=== PATIENT | male | born 1965 | race Caucasian/White ===

== ENCOUNTER 2019-08-17 13:26 | Outpatient (CLI) | payer MEDICAID, SELFPAY ==
--- NOTE | 2019-08-17 13:38 | MR_ITS ---
WS: [id number] MRI LUMBAR SPINE WITH CONTRAST TECHNIQUE: Sagittal T1, T2 and STIR imaging. Axial T1 and T2 imaging. Post gadolinium imaging was obt ained. CLINICAL INFORMATION: POST-OPERATIVE STATE COMPARISON: CT 8 6019 and MRI 2 19,019 FINDINGS: Mild lumbar curve. No acute compression. Postoperative changes L3-4 laminectomy defects with fluid in the surgical bed. Enhancement along the surgical incision. Hemilaminectomy defects. No drainable flu id collections. Extensive paravertebral and small amount of dorsal and ventral epidural enhancement a t the L3-4 level. No evidence of epidural abscess. Enhancing cauda equina nerve root likely reactive. Moderate residual central canal stenosis L3-4 due to disc bulging with a broad-based central protrus ion with facet arthropathy and ligament flavum hypertrophy. L1-L2: Normal. L2-L3: Mild annular bulging. Mild central canal stenosis. Moderate facet arthropathy. Foramen are pat ent. L3-L4: Postoperative hemilaminectomy defects small amount of fluid in the surgical bed. Postoperative enhancement with epidural enhancement. No epidural abscess. Moderate residual central canal stenosis . Moderate bilateral foraminal narrowing. L4-L5: Mild annular bulging with narrowing of the subarticular recess bilaterally. Mild to moderate l eft greater than right foraminal narrowing. Mild central canal stenosis. Moderate facet arthropathy w ith ligament flavum hypertrophy. L5-S1: Mild annular bulging. Mild facet arthropathy. Spinal canal and foramen are patent. Visualized pelvic bony structures: Normal. Paravertebral soft tissues: Normal MR/MR lumbar spine wo/w con [id number] IMPRESSION: 1. Recent appearing postoperative changes L3-4 with laminectomy defects. Moder ate residual central canal stenosis due to disc bulging with facet arthropathy and ligament flavum hypertrophy. 2. Edema with a small amount of fluid in the surgical bed and laminectomy defe cts not drainable. Paravertebral enhancement likely postoperative. No evidence of epidural abscess. 3. Moderate bilateral L3-4 foraminal narrowing. 4. Mild central canal stenosis L4-5 with mild to moderate left foraminal narro wing. 5. Mild central canal stenosis L2-3.
== END 2019-08-17 13:27 | disposition home or self-care (01) ==
LOC: RADSHAW 13:28
PROVIDERS: Family Provider Family Medicine; Visit Provider Specialist
DX: M96.1 Postlaminectomy syndrome, not elsewhere classified (principal); M48.061 Spinal stenosis, lumbar region without neurogenic claudication
CPT/HCPCS: 72158; A9579

== ENCOUNTER 2019-09-16 09:46 | Outpatient (CLI) | payer SELFPAY ==
--- NOTE | 2019-09-16 09:52 | XR_ITS ---
WS: [id number] LUMBAR SPINE FLEXION AND EXTENSION TECHNIQUE: 3 views of the lumbar spine: Lateral neutral, flexion, and extension views. CLINICAL INFORMATION: POST OPERATIVE STATE COMPARISON: Radiograph May 25, [address] March 17, 2019 FINDINGS: Grade 1 anterolisthesis L3 on L4 measuring 4.8 mm is new compared to prior CT 8 . This increases on flexion to 6 mm and decreases on extension to 4 mm. Mild disc space narrowing worse at L3-L4 and L4-L5. Moderate facet arthropathy L4-L5 and L5-S1. Mild chronic appearing compression superior endpla te T11. XR/XR lumbar spine f/e only [id number] IMPRESSION: Grade 1 anterolisthesis L3 on L4 with mild flexion/extension instability
== END 2019-09-16 09:47 | disposition home or self-care (01) ==
LOC: WPI 09:51
PROVIDERS: Family Provider Family Medicine; Visit Provider Specialist
DX: Z98.890 Other specified postprocedural states (principal)
CPT/HCPCS: 72120

== ENCOUNTER 2021-05-27 21:11 | Emergency (ER) | payer MEDICARE, MEDICAID, SELFPAY ==
[2021-05-27 21:24] VITALS: BP 173/113; PULSE 89; RESP 18; TEMP 36.4; O2SAT 98; BMI 27.3
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
[2021-05-27] MEDS: HYDROcodone-acetaminophen 7.5-325 mg Tablet 1 TAB PO (22:39)
[2021-05-27 22:45] VITALS: BP 173/113; PULSE 98; RESP 18; O2SAT 98
--- NOTE | 2021-05-29 14:59 | DCPLANNER ---
service department manager had message to schedule a followup appointment for patient with ENT. service department manager emailed patients information to Vernell Ramirez and Mary at [facility] General Surgery / ENT clinic. Patients information will be printed and reviewed. Clinic will call patient with appointment information.
--- NOTE | 2021-06-22 10:34 | DCPLANNER ---
manager agency was told that clinic tried to call patient on 05.29.21, 05.30.21 and 06.01.21 and that a letter was sent to patient on 06.01.21. Clinic is waiting for patient to contact clinic to schedule an appointment.
== END 2021-05-27 22:40 | disposition home or self-care (01) ==
PROVIDERS: Emergency Provider Emergency Medicine; PCP Family Medicine
DX: S02.40CA Maxillary fracture, right side, initial encounter for closed fracture (principal); F17.210 Nicotine dependence, cigarettes, uncomplicated; Y04.2XXA Assault by strike against or bumped into by another person, initial encounter
CPT/HCPCS: 70450; 70486; 99283

== ENCOUNTER 2023-01-15 05:45 | Emergency (ER) | payer MEDICARE, MEDICAID, SELFPAY ==
[2023-01-15 05:47] VITALS: BP 162/107; PULSE 89; RESP 22; TEMP 36.2; O2SAT 92; BMI 25.8
--- NOTE | 2023-01-15 05:47 | XRR_ITS ---
PROCEDURE INFORMATION: Exam: XR Chest Exam date and time: 01/15/2023 6:02 AM Age: 57 years old Clinical indication: Cough and shortness of breath; Smoker's cough; Additional info: Dyspnea/cough TECHNIQUE: Imaging protocol: Radiologic exam of the chest. Views: 1 view. COMPARISON: MR shoulder LT wo/w con [id number] 02/25/2018 1:00 PM FINDINGS: Lungs: The lungs are somewhat hyperinflated with increased interstitial markings, likely representing COPD. No evidence of focal consolidation to suggest pneumonia. Pleural spaces: Unremarkable. No pleural effusion. No pneumothorax. Heart/Mediastinum: Stable cardiomediastinal silhouette. Bones/joints: Unremarkable. XR/XR chest 1V portable [id number] IMPRESSION: No evidence of focal consolidation. COPD changes. Superimposed pulmonary congestion can have this appearance.
[2023-01-15 06:02] LABS: Basophils # 0.1 10^3/uL (0.0-0.1); Basophils % 0.6 %; Eosinophils # 0.3 10^3/uL (0.0-0.8); Eosinophils % 2.3 %; Lymphocytes % 16.1 %; Mean Corpuscular HGB Conc 31.9 g/dL (30.0-36.0); Mean Corpuscular Hemoglobin 29.8 pg (28.0-34.0); Mean Corpuscular Volume 93.4 fl (80-94); Mean Platelet Volume 11.8 fL (7.4-10.4); Monocytes # 0.6 10^3/uL (0.2-0.9); Monocytes % 4.9 %; Neutrophils # 9.39 10^3/uL (1.8-7.7); Neutrophils % 75.7 %; Nucleated Red Blood Cells % 0 %; Platelet Count 246 10^3/cmm (130-400); Red Blood Count 5.03 10^6/uL (4.1-5.3); Red Cell Distribution Width 12.9 % (12.1-15.1); White Blood Count 12.4 10^3/uL (4.0-10.0)
--- NOTE | 2023-01-15 06:03 | ECG_ITS ---
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 Measurements Intervals [place] Rate: 81 P: 71 NE: 136 QRS: 73 QRSD: 80 T: 80 QT: 448 QTc: 521 Interpretive Statements SINUS RHYTHM POSSIBLE RIGHT ATRIAL ENLARGEMENT [0.25mV P-WAVE] LEFT ATRIAL ENLARGEMENT [-0.15mV P-WAVE IN V1/V2] POSSIBLE LEFT VENTRICULAR HYPERTROPHY [VOLTAGE CRITERIA PLUS LAE OR QRS WIDENING] PROLONGED QT INTERVAL No previous ECG available for comparison Electronically Signed On 01-15-2023 16:51:35 CDT by Yoly Aleman M.D. [id number]
--- NOTE | 2023-01-15 06:12 | ED_ITS ---
HPI - SOB/Dyspnea General: Chief Complaint: Shortness of Breath/Dyspnea Stated Complaint: SOB Time Seen by Provider: 01/15/23 05:47 Source: patient Mode of arrival: EMS History of Present Illness: HPI Narrative: 57-year-old male comes in complaining shortness of breath wheezing and cough. Progressively worse last few days. Patient had albuterol nebulizer in route with EMS and noted significant improvement she still he still had a little bit of wheezing when he arrived here mild productive cough no vomiting no diarrhea no fever sweats or chills MD elicited complaint: shortness of breath and cough Onset (ago): day(s) Timing: constant Severity: mild Exacerbating factors: exertion and coughing Relieving factors: rest and bronchodilators Associated symptoms: Reports chest congestion and cough; Deny abdominal pain, chest pain, diaphoresis, dizziness, extremity pain, fever(s), hemoptysis, lightheadedness, myalgias, nausea, orthopnea, palpitations, paresthesias, polydipsia, polyuria, rash, sense of impending doom, syncope or vomiting Treatment prior to arrival: bronchodilator Review of Systems Const: Denies: fever(s), chills, fatigue, malaise or diaphoresis ENMT: Denies: throat pain, ear or mastoid pain, nasal discharge or nasal congestion Card: Denies: chest pain, palpitations, lightheadedness, syncope or orthopnea Resp: Reports: dyspnea, non-productive cough, wheezing and chest congestion; Denies: hemoptysis GI: Denies: abdominal pain, nausea or vomiting : Denies: flank pain, dysuria, urinary frequency or urinary urgency Musc: Denies: neck pain, back pain or extremity pain Skin/Breast: Denies: rash or pruritus Neuro: Denies: dizziness Endo: Denies: polyuria or polydipsia PFSH ED PFSH: Medical History Hypertension Migraine Stenosis, spinal, lumbar Surgical History H/O shoulder surgery H/O skin graft Hx of tonsillectomy S/P lumbar laminectomy (05/25/19) Dr Hinojosa bilateral L3-4 laminotomy/foraminotomy. Family History Mother CAD (coronary artery disease) Father Diabetes Social History Smoking and tobacco status: current every day smoker Alcohol intake: current Alcohol intake frequency: few times a month Substance/Drug Use: never Lives independently: Yes Household members: spouse Marital status: Current occupational status: disabled Physical Exam Const: GENERAL APPEARANCE: cooperative and comfortable ORIENTATION/CONSCIOUSNESS: Yes awake, Yes oriented to person, Yes oriented to place and Yes oriented to time HENMT: COMMON NORMALS: normocephalic, atraumatic and hearing grossly normal bilaterally HEAD & SCALP: normocephalic and atraumatic Resp: COMMON NORMALS: normal respiratory effort, No retractions and No use of accessory muscles AUSCULTATION: wheezes Cardio: COMMON NORMALS: regular rate, regular rhythm and No murmurs present (Cardio) RATE: regular rate RHYTHM: regular rhythm GI: COMMON NORMALS: Soft to palpation and No hepatosplenomegaly present AUSCULTATION: Yes normoactive bowel sounds PALPATION: Yes Soft to palpation, No Tenderness to palpation present (GI), No Guarding due to palpation present (GI) and Yes No hepatosplenomegaly present Extremity: COMMON NORMALS: normal to inspection, capillary refill normal, no clubbing, cyanosis or edema, no calf tenderness and no pedal edema Neuro: SENSORIUM/ORIENTATION: Yes oriented to person, Yes oriented to place and Yes oriented to time Skin: COMMON NORMALS: no rashes or lesions noted GENERAL SKIN EXAM: no rashes or lesions noted Course Vital Signs: Vital signs: Vital Signs Temperature 97.1 F L 01/15/23 05:47 Pulse Rate 86 01/15/23 08:07 Respiratory Rate 16 01/15/23 08:07 Blood Pressure 164/98 01/15/23 08:07 Pulse Oximetry 96 01/15/23 08:55 Oxygen Delivery Me thod Room Air 01/15/23 08:07 Oxygen Flow Rate 3 01/15/23 07:30 MDM - SOB/Dyspnea Medical Decision Making Improved after steroids and DuoNeb here. Discharge patient home on steroid taper course of doxycycline start Symbicort 1 puff twice daily albuterol to use as needed set him up for pulmonology. Return if has further problems. We did evaluate for home O2 which was negative. Medical Records I reviewed the patient's medical records. Lab Data I reviewed the patient's lab results. 01/15/23 05:55 01/15/23 06:36 Labs/Radiology: Radiology Impressions Chest X-Ray 01/15/23 05:47 IMPRESSION: No evidence of focal consolidation. COPD changes. Superimposed pulmonary congestion can have this appearance. Laboratory Results WBC 12.4 10^3/uL (4.0-10.0) H 01/15/23 05:55 RBC 5.03 10^6/uL (4.1-5.3) 01/15/23 05:55 Hgb 15.0 g/dL (11.7-16.6) 01/15/23 05:55 Hct 47.0 % (42.0-52.0) 01/15/23 05:55 MCV 93.4 fl (80-94) 01/15/23 05:55 MCH 29.8 pg (28.0-34.0) 01/15/23 05:55 MCHC 31.9 g/dL (30.0-36.0) 01/15/23 05:55 RDW 12.9 % (12.1-15.1) 01/15/23 05:55 Plt Count 246 10^3/cmm (130-400) 01/15/23 05:55 MPV 11.8 fL (7.4-10.4) H 01/15/23 05:55 Neut % (Auto) 75.7 % 01/15/23 05:55 Lymph % (Auto) 16.1 % 01/15/23 05:55 [place] % (Auto) 4.9 % 01/15/23 05:55 Eos % (Auto) 2.3 % 01/15/23 05:55 Baso % (Auto) 0.6 % 01/15/23 05:55 Neut # (Auto) 9.39 10^3/uL (1.8-7.7) H 01/15/23 05:55 Lymph # (Auto) 2.0 10^3/uL (0.8-4.8) 01/15/23 05:55 [place] # (Auto) 0.6 10^3/uL (0.2-0.9) 01/15/23 05:55 Eos # (Auto) 0.3 10^3/uL (0.0-0.8) 01/15/23 05:55 Baso # (Auto) 0.1 10^3/uL (0.0-0.1) 01/15/23 05:55 Nucleated RBC % (auto) 0 % 01/15/23 05:55 Nucleated RBCs # 0.0 /100WBC 01/15/23 05:55 Sodium 140 mmol/L (136-145) 01/15/23 06:36 Potassium 3.4 mmol/L (3.5-5.1) L 01/15/23 06:36 Chloride 104 mmol/L (98-107) 01/15/23 06:36 Carbon Dioxide 26 mmol/L (22-29) 01/15/23 06:36 Anion Gap 13.4 (5-19) 01/15/23 06:36 BUN 18 mg/dL (6-20) 01/15/23 06:36 Creatinine 1.2 mg/dL (0.7-1.2) 01/15/23 06:36 GFR Calculation 62.2 mL/min (90-130) L 01/15/23 06:36 Glucose 86 mg/dL (65-115) 01/15/23 06:36 Calculated Osmolality 291 mOsm/kg (285-295) 01/15/23 06:36 Calcium 8.5 mg/dL (8.5-10.5) 01/15/23 06:36 Total Bilirubin 0.3 mg/dL (0.15-1.2) 01/15/23 06:36 AST 53 U/L (0-40) H 01/15/23 06:36 ALT 39 U/L (0-41) 01/15/23 06:36 Alkaline Phosphatase 89 U/L (40-130) 01/15/23 06:36 Total Protein 6.7 g/dL (6.6-8.7) 01/15/23 06:36 Albumin 3.8 g/dL (3.5-5.2) 01/15/23 06:36 Globulin 2.9 g/dL (1.3-4.6) 01/15/23 06:36 Discharge Plan Discharge Patient Disposition: Home Clinical Impression: Acute exacerbation of chronic obstructive airways disease Condition: Stable Prescriptions: New Symbicort 80-4.5 mcg/actuation HFA aerosol inhaler 2 puff inhalation BID Qty: 10.2 0RF doxycycline hyclate 100 mg capsule 100 mg PO BID 10 Days Qty: 20 0RF prednisone 20 mg tablet 20 mg PO TID Qty: 15 0RF Rx Instructions: 1 p.o. 3 times daily x3 days, 1 p.o. twice daily x2 days, 1 p.o. daily x2 days albuterol sulfate 90 mcg/actuation HFA aerosol inhaler 2 inh INHALATION Q4H PRN (Reason: shortness of breath or wheezing) Qty: 18 0RF No Action ibuprofen 800 mg tablet 800 mg PO BID oxycodone 15 mg tablet 15 mg PO BID PRN hydrocodone-acetaminophen 5-325 mg tablet 1 tab PO Q6H PRN (Reason: pain) Qty: 14 0RF Discharge Orders: Discharge ED (Routine); Ordered 01/15/23 Ordered By: Davis Quick Referrals: Nano Cohen DO [Primary Care Provider] - Patient Instructions: Opioid Safety, Pain Management Activity Restrictions/Additional Instructions: You are seen today for complaints shortness of breath. Chest x-ray shows evidence of COPD. 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 Follow-up with primary care doctor within the week. Coding Level of Care Code ED Box Sealing Machine Feeder for Zoë Arce
[2023-01-15 06:25] VITALS: BP 175/109; PULSE 76; RESP 16; O2SAT 92
[2023-01-15] MEDS: dexamethasone 10 mg/mL INJ IVP (06:40)
--- NOTE | 2023-01-15 06:52 | PC.NURSE ---
Received report from Gildardo MATHUR. Assuming care for patient at this time.
[2023-01-15 07:04] LABS: Alanine Aminotransferase 39 U/L (0-41); Albumin Level 3.8 g/dL (3.5-5.2); Alkaline Phosphatase 89 U/L (40-130); Aspartate Amino Transferase 53 U/L (0-40); Blood Urea Nitrogen 18 mg/dL (6-20); Calcium 8.5 mg/dL (8.5-10.5); Carbon Dioxide 26 mmol/L (22-29); Chloride 104 mmol/L (98-107); Creatinine Clr Calc Pharmacy 66.0529; Globulin 2.9 g/dL (1.3-4.6); Glomerular Filtration Rate 62.2 mL/min (90-130); Glucose 86 mg/dL (65-115); Osmolality Calculated 291 mOsm/kg (285-295); Sodium 140 mmol/L (136-145); Total Bilirubin 0.3 mg/dL (0.15-1.2); Total Protein 6.7 g/dL (6.6-8.7)
[2023-01-15 07:09] LABS: Anion Gap 13.4 (5-19); Potassium 3.4 mmol/L (3.5-5.1)
[2023-01-15] MEDS: ipratropium-albuterol 3 mL Neb INHALATION (07:27)
[2023-01-15 07:30] VITALS: PULSE 81; RESP 22; O2SAT 95
[2023-01-15 07:38] VITALS: PULSE 75
[2023-01-15] MEDS: hyDRALAzine 20 mg/mL INJ 1 mL 10 MG IVP (07:58)
[2023-01-15] MEDS: amlodipine 5 mg Tablet PO (07:59)
[2023-01-15] MEDS: acetaminophen 325 mg Tablet 650 MG PO (07:59)
[2023-01-15 08:07] VITALS: BP 164/98; PULSE 86; RESP 16; O2SAT 93
[2023-01-15 08:55] VITALS: O2SAT 93; O2SAT 96
--- NOTE | 2023-01-15 14:11 | DCPLANNER ---
Addendum entered by Chelo Ronquillo 03/22/23 10:43: Patient did not attend appointment Addendum entered by Chelo Ronquillo 01/22/23 10:36: Patient has a follow up appointment scheduled for March at 1:[address] Zapata at [facility]. Original Note: business segment manager had message to schedule a follow up appointment for patient with pulmonology. business segment manager sent patients information to the front office staff at [facility]. Patients information will be printed and reviewed. Clinic will call patient with appointment information.
== END 2023-01-15 09:51 | disposition home or self-care (01) ==
PROVIDERS: Emergency Provider Family Medicine; PCP Family Medicine
DX: J44.1 Chronic obstructive pulmonary disease with (acute) exacerbation (principal)
CPT/HCPCS: 71045; 80053; 85025; 93005; 94640; 96374; 96375; 99285; J0360; J1100

== ENCOUNTER 2023-02-08 16:47 | Emergency (ER) | payer MEDICARE, MEDICAID, SELFPAY ==
[2023-02-08 17:15] VITALS: BP 151/80; PULSE 73; RESP 16; TEMP 36.8; O2SAT 97; BMI 26.2
== END 2023-02-08 23:46 | disposition left against medical advice (07) ==
PROVIDERS: Emergency Provider Family Medicine; PCP Family Medicine
DX: Z53.21 Procedure and treatment not carried out due to patient leaving prior to being seen by health care provider (principal)

== ENCOUNTER 2023-02-27 07:03 | Emergency (ER) | payer MEDICARE, MEDICAID, SELFPAY ==
--- NOTE | 2023-02-27 07:23 | XRR_ITS ---
PROCEDURE INFORMATION: Exam: XR Chest Exam date and time: 02/27/2023 7:35 AM Age: 57 years old Clinical indication: Shortness of breath; Additional info: SOB TECHNIQUE: Imaging protocol: Radiologic exam of the chest. Views: 1 view. COMPARISON: CR (CHEST, ) 01/15/2023 6:02 AM FINDINGS: Lungs: Stable exam with hyperinflated lungs showing diffuse increased reticular lung markings and sequela of old granulomatous disease. No consolidation. Pleural spaces: Unremarkable. No pleural effusion. No pneumothorax. Heart/Mediastinum: Unremarkable. No cardiomegaly. Bones/joints: Bilateral shoulder degenerative changes with single screw at the left glenoid. XR/XR chest 1V portable [id number] IMPRESSION: Stable increased pulmonary reticulation without acute findings.
[2023-02-27 07:26] VITALS: BP 162/93; PULSE 80; TEMP 36.5; O2SAT 97; BMI 25.8
--- NOTE | 2023-02-27 07:34 | ECG_ITS ---
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
--- NOTE | 2023-02-27 07:37 | ED_ITS ---
Documented by User: ABENA May 02/27/23 12:32 HPI - SOB/Dyspnea General: Chief Complaint: Shortness of Breath/Dyspnea Stated Complaint: SOB Time Seen by Provider: 02/27/23 07:13 History of Present Illness: HPI Narrative: Patient is a 57-year-old male who comes to the ED with shortness of breath. He has been dealing with the shortness of breath for the past couple months and he has been told that he has the start of COPD. He states that approximately 3 days ago, he started developing body aches, productive cough with clear sputum and worsening shortness of breath. Denies any chest pain. Patient is a current tobacco smoker and has over a [id number] history. Denies any fevers, chest pain, abdominal pain, nausea/vomiting, bladder or bowel symptoms. Associated symptoms: Deny abdominal pain, chest pain, fever(s), nausea, orthopnea, palpitations or vomiting Review of Systems Const: Reports: body aches; Denies: fever(s), chills or fatigue Eyes: Denies: change in vision or eye discomfort ENMT: Denies: throat pain, odynophagia, nasal discharge or nasal congestion Card: Denies: chest pain, palpitations, edema, swelling of feet/ankles, dyspnea on exertion or orthopnea Resp: Reports: dyspnea and productive cough; Denies: non-productive cough GI: Denies: abdominal pain, nausea, vomiting, diarrhea, constipation or hematochezia : Denies: flank pain, difficulty urinating, dysuria or hematuria Musc: Denies: neck pain, back pain or extremity swelling Skin/Breast: Denies: rash or new lesions Neuro: Denies: headache(s), numbness in extremities or weakness in extremities PFS ED PFSH: Medical History Hypertension Migraine Stenosis, spinal, lumbar Surgical History H/O shoulder surgery H/O skin graft Hx of tonsillectomy S/P lumbar laminectomy (05/25/19) Dr Hinojosa bilateral L3-4 laminotomy/foraminotomy. Family History Mother CAD (coronary artery disease) Father Diabetes Social History Smoking and tobacco status: current every day smoker Alcohol intake: current Alcohol intake frequency: few times a month Substance/Drug Use: never Lives independently: Yes Household members: spouse Marital status: Current occupational status: disabled Physical Exam Const: COMMON NORMALS: no acute distress, patient oriented x3 and alert HENMT: COMMON NORMALS: normocephalic HEAD & SCALP: normocephalic MOUTH: Normal oral and palatal mucosa present THROAT: posterior oropharynx normal and uvula midline Neck/C-Spine: COMMON NORMALS: supple GENERAL: Yes normal visual inspection Resp: COMMON NORMALS: normal respiratory effort, No retractions and No use of accessory muscles AUSCULTATION: diminished lung sounds bilateral in the lower lung cruz Cardio: COMMON NORMALS: regular rate, regular rhythm, S1 normal heart sound present, S2 normal heart sound present, No gallops present (Cardio), No clicks present (Cardio), No murmurs present (Cardio) and Peripheral pulses 2+ throughout RATE: regular rate RHYTHM: regular rhythm HEART SOUNDS: S1 normal heart sound present and S2 normal heart sound present PERIPHERAL PULSES: Peripheral pulses 2+ throughout GI: COMMON NORMALS: Normal to inspection, nondistended, normoactive bowel sounds present, Soft to palpation, non-tender and no masses PALPATION: Yes Soft to palpation : COMMON NORMALS: Yes no CVA tenderness BLADDER/KIDNEY EXAM: Yes no CVA tenderness Back/Pelvis: COMMON NORMALS: no CVA tenderness Extremity: COMMON NORMALS: normal to inspection Neuro: COMMON NORMALS: patient oriented x3 SENSORIUM/ORIENTATION: Yes alert GAIT: Yes Normal gait present Skin: GENERAL SKIN EXAM: dry skin Course Vital Signs: Vital signs: Vital Signs Temperature 97.7 F 02/27/23 07:26 Pulse Rate 71 02/27/23 11:00 Respiratory Rate 18 02/27/23 11:00 Blood Pressure 157/98 02/27/23 11:00 Pulse Oximetry 99 02/27/23 11:00 Oxygen Delivery Me thod Room Air 02/27/23 11:00 MDM - SOB/Dyspnea Medical Decision Making Patient is a 57-year-old male who comes to the ED with shortness of breath, productive cough and body aches. Patient has a history of COPD. Denies any fevers, chest pain, vomiting, bladder or bowel symptoms. Vitals are stable. Exam of patient demonstrates diminished lung sounds in the lower lung cruz bilaterally but rest of exam is benign. Patient appears nontoxic and in no acute distress or pain. CBC and CMP were unremarkable. BNP was 4366 and baseline troponin 31 and 2-hour troponin was 27. Chest x-ray showed no acute findings. I talked with Dr. Quick about patient case and his elevated BNP, negative troponins and EKG showing prolonged QT interval. He recommended putting patient on amlodipine and contacting Dr. Aleman the motor power connector and have her review his EKGs. I contacted Dr. Aleman and she reviewed the EKGs and patient's labs she recommended patient have outpatient echocardiogram and set him up with Holter monitor. I placed an order with case management for patient to be referred to motor power connector for follow-up, outpatient echocardiogram and Holter monitor. Patient was stable for discharge home and diagnosed with COPD exacerbation, shortness of breath and prolonged QT interval. He was sent home with a prescription for an antibiotic, Medrol Dosepak, albuterol inhaler and amlodipine. Patient told that case management will be getting in touch with him to set up outpatient appointment for echocardiogram, motor power connector and Holter monitor. Strict return to ED precautions given. Patient understood and agreed with plan. Lab Data I reviewed the patient's lab results. 02/27/23 07:41 02/27/23 07:41 Labs/Radiology: Radiology Impressions Chest X-Ray 02/27/23 07:23 IMPRESSION: Stable increased pulmonary reticulation without acute findings. Laboratory Results WBC 10.6 10^3/uL (4.0-10.0) H 02/27/23 07:41 RBC 4.90 10^6/uL (4.1-5.3) 02/27/23 07:41 Hgb 14.7 g/dL (11.7-16.6) 02/27/23 07:41 Hct 45.1 % (42.0-52.0) 02/27/23 07:41 MCV 92.0 fl (80-94) 02/27/23 07:41 MCH 30.0 pg (28.0-34.0) 02/27/23 07:41 MCHC 32.6 g/dL (30.0-36.0) 02/27/23 07:41 RDW 13.0 % (12.1-15.1) 02/27/23 07:41 Plt Count 314 10^3/cmm (130-400) 02/27/23 07:41 MPV 10.3 fL (7.4-10.4) 02/27/23 07:41 Neut % (Auto) 68.8 % 02/27/23 07:41 Lymph % (Auto) 19.2 % 02/27/23 07:41 Hunt % (Auto) 7.4 % 02/27/23 07:41 Eos % (Auto) 3.6 % 02/27/23 07:41 Baso % (Auto) 0.7 % 02/27/23 07:41 Neut # (Auto) 7.33 10^3/uL (1.8-7.7) 02/27/23 07:41 Lymph # (Auto) 2.0 10^3/uL (0.8-4.8) 02/27/23 07:41 Hunt # (Auto) 0.8 10^3/uL (0.2-0.9) 02/27/23 07:41 Eos # (Auto) 0.4 10^3/uL (0.0-0.8) 02/27/23 07:41 Baso # (Auto) 0.1 10^3/uL (0.0-0.1) 02/27/23 07:41 Nucleated RBC % (auto) 0 % 02/27/23 07:41 Nucleated RBCs # 0.0 /100WBC 02/27/23 07:41 Sodium 138 mmol/L (136-145) 02/27/23 07:41 Potassium 4.2 mmol/L (3.5-5.1) 02/27/23 07:41 Chloride 104 mmol/L (98-107) 02/27/23 07:41 Carbon Dioxide 26 mmol/L (22-29) 02/27/23 07:41 Anion Gap 12.2 (5-19) 02/27/23 07:41 BUN 13 mg/dL (6-20) 02/27/23 07:41 Creatinine 1.1 mg/dL (0.7-1.2) 02/27/23 07:41 GFR Calculation 68.8 mL/min (90-130) L 02/27/23 07:41 Glucose 115 mg/dL (65-115) 02/27/23 07:41 Calculated Osmolality 287 mOsm/kg (285-295) 02/27/23 07:41 Calcium 8.4 mg/dL (8.5-10.5) L 02/27/23 07:41 Total Bilirubin 0.2 mg/dL (0.15-1.2) 02/27/23 07:41 AST 20 U/L (0-40) 02/27/23 07:41 ALT 20 U/L (0-41) 02/27/23 07:41 Alkaline Phosphatase 90 U/L (40-130) 02/27/23 07:41 Troponin T Baseline 31 ng/L (0-15) H 02/27/23 07:41 Troponin T 120 Minute 27.12 ng/L (0-15) H 02/27/23 09:48 Delta Troponin T -3.88 ABS# (0-10) L 02/27/23 09:48 NT-Pro-B Natriuret Pep 4366 pg/mL (0-125) H 02/27/23 07:41 Total Protein 6.2 g/dL (6.6-8.7) L 02/27/23 07:41 Albumin 4.0 g/dL (3.5-5.2) 02/27/23 07:41 Globulin 2.2 g/dL (1.3-4.6) 02/27/23 07:41 Influenza Type A Ag negative (Negative) 02/27/23 07:49 Influenza Type B Ag negative (Negative) 02/27/23 07:49 SARS-CoV-2 Ag (Rapid) negative (Negative) 02/27/23 07:49 EKG Data EKG 1: EKG Interpretation Date: 02/27/23 Interpretation: Sinus rhythm with marked sinus arrhythmia. No ST segment elevation or depres yeny seen. Discharge Plan Discharge Patient Disposition: Home Clinical Impression: COPD exacerbation, Shortness of breath, Prolonged Q-T interval on ECG Condition: Stable Prescriptions: New amlodipine 5 mg tablet 5 mg PO DAILY Qty: 30 0RF methylprednisolone 4 mg tablets,dose pack See Rx Instructions .ROUTE .COMPLEX Qty: 21 0RF Rx Instructions: orally per package directions albuterol sulfate 90 mcg/actuation HFA aerosol inhaler 2 inh inhalation Q6H PRN (Reason: shortness of breath or wheezing) Qty: 8.5 0RF No Action budesonide-formoterol [Symbicort] 80-4.5 mcg/actuation HFA aerosol inhaler 2 puff inhalation BID Qty: 10.2 0RF albuterol sulfate 90 mcg/actuation HFA aerosol inhaler 2 inh INHALATION Q4H PRN (Reason: shortness of breath or wheezing) Qty: 18 0RF Discharge Orders: Discharge ED (Routine); Ordered 02/27/23 Ordered By: Florencio Miller Referrals: Nano Cohen DO [Primary Care Provider] - Discharge Diet: Regular Discharge Activity: Increase activity as tolerated Patient Instructions: COPD (Chronic Obstructive Pulmonary Disease) (DC) Activity Restrictions/Additional Instructions: Follow-up with medical provider as directed. Case management should be contacted in the next several days to set up an appointment with motor power connector, outpatient echocardiogram and Holter monitor. Take medications as prescribed. Return to the ER or your medical provider if condition worsens. Please read and understand discharge instructions. Thank you for choosing [facility] for your healthcare needs today. Please realize this is an emergency room and that we are providing you with a medical screening exam and this may not be complete and all inclusive of all the testing and or work up that you may need to determine your ailment or severity of your illness. It is very important that you follow up as instructed or that you return to the Emergency Department should you have concerns or if your c ondition changes or worsens in any way. Coding Level of Care Code ED Billiard Table Repairer for Chg Fwd Documented by User: Davis Quick DO 02/27/23 15:01 HPI - SOB/Dyspnea General: Chief Complaint: Shortness of Breath/Dyspnea Stated Complaint: SOB Time Seen by Provider: 02/27/23 07:13 PFSH ED PFSH: Medical History Hypertension Migraine Stenosis, spinal, lumbar Surgical History H/O shoulder surgery H/O skin graft Hx of tonsillectomy S/P lumbar laminectomy (05/25/19) Dr Hinojosa bilateral L3-4 laminotomy/foraminotomy. Family History Mother CAD (coronary artery disease) Father Diabetes Social History Smoking and tobacco status: current every day smoker Alcohol intake: current Alcohol intake frequency: few times a month Substance/Drug Use: never Lives independently: Yes Household members: spouse Marital status: Current occupational status: disabled Course Vital Signs: Vital signs: Vital Signs Temperature 97.7 F 02/27/23 07:26 Pulse Rate 71 02/27/23 11:00 Respiratory Rate 18 02/27/23 11:00 Blood Pressure 157/98 02/27/23 11:00 Pulse Oximetry 99 02/27/23 11:00 Oxygen Delivery Me thod Room Air 02/27/23 11:00 MDM - SOB/Dyspnea Medical Decision Making Patient is a 57-year-old male who comes to the ED with shortness of breath, productive cough and body aches. Patient has a history of COPD. Denies any fevers, chest pain, vomiting, bladder or bowel symptoms. Vitals are stable. Exam of patient demonstrates diminished lung sounds in the lower lung cruz bilaterally but rest of exam is benign. Patient appears nontoxic and in no acute distress or pain. CBC and CMP were unremarkable. BNP was 4366 and baseline troponin 31 and 2-hour troponin was 27. Chest x-ray showed no acute findings. I talked with Dr. Quick about patient case and his elevated BNP, negative troponins and EKG showing prolonged QT interval. He recommended putting patient on amlodipine and contacting Dr. Aleman the motor power connector and have her review his EKGs. I contacted Dr. Aleman and she reviewed the EKGs and patient's labs she recommended patient have outpatient echocardiogram and set him up with Holter monitor. I placed an order with case management for patient to be referred to motor power connector for follow-up, outpatient echocardiogram and Hol ter monitor. Patient was stable for discharge home and diagnosed with COPD exacerbation, shortness of breath and prolonged QT interval. He was sent home with a prescription for an antibiotic, Medrol Dosepak, albuterol inhaler and amlodipine. Patient told that case management will be getting in touch with him to set up outpatient appointment for echocardiogram, motor power connector and Holter monitor. Strict return to ED precautions given. Patient understood and agreed with plan. Chart reviewed and patient discussed with midlevel. Agree with assessment and plan. Lab Data 02/27/23 07:41 02/27/23 07:41 Labs/Radiology: Radiology Impressions Chest X-Ray 02/27/23 07:23 IMPRESSION: Stable increased pulmonary reticulation without acute findings. Laboratory Results WBC 10.6 10^3/uL (4.0-10.0) H 02/27/23 07:41 RBC 4.90 10^6/uL (4.1-5.3) 02/27/23 07:41 Hgb 14.7 g/dL (11.7-16.6) 02/27/23 07:41 Hct 45.1 % (42.0-52.0) 02/27/23 07:41 MCV 92.0 fl (80-94) 02/27/23 07:41 MCH 30.0 pg (28.0-34.0) 02/27/23 07:41 MCHC 32.6 g/dL (30.0-36.0) 02/27/23 07:41 RDW 13.0 % (12.1-15.1) 02/27/23 07:41 Plt Count 314 10^3/cmm (130-400) 02/27/23 07:41 MPV 10.3 fL (7.4-10.4) 02/27/23 07:41 Neut % (Auto) 68.8 % 02/27/23 07:41 Lymph % (Auto) 19.2 % 02/27/23 07:41 Hunt % (Auto) 7.4 % 02/27/23 07:41 Eos % (Auto) 3.6 % 02/27/23 07:41 Baso % (Auto) 0.7 % 02/27/23 07:41 Neut # (Auto) 7.33 10^3/uL (1.8-7.7) 02/27/23 07:41 Lymph # (Auto) 2.0 10^3/uL (0.8-4.8) 02/27/23 07:41 Hunt # (Auto) 0.8 10^3/uL (0.2-0.9) 02/27/23 07:41 Eos # (Auto) 0.4 10^3/uL (0.0-0.8) 02/27/23 07:41 Baso # (Auto) 0.1 10^3/uL (0.0-0.1) 02/27/23 07:41 Nucleated RBC % (auto) 0 % 02/27/23 07:41 Nucleated RBCs # 0.0 /100WBC 02/27/23 07:41 Sodium 138 mmol/L (136-145) 02/27/23 07:41 Potassium 4.2 mmol/L (3.5-5.1) 02/27/23 07:41 Chloride 104 mmol/L (98-107) 02/27/23 07:41 Carbon Dioxide 26 mmol/L (22-29) 02/27/23 07:41 Anion Gap 12.2 (5-19) 02/27/23 07:41 BUN 13 mg/dL (6-20) 02/27/23 07:41 Creatinine 1.1 mg/dL (0.7-1.2) 02/27/23 07:41 GFR Calculation 68.8 mL/min (90-130) L 02/27/23 07:41 Glucose 115 mg/dL (65-115) 02/27/23 07:41 Calculated Osmolality 287 mOsm/kg (285-295) 02/27/23 07:41 Calcium 8.4 mg/dL (8.5-10.5) L 02/27/23 07:41 Total Bilirubin 0.2 mg/dL (0.15-1.2) 02/27/23 07:41 AST 20 U/L (0-40) 02/27/23 07:41 ALT 20 U/L (0-41) 02/27/23 07:41 Alkaline Phosphatase 90 U/L (40-130) 02/27/23 07:41 Troponin T Baseline 31 ng/L (0-15) H 02/27/23 07:41 Troponin T 120 Minute 27.12 ng/L (0-15) H 02/27/23 09:48 Delta Troponin T -3.88 ABS# (0-10) L 02/27/23 09:48 NT-Pro-B Natriuret Pep 4366 pg/mL (0-125) H 02/27/23 07:41 Total Protein 6.2 g/dL (6.6-8.7) L 02/27/23 07:41 Albumin 4.0 g/dL (3.5-5.2) 02/27/23 07:41 Globulin 2.2 g/dL (1.3-4.6) 02/27/23 07:41 Influenza Type A Ag negative (Negative) 02/27/23 07:49 Influenza Type B Ag negative (Negative) 02/27/23 07:49 SARS-CoV-2 Ag (Rapid) negative (Negative) 02/27/23 07:49 Discharge Plan Discharge Patient Disposition: Home Clinical Impression: COPD exacerbation, Shortness of breath, Prolonged Q-T interval on ECG Condition: Stable Prescriptions: New amlodipine 5 mg tablet 5 mg PO DAILY Qty: 30 0RF methylprednisolone 4 mg tablets,dose pack See Rx Instructions .ROUTE .COMPLEX Qty: 21 0RF Rx Instructions: orally per package directions albuterol sulfate 90 mcg/actuation HFA aerosol inhaler 2 inh inhalation Q6H PRN (Reason: shortness of breath or wheezing) Qty: 8.5 0RF No Action budesonide-formoterol [Symbicort] 80-4.5 mcg/actuation HFA aerosol inhaler 2 puff inhalation BID Qty: 10.2 0RF albuterol sulfate 90 mcg/actuation HFA aerosol inhaler 2 inh INHALATION Q4H PRN (Reason: shortness of breath or wheezing) Qty: 18 0RF Discharge Orders: Discharge ED (Routine); Ordered 02/27/23 Ordered By: Florencio Miller Referrals: Nano Cohen DO [Primary Care Provider] - Discharge Diet: Regular Discharge Activity: Increase activity as tolerated Patient Instructions: COPD (Chronic Obstructive Pulmonary Disease) (DC) Activity Restrictions/Additional Instructions: Follow-up with medical provider as directed. Case management should be contacted in the next several days to set up an appointment with motor power connector, outpatient echocardiogram and Holter monitor. Take medications as prescribed. Return to the ER or your medical provider if condition worsens. Please read and understand discharge instructions. Thank you for choosing [facility] for your healthcare needs today. Please realize this is an emergency room and that we are providing you with a medical screening exam and this may not be complete and all inclusive of all the testing and or work up that you may need to determine your ailment or severity of your illness. It is very important that you follow up as instructed or that you return to the Emergency Department should you have concerns or if your condition changes or worsens in any way. Coding Level of Care Code ED Billiard Table Repairer for Zoë Arce
[2023-02-27 07:48] LABS: Basophils # 0.1 10^3/uL (0.0-0.1); Basophils % 0.7 %; Eosinophils # 0.4 10^3/uL (0.0-0.8); Eosinophils % 3.6 %; Hematocrit 45.1 % (42.0-52.0); Hemoglobin 14.7 g/dL (11.7-16.6); Lymphocytes % 19.2 %; Mean Corpuscular HGB Conc 32.6 g/dL (30.0-36.0); Mean Platelet Volume 10.3 fL (7.4-10.4); Monocytes # 0.8 10^3/uL (0.2-0.9); Monocytes % 7.4 %; Neutrophils # 7.33 10^3/uL (1.8-7.7); Neutrophils % 68.8 %; Nucleated Red Blood Cells % 0 %; Platelet Count 314 10^3/cmm (130-400); White Blood Count 10.6 10^3/uL (4.0-10.0)
[2023-02-27 07:50] VITALS: BP 140/90; PULSE 88; RESP 18; O2SAT 95
[2023-02-27 07:57] VITALS: PULSE 78; RESP 18; O2SAT 95
[2023-02-27] MEDS: ipratropium-albuterol 3 mL Neb 6 ML INHALATION (07:59)
[2023-02-27 08:04] VITALS: PULSE 73
[2023-02-27 08:07] LABS: Troponin(5th) Baseline 31 ng/L (0-15)
[2023-02-27] MEDS: methylPREDNISolone sod succ 125 mg SDV IVP (08:11)
[2023-02-27] MEDS: water for injection-sterile 10 ML (08:11)
[2023-02-27 08:12] LABS: Influenza A by IFA negative (Negative); Influenza B by IFA negative (Negative); SARS Covid-2 Antigen negative (Negative)
[2023-02-27 08:15] LABS: Alanine Aminotransferase 20 U/L (0-41); Alkaline Phosphatase 90 U/L (40-130); Aspartate Amino Transferase 20 U/L (0-40); Blood Urea Nitrogen 13 mg/dL (6-20); Calcium 8.4 mg/dL (8.5-10.5); Carbon Dioxide 26 mmol/L (22-29); Chloride 104 mmol/L (98-107); Globulin 2.2 g/dL (1.3-4.6); Glomerular Filtration Rate 68.8 mL/min (90-130); Glucose 115 mg/dL (65-115); NT Pro B Type Natriuretic Pept 4366 pg/mL (0-125); Osmolality Calculated 287 mOsm/kg (285-295); Sodium 138 mmol/L (136-145); Total Bilirubin 0.2 mg/dL (0.15-1.2); Total Protein 6.2 g/dL (6.6-8.7)
[2023-02-27 08:18] LABS: Anion Gap 12.2 (5-19); Potassium 4.2 mmol/L (3.5-5.1)
[2023-02-27 09:09] VITALS: BP 147/97; PULSE 86; RESP 18; O2SAT 99
--- NOTE | 2023-02-27 09:43 | ECG_ITS ---
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 Measurements Intervals [place] Rate: 72 P: 48 NE: 140 QRS: 70 QRSD: 82 T: 34 QT: 478 QTc: 527 Interpretive Statements SINUS RHYTHM WITH OCCASIONAL SUPRAVENTRICULAR PREMATURE COMPLEXES NONSPECIFIC ST & T-WAVE ABNORMALITY PROLONGED QT INTERVAL CRITICAL TEST RESULT Compared to ECG 01/15/2023 06:03:37 T-wave abnormality now present Atrial abnormality no longer present Electronically Signed On 02-27-2023 21:21:36 CDT by Elham Johnson M.D. [email or web address]
[2023-02-27 10:31] LABS: Troponin 5 2HR 27.12 ng/L (0-15)
[2023-02-27 10:35] LABS: Troponin 5 2HR Delta -3.88 ABS# (0-10)
[2023-02-27 11:00] VITALS: BP 157/98; PULSE 71; RESP 18; O2SAT 99
--- NOTE | 2023-02-28 10:12 | DCPLANNER ---
Addendum entered by Chelo Ronquillo 03/07/23 06:44: Patient had a follow up appointment with heart care - this appointment was rescheduled Addendum entered by Chelo Ronquillo 03/01/23 13:10: Patient has a follow up appointment scheduled for Saturday, March 04, 2023 at 2:[address] Del Toro at [facility]. Original Note: sales engineer account manager had message to schedule a follow up appointment for patient with cardiology. sales engineer account manager sent patients information to the front office staff at [facility]. Patients information will be printed and reviewed. Clinic will call patient with appointment information.
--- NOTE | 2023-02-28 15:10 | DCPLANNER ---
Addendum entered by Chelo Ronquillo 03/20/23 11:32: Patient had an echo scheduled - patient did attend appointment Patient had a 48 hour monitor scheduled with heart care - patient did not attend appointment. Original Note: social work case manager had message to schedule an outpatient echocardiogram and a holter monitor for patient. social work case manager faxed signed orders to centralized scheduling and heart care, who will call patient with appointment information.
== END 2023-02-27 12:35 | disposition home or self-care (01) ==
PROVIDERS: Emergency Provider Physician Assistant; PCP Family Medicine
DX: J44.1 Chronic obstructive pulmonary disease with (acute) exacerbation (principal); R94.31 Abnormal electrocardiogram [ECG] [EKG]; Z20.822 Contact with and (suspected) exposure to COVID-19; F17.210 Nicotine dependence, cigarettes, uncomplicated; I10 Essential (primary) hypertension
CPT/HCPCS: 36415; 71045; 80053; 83880; 84484; 85025; 87426; 87804; 93005; 94640; 96374; 99285; J2930

== ENCOUNTER 2023-03-13 09:10 | Outpatient (CLI) | payer MEDICARE, SELFPAY ==
--- NOTE | 2023-03-13 09:20 | USCV_ITS ---
Christian Sparks Age: 57 Gender: M : 1965 Exam Date: 03/13/2023 09:45 Ordering Phys: Florencio Miller Technologist: Rah Francois Exam Location: [facility] – [place] Indication: sob BP: 128 / 60 HR: 92 Rhythm: Sinus Technical Quality: Adequate MEASUREMENTS (Male / Female) Normal Values 2D ECHO LVOT Diameter 2.1 cm LV Ejection Fraction MOD 2C 50.5 % LV Ejection Fraction 2C AL 51.8 % LA Diameter 3.5 cm LA Width 3.5 cm LA Height 4.7 cm RA Width 3.0 cm RA Height 4.8 cm Aorta at Sinotubular Diameter 2.4 cm IVC Diameter 1.5 cm M-MODE Aortic Annulus Diameter 2.3 cm LA Ao Ratio MM 1.6 MV E Point Septal Separation 1.0 cm DOPPLER AV Peak Velocity 207.5 cm/s LVOT Peak Velocity 134.0 cm/s AV Area Cont Eq vti 2.3 cm squared AV Area Cont Eq pk 2.2 cm squared MV Peak Velocity 116.0 cm/s MV Area PHT 5.5 cm squared Mitral E to A Ratio 1.6 MV E' Velocity 42.5 cm/s Mitral E to MV E' Ratio 9.8 Mitral E to LV E' Lateral Ratio 9.8 Mitral E to LV E' Septal Ratio 10.0 TR Peak Velocity 188.9 cm/s TR Peak Gradient 14.3 mmHg TR Mean Velocity 138.7 cm/s TR Mean Gradient 8.5 mmHg TR Velocity Time Integral 36.4 cm Right Atrial Pressure 3.0 mmHg Pulmonary Artery Systolic Pressu 17.3 mmHg PV Peak Velocity 107.7 cm/s RV Acceleration Time 0.1 s RV Ejection Time 0.2 s RV AcT/ET 0.4 FINDINGS Left Ventricle Left ventricle is dilated. LV systolic function is mildly reduced with EF of 40-45 %. Mild global hypokinesis with mild to moderate hypokinesis of anterior and anterolateral thayer. Right Ventricle Normal in size and function Right Atrium Normal in size Left Atrium Normal in size Mitral Valve Structurally normal mitral valve. Trace mitral regurgitation Aortic Valve Structurally normal aortic valve. Mild aortic stenosis with aortic valve area of 2.1 cm squared and mean gradient across aortic valve of 9 mmHg. Tricuspid Valve Mild tricuspid regurgitation. Insufficient TR jet to calculate RVSP. Pulmonic Valve Not well-visualized Pericardium Normal Aorta Normal in size IVC Appears to be normal CONCLUSIONS Left ventricle is dilated. LV systolic function is mildly reduced with EF of 40 to 45%. Above-mentioned regional wall motion normalities. Trace mitral regurgitation Mild aortic stenosis Mild tricuspid regurgitation No comparison studies are available Gatito Del Toro MD (Electronically Signed) Final Date: 26 March 2023 21:13 S
== END 2023-03-13 09:11 | disposition home or self-care (01) ==
PROVIDERS: PCP Family Medicine; Visit Provider Physician Assistant
DX: R06.02 Shortness of breath (principal); R94.31 Abnormal electrocardiogram [ECG] [EKG]; I35.0 Nonrheumatic aortic (valve) stenosis; I07.1 Rheumatic tricuspid insufficiency
CPT/HCPCS: 93306

== ENCOUNTER 2023-03-18 02:52 | Emergency (ER) | payer MEDICARE, SELFPAY ==
[2023-03-18 02:59] VITALS: BP 207/135; PULSE 96; RESP 28; TEMP 36.4; O2SAT 87; BMI 26.6
--- NOTE | 2023-03-18 03:01 | ECG_ITS ---
[facility] Test Date: 2023-03-18 Pat Name: Christian Sparks Department: Room: Gender: Male Information Operator: : 1965 Requested By: Paco Nice Order Number: [id number] Jesús MD: Elham Johnson M.D. Measurements Intervals [place] Rate: 105 P: 70 ME: 132 QRS: 55 QRSD: 81 T: 73 QT: 381 QTc: 505 Interpretive Statements SINUS TACHYCARDIA WITH FREQUENT VENTRICULAR PREMATURE COMPLEXES POSSIBLE LEFT ATRIAL ENLARGEMENT [-0.1mV P-WAVE IN V1/V2] POSSIBLE LEFT VENTRICULAR HYPERTROPHY [VOLTAGE CRITERIA PLUS LAE OR QRS WIDENING] Compared to ECG 02/27/2023 09:43:32 Ventricular premature complex(es) now present Sinus rhythm no longer present T-wave abnormality no longer present Prolonged QT interval no longer present Electronically Signed On 03-18-2023 22:40:04 CDT by Elham Johnson M.D. [id number]
--- NOTE | 2023-03-18 03:03 | XRR_ITS ---
PROCEDURE INFORMATION: Exam: XR Chest Exam date and time: 03/18/2023 3:07 AM Age: 57 years old Clinical indication: Shortness of breath; Patient HX: C/O SOB TECHNIQUE: Imaging protocol: Radiologic exam of the chest. Views: 1 view. COMPARISON: CR XR chest 1V portable [id number] 02/27/2023 7:35 AM FINDINGS: Lungs: Emphysematous lung changes are suspected. Prominent reticular interstitial lung changes noted. Peripheral intra lobular septal thickening. No consolidation. Hyperinflation. Pleural spaces: Unremarkable. No pleural effusion. No pneumothorax. Heart/Mediastinum: Unremarkable. No cardiomegaly. Bones/joints: Unremarkable. XR/XR chest 1V portable [id number] IMPRESSION: Emphysematous lung disease. Query interstitial edema. No focal acute pulmonary consolidation.
[2023-03-18] MEDS: aspirin 81 mg Chew Tablet 324 MG PO (03:20)
[2023-03-18 03:21] LABS: Basophils # 0.1 10^3/uL (0.0-0.1); Basophils % 0.7 %; Eosinophils # 0.3 10^3/uL (0.0-0.8); Eosinophils % 2.7 %; Hematocrit 48.8 % (42.0-52.0); Hemoglobin 15.9 g/dL (11.7-16.6); Lymphocytes # 1.8 10^3/uL (0.8-4.8); Lymphocytes % 17.9 %; Mean Corpuscular HGB Conc 32.6 g/dL (30.0-36.0); Mean Corpuscular Hemoglobin 29.8 pg (28.0-34.0); Mean Corpuscular Volume 91.4 fl (80-94); Mean Platelet Volume 10.6 fL (7.4-10.4); Monocytes # 0.6 10^3/uL (0.2-0.9); Monocytes % 5.5 %; Neutrophils # 7.23 10^3/uL (1.8-7.7); Neutrophils % 72.7 %; Nucleated Red Blood Cells % 0 %; Platelet Count 273 10^3/cmm (130-400); Red Blood Count 5.34 10^6/uL (4.1-5.3); Red Cell Distribution Width 13.2 % (12.1-15.1)
[2023-03-18] MEDS: nitroglycerin 0.4 mg sublingual Tablet SUBLINGUAL (03:22)
[2023-03-18 03:27] VITALS: BP 163/109; PULSE 86; RESP 16; O2SAT 91
--- NOTE | 2023-03-18 03:27 | ED_ITS ---
HPI - SOB/Dyspnea General: Chief Complaint: Shortness of Breath/Dyspnea Stated Complaint: Sob Time Seen by Provider: 03/18/23 02:53 Source: patient Mode of arrival: ambulatory Limitations: no limitations History of Present Illness: HPI Narrative: 57-year-old male has history of hypertension along with COPD states been having some increasing dyspnea over the last 3 to 4 weeks. He states that tonight it was much worse when he laid down to rest he states it seems to be worse with laying flat. Had some slight chest pressure he rates a 2 out of 10. He denies any cough or fever. Associated symptoms: Reports chest pain; Deny abdominal pain, fever(s), nausea or vomiting Review of Systems Const: Denies: fever(s), chills, body aches or change in appetite ENMT: Denies: throat pain or dental pain Card: Reports: chest pain Resp: Reports: dyspnea GI: Denies: abdominal pain, nausea, vomiting or diarrhea Musc: Denies: neck pain or back pain Skin/Breast: Denies: rash Neuro: Denies: headache(s) PFSH ED PFSH: Medical History Hypertension Migraine Stenosis, spinal, lumbar Surgical History H/O shoulder surgery H/O skin graft Hx of tonsillectomy S/P lumbar laminectomy (05/25/19) Dr Hinojosa bilateral L3-4 laminotomy/foraminotomy. Family History Mother CAD (coronary artery disease) Father Diabetes Social History Smoking and tobacco status: current every day smoker Alcohol intake: current Alcohol intake frequency: few times a month Substance/Drug Use: never Lives independently: Yes Household members: spouse Marital status: Current occupational status: disabled Physical Exam Const: COMMON NORMALS: patient oriented x3 HENMT: COMMON NORMALS: normocephalic and atraumatic HEAD & SCALP: normocephalic and atraumatic Neck/C-Spine: COMMON NORMALS: full ROM and supple Chest: COMMONS NORMALS: normal inspection of the chest and normal palpation of entire chest wall Resp: COMMON NORMALS: normal respiratory effort, No retractions and No use of accessory muscles Cardio: COMMON NORMALS: regular rate, regular rhythm and No murmurs present (Cardio) RATE: regular rate RHYTHM: regular rhythm GI: COMMON NORMALS: Normal to inspection, nondistended, normoactive bowel sounds present, Soft to palpation, non-tender and no masses PALPATION: Yes Soft to palpation Extremity: COMMON NORMALS: normal to inspection and full ROM Neuro: COMMON NORMALS: patient oriented x3, moves all extremities and no focal motor deficits Psych: COMMON NORMALS: mental status grossly normal, Normal thought process present and cooperative THOUGHT PROCESS: Normal thought process present Skin: COMMON NORMALS: no rashes or lesions noted and no wounds GENERAL SKIN EXAM: no rashes or lesions noted Course Vital Signs: Vital signs: Vital Signs Temperature 97.5 F L 03/18/23 02:59 Pulse Rate 82 03/18/23 03:59 Respiratory Rate 22 H 03/18/23 03:59 Blood Pressure 150/103 03/18/23 03:45 Pulse Oximetry 96 03/18/23 03:59 Oxygen Delivery Me thod Nasal Cannula 03/18/23 03:59 Oxygen Flow Rate 2 03/18/23 03:59 MDM - SOB/Dyspnea Medical Decision Making Patient presents here with shortness of breath he is also having chest pain. 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 I informed him that he is on oxygen appears to have heart failure and strongly recommended being admitted because he could get worse and this could even be life-threatening. He understands those risks and signed out AMA I did prescribe him Lasix he is to return if worsening and follow-up with PCP Medical Records I reviewed the patient's medical records. Lab Data I reviewed the patient's lab results. 03/18/23 03:16 03/18/23 03:16 Labs/Radiology: Radiology Impressions Chest X-Ray 03/18/23 03:03 IMPRESSION: Emphysematous lung disease. Query interstitial edema. No focal acute pulmonary consolidation. Laboratory Results WBC 10.0 10^3/uL (4.0-10.0) 03/18/23 03:16 RBC 5.34 10^6/uL (4.1-5.3) H 03/18/23 03:16 Hgb 15.9 g/dL (11.7-16.6) 03/18/23 03:16 Hct 48.8 % (42.0-52.0) 03/18/23 03:16 MCV 91.4 fl (80-94) 03/18/23 03:16 MCH 29.8 pg (28.0-34.0) 03/18/23 03:16 MCHC 32.6 g/dL (30.0-36.0) 03/18/23 03:16 RDW 13.2 % (12.1-15.1) 03/18/23 03:16 Plt Count 273 10^3/cmm (130-400) 03/18/23 03:16 MPV 10.6 fL (7.4-10.4) H 03/18/23 03:16 Neut % (Auto) 72.7 % 03/18/23 03:16 Lymph % (Auto) 17.9 % 03/18/23 03:16 [place] % (Auto) 5.5 % 03/18/23 03:16 Eos % (Auto) 2.7 % 03/18/23 03:16 Baso % (Auto) 0.7 % 03/18/23 03:16 Neut # (Auto) 7.23 10^3/uL (1.8-7.7) 03/18/23 03:16 Lymph # (Auto) 1.8 10^3/uL (0.8-4.8) 03/18/23 03:16 [place] # (Auto) 0.6 10^3/uL (0.2-0.9) 03/18/23 03:16 Eos # (Auto) 0.3 10^3/uL (0.0-0.8) 03/18/23 03:16 Baso # (Auto) 0.1 10^3/uL (0.0-0.1) 03/18/23 03:16 Nucleated RBC % (auto) 0 % 03/18/23 03:16 Nucleated RBCs # 0.0 /100WBC 03/18/23 03:16 PT 12.80 SECONDS (12.1-14.9) 03/18/23 03:16 INR 0.94 (0.8-1.2) 03/18/23 03:16 Sodium 143 mmol/L (136-145) 03/18/23 03:16 Potassium 3.8 mmol/L (3.5-5.1) 03/18/23 03:16 Chloride 104 mmol/L (98-107) 03/18/23 03:16 Carbon Dioxide 27 mmol/L (22-29) 03/18/23 03:16 Anion Gap 15.8 (5-19) 03/18/23 03:16 BUN 19 mg/dL (6-20) 03/18/23 03:16 Creatinine 1.6 mg/dL (0.7-1.2) H 03/18/23 03:16 GFR Calculation 44.6 mL/min (90-130) L 03/18/23 03:16 Glucose 104 mg/dL (65-115) 03/18/23 03:16 Calculated Osmolality 299 mOsm/kg (285-295) H 03/18/23 03:16 Calcium 9.2 mg/dL (8.5-10.5) 03/18/23 03:16 Total Bilirubin 0.2 mg/dL (0.15-1.2) 03/18/23 03:16 AST 20 U/L (0-40) 03/18/23 03:16 ALT 20 U/L (0-41) 03/18/23 03:16 Alkaline Phosphatase 97 U/L (40-130) 03/18/23 03:16 Troponin T Baseline 39 ng/L (0-15) H 03/18/23 03:16 NT-Pro-B Natriuret Pep 8092 pg/mL (0-125) H 03/18/23 03:16 Total Protein 6.9 g/dL (6.6-8.7) 03/18/23 03:16 Albumin 4.4 g/dL (3.5-5.2) 03/18/23 03:16 Globulin 2.5 g/dL (1.3-4.6) 03/18/23 03:16 Discharge Plan Discharge Patient Disposition: Left Against Medical Advice Clinical Impression: Chest pain, Elevated brain natriuretic peptide (BNP) level, Dyspnea Condition: Stable Prescriptions: New Lasix 40 mg tablet 40 mg PO DAILY Qty: 30 0RF No Action budesonide-formoterol [Symbicort] 80-4.5 mcg/actuation HFA aerosol inhaler 2 puff inhalation BID Qty: 10.2 0RF albuterol sulfate 90 mcg/actuation HFA aerosol inhaler 2 inh INHALATION Q4H PRN (Reason: shortness of breath or wheezing) Qty: 18 0RF amlodipine 5 mg tablet 5 mg PO DAILY Qty: 30 0RF methylprednisolone 4 mg tablets,dose pack See Rx Instructions .ROUTE .COMPLEX Qty: 21 0RF Rx Instructions: orally per package directions albuterol sulfate 90 mcg/actuation HFA aerosol inhaler 2 inh inhalation Q6H PRN (Reason: shortness of breath or wheezing) Qty: 8.5 0RF Referrals: Nano Cohen DO [Primary Care Provider] - Discharge Diet: Advance as tolerated Discharge Activity: Resume usual activity Coding Level of Care Code ED 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
[2023-03-18 03:40] LABS: INR 0.94 (0.8-1.2)
[2023-03-18] MEDS: methylPREDNISolone sod succ 125 MG in water for injection-sterile 2 ML 24 MG IVP (03:44)
[2023-03-18 03:45] VITALS: BP 150/103; PULSE 83; RESP 16; O2SAT 93
[2023-03-18 03:46] LABS: Troponin(5th) Baseline 39 ng/L (0-15)
[2023-03-18 03:53] LABS: Alanine Aminotransferase 20 U/L (0-41); Albumin Level 4.4 g/dL (3.5-5.2); Alkaline Phosphatase 97 U/L (40-130); Anion Gap 15.8 (5-19); Aspartate Amino Transferase 20 U/L (0-40); Blood Urea Nitrogen 19 mg/dL (6-20); Calcium 9.2 mg/dL (8.5-10.5); Carbon Dioxide 27 mmol/L (22-29); Chloride 104 mmol/L (98-107); Globulin 2.5 g/dL (1.3-4.6); Glomerular Filtration Rate 44.6 mL/min (90-130); Glucose 104 mg/dL (65-115); NT Pro B Type Natriuretic Pept 8092 pg/mL (0-125); Osmolality Calculated 299 mOsm/kg (285-295); Potassium 3.8 mmol/L (3.5-5.1); Sodium 143 mmol/L (136-145); Total Bilirubin 0.2 mg/dL (0.15-1.2); Total Protein 6.9 g/dL (6.6-8.7)
[2023-03-18 03:59] VITALS: PULSE 82; RESP 22; O2SAT 96
[2023-03-18] MEDS: ipratropium-albuterol 3 mL Neb INHALATION (03:59)
[2023-03-18] MEDS: FUROsemide 10 mg/mL SDV 4mL 40 MG IVP (04:02)
[2023-03-18 04:23] VITALS: BP 150/103; PULSE 82; RESP 22; TEMP 36.4; O2SAT 96
== END 2023-03-18 04:25 | disposition left against medical advice (07) ==
PROVIDERS: Emergency Provider Emergency Medicine; PCP Family Medicine
DX: R07.89 Other chest pain (principal); R06.02 Shortness of breath; R79.89 Other specified abnormal findings of blood chemistry; Z53.29 Procedure and treatment not carried out because of patient's decision for other reasons
CPT/HCPCS: 71045; 80053; 83880; 84484; 85025; 85610; 93005; 94640; 96365; 96375; 99285; J1940; J2930

== ENCOUNTER 2023-03-24 09:36 | Emergency (ER) | payer MEDICARE, SELFPAY ==
--- NOTE | 2023-03-24 09:38 | XRR_ITS ---
PROCEDURE INFORMATION: Exam: XR Chest Exam date and time: 03/24/2023 9:46 AM Age: 57 years old Clinical indication: Shortness of breath; Additional info: Cp SOB TECHNIQUE: Imaging protocol: Radiologic exam of the chest. Views: 1 view. COMPARISON: CR (CHEST, ) 03/18/2023 3:07 AM FINDINGS: Lungs: There is no consolidation. Bilateral hilar calcifications and multiple dense nodules in the left lower lung are consistent with healed granulomas. Peripheral interlobular septal thickening is decreased since 03/18/2023. Pleural spaces: There is no pleural effusion or pneumothorax. Heart/Mediastinum: The cardiac silhouette is within normal limits of size given AP technique. Bones/joints: Bones are unremarkable. XR/XR chest 1V portable [id number] IMPRESSION: 1. No acute findings. 2. Decreased peripheral interlobular septal thickening since 03/18/2023 suggest decreasing interstitial edema.
[2023-03-24 09:39] VITALS: BP 178/109; PULSE 88; RESP 18; O2SAT 92
--- NOTE | 2023-03-24 09:41 | ED_ITS ---
HPI - Chest Pain General: Chief Complaint: Chest Pain Stated Complaint: chest pain / hard time breathing Time Seen by Provider: 03/24/23 09:38 History of Present Illness: Christian Sparks is a 57-year-old man that presents to the emergency department with chest pain and shortness of breath. Patient reports his chest pain and shortness of breath approximately 1 month ago. There are times when it is exacerbated and he finds it very difficult to breathe. It is difficult to lay flat He states that the pain is in the center of his chest and is a pressure. Denies radiation of pain. History includes COPD and hypertension. Patient was seen on 03/18/23 and was in heart failure. He was going to be admitted but signed out AMA. At that time his troponin was 39 and BNP was greater than 8000. Associated symptoms: Reports dyspnea and nausea; Deny abdominal pain, fever(s), palpitations or vomiting Review of Systems General: Reports: 10 or more systems reviewed and unremarkable except in HPI and below Const: Reports: fatigue and change in sleep pattern; Denies: fever(s), chills, change in appetite, change in weight or malaise Eyes: Denies: change in vision, eye discomfort, eye discharge or eye redness ENMT: Denies: throat pain, enlarged tonsils, odynophagia, hoarseness, ear or mastoid pain, ear discharge, change in hearing, tinnitus, nasal discharge, nasal congestion, post nasal drip or sinus pain Card: Reports: chest pain, dyspnea on exertion and orthopnea; Denies: palpitations, irregular heart rhythm, edema or leg pain with exertion Resp: Reports: dyspnea, productive cough and chest congestion; Denies: non-productive cough, wheezing or stridor GI: Reports: nausea; Denies: abdominal pain, vomiting, dysphagia, diarrhea, constipation, bloating, GI cramping or hematochezia : Denies: flank pain, dysuria, urinary frequency, urinary urgency, urinary hesitancy, oliguria or hematuria Musc: Denies: neck pain, back pain, extremity pain, joint pain, joint swelling, joint redness, joint warmth or muscle weakness Skin/Breast: Denies: rash, pruritus, erythema, photosensitivity or new lesions Neuro: Denies: headache(s), numbness in extremities, weakness in extremities, sensory changes, lack of coordination, difficulty walking, frequent falls, dizziness, confusion, Slurred speech present, difficulty communicating thoughts, seizure-like activity or involuntary movements Endo: Denies: polyuria, polydipsia or tired all the time Jeffy/Lymph: Denies: easy bruising or easy bleeding PFSH ED PFSH: Medical History Hypertension Migraine Stenosis, spinal, lumbar Surgical History H/O shoulder surgery H/O skin graft Hx of tonsillectomy S/P lumbar laminectomy (05/25/19) Dr Hinojosa bilateral L3-4 laminotomy/foraminotomy. Family History Mother CAD (coronary artery disease) Father Diabetes Social History Smoking and tobacco status: current every day smoker Alcohol intake: current Alcohol intake frequency: few times a month Substance/Drug Use: never Lives independently: Yes Household members: spouse Marital status: Current occupational status: disabled Physical Exam Const: COMMON NORMALS: no acute distress, patient oriented x3 and alert GENERAL APPEARANCE: cooperative ORIENTATION/CONSCIOUSNESS: Yes awake, Yes oriented to person, Yes oriented to place and Yes oriented to time HENMT: COMMON NORMALS: normocephalic and atraumatic HEAD & SCALP: normocephalic and atraumatic FACE & SINUS: normal facial exam MOUTH: Normal oral and palatal mucosa present THROAT: posterior oropharynx normal Eye: COMMON NORMALS: Equal, round and reactive pupils present, EOMs intact bilaterally, conjunctivae normal and no scleral icterus GENERAL EYE: appearance normal, both eyes and all related structures ALIGNMENT: Yes alignment normal PERIORBITAL: periorbital findings normal CONJUNCTIVA: Yes conjunctivae normal PUPIL: Yes Equal, round and reactive pupils present Neck/C-Spine: COMMON NORMALS: full ROM GENERAL: Yes normal visual inspection Lymph: LYMPHATIC: no lymphadenopathy noted Chest: COMMONS NORMALS: normal inspection of the chest Breast/axilla inspection: Yes no chest deformity, asymmetry, normal contours, no nodules, masses, tenderness Resp: COMMON NORMALS: normal respiratory effort, No retractions and No use of accessory muscles EFFORT & INSPECTION: Yes able to speak in complete sentences, Yes symmetric chest movement and Yes tachypneic AUSCULTATION: crackles Laterality: left and diminished lung sounds diffuse Cardio: COMMON NORMALS: regular rate, regular rhythm, S1 normal heart sound present and Peripheral pulses 2+ throughout RATE: regular rate RHYTHM: regular rhythm HEART SOUNDS: S1 normal heart sound present PERIPHERAL PULSES: Peripheral pulses 2+ throughout GI: COMMON NORMALS: Normal to inspection, nondistended, normoactive bowel sounds present, Soft to palpation, non-tender and No hepatosplenomegaly present INSPECTION: Yes normal to inspection AUSCULTATION: Yes normoactive bowel sounds PALPATION: Yes Soft to palpation and Yes No hepatosplenomegaly present RECTAL EXAM: Yes deferred Extremity: COMMON NORMALS: normal to inspection GENERAL: Yes normal exam except as noted Neuro: COMMON NORMALS: patient oriented x3 SENSORIUM/ORIENTATION: Yes alert, Yes oriented to person, Yes oriented to place and Yes oriented to time CRANIAL NERVES: Yes CN normal except as noted Psych: COMMON NORMALS: mental status grossly normal, Normal thought process present, cooperative, activity/motor behavior normal, denies homicidal ideation and denies suicidal ideation THOUGHT PROCESS: Normal thought process present Skin: COMMON NORMALS: no rashes or lesions noted, no wounds and turgor normal GENERAL SKIN EXAM: no rashes or lesions noted and turgor normal Course Vital Signs: Vital signs: Vital Signs Temperature 98.6 F 03/24/23 09:49 Pulse Rate 75 03/24/23 12:14 Respiratory Rate 18 03/24/23 12:14 Blood Pressure 178/109 03/24/23 09:49 Pulse Oximetry 95 03/24/23 12:14 Oxygen Delivery Me thod Room Air 03/24/23 12:14 Oxygen Flow Rate 2 03/24/23 09:49 MDM - Chest Pain Medical Decision Making Patient was evaluated in the emergency department for chest pain and shortness of breath. Differential diagnosis includes unstable angina, AMI, heart failure, pneumonia EKG was completed at 0943 and reveals a sinus rhythm with occasional PVC. There is no ST elevation but there is nonspecific T wave changes when compared to EKG on 03/18/2023. He was hypertensive on arrival. Hydralazine was given as was 324 mg chewable aspirin. His laboratory studies revealed elevation in his creatinine?1.2, elevation in troponin which is his baseline at 36, elevation in BNP 5700. All of these labs appear stable from 1 week ago and 1 month ago. Patient was treated also for a COPD exacerbation. I provided him with breathing treatments as well as steroids. His symptoms improved and his labored respirations resolved. I am going to chronically send his prescriptions to [facility]. 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 Also going to send him with a steroid pack. I reviewed all of the findings with Dr. Quick is agreeable with this patient can be discharged home for close observation and follow-up with primary care. Patient would like to establish care closer to home. Currently he sees a primary care provider in [place]. Consult to case management to assist with this. Lab Data 03/24/23 09:56 03/24/23 09:56 Radiology Impressions Chest X-Ray 03/24/23 09:38 IMPRESSION: 1. No acute findings. 2. Decreased peripheral interlobular septal thickening since 03/18/2023 suggest decreasing interstitial edema. Laboratory Results WBC 12.2 10^3/uL (4.0-10.0) H 03/24/23 09:56 RBC 5.34 10^6/uL (4.1-5.3) H 03/24/23 09:56 Hgb 15.8 g/dL (11.7-16.6) 03/24/23 09:56 Hct 48.8 % (42.0-52.0) 03/24/23 09:56 MCV 91.4 fl (80-94) 03/24/23 09:56 MCH 29.6 pg (28.0-34.0) 03/24/23 09:56 MCHC 32.4 g/dL (30.0-36.0) 03/24/23 09:56 RDW 13.4 % (12.1-15.1) 03/24/23 09:56 Plt Count 293 10^3/cmm (130-400) 03/24/23 09:56 MPV 10.3 fL (7.4-10.4) 03/24/23 09:56 Neut % (Auto) 78.4 % 03/24/23 09:56 Lymph % (Auto) 13.4 % 03/24/23 09:56 [place] % (Auto) 4.4 % 03/24/23 09:56 Eos % (Auto) 2.9 % 03/24/23 09:56 Baso % (Auto) 0.5 % 03/24/23 09:56 Neut # (Auto) 9.54 10^3/uL (1.8-7.7) H 03/24/23 09:56 Lymph # (Auto) 1.6 10^3/uL (0.8-4.8) 03/24/23 09:56 [place] # (Auto) 0.5 10^3/uL (0.2-0.9) 03/24/23 09:56 Eos # (Auto) 0.4 10^3/uL (0.0-0.8) 03/24/23 09:56 Baso # (Auto) 0.1 10^3/uL (0.0-0.1) 03/24/23 09:56 Nucleated RBC % (auto) 0 % 03/24/23 09:56 Nucleated RBCs # 0.0 /100WBC 03/24/23 09:56 Sodium 140 mmol/L (136-145) 03/24/23 09:56 Potassium 3.7 mmol/L (3.5-5.1) 03/24/23 09:56 Chloride 103 mmol/L (98-107) 03/24/23 09:56 Carbon Dioxide 28 mmol/L (22-29) 03/24/23 09:56 Anion Gap 12.7 (5-19) 03/24/23 09:56 BUN 13 mg/dL (6-20) 03/24/23 09:56 Creatinine 1.3 mg/dL (0.7-1.2) H 03/24/23 09:56 GFR Calculation 56.7 mL/min (90-130) L 03/24/23 09:56 Glucose 136 mg/dL (65-115) H 03/24/23 09:56 Calculated Osmolality 292 mOsm/kg (285-295) 03/24/23 09:56 Calcium 8.5 mg/dL (8.5-10.5) 03/24/23 09:56 Total Bilirubin 0.6 mg/dL (0.15-1.2) 03/24/23 09:56 AST 17 U/L (0-40) 03/24/23 09:56 ALT 28 U/L (0-41) 03/24/23 09:56 Alkaline Phosphatase 86 U/L (40-130) 03/24/23 09:56 Troponin T Baseline 36 ng/L (0-15) H 03/24/23 09:56 Troponin T 120 Minute 31.48 ng/L (0-15) H 03/24/23 12:19 Delta Troponin T -4.52 ABS# (0-10) L 03/24/23 12:19 NT-Pro-B Natriuret Pep 5739 pg/mL (0-125) H 03/24/23 09:56 Total Protein 6.9 g/dL (6.6-8.7) 03/24/23 09:56 Albumin 4.0 g/dL (3.5-5.2) 03/24/23 09:56 Globulin 2.9 g/dL (1.3-4.6) 03/24/23 09:56 Discharge Plan Discharge Patient Disposition: Home Clinical Impression: Chest pain, Elevated brain natriuretic peptide (BNP) level, Dyspnea, Elevated serum creatinine, Elevated troponin, COPD (chronic obstructive pulmonary disease) Condition: Stable Prescriptions: New amlodipine 5 mg tablet 5 mg PO DAILY Qty: 30 0RF Symbicort 80-4.5 mcg/actuation HFA aerosol inhaler 2 inh inhalation BID Qty: 10.2 0RF albuterol sulfate 90 mcg/actuation HFA aerosol inhaler 1 inh inhalation 6XD Qty: 6.7 0RF prednisone 20 mg tablet 20 mg PO DAILY 3 Days Qty: 3 0RF No Action budesonide-formoterol [Symbicort] 80-4.5 mcg/actuation HFA aerosol inhaler 2 puff inhalation BID Qty: 10.2 0RF amlodipine 5 mg tablet 5 mg PO DAILY Qty: 30 0RF methylprednisolone 4 mg tablets,dose pack See Rx Instructions .ROUTE .COMPLEX Qty: 21 0RF Rx Instructions: orally per package directions albuterol sulfate 90 mcg/actuation HFA aerosol inhaler 2 inh inhalation Q6H PRN (Reason: shortness of breath or wheezing) Qty: 8.5 0RF furosemide [Lasix] 40 mg tablet 40 mg PO DAILY Qty: 30 0RF Discharge Orders: Discharge ED (Routine); Ordered 03/24/23 Ordered By: Martha Headley Referrals: Javi Cooney MD [Physician] - Gatito Del Toro M.D [Physician] - Nano Cohen DO [Primary Care Provider] - Patient Instructions: Heart Failure (ED), Coronary Artery Disease (DC), Chronic Kidney Disease (ED), COPD (Chronic Obstructive Pulmonary Disease) (ED), Hypertension (ED), Pain Management Activity Restrictions/Additional Instructions: You need to follow-up with your family practice doctor, your fireworks display specialist, and your rehabilitation construction specialist. I have provided you with her names and contact information. I want you to take the prescriptions that I prescribed today. 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
--- NOTE | 2023-03-24 09:43 | ECG_ITS ---
[facility] Test Date: 2023-03-24 Pat Name: Christian Sparks Department: Room: Gender: Male Residential Sales: : 1965 Requested By: Martha Stark Order Number: [id number] Jesús MD: John Krishnan M.D. Measurements Intervals [place] Rate: 81 P: 67 VA: 137 QRS: 64 QRSD: 82 T: 81 QT: 417 QTc: 485 Interpretive Statements SINUS RHYTHM WITH OCCASIONAL VENTRICULAR PREMATURE COMPLEXES LEFT VENTRICULAR HYPERTROPHY AND ST-T CHANGE [VOLTAGE CRITERIA PLUS ST/T ABNORMALITY] Compared to ECG 03/18/2023 03:01:42 ST (T wave) deviation now present Sinus tachycardia no longer present Electronically Signed On 03-24-2023 11:32:22 CDT by John Krishnan M.D. [id number]
[2023-03-24 09:49] VITALS: BP 178/109; PULSE 82; TEMP 37; O2SAT 94
[2023-03-24 10:03] LABS: Basophils # 0.1 10^3/uL (0.0-0.1); Basophils % 0.5 %; Eosinophils # 0.4 10^3/uL (0.0-0.8); Eosinophils % 2.9 %; Hematocrit 48.8 % (42.0-52.0); Hemoglobin 15.8 g/dL (11.7-16.6); Lymphocytes # 1.6 10^3/uL (0.8-4.8); Lymphocytes % 13.4 %; Mean Corpuscular HGB Conc 32.4 g/dL (30.0-36.0); Mean Corpuscular Hemoglobin 29.6 pg (28.0-34.0); Mean Corpuscular Volume 91.4 fl (80-94); Mean Platelet Volume 10.3 fL (7.4-10.4); Monocytes # 0.5 10^3/uL (0.2-0.9); Monocytes % 4.4 %; Neutrophils # 9.54 10^3/uL (1.8-7.7); Neutrophils % 78.4 %; Nucleated Red Blood Cells % 0 %; Platelet Count 293 10^3/cmm (130-400); Red Blood Count 5.34 10^6/uL (4.1-5.3); Red Cell Distribution Width 13.4 % (12.1-15.1); White Blood Count 12.2 10^3/uL (4.0-10.0)
[2023-03-24] MEDS: hyDRALAzine 20 mg/mL INJ 1 mL 10 MG IVP (10:23)
[2023-03-24] MEDS: aspirin 81 mg Chew Tablet 324 MG PO (10:24)
[2023-03-24 10:27] LABS: Troponin(5th) Baseline 36 ng/L (0-15)
[2023-03-24 10:35] LABS: Alanine Aminotransferase 28 U/L (0-41); Alkaline Phosphatase 86 U/L (40-130); Anion Gap 12.7 (5-19); Aspartate Amino Transferase 17 U/L (0-40); Blood Urea Nitrogen 13 mg/dL (6-20); Calcium 8.5 mg/dL (8.5-10.5); Carbon Dioxide 28 mmol/L (22-29); Chloride 103 mmol/L (98-107); Globulin 2.9 g/dL (1.3-4.6); Glomerular Filtration Rate 56.7 mL/min (90-130); Glucose 136 mg/dL (65-115); NT Pro B Type Natriuretic Pept 5739 pg/mL (0-125); Osmolality Calculated 292 mOsm/kg (285-295); Potassium 3.7 mmol/L (3.5-5.1); Sodium 140 mmol/L (136-145); Total Bilirubin 0.6 mg/dL (0.15-1.2); Total Protein 6.9 g/dL (6.6-8.7)
[2023-03-24] MEDS: FUROsemide 10 mg/mL SDV 2mL 20 MG IVP (11:19)
--- NOTE | 2023-03-24 11:54 | ECG_ITS ---
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 Measurements Intervals [place] Rate: 70 P: 51 MN: 142 QRS: 57 QRSD: 85 T: 88 QT: 468 QTc: 508 Interpretive Statements SINUS RHYTHM WITH OCCASIONAL ECTOPIC PREMATURE COMPLEXES LEFT VENTRICULAR HYPERTROPHY AND ST-T CHANGE [VOLTAGE CRITERIA PLUS ST/T ABNORMALITY] Compared to ECG 03/24/2023 09:43:43 Ventricular premature complex(es) no longer present ST (T wave) deviation still present Electronically Signed On 03-24-2023 18:26:11 CDT by John Krishnan M.D. [id number]
[2023-03-24] MEDS: ipratropium-albuterol 3 mL Neb INHALATION (12:12)
[2023-03-24] MEDS: acetaminophen 325 mg Tablet 975 MG PO (12:13)
[2023-03-24 12:14] VITALS: PULSE 75; RESP 18; O2SAT 95
[2023-03-24 12:55] LABS: Troponin 5 2HR 31.48 ng/L (0-15)
[2023-03-24 13:14] LABS: Troponin 5 2HR Delta -4.52 ABS# (0-10)
--- NOTE | 2023-03-26 12:41 | DCPLANNER ---
Addendum entered by Chleo Ronquillo 04/12/23 10:56: Patient did not attend appointment Addendum entered by Chelo Ronquillo 03/26/23 13:02: Patients called bilingual case manager back stating that patient would like help in getting established with a primary care physician. e learning manager called [facility], gave clinic patients information. A follow up appointment is scheduled for Sunday, April 02, 2023 at 12:[address] Funk at [facility]. e learning manager gave patients the appointment information and the number to the clinic. Original Note: e learning manager had message to speak with patient about getting established with a primary care physician. e learning manager called phone number [phone] - unable to speak with patient at this time, a voicemail was left for patient to return case mangers phone call.
--- NOTE | 2023-04-17 13:18 | DCPLANNER ---
Addendum entered by Chelo Ronquillo 04/17/23 14:56: Patients called briefcase sewer back, stating patient would like help in getting established with a primary care physician. booking manager called [facility], a follow up appointment was scheduled for Sunday, April 30, 2023 at 11:[address] Funk. booking manager informed patients of the scheduled appointment. Original Note: booking manager called patient due to no primary care physician - no answer at this time, a voicemail was left for patient to return case reviewer phone call.
== END 2023-03-24 14:12 | disposition home or self-care (01) ==
PROVIDERS: Emergency Provider Nurse Practitioner; PCP Family Medicine
DX: J44.9 Chronic obstructive pulmonary disease, unspecified (principal); R10.13 Epigastric pain; R77.8 Other specified abnormalities of plasma proteins; R79.9 Abnormal finding of blood chemistry, unspecified; I10 Essential (primary) hypertension
CPT/HCPCS: 71045; 80053; 83880; 84484; 85025; 93005; 94640; 96374; 96375; 99285; J0360; J1940

== ENCOUNTER → 2023-04-04 11:27 | Outpatient (BNVA) | payer MEDICARE, SELFPAY | PROVIDERS: PCP Family Medicine; Visit Provider Internal Medicine Cardiovascular Disease | DX: R07.9 Chest pain, unspecified (principal) | CPT/HCPCS: 93225 ==

== ENCOUNTER 2023-04-09 18:51 | Observation (INO) | payer MEDICARE, SELFPAY ==
--- NOTE | 2023-04-09 19:18 | P.HP_ITS ---
Providers/Chief Complaint Admitting Physician: Gatito Del Toro M.D Primary Care Provider: Nano Cohen DO Chief Complaint: Worsening angina/ LV dysfunction History of Present Illness Christian Sparks is a 57 year old male with past medical history of hypertension was directly admitted from office as he is complaining of worsening anginal symptoms for the last 3 months. He says walking short distance he starts getting out of breath and starts feeling pressure in the chest. He had 2 visits to ER with similar symptoms. Recent echo showed LV dysfunction with regional wall motion abnormalities in LAD/diagonal artery territory. He is still complaining of on and off chest discomfort. Patient's creatinine is elevated and he has CKD. EKG shows normal sinus rhythm with non specific ST T wave changes and PVC. Review of Systems Const: Denies: fever(s) or chills Card: Reports: chest pain (pressure), palpitations, lightheadedness (with shortness of breath) and dyspnea on exertion; Denies: irregular heart rhythm, swelling of feet/ankles, pre-syncope, orthopnea or leg pain with exertion Resp: Denies: dyspnea, productive cough or non-productive cough Musc: Reports: neck pain and back pain Neuro: Denies: headache(s) or dizziness Psych: Denies: anxiety, depression, suicidal ideation or homicidal ideation Jeffy/Lymph: Denies: easy bruising or easy bleeding Medications/Allergies Home Medications Medication Instructions Recorded Confirmed Last Taken Type amlodipine 5 mg tablet 5 mg PO DAILY #30 tabs 03/24/23 04/09/23 Unknown Rx budesonide-formoterol HFA 80 2 inh inhalation BID #10.2 grams 03/24/23 04/09/23 Unknown Rx mcg-4.5 mcg/actuation aerosol inhaler (Symbicort) albuterol sulfate 90 mcg/actuation 1 inh inhalation 6XD PRN Shortness 04/09/23 04/09/23 Unknown History aerosol inhaler Of Breath Or Wheezing Allergies Allergy/AdvReac Type Severity Reaction Status Date / Time gabapentin Allergy Intermediate nausea/vomi Verified 04/09/23 12:45 ting PFSH Acute PFSH: Medical History Chest pain CKD (chronic kidney disease) stage 3, GFR 30-59 ml/min COPD (chronic obstructive pulmonary disease) Hypertension Migraine Osteoarthritis of right shoulder Stenosis, spinal, lumbar Tobacco use Surgical History H/O shoulder surgery H/O skin graft Hx of tonsillectomy Post-operative state S/P lumbar laminectomy (05/25/19) Dr Hinojosa bilateral L3-4 laminotomy/foraminotomy. Family History Mother CAD (coronary artery disease) Father Diabetes Social History Smoking and tobacco status: current every day smoker Alcohol intake: current Alcohol intake frequency: few times a month Substance/Drug Use: never Lives independently: Yes Household members: spouse Marital status: Current occupational status: disabled Physical Exam Narrative: GENERAL: Patient is alert, awake and oriented x3. [] NECK: No jugular vein distension. [] HEENT: No cyanosis. No icterus. No pallor. [] HEART: Regular S1 and S2. No murmur, rub or gallop. [] LUNGS: Clear to auscultate bilaterally. [] CENTRAL NERVOUS SYSTEM: Grossly nonfocal. [] EXTREMITIES: Lower extremities with 1+ edema bilaterally. Pulses palpable in the lower extremities, both dorsalis pedis and posterior tibial. [] Data 04/09/23 20:35 04/10/23 08:20 A&P Assessment and plan (1) Worsening angina: (2) CKD (chronic kidney disease) stage 3, GFR 30-59 ml/min: (3) COPD (chronic obstructive pulmonary disease): (4) Tobacco use: Plan Patient has been having worsening chest pain symptoms. He describes typical symptoms. Echo shows LV dysfunction with regional wall motion abnormalities. He is admitted for prehydration and urgent coronary angiogram tomorrow morning. Risks and benefits of the procedure have been discussed. Start aspirin. We will continue IV fluids overnight. BMP in the morning. Attestations Medical Necessity Statement*: Care not expected to cross 2 midnights. Patient has been admitted for pre- hydration and left heart cath in the AM Coding Level of Care Code Acute Code for Chg Fwd Diagnoses Worsening angina I20.0 CKD (chronic kidney disease) stage 3, GFR 30-59 ml/min N18.30 COPD (chronic obstructive pulmonary disease) J44.9 Tobacco use Z72.0
[2023-04-09] MEDS: aspirin 325 mg Tablet PO (19:32)
[2023-04-09] MEDS: sodium chloride 0.9% 1,000 ML 75 ML IV (19:38)
[2023-04-09 19:42] VITALS: BMI 24.0
[2023-04-09 20:00] VITALS: BP 129/77; PULSE 85; RESP 25; TEMP 36.7; O2SAT 91
--- NOTE | 2023-04-09 20:24 | ECG_ITS ---
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 Measurements Intervals [place] Rate: 77 P: 48 [place]: 141 QRS: 48 QRSD: 85 T: 77 QT: 293 QTc: 332 Interpretive Statements SINUS RHYTHM WITH OCCASIONAL ECTOPIC PREMATURE COMPLEXES NONSPECIFIC ST & T-WAVE ABNORMALITY Compared to ECG 03/24/2023 11:54:02 T-wave abnormality now present Left ventricular hypertrophy no longer present ST (T wave) deviation no longer present Electronically Signed On 04-09-2023 23:59:00 CDT by Elham Johnson M.D. [id number]
[2023-04-09] MEDS: acetaminophen 500 mg Tablet PO (20:42)
[2023-04-09 20:52] LABS: Basophils # 0.1 10^3/uL (0.0-0.1); Basophils % 0.5 %; Eosinophils # 0.2 10^3/uL (0.0-0.8); Eosinophils % 2.5 %; Hematocrit 41.8 % (37-53); Lymphocytes # 1.5 10^3/uL (0.8-4.8); Lymphocytes % 16.5 %; Mean Corpuscular Hemoglobin 30.3 pg (27-33); Mean Corpuscular Volume 91.7 fl (82-101); Mean Platelet Volume 10.4 fL (7.4-10.4); Monocytes # 0.5 10^3/uL (0.2-0.9); Monocytes % 5.9 %; Neutrophils # 6.82 10^3/uL (1.8-7.7); Neutrophils % 74.3 %; Nucleated Red Blood Cells % 0 %; Platelet Count 276 10^3/cmm (157-399); Red Blood Count 4.56 10^6/uL (3.85-5.65); Red Cell Distribution Width 13.7 % (12.1-15.1); White Blood Count 9.19 10^3/uL (3.29-11.43)
[2023-04-09 21:11] LABS: Troponin(5th) Baseline 36 ng/L (0-15)
[2023-04-09 21:14] LABS: Alanine Aminotransferase 29 U/L (0-41); Albumin Level 4.1 g/dL (3.5-5.2); Alkaline Phosphatase 88 U/L (40-130); Anion Gap 13.8 (5-19); Aspartate Amino Transferase 24 U/L (0-40); Blood Urea Nitrogen 29 mg/dL (6-20); Calcium 8.9 mg/dL (8.5-10.5); Carbon Dioxide 26 mmol/L (22-29); Chloride 104 mmol/L (98-107); Glomerular Filtration Rate 41.6 mL/min (90-130); Glucose 106 mg/dL (65-115); Osmolality Calculated 296 mOsm/kg (285-295); Potassium 3.8 mmol/L (3.5-5.1); Sodium 140 mmol/L (136-145); Total Bilirubin 0.3 mg/dL (0.15-1.2); Total Protein 6.1 g/dL (6.6-8.7)
[2023-04-09 21:15] LABS: Creatinine Clr Calc Pharmacy 45.2276
[2023-04-09 22:39] LABS: Troponin 5 2HR 32.58 ng/L (0-15)
[2023-04-09 22:40] LABS: Troponin 5 2HR Delta -3.42 ABS# (0-10)
[2023-04-09 23:27] VITALS: BP 135/70; PULSE 78; RESP 18; TEMP 36.7; O2SAT 93
[2023-04-10] VITALS (9 sets, daily range): BP systolic 141–145; BP diastolic 88–105; PULSE 67–107; RESP 16–24; TEMP 36.3–36.6; O2SAT 91–96
[2023-04-10 03:04] LABS: Troponin 5 6HR 31.96 ng/L (0-15)
[2023-04-10 03:05] LABS: Troponin 5 6HR Delta -4.04 ng/L (0-12)
--- NOTE | 2023-04-10 06:12 | XACV_ITS ---
Exam Room: [facility] Ht: 170 cm Wt: 69 kg BSA: 1.82 m2 Gender: Male : 1965 Any Known Allergies: Other Exam Priority: Routine Procedure(s): Procedure Description: Diagnostic procedure Procedure Description: Left Heart Catheterization Procedure Description: Left ventriculography Procedure Description: Coronary IVUS Procedure Description: Coronary Angiography Diagnostic Cath Status: Urgent Diagnostic Findings * INDICATION: 57 year old male with past medical history of hypertension was directly admitted from office as he is complaining of worsening anginal symptoms for the last 3 months. He says walking short distance he starts getting out of breath and starts feeling pressure in the chest. He had 2 visits to ER with similar symptoms. Recent echo showed LV dysfunction with regional wall motion abnormalities in LAD/diagonal artery territory. * Left Main: mild to moderate 30-40% stenosis, TASHA: 3 flow. * Left Anterior Descending has mild luminal irregularities. * Right Coronary Artery has mild luminal irregularities. * Mid Circumflex: minimal 30% stenosis, TASHA: 3 flow. * Coronary angiography shows right dominance. Interventional Findings * INTERVENTIONAL PROCEDURE DETAIL/IVUS of left main artery: We engaged left main artery with XB 3.0 guide catheter. IV heparin was administered to maintain anticoagulation. 0.014 run-through guidewire was used to cross the stenosis and was put in distal LAD. We performed IVUS to size left main artery. MLA of 6.5 mm2 was obtained. This was non-significant. We then put the wire in LCx and IVUS run was performed. No change was noted. Given non-significant Left main artery findings, we proceeded with medical therapy. Final angiogram was performed and patient left the screedman/laborer in a stable condition.. Conclusions 1. Moderate left main stenosis. IVUS is non-significant. Medical therapy. 2. Non-ischemic cardiomyopathy. 3. Moderate left ventricular systolic dysfunction. Ejection fraction of 35%. Recommendations * Aggressive risk factor modification. * Outpatient cardiology follow up in 4 weeks. Interventional RX Recommendation: medical therapy and/or counseling Anticoagulation: Heparin Ventriculography Ejection Fraction: 35.0 % Pressures Phase:Rest AO : 142 / 88 ( 110 ) @ 10:58:00 AM 124 / 97 ( 111 ) @ 10:59:00 AM 126 / 96 ( 109 ) @ 11:00:00 AM 126 / 97 ( 113 ) @ 11:03:00 AM 153 / 95 ( 120 ) @ 11:10:00 AM 151 / 87 ( 118 ) @ 11:10:00 AM 178 / 86 ( 114 ) @ 11:11:00 AM 188 / 94 ( 120 ) @ 11:14:00 AM 133 / 97 ( 114 ) @ 11:18:00 AM 135 / 91 ( 112 ) @ 11:26:00 AM LV : 164 / 0 / 23 @ 11:09:00 AM 156 / 0 / 22 @ 11:09:00 AM 156 / 0 / 21 @ 11:10:00 AM Valves Phase:DefaultPhase AV : 2.0 @ 10:33:38 AM 2.0 @ 10:33:38 AM AV Mean Gradient: 16.0 @ 10:33:38 AM 16.0 @ 10:33:38 AM Clinical Evaluation EBL: 5mL-10mL Procedural Details Pre-Procedure Time Out. Identified patient by full name and date of as verbalized by the patient/guarantor. Does the consent match the physician's order: Yes. Accurate & Complete Informed Consent: Yes. Inpatient/Outpatient History & Physical on Chart: Yes. If H&P is completed, is and addenduem needed: No; If yes, is the addendum complete: N/A. Visualize and Verify Site with Patient/Guarantor: N/A. Relevant Radiology Images available: Yes. Pre-op teaching completed and patient verbalized understanding. The risks, benefits, and alternatives of sedation and/or procedure were discussed by physician. The patient agrees to continue. Procedure started. [facility] Clinical Fraility Score: 3: Managing Well. Tipple Operator Indications: Worsening Angina. Chest Pain Symptom Assessment: Atypical Angina. Physician arrived. Current Diagnosis : Chest Pain. Correct patient, site and procedure confirmed by cath team. Current diagnosis: Chest Pain. PERRLA. Strong, equal hand white shoe examiner bilaterally. Lungs clear x 5 lobes. IV Site on Arrival: 18 gauge in the left forearm. IV Fluids: 0.9% NaCl at KVO. 0 mL infused prior to screedman/laborer. Oxygen started at 2liters/min via nasal canula. Pre Procedural Pulses: right radial was 2+. right groin was prepped with chloroprep then draped in the usual sterile fashion. right radial was prepped with chloroprep then draped in the usual sterile fashion. Baseline sample Acquired. HR: 79 BPM. Physician scrubbed in. Immediate Pre-Procedure Time Out. Correct Patient: Yes; Correct Procedure: Yes; Correct Site: Yes; Correct Patient Position: Yes; Correct Supplies: Yes; Dried Flammable Prep: Yes; Blood Products Available: N/A;. Lidocaine 1% infiltrated to the right radial. Arterial access obtained. A 5 ecuadorean TIG catheter in over wire. Multiple views taken of left coronary artery. Catheter redirected to the RCA. Multiple views taken of right coronary artery. Physician review of cine films. Catheter removed over the exchange wire. A 5 ecuadorean Angled Pig catheter in over wire. EDP Sample taken: LV 164/0,23; HR: 72 BPM; SpO2: 97%. LV gram performed in RAJPUT @ 10 mL/second for a total of 30 mL. EDP Sample taken: LV 156/-1,22; HR: 72 BPM; SpO2: 98%. Pullback taken: LV 156/-1,21; AO 153/95(120); Mean: 16mmHg, Peak to Peak: 2mmHg, SEP: 7sec/min; HR: 74 BPM; SpO2: 97%. Catheter removed over the exchange wire. Physician review of cine films. Side port of sheath attached to Normal Saline flush at KVO to maintain patency. 6 ecuadorean XB 3 guide catheter was inserted over the wire. Runthrough guidewire was advanced through the guide catheter to lesion in the prox LMCA. IVUS catheter inserted OTW and advanced to the LMCA. Measurements obtained. Wire redirected to the CX. IVUS catheter out OTW. IVUS catheter inserted OTW and advanced to the CX. Measurements obtained. IVUS catheter and wire removed. Guide catheter out. Physician scrubbed out. A TR Band was successful obtaining hemostatsis at the Right Radial artery insertion site. Post Procedure: Pulses reassessed and unchanged. PERRLA. Strong, equal hand white shoe examiner bilaterally. No VTE prophylaxis required. Medication's Wasted: Lidocaine 1% = 1 mL. Medication's Wasted: Nitro = 49.8 mcg. Medication's Wasted: Heparin = 4000 units. Medication's Wasted: Other = Versed 1 mg. Vital chart was stopped. Total IV fluids: 50 mL. Complications: None. Estimated blood loss: 5mL-10mL. Responsiveness - Normal response to verbal stimuli; alert and oriented, PERRLA. Airway - Unaffected, no intervention required; spontaneous ventilation. Circulation: W/N/L, pulses unchanged. Nausea/Vomiting: No. Procedure completed. Patient transferred by wheelchair to CPRU. Access Site Site: Right Radial artery Sheath Size: 6 Fr Hemostasis Method: TR Band Hemostasis Success: Successful Procedure Medications Start: 9:49 AM Stop: 9:49 AM Medication: Versed Amount: 1 mg Route: I.V. Start: 9:49 AM Stop: 9:49 AM Medication: Fentanyl Amount: 50 mcg Route: I.V. Start: 9:56 AM Stop: 9:56 AM Medication: Nitrogylcerin Amount: 200 mcg Route: I.A. Start: 9:58 AM Stop: 9:58 AM Medication: Heparin Amount: 5000 units Route: I.V. Start: 10:16 AM Stop: 10:16 AM Medication: Heparin Amount: 2000 units Route: I.V. Start: 10:17 AM Stop: 10:17 AM Medication: Fentanyl Amount: 50 mcg Route: I.V. I, the attending physician, have reviewed and verified all procedure medications. Yes, all medications given per verbal order History/Risk Factors Hypertension: Yes Dyslipidemia: No Peripheral Arterial Disease (PAD): No Myocardial Infarction (CO): No Obesity: No Renal Disease: No Tobacco Use: Current/Recent(w/in 1 year) Prior Interventions PCI: No CABG: No Valve Surgery: No Report Signatures Finalized by Gatito Del Toro MD on 04/24/2023 08:54 AM
[2023-04-10] MEDS: budesonide 0.5 mg/2 mL Neb INHALATION (07:46)
[2023-04-10] MEDS: albuterol 2.5 mg/3 mL Neb INHALATION ×2 (07:46→15:39)
[2023-04-10 08:49] LABS: Anion Gap 10.7 (5-19); Blood Urea Nitrogen 18 mg/dL (6-20); Carbon Dioxide 25 mmol/L (22-29); Chloride 105 mmol/L (98-107); Glomerular Filtration Rate 68.8 mL/min (90-130); Glucose 95 mg/dL (65-115); Osmolality Calculated 286 mOsm/kg (285-295); Potassium 3.7 mmol/L (3.5-5.1); Sodium 137 mmol/L (136-145)
[2023-04-10] MEDS: sodium chloride 0.9% 1,000 ML 75 ML IV (09:09)
[2023-04-10] MEDS: diphenhydrAMINE 50 mg Capsule PO (09:10)
[2023-04-10] MEDS: amlodipine 5 mg Tablet PO (09:10)
--- NOTE | 2023-04-10 09:47 | PM.PN ---
Vitals/I&O/Wt Last Vital Signs Temp 97.8 F 04/10/23 08:00 Pulse 69 04/10/23 08:00 Resp 21 H 04/10/23 08:00 BP 142/105 04/10/23 08:00 Pulse Ox 92 04/10/23 08:00 O2 Del Method Room Air 04/10/23 08:00 O2 Flow Rate 2 04/10/23 07:49 04/09/23 04/10/23 04/10/23 22:59 06:59 14:59 Intake Total 1860 / 1860 665 / 2525 1000 / 1000 Output Total 1750 / 1750 300 / 300 Balance 1860 / 1860 -1085 / 775 700 / 700 Weight last 48 hrs Weight 153 lb 8 oz Data 04/09/23 20:35 04/10/23 08:20 Coding Level of Care Code Acute Code for Chg Fwd Diagnoses
--- NOTE | 2023-04-10 09:47 | W.PM.OPSUD ---
Surgery/Procedure H&P Update DATE OF PROCEDURE: April 10, 2023 DATE H&P PERFORMED: 04/09/23 H&P UPDATE INFORMATION: I have reviewed H&P completed within last 30 days, I have examined patient prior to procedure and No changes to prior documentation PREOP DIAGNOSIS: Worsening angina/ LV dysfunction PRIMARY INDICATION FOR PROCEDURE: Worsening angina/ LV dysfunction PLANNED PROCEDURE: Left heart cath with possible percutaneous coronary intervention PATIENT REASSESSED PRIOR TO SEDATION, WITH NO CHANGE NOTED: Yes PHYSICAL EXAM: alert, oriented x 3, clear to auscultation bilaterally and regular rate & rhythm AIRWAY EVAL/ANESTHESIA PLAN: normal airway, ASA III, Local Anesthesia, Risks, benefits & alternatives of sedation and/or procedure discussed and Patient agrees to continue as planned ADDITIONAL INFORMATION: Moderate sedation
--- NOTE | 2023-04-10 09:57 | PC.NURSE ---
Off floor to slab puller at [id number]
--- NOTE | 2023-04-10 11:02 | PC.NURSE ---
Around 1100: Transfer orders received. TR band to patient's right wrist clean, dry, et intact. No drainage or hematoma. Vitals stable. No c/o pain or discomfort. Report given to KAREEN Pulido. Patient transferred from CPRU to CSU via hospital bed. All belonging sent with patient.
--- NOTE | 2023-04-10 11:19 | PC.NURSE ---
Patient returned to CSU from liaison inspection laboratory assistant at 1110.
--- NOTE | 2023-04-10 12:31 | PM.DCS ---
Discharge Providers Date of Admission: 04/09/23 18:51 Date of Discharge: April 10, 2023 Attending Provider at Admission: Gatito Del Toro M.D Attending Provider at Discharge: Gatito Del Toro M.D Primary Care Provider: Nano Cohen DO Diagnoses at Discharge Discharge Diagnosis (1) Worsening angina: Status: Inactive (2) CKD (chronic kidney disease) stage 3, GFR 30-59 ml/min: Status: Acute (3) COPD (chronic obstructive pulmonary disease): Status: Acute (4) Tobacco use: Status: Acute Reason for Visit Reason for Visit: Worsening angina/ LV dysfunction Brief History: 57 year old male with past medical history of hypertension was directly admitted from office as he is complaining of worsening anginal symptoms for the last 3 months.? He says walking short distance he starts getting out of breath and starts feeling pressure in the chest.? He had 2 visits to ER with similar symptoms.? Recent echo showed LV dysfunction with regional wall motion abnormalities in LAD/diagonal artery territory. He is still complaining of on and off chest discomfort.? Patient's creatinine is elevated and he has CKD. EKG shows normal sinus rhythm with non specific ST T wave changes and PVC. Hospital Course Hospital Course Patient had overnight hydration and creatinine improved to 1.1. Coronary angiogram demonstrated moderate left main stenosis which underwent IVUS. MLA of 6.5 mm2 was noted which was not significant. Medical therapy was decided. Patient was discharged home in a stable condition, Physical Exam Narrative: GENERAL: Patient is alert, awake and oriented x3. [] NECK: No jugular vein distension. [] HEENT: No cyanosis. No icterus. No pallor. [] HEART: Regular S1 and S2. No murmur, rub or gallop. [] LUNGS: Clear to auscultate bilaterally. [] CENTRAL NERVOUS SYSTEM: Grossly nonfocal. [] EXTREMITIES: Lower extremities with 1+ edema bilaterally. Pulses palpable in the lower extremities, both dorsalis pedis and posterior tibial. [] Discharge Data Studies Completed and Pending Pending at discharge Category Date Time Status [employer] request for service Routine Exams 04/10/23 06:12 Taken Laboratory Results WBC 9.19 10^3/uL (3.29-11.43) 04/09/23 20:35 RBC 4.56 10^6/uL (3.85-5.65) 04/09/23 20:35 Hgb 13.80 g/dL (11.27-16.99) 04/09/23 20:35 Hct 41.8 % (37-53) 04/09/23 20:35 MCV 91.7 fl (82-101) 04/09/23 20:35 MCH 30.3 pg (27-33) 04/09/23 20:35 MCHC 33.0 g/dL (30-55) 04/09/23 20:35 RDW 13.7 % (12.1-15.1) 04/09/23 20:35 Plt Count 276 10^3/cmm (157-399) 04/09/23 20:35 MPV 10.4 fL (7.4-10.4) 04/09/23 20:35 Neut % (Auto) 74.3 % 04/09/23 20:35 Lymph % (Auto) 16.5 % 04/09/23 20:35 [place] % (Auto) 5.9 % 04/09/23 20:35 Eos % (Auto) 2.5 % 04/09/23 20:35 Baso % (Auto) 0.5 % 04/09/23 20:35 Neut # (Auto) 6.82 10^3/uL (1.8-7.7) 04/09/23 20:35 Lymph # (Auto) 1.5 10^3/uL (0.8-4.8) 04/09/23 20:35 [place] # (Auto) 0.5 10^3/uL (0.2-0.9) 04/09/23 20:35 Eos # (Auto) 0.2 10^3/uL (0.0-0.8) 04/09/23 20:35 Baso # (Auto) 0.1 10^3/uL (0.0-0.1) 04/09/23 20:35 Nucleated RBC % (auto) 0 % 04/09/23 20:35 Nucleated RBCs # 0.0 /100WBC 04/09/23 20:35 Sodium 137 mmol/L (136-145) 04/10/23 08:20 Potassium 3.7 mmol/L (3.5-5.1) 04/10/23 08:20 Chloride 105 mmol/L (98-107) 04/10/23 08:20 Carbon Dioxide 25 mmol/L (22-29) 04/10/23 08:20 Anion Gap 10.7 (5-19) 04/10/23 08:20 BUN 18 mg/dL (6-20) 04/10/23 08:20 Creatinine 1.1 mg/dL (0.7-1.2) 04/10/23 08:20 GFR Calculation 68.8 mL/min (90-130) L 04/10/23 08:20 Glucose 95 mg/dL (65-115) 04/10/23 08:20 Calculated Osmolality 286 mOsm/kg (285-295) 04/10/23 08:20 Calcium 8.0 mg/dL (8.5-10.5) L 04/10/23 08:20 Total Bilirubin 0.3 mg/dL (0.15-1.2) 04/09/23 20:35 AST 24 U/L (0-40) 04/09/23 20:35 ALT 29 U/L (0-41) 04/09/23 20:35 Alkaline Phosphatase 88 U/L (40-130) 04/09/23 20:35 Troponin T Baseline 36 ng/L (0-15) H 04/09/23 20:35 Troponin T 120 Minute 32.58 ng/L (0-15) H 04/09/23 22:06 Delta Troponin T -3.42 ABS# (0-10) L 04/09/23 22:06 Troponin T Hi Sens 6Hr 31.96 ng/L (0-15) H 04/10/23 02:24 Troponin T Hi Sens 6Hr Delta -4.04 ng/L (0-12) L 04/10/23 02:24 Total Protein 6.1 g/dL (6.6-8.7) L 04/09/23 20:35 Albumin 4.1 g/dL (3.5-5.2) 04/09/23 20:35 Globulin 2.0 g/dL (1.3-4.6) 04/09/23 20:35 Vitals Last Vital Signs Temp 97.8 F 04/10/23 08:00 Pulse 67 04/10/23 10:30 Resp 18 04/10/23 10:30 BP 145/102 04/10/23 10:30 Pulse Ox 92 08/30/23 10:30 O2 Del Method Room Air 04/10/23 08:00 O2 Flow Rate 2 04/10/23 07:49 Discharge Plan Discharge Patient Disposition: Home Condition: Stable Prescriptions: New Coreg 12.5 mg tablet 12.5 mg PO BID Qty: 120 3RF Rx Instructions: must administer with a meal/food losartan 25 mg tablet 25 mg PO DAILY Qty: 90 3RF Lasix 20 mg tablet 20 mg PO DAILY Qty: 60 2RF Continued budesonide-formoterol [Symbicort] 80-4.5 mcg/actuation HFA aerosol inhaler 2 inh inhalation BID Qty: 10.2 0RF albuterol sulfate 90 mcg/actuation HFA aerosol inhaler 1 inh inhalation 6XD PRN (Reason: Shortness Of Breath Or Wheezing) Discontinued amlodipine 5 mg tablet 5 mg PO DAILY Qty: 30 0RF Discharge Orders: Discharge Order (Routine); Ordered 04/10/23 Ordered By: Gatito Del Toro Other Ambulatory Orders: Basic Metabolic Panel (Routine) Timeframe: 20230412 Facility: [facility] - Location: Lab - Main Lab Ordered By: Gatito Del Toro NT Pro B Type Natriuretic Pept (Routine) Timeframe: 20230412 Facility: [facility] - Location: Lab - Main Lab Ordered By: Gatito Del Toro Referrals: Regina Coy FNP [Nurse Practitioner] - 7-10 days (May 06, 2023 at 9:15 [facility] [address] [place] [address] ) Discharge Diet: Cardiac and Low Salt Discharge Activity: Increase activity as tolerated Patient Instructions: Angina, Heart Failure (DC), Chronic Kidney Disease (DC), COPD (Chronic Obstructive Pulmonary Disease) (DC), Opioid Safety Discharge Attestations Time Spent in Discharge Care*: greater than 30 min Quality Metrics Clinical Quality Measures [ No reported AMI, CVA or VTE this stay] Coding Level of Care Code Acute Code for Chg Fwd Diagnoses Worsening angina I20.0 CKD (chronic kidney disease) stage 3, GFR 30-59 ml/min N18.30 COPD (chronic obstructive pulmonary disease) J44.9 Tobacco use Z72.0
--- NOTE | 2023-04-10 16:18 | PC.NURSE ---
Patient comes back from the blender laborer with a right TR-band. No hematoma noted. Vitals were stable. 2ml's air is removed from TR-band at 1235. 2ml's of air is removed at 1300. 2ml's of air is removed at 1320. 2ml's of air is removed at 1345. 2ml's of air is removed at 1400. 2ml's of air is removed at 1415. 2ml's of air is removed at 1500. 2ml's of air is removed at 1520. TR-band is removed at 1545. A 2x2 and tegaderm dressing is applied.
== END 2023-04-10 16:48 | disposition home or self-care (01) ==
PROVIDERS: Admitting Provider Internal Medicine; PCP Family Medicine; Visit Provider Internal Medicine
DX: I20.0 Unstable angina (principal); I12.9 Hypertensive chronic kidney disease with stage 1 through stage 4 chronic kidney disease, or unspecified chronic kidney disease; N18.30 Chronic kidney disease, stage 3 unspecified; J44.9 Chronic obstructive pulmonary disease, unspecified; I42.9 Cardiomyopathy, unspecified; F17.200 Nicotine dependence, unspecified, uncomplicated
CPT/HCPCS: 36415; 80048; 80053; 84484; 85025; 92978; 92979; 93005; 93458; 94640; 96367; 99152; 99153; 99205; C1753; C1769; C1887; C1894; G0378; J1644; J2250; J3010; J3490; J7030; J7613; J7626; Q0163; Q9967

== ENCOUNTER 2023-04-21 03:12 | Emergency (ER) | payer MEDICARE, SELFPAY ==
[2023-04-21 03:35] VITALS: BP 160/93; PULSE 87; RESP 20; TEMP 36.6; O2SAT 99; BMI 24.3
== END 2023-04-21 04:27 | disposition left against medical advice (07) ==
PROVIDERS: Emergency Provider Family Medicine; PCP Family Medicine
DX: Z53.21 Procedure and treatment not carried out due to patient leaving prior to being seen by health care provider (principal)

== ENCOUNTER 2023-05-14 02:53 | Emergency (ER) | payer MEDICARE, SELFPAY ==
[2023-05-14] VITALS (12 sets, daily range): BP systolic 140–181; BP diastolic 89–121; PULSE 81–99; RESP 16–36; TEMP 36.7; O2SAT 87–96; BMI 22.7
--- NOTE | 2023-05-14 02:55 | ECG_ITS ---
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 Measurements Intervals [place] Rate: 95 P: 82 RI: 143 QRS: 73 QRSD: 88 T: 83 QT: 429 QTc: 540 Interpretive Statements SINUS RHYTHM WITH FREQUENT VENTRICULAR PREMATURE COMPLEXES MINIMAL VOLTAGE CRITERIA FOR LVH, CONSIDER NORMAL VARIANT [MEETS CRITERIA IN ONE OF: R(aVL), S(V1), R(V5), R(V5/V6)+S(V1)] PROLONGED QT INTERVAL Compared to ECG 04/09/2023 20:24:58 Ventricular premature complex(es) now present Prolonged QT interval now present T-wave abnormality no longer present Electronically Signed On 05-14-2023 12:56:33 CDT by Yoly Aleman M.D. [id number]
--- NOTE | 2023-05-14 02:55 | XRR_ITS ---
PROCEDURE INFORMATION: Exam: XR Chest Exam date and time: 05/14/2023 2:59 AM Age: 58 years old Clinical indication: Chest wall pain; Patient HX: Chest pain, tightness, and fatigue for the last few days; Additional info: SOB TECHNIQUE: Imaging protocol: Radiologic exam of the chest. Views: 1 view. COMPARISON: CR (CHEST, ) 03/24/2023 9:46 AM FINDINGS: Lungs: Lungs are hyperinflated. There are mild increased interstitial markings in the upper lobes. Pleural spaces: Unremarkable. No pleural effusion. No pneumothorax. Heart/Mediastinum: Unremarkable. No cardiomegaly. Bones/joints: Unremarkable. XR/XR chest 1V portable [id number] IMPRESSION: Hyperinflation, upper lobe interstitial prominence.
--- NOTE | 2023-05-14 03:01 | ED_ITS ---
HPI - SOB/Dyspnea General: Chief Complaint: Shortness of Breath/Dyspnea Stated Complaint: shortness of breath Time Seen by Provider: 05/14/23 02:55 Source: patient Mode of arrival: ambulatory Limitations: no limitations History of Present Illness: HPI Narrative: 58-year-old male who is very well-known to ER he has history of chronic kidney disease COPD and coronary disease. He states he has been having chest tightness over the last 3 days. States been waxing and waning denies any real worsening improving factors had some mild shortness of breath he did have a cardiac cath at the end of March. He states he supposed to have appointment with cardiology last week and missed his appointment Associated symptoms: Reports chest pain; Deny abdominal pain, fever(s), nausea or vomiting Review of Systems Const: Denies: fever(s) or chills ENMT: Denies: throat pain or dental pain Card: Reports: chest pain Resp: Reports: dyspnea GI: Denies: abdominal pain, nausea, vomiting or diarrhea Musc: Denies: neck pain or back pain Skin/Breast: Denies: rash Neuro: Denies: headache(s) PFSH ED PFSH: Medical History Chest pain CKD (chronic kidney disease) stage 3, GFR 30-59 ml/min COPD (chronic obstructive pulmonary disease) Coronary artery disease Hypertension Migraine Osteoarthritis of right shoulder Stenosis, spinal, lumbar Tobacco use Worsening angina Surgical History H/O shoulder surgery H/O skin graft Hx of tonsillectomy Post-operative state S/P lumbar laminectomy (05/25/19) Dr Hinojosa bilateral L3-4 laminotomy/foraminotomy. Family History Mother CAD (coronary artery disease) Father Diabetes Social History Smoking and tobacco status: current every day smoker Alcohol intake: current Alcohol intake frequency: few times a month Substance/Drug Use: never Lives independently: Yes Household members: spouse Marital status: Current occupational status: disabled Physical Exam Const: COMMON NORMALS: no acute distress, patient oriented x3 and healthy appearing HENMT: COMMON NORMALS: normocephalic and atraumatic HEAD & SCALP: normocephalic and atraumatic Eye: COMMON NORMALS: Equal, round and reactive pupils present and EOMs intact bilaterally PUPIL: Yes Equal, round and reactive pupils present Neck/C-Spine: COMMON NORMALS: full ROM and supple Chest: COMMONS NORMALS: normal inspection of the chest and normal palpation of entire chest wall Resp: COMMON NORMALS: normal respiratory effort, No retractions, No use of accessory muscles and clear to auscultation bilaterally AUSCULTATION: clear to auscultation bilaterally Cardio: COMMON NORMALS: regular rate, regular rhythm and No murmurs present (Cardio) RATE: regular rate RHYTHM: regular rhythm GI: COMMON NORMALS: Normal to inspection, nondistended, normoactive bowel sounds present, Soft to palpation, non-tender and no masses PALPATION: Yes Soft to palpation Extremity: COMMON NORMALS: normal to inspection and full ROM Neuro: COMMON NORMALS: patient oriented x3, moves all extremities and no focal motor deficits Psych: COMMON NORMALS: mental status grossly normal, Normal thought process present and cooperative THOUGHT PROCESS: Normal thought process present Skin: COMMON NORMALS: no rashes or lesions noted and no wounds GENERAL SKIN EXAM: no rashes or lesions noted Course Vital Signs: Vital signs: Vital Signs Temperature 98.0 F 05/14/23 02:56 Pulse Rate 87 05/14/23 04:47 Respiratory Rate 29 H 05/14/23 04:54 Blood Pressure 164/121 05/14/23 03:48 Pulse Oximetry 89 L 05/14/23 04:54 Oxygen Delivery Me thod Room Air 05/14/23 04:47 MDM - SOB/Dyspnea Medical Decision Making Patient presents here with chest pains atypical in nature troponins here are normal he also has some dyspnea likely COPD exacerbation he feels improved after breathing treatment he is stable for discharge 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 He understands agrees to plan. Medical Records I reviewed the patient's medical records. Lab Data I reviewed the patient's lab results. 05/14/23 03:05 05/14/23 03:05 Labs/Radiology: Radiology Impressions Chest X-Ray 05/14/23 02:55 IMPRESSION: Hyperinflation, upper lobe interstitial prominence. Laboratory Results WBC 9.22 10^3/uL (3.29-11.43) 05/14/23 03:05 RBC 4.96 10^6/uL (3.85-5.65) 05/14/23 03:05 Hgb 14.80 g/dL (11.27-16.99) 05/14/23 03:05 Hct 45.1 % (37-53) 05/14/23 03:05 MCV 90.9 fl (82-101) 05/14/23 03:05 MCH 29.8 pg (27-33) 05/14/23 03:05 MCHC 32.8 g/dL (30-55) 05/14/23 03:05 RDW 13.0 % (12.1-15.1) 05/14/23 03:05 Plt Count 246 10^3/cmm (157-399) 05/14/23 03:05 MPV 10.6 fL (7.4-10.4) H 05/14/23 03:05 Neut % (Auto) 73.1 % 05/14/23 03:05 Lymph % (Auto) 17.4 % 05/14/23 03:05 [place] % (Auto) 6.1 % 05/14/23 03:05 Eos % (Auto) 2.3 % 05/14/23 03:05 Baso % (Auto) 0.8 % 05/14/23 03:05 Neut # (Auto) 6.75 10^3/uL (1.8-7.7) 05/14/23 03:05 Lymph # (Auto) 1.6 10^3/uL (0.8-4.8) 05/14/23 03:05 [place] # (Auto) 0.6 10^3/uL (0.2-0.9) 05/14/23 03:05 Eos # (Auto) 0.2 10^3/uL (0.0-0.8) 05/14/23 03:05 Baso # (Auto) 0.1 10^3/uL (0.0-0.1) 05/14/23 03:05 Nucleated RBC % (auto) 0 % 05/14/23 03:05 Nucleated RBCs # 0.0 /100WBC 05/14/23 03:05 Sodium 139 mmol/L (136-145) 05/14/23 03:05 Potassium 3.2 mmol/L (3.5-5.1) L 05/14/23 03:05 Chloride 101 mmol/L (98-107) 05/14/23 03:05 Carbon Dioxide 26 mmol/L (22-29) 05/14/23 03:05 Anion Gap 15.2 (5-19) 05/14/23 03:05 BUN 23 mg/dL (6-20) H 05/14/23 03:05 Creatinine 1.7 mg/dL (0.7-1.2) H 05/14/23 03:05 GFR Calculation 41.5 mL/min (90-130) L 05/14/23 03:05 Glucose 101 mg/dL (65-115) 05/14/23 03:05 Calculated Osmolality 292 mOsm/kg (285-295) 05/14/23 03:05 Calcium 8.7 mg/dL (8.5-10.5) 05/14/23 03:05 Total Bilirubin 0.3 mg/dL (0.15-1.2) 05/14/23 03:05 AST 29 U/L (0-40) 05/14/23 03:05 ALT 23 U/L (0-41) 05/14/23 03:05 Alkaline Phosphatase 110 U/L (40-130) 05/14/23 03:05 Troponin T Baseline 36 ng/L (0-15) H 05/14/23 03:05 Troponin T 120 Minute 32.01 ng/L (0-15) H 05/14/23 04:45 Delta Troponin T -3.99 ABS# (0-10) L 05/14/23 04:45 NT-Pro-B Natriuret Pep 8448 pg/mL (0-125) H 05/14/23 03:05 Total Protein 6.8 g/dL (6.6-8.7) 05/14/23 03:05 Albumin 4.4 g/dL (3.5-5.2) 05/14/23 03:05 Globulin 2.4 g/dL (1.3-4.6) 05/14/23 03:05 All radiology interpretation(s) finalized by discharge EKG Data EKG 1: I personally reviewed and interpreted this EKG as follows: EKG Interpretation Date: 05/14/23 EKG interpretation time: 02:56 Interpretation: nsr hr [address] elevation qrs 88 qtc 481 Discharge Plan Discharge Patient Disposition: Home Clinical Impression: Chest pain, COPD (chronic obstructive pulmonary disease) Condition: Stable Prescriptions: Continued albuterol sulfate 90 mcg/actuation HFA aerosol inhaler 1 inh inhalation 6XD PRN (Reason: Shortness Of Breath Or Wheezing) Qty: 8.5 2RF No Action budesonide-formoterol [Symbicort] 80-4.5 mcg/actuation HFA aerosol inhaler 2 inh inhalation BID Qty: 10.2 0RF Coreg 12.5 mg tablet 12.5 mg PO BID Qty: 120 3RF Rx Instructions: must administer with a meal/food losartan 25 mg tablet 25 mg PO DAILY Qty: 90 3RF Lasix 20 mg tablet 20 mg PO DAILY Qty: 60 2RF Discharge Orders: Discharge ED (Routine); Ordered 05/14/23 Ordered By: Paco Nice Referrals: RogerrJavi MD [Physician] - 1-3 days Nano Cohen DO [Primary Care Provider] - Discharge Diet: Advance as tolerated Discharge Activity: Resume usual activity Patient Instructions: Chest Pain (ED), COPD (Chronic Obstructive Pulmonary Disease) (ED) Coding Level of Care Code ED [employer] for Zoë Arce
[2023-05-14] MEDS: nitroglycerin 0.4 mg sublingual Tablet SUBLINGUAL ×2 (03:03→03:15)
[2023-05-14] MEDS: aspirin 81 mg Chew Tablet 324 MG PO (03:03)
[2023-05-14 03:11] LABS: Basophils # 0.1 10^3/uL (0.0-0.1); Basophils % 0.8 %; Eosinophils # 0.2 10^3/uL (0.0-0.8); Eosinophils % 2.3 %; Hematocrit 45.1 % (37-53); Lymphocytes # 1.6 10^3/uL (0.8-4.8); Lymphocytes % 17.4 %; Mean Corpuscular HGB Conc 32.8 g/dL (30-55); Mean Corpuscular Hemoglobin 29.8 pg (27-33); Mean Corpuscular Volume 90.9 fl (82-101); Mean Platelet Volume 10.6 fL (7.4-10.4); Monocytes # 0.6 10^3/uL (0.2-0.9); Monocytes % 6.1 %; Neutrophils # 6.75 10^3/uL (1.8-7.7); Neutrophils % 73.1 %; Nucleated Red Blood Cells % 0 %; Platelet Count 246 10^3/cmm (157-399); Red Blood Count 4.96 10^6/uL (3.85-5.65); White Blood Count 9.22 10^3/uL (3.29-11.43)
[2023-05-14 03:35] LABS: Troponin(5th) Baseline 36 ng/L (0-15)
[2023-05-14 03:43] LABS: Alanine Aminotransferase 23 U/L (0-41); Albumin Level 4.4 g/dL (3.5-5.2); Alkaline Phosphatase 110 U/L (40-130); Anion Gap 15.2 (5-19); Aspartate Amino Transferase 29 U/L (0-40); Blood Urea Nitrogen 23 mg/dL (6-20); Calcium 8.7 mg/dL (8.5-10.5); Carbon Dioxide 26 mmol/L (22-29); Chloride 101 mmol/L (98-107); Globulin 2.4 g/dL (1.3-4.6); Glomerular Filtration Rate 41.5 mL/min (90-130); Glucose 101 mg/dL (65-115); NT Pro B Type Natriuretic Pept 8448 pg/mL (0-125); Osmolality Calculated 292 mOsm/kg (285-295); Potassium 3.2 mmol/L (3.5-5.1); Sodium 139 mmol/L (136-145); Total Bilirubin 0.3 mg/dL (0.15-1.2); Total Protein 6.8 g/dL (6.6-8.7)
--- NOTE | 2023-05-14 04:42 | ECG_ITS ---
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 Measurements Intervals [place] Rate: 82 P: 75 [place]: 134 QRS: 75 QRSD: 89 T: 85 QT: 431 QTc: 506 Interpretive Statements SINUS RHYTHM WITH OCCASIONAL ECTOPIC PREMATURE COMPLEXES POSSIBLE LEFT ATRIAL ENLARGEMENT [-0.1mV P-WAVE IN V1/V2] PROLONGED QT INTERVAL Compared to ECG 05/14/2023 02:56:20 Ventricular premature complex(es) no longer present Electronically Signed On 05-14-2023 13:00:35 CDT by Yoly Aleman M.D. [email or web address] Sportsjefferson davis community hospitalCraneware[facility].Globa[employer]rek/store/OM/[id number]
[2023-05-14] MEDS: ipratropium-albuterol 3 mL Neb INHALATION (04:44)
[2023-05-14] MEDS: dexamethasone 10 mg/mL INJ IVP (04:46)
[2023-05-14] MEDS: ondansetron 2 mg/ML SDV 2 mL 4 MG IVP (04:52)
[2023-05-14] MEDS: morphine 4 mg/mL SDV 1 mL IVP (04:54)
[2023-05-14 05:07] LABS: Troponin 5 2HR 32.01 ng/L (0-15)
[2023-05-14 05:08] LABS: Troponin 5 2HR Delta -3.99 ABS# (0-10)
== END 2023-05-14 05:25 | disposition home or self-care (01) ==
PROVIDERS: Emergency Provider Emergency Medicine; PCP Family Medicine
DX: R07.9 Chest pain, unspecified (principal); J44.9 Chronic obstructive pulmonary disease, unspecified; F17.210 Nicotine dependence, cigarettes, uncomplicated; I12.9 Hypertensive chronic kidney disease with stage 1 through stage 4 chronic kidney disease, or unspecified chronic kidney disease; N18.30 Chronic kidney disease, stage 3 unspecified; I25.10 Atherosclerotic heart disease of native coronary artery without angina pectoris
CPT/HCPCS: 71045; 80053; 83880; 84484; 85025; 93005; 94640; 96374; 96375; 99285; J1100; J2270; J2405

== ENCOUNTER 2023-05-24 08:28 | Emergency (ER) | payer MEDICARE, SELFPAY ==
--- NOTE | 2023-05-24 08:31 | XR_ITS ---
WS: [id number] Portable AP upright chest, 05/24/2023 Clinical Data: dyspnea/cough Comparison: Portable chest, 05/14/2023 Findings: No nodules, masses or effusions are seen. The heart is normal. The pulmonary vascularity is not increased. No pneumonia or pneumothorax is seen. The diaphragms are flattened. The aortic arch a nd descending thoracic aorta show mild tortuosity. There is an orthopedic screw in the left glenoid r im. Impression: Atherosclerosis and hyperinflation.
[2023-05-24 08:36] VITALS: BP 154/94; PULSE 74; RESP 18; TEMP 36.8; O2SAT 99; BMI 25.8
--- NOTE | 2023-05-24 08:52 | W.ED.GENADLT ---
HPI - General Adult General: Chief complaint: General Medical Stated complaint: sob Time Seen by Provider: 05/24/23 08:29 Source: patient Mode of arrival: ambulatory History of Present Illness: 58-year-old male presents emergency room as complaint of shortness of breath and a nonproductive cough for 3 days. Subsequently some mild chest discomfort that radiates into the right side of his neck. No fevers or chills cough is nonproductive no abdominal pain. Patient has intermittently had chest pain recently infected in March was admitted from the office for complaints of chest pain had an angiogram done that was negative, reviewed in the chart today. Pain worse with coughing, reproducible with deep breath and coughing and palpation Onset (ago): day(s) (3) Severity: mild Relieving factors: none Associated symptoms: Reports cough, dyspnea and short of breath; Deny chest pain, confusion, diaphoresis, decreased appetite, fevers/chills, headache(s), malaise, nausea, rash, palpitations, seizures, syncope, vomiting or weakness Treatments prior to arrival: none Review of Systems Const: Denies: malaise or diaphoresis Card: Denies: chest pain, palpitations or syncope Resp: Reports: dyspnea GI: Denies: nausea or vomiting : Denies: dysuria, urinary frequency or urinary urgency Musc: Denies: neck pain or back pain Skin/Breast: Denies: rash Neuro: Denies: headache(s) or confusion PFSH ED PFSH: Medical History Chest pain CKD (chronic kidney disease) stage 3, GFR 30-59 ml/min COPD (chronic obstructive pulmonary disease) Coronary artery disease Hypertension Migraine Osteoarthritis of right shoulder Stenosis, spinal, lumbar Tobacco use Worsening angina Surgical History H/O shoulder surgery H/O skin graft Hx of tonsillectomy Post-operative state S/P lumbar laminectomy (05/25/19) Dr Hinojosa bilateral L3-4 laminotomy/foraminotomy. Family History Mother CAD (coronary artery disease) Father Diabetes Social History (Reviewed 05/24/23 @ 08:53 by ZULEIKA Cherry Smoking and tobacco/nicotine status: current every day tobacco/nicotine user Alcohol intake: current Alcohol intake frequency: few times a month Substance/Drug Use: never Lives independently: Yes Household members: spouse Marital status: Current occupational status: disabled Physical Exam Const: COMMON NORMALS: no acute distress GENERAL APPEARANCE: cooperative and comfortable ORIENTATION/CONSCIOUSNESS: Yes awake, Yes oriented to person, Yes oriented to place and Yes oriented to time HENMT: COMMON NORMALS: normocephalic, atraumatic and hearing grossly normal bilaterally HEAD & SCALP: normocephalic and atraumatic Resp: COMMON NORMALS: normal respiratory effort, No retractions, No use of accessory muscles and clear to auscultation bilaterally AUSCULTATION: clear to auscultation bilaterally Cardio: COMMON NORMALS: regular rate, regular rhythm and No murmurs present (Cardio) RATE: regular rate RHYTHM: regular rhythm GI: COMMON NORMALS: Soft to palpation and No hepatosplenomegaly present AUSCULTATION: Yes normoactive bowel sounds PALPATION: Yes Soft to palpation, No Tenderness to palpation present (GI), No Guarding due to palpation present (GI) and Yes No hepatosplenomegaly present Extremity: COMMON NORMALS: normal to inspection, capillary refill normal, no clubbing, cyanosis or edema, no calf tenderness and no pedal edema Neuro: SENSORIUM/ORIENTATION: Yes oriented to person, Yes oriented to place and Yes oriented to time Skin: COMMON NORMALS: no rashes or lesions noted GENERAL SKIN EXAM: no rashes or lesions noted Course Vital Signs: Vital signs: Vital Signs Temperature 98.3 F 05/24/23 08:36 Pulse Rate 87 05/24/23 11:31 Respiratory Rate 16 05/24/23 11:31 Blood Pressure 139/94 05/24/23 11:31 Pulse Oximetry 94 05/24/23 11:31 Oxygen Delivery Me thod Room Air 05/24/23 10:00 MDM - General Adult Medical Decision Making Cardiac enzymes negative EKG does not show any acute ST changes. Recent angiogram was unremarkable. Pain is reproduced with palpation and deep inspiration and suspect this is more related to musculoskeletal cough is precipitated by COPD exacerbation we will add Spiriva continue Symbicort prednisone taper course of doxycycline follow-up with primary care return if worsens or changes Medical Records I reviewed the patient's medical records. Lab Data I reviewed the patient's lab results. 05/24/23 08:39 05/24/23 08:39 Laboratory Results WBC 10.33 10^3/uL (3.29-11.43) 05/24/23 08:39 RBC 4.69 10^6/uL (3.85-5.65) 05/24/23 08:39 Hgb 14.00 g/dL (11.27-16.99) 05/24/23 08:39 Hct 43.3 % (37-53) 05/24/23 08:39 MCV 92.3 fl (82-101) 05/24/23 08:39 MCH 29.9 pg (27-33) 05/24/23 08:39 MCHC 32.3 g/dL (30-55) 05/24/23 08:39 RDW 13.1 % (12.1-15.1) 05/24/23 08:39 Plt Count 271 10^3/cmm (157-399) 05/24/23 08:39 MPV 10.6 fL (7.4-10.4) H 05/24/23 08:39 Neut % (Auto) 76.3 % 05/24/23 08:39 Lymph % (Auto) 13.0 % 05/24/23 08:39 [place] % (Auto) 6.6 % 05/24/23 08:39 Eos % (Auto) 3.2 % 05/24/23 08:39 Baso % (Auto) 0.5 % 05/24/23 08:39 Neut # (Auto) 7.89 10^3/uL (1.8-7.7) H 05/24/23 08:39 Lymph # (Auto) 1.3 10^3/uL (0.8-4.8) 05/24/23 08:39 [place] # (Auto) 0.7 10^3/uL (0.2-0.9) 05/24/23 08:39 Eos # (Auto) 0.3 10^3/uL (0.0-0.8) 05/24/23 08:39 Baso # (Auto) 0.1 10^3/uL (0.0-0.1) 05/24/23 08:39 Nucleated RBC % (auto) 0 % 05/24/23 08:39 Nucleated RBCs # 0.0 /100WBC 05/24/23 08:39 Sodium 136 mmol/L (136-145) 05/24/23 08:39 Potassium 4.0 mmol/L (3.5-5.1) 05/24/23 08:39 Chloride 101 mmol/L (98-107) 05/24/23 08:39 Carbon Dioxide 27 mmol/L (22-29) 05/24/23 08:39 Anion Gap 12.0 (5-19) 05/24/23 08:39 BUN 16 mg/dL (6-20) 05/24/23 08:39 Creatinine 1.3 mg/dL (0.7-1.2) H 05/24/23 08:39 GFR Calculation 56.5 mL/min (90-130) L 05/24/23 08:39 Glucose 113 mg/dL (65-115) 05/24/23 08:39 Calculated Osmolality 284 mOsm/kg (285-295) L 05/24/23 08:39 Calcium 8.5 mg/dL (8.5-10.5) 05/24/23 08:39 Total Bilirubin 0.5 mg/dL (0.15-1.2) 05/24/23 08:39 AST 17 U/L (0-40) 05/24/23 08:39 ALT 15 U/L (0-41) 05/24/23 08:39 Alkaline Phosphatase 94 U/L (40-130) 05/24/23 08:39 Troponin T Baseline 32 ng/L (0-15) H 05/24/23 08:39 Troponin T 120 Minute 28.57 ng/L (0-15) H 05/24/23 10:34 Delta Troponin T -3.43 ABS# (0-10) L 05/24/23 10:34 Total Protein 6.6 g/dL (6.6-8.7) 05/24/23 08:39 Albumin 3.7 g/dL (3.5-5.2) 05/24/23 08:39 Globulin 2.9 g/dL (1.3-4.6) 05/24/23 08:39 All radiology interpretation(s) finalized by discharge Discharge Plan Discharge Patient Disposition: Home Clinical Impression: COPD exacerbation, Musculoskeletal chest pain Condition: Stable Prescriptions: New Spiriva with HandiHaler 18 mcg capsule, w/inhalation device 1 cap inhalation DAILY Qty: 30 0RF Rx Instructions: puncture 1 cap using device; one dose = 2 inhalations doxycycline hyclate 100 mg capsule 100 mg PO BID 10 Days Qty: 20 0RF prednisone 20 mg tablet 20 mg PO TID Qty: 15 0RF Rx Instructions: 1 p.o. 3 times daily x3 days, 1 p.o. twice daily x2 days, 1 p.o. daily x2 days No Action budesonide-formoterol [Symbicort] 80-4.5 mcg/actuation HFA aerosol inhaler 2 inh inhalation BID Qty: 10.2 0RF carvedilol [Coreg] 12.5 mg tablet 12.5 mg PO BID Qty: 120 3RF Rx Instructions: must administer with a meal/food Aspir-81 81 mg Tablet,Delayed Release (Dr/Ec) 81 mg PO .TWICE A WEEK losartan 25 mg tablet 25 mg PO QAM Lasix 20 mg tablet 20 mg PO QAM albuterol sulfate 90 mcg/actuation HFA aerosol inhaler 1 inh inhalation 6XD PRN (Reason: Shortness Of Breath Or Wheezing) Qty: 8.5 2RF Discharge Orders: Discharge ED (Routine); Ordered 05/24/23 Ordered By: Davis Quick Referrals: Nano Cohen DO [Primary Care Provider] - Patient Instructions: Opioid Safety, Pain Management Activity Restrictions/Additional Instructions: Follow-up with your primary care doctor within the next week Coding Level of Care Code ED Digital Marketing Officer for Zoë Arce
[2023-05-24 08:55] LABS: Basophils # 0.1 10^3/uL (0.0-0.1); Basophils % 0.5 %; Eosinophils # 0.3 10^3/uL (0.0-0.8); Eosinophils % 3.2 %; Hematocrit 43.3 % (37-53); Lymphocytes # 1.3 10^3/uL (0.8-4.8); Mean Corpuscular HGB Conc 32.3 g/dL (30-55); Mean Corpuscular Hemoglobin 29.9 pg (27-33); Mean Corpuscular Volume 92.3 fl (82-101); Mean Platelet Volume 10.6 fL (7.4-10.4); Monocytes # 0.7 10^3/uL (0.2-0.9); Monocytes % 6.6 %; Neutrophils # 7.89 10^3/uL (1.8-7.7); Neutrophils % 76.3 %; Nucleated Red Blood Cells % 0 %; Platelet Count 271 10^3/cmm (157-399); Red Blood Count 4.69 10^6/uL (3.85-5.65); Red Cell Distribution Width 13.1 % (12.1-15.1); White Blood Count 10.33 10^3/uL (3.29-11.43)
--- NOTE | 2023-05-24 09:05 | ECG_ITS ---
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 Measurements Intervals [place] Rate: 80 P: 68 [place]: 147 QRS: 56 QRSD: 86 T: 89 QT: 437 QTc: 507 Interpretive Statements SINUS RHYTHM NONSPECIFIC T-WAVE ABNORMALITY PROLONGED QT INTERVAL Compared to ECG 05/14/2023 04:42:11 T-wave abnormality now present Electronically Signed On 05-24-2023 11:04:17 CDT by Yoly Aleman M.D. [email or web address] [facility] northFront [id number]
[2023-05-24 09:11] LABS: Alanine Aminotransferase 15 U/L (0-41); Albumin Level 3.7 g/dL (3.5-5.2); Alkaline Phosphatase 94 U/L (40-130); Aspartate Amino Transferase 17 U/L (0-40); Blood Urea Nitrogen 16 mg/dL (6-20); Calcium 8.5 mg/dL (8.5-10.5); Carbon Dioxide 27 mmol/L (22-29); Chloride 101 mmol/L (98-107); Globulin 2.9 g/dL (1.3-4.6); Glomerular Filtration Rate 56.5 mL/min (90-130); Glucose 113 mg/dL (65-115); Osmolality Calculated 284 mOsm/kg (285-295); Sodium 136 mmol/L (136-145); Total Bilirubin 0.5 mg/dL (0.15-1.2); Total Protein 6.6 g/dL (6.6-8.7)
[2023-05-24] MEDS: dexamethasone 10 mg/mL INJ IM (09:27)
[2023-05-24 09:31] VITALS: BP 154/94; PULSE 82; RESP 16; O2SAT 99
[2023-05-24 09:35] LABS: Troponin(5th) Baseline 32 ng/L (0-15)
[2023-05-24 09:41] VITALS: PULSE 75; RESP 18; O2SAT 95
[2023-05-24] MEDS: ipratropium-albuterol 3 mL Neb INHALATION (09:41)
[2023-05-24 09:44] VITALS: PULSE 77
[2023-05-24 10:00] VITALS: BP 144/105; PULSE 75; RESP 16; O2SAT 95
[2023-05-24] MEDS: ketorolac 30 mg/mL INJ IVP (11:07)
--- NOTE | 2023-05-24 11:07 | ECG_ITS ---
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 Measurements Intervals [place] Rate: 75 P: 56 [place]: 147 QRS: 59 QRSD: 86 T: 75 QT: 448 QTc: 500 Interpretive Statements SINUS RHYTHM WITH OCCASIONAL ECTOPIC PREMATURE COMPLEXES NONSPECIFIC T-WAVE ABNORMALITY PROLONGED QT INTERVAL Compared to ECG 05/24/2023 09:06:51 No significant changes Electronically Signed On 05-24-2023 11:12:24 CDT by Yoly Aleman M.D. [id number]
[2023-05-24 11:10] LABS: Troponin 5 2HR 28.57 ng/L (0-15)
[2023-05-24 11:11] LABS: Troponin 5 2HR Delta -3.43 ABS# (0-10)
[2023-05-24 11:31] VITALS: BP 139/94; PULSE 87; RESP 16; O2SAT 94
== END 2023-05-24 11:42 | disposition home or self-care (01) ==
PROVIDERS: Emergency Provider Family Medicine; PCP Family Medicine
DX: J44.1 Chronic obstructive pulmonary disease with (acute) exacerbation (principal); R07.89 Other chest pain; Z79.82 Long term (current) use of aspirin; F17.210 Nicotine dependence, cigarettes, uncomplicated; I12.9 Hypertensive chronic kidney disease with stage 1 through stage 4 chronic kidney disease, or unspecified chronic kidney disease; N18.30 Chronic kidney disease, stage 3 unspecified; I1A.0 Resistant hypertension; I25.10 Atherosclerotic heart disease of native coronary artery without angina pectoris
CPT/HCPCS: 36415; 71045; 80053; 84484; 85025; 93005; 94640; 96372; 96374; 99285; J1100; J1885

== ENCOUNTER 2023-06-15 02:50 | Emergency (ER) | payer MEDICARE, SELFPAY ==
[2023-06-15 03:00] VITALS: BP 188/114; PULSE 106; RESP 20; TEMP 36.5; O2SAT 94; BMI 25.8
--- NOTE | 2023-06-15 03:13 | ECG_ITS ---
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 Measurements Intervals [place] Rate: 84 P: 76 MS: 126 QRS: 78 QRSD: 85 T: 103 QT: 419 QTc: 496 Interpretive Statements SINUS RHYTHM WITH FREQUENT VENTRICULAR PREMATURE COMPLEXES MINIMAL VOLTAGE CRITERIA FOR LVH, CONSIDER NORMAL VARIANT [MEETS CRITERIA IN ONE OF: R(aVL), S(V1), R(V5), R(V5/V6)+S(V1)] POSSIBLE ANTERIOR MYOCARDIAL INFARCTION , OF INDETERMINATE AGE [30 ms Q WAVE IN V3/V4, OR R < 0.2 mV IN V4] Compared to ECG 05/24/2023 11:07:25 Ventricular premature complex(es) now present Myocardial infarct finding now present T-wave abnormality no longer present Prolonged QT interval no longer present Electronically Signed On 06-15-2023 10:09:22 CDT by Yoly Aleman M.D. [email or web address]/[id number] f
--- NOTE | 2023-06-15 03:13 | XRR_ITS ---
PROCEDURE INFORMATION: Exam: XR Chest Exam date and time: 06/15/2023 3:41 AM Age: 58 years old Clinical indication: Shortness of breath; Patient HX: SOB TECHNIQUE: Imaging protocol: Radiologic exam of the chest. Views: 1 view. COMPARISON: CR XR chest 1V portable [id number] 05/24/2023 8:59 AM FINDINGS: Lungs: Pulmonary hyperinflation. Reticular changes of interstitium similar to comparison imaging. Negative for focal pulmonary consolidation. Possibly Tanner B lines in the lung periphery. Pleural spaces: Unremarkable. No pleural effusion. No pneumothorax. Heart/Mediastinum: Unremarkable. No cardiomegaly. Bones/joints: Unremarkable. No acute fracture. Left shoulder surgical change. XR/XR chest 1V portable [id number] IMPRESSION: Query mild interstitial edema features of the lungs.
[2023-06-15 03:28] LABS: Basophils # 0.1 10^3/uL (0.0-0.1); Basophils % 0.7 %; Eosinophils # 0.3 10^3/uL (0.0-0.8); Eosinophils % 3.1 %; Mean Corpuscular HGB Conc 31.7 g/dL (30-55); Mean Corpuscular Hemoglobin 29.3 pg (27-33); Mean Corpuscular Volume 92.6 fl (82-101); Mean Platelet Volume 10.6 fL (7.4-10.4); Monocytes # 0.7 10^3/uL (0.2-0.9); Monocytes % 6.9 %; Neutrophils # 7.03 10^3/uL (1.8-7.7); Neutrophils % 68.8 %; Nucleated Red Blood Cells % 0 %; Platelet Count 317 10^3/cmm (157-399); Red Blood Count 4.43 10^6/uL (3.85-5.65); Red Cell Distribution Width 13.6 % (12.1-15.1); White Blood Count 10.21 10^3/uL (3.29-11.43)
[2023-06-15] MEDS: ondansetron 2 mg/ML SDV 2 mL 4 MG IVP (03:28)
[2023-06-15 03:29] VITALS: BP 154/109; PULSE 104
[2023-06-15] MEDS: nitroglycerin 1 gm/inch oint Pkt 1 INCH TOPICAL (03:29)
[2023-06-15 03:30] VITALS: PULSE 88; RESP 20; RESP 31; O2SAT 92
[2023-06-15] MEDS: morphine 4 mg/mL SDV 1 mL IVP (03:30)
[2023-06-15] MEDS: ipratropium-albuterol 3 mL Neb INHALATION (03:30)
[2023-06-15] MEDS: methylPREDNISolone sod succ 125 MG in water for injection-sterile 2 ML 24 MG IVP (03:31)
[2023-06-15] MEDS: FUROsemide 10 mg/mL SDV 10mL 60 MG IVP (03:33)
[2023-06-15 03:36] VITALS: BP 151/107; PULSE 85; RESP 27; O2SAT 94
[2023-06-15 03:37] VITALS: PULSE 96
[2023-06-15 03:39] LABS: SARS Covid-2 Antigen negative (Negative)
--- NOTE | 2023-06-15 03:46 | W.ED.SOB ---
HPI - SOB/Dyspnea General: Chief Complaint: Shortness of Breath/Dyspnea Stated Complaint: SOSore Throat Time Seen by Provider: 06/15/23 03:01 Source: patient History of Present Illness: HPI Narrative: 58-year-old male with a history of COPD. He presents with chest tightness, cough, shortness of breath, sore throat. He says that he has been sick for several weeks on and off. Denies fever. Chest tightness is significant. He states that he has been taking his medication at home. MD elicited complaint: shortness of breath Associated symptoms: Reports chest pain; Deny abdominal pain, fever(s) or nausea Review of Systems Const: Denies: fever(s) or chills Eyes: Denies: change in vision ENMT: Reports: throat pain Card: Reports: chest pain Resp: Reports: dyspnea, productive cough and non-productive cough; Denies: pain on inspiration GI: Denies: abdominal pain, nausea or dysphagia Skin/Breast: Denies: rash Neuro: Reports: headache(s) PFSH ED PFSH: Medical History Chest pain CKD (chronic kidney disease) stage 3, GFR 30-59 ml/min COPD (chronic obstructive pulmonary disease) Coronary artery disease Hypertension Migraine Osteoarthritis of right shoulder Stenosis, spinal, lumbar Tobacco use Worsening angina Surgical History H/O shoulder surgery H/O skin graft Hx of tonsillectomy Post-operative state S/P lumbar laminectomy (05/25/19) Dr Hinojosa bilateral L3-4 laminotomy/foraminotomy. Family History Mother CAD (coronary artery disease) Father Diabetes Social History Smoking and tobacco/nicotine status: current every day tobacco/nicotine user Alcohol intake: current Alcohol intake frequency: few times a month Substance/Drug Use: never Lives independently: Yes Household members: spouse Marital status: Current occupational status: disabled Physical Exam Const: GENERAL APPEARANCE: cooperative and ill appearing (Mildly); not frail appearing HENMT: COMMON NORMALS: normocephalic, atraumatic and Normal external nose present HEAD & SCALP: normocephalic and atraumatic NOSE: Normal external nose present Eye: COMMON NORMALS: Equal, round and reactive pupils present and EOMs intact bilaterally PUPIL: Yes Equal, round and reactive pupils present Neck/C-Spine: GENERAL: Yes trachea midline Chest: CHEST: Yes Symmetrical chest wall rise Resp: EFFORT & INSPECTION: Yes tachypneic AUSCULTATION: wheezes Cardio: COMMON NORMALS: regular rate and regular rhythm RATE: regular rate RHYTHM: regular rhythm GI: COMMON NORMALS: Normal to inspection, nondistended, normoactive bowel sounds present Neuro: ELIS COMA SCALE: document GCS findings Elis coma scale eye opening: Spontaneous Elis coma scale verbal response: Orientated Elis coma scale motor response: Obey commands [place] coma scale total score: 15 Course Vital Signs: Vital signs: Vital Signs Temperature 97.7 F 06/15/23 03:00 Pulse Rate 95 06/15/23 04:52 Respiratory Rate 19 H 06/15/23 04:52 Blood Pressure 149/84 06/15/23 04:52 Pulse Oximetry 97 06/15/23 04:52 Oxygen Delivery Me thod Room Air 06/15/23 03:30 MDM - SOB/Dyspnea Medical Decision Making Patient has put out about a liter after administration of IV diuretic. He feels improved after breathing treatment, Solu-Medrol, and diuresis. He will be allowed home on a short course of steroids, as well as diuresis. His x-ray shows interstitial edema/pulmonary vascular congestion. CBC is normal. Creatinine is baseline at 1.6. His BNP is significantly elevated at 12,000. COVID is negative. Lactic acid is normal. He will return for worsening symptoms despite treatment. Lab Data 06/15/23 03:13 06/15/23 03:13 Labs/Radiology: Radiology Impressions Chest X-Ray 06/15/23 03:13 IMPRESSION: Query mild interstitial edema features of the lungs. Laboratory Results WBC 10.21 10^3/uL (3.29-11.43) 06/15/23 03:13 RBC 4.43 10^6/uL (3.85-5.65) 06/15/23 03:13 Hgb 13.00 g/dL (11.27-16.99) 06/15/23 03:13 Hct 41.0 % (37-53) 06/15/23 03:13 MCV 92.6 fl (82-101) 06/15/23 03:13 MCH 29.3 pg (27-33) 06/15/23 03:13 MCHC 31.7 g/dL (30-55) 06/15/23 03:13 RDW 13.6 % (12.1-15.1) 06/15/23 03:13 Plt Count 317 10^3/cmm (157-399) 06/15/23 03:13 MPV 10.6 fL (7.4-10.4) H 06/15/23 03:13 Neut % (Auto) 68.8 % 06/15/23 03:13 Lymph % (Auto) 20.0 % 06/15/23 03:13 [place] % (Auto) 6.9 % 06/15/23 03:13 Eos % (Auto) 3.1 % 06/15/23 03:13 Baso % (Auto) 0.7 % 06/15/23 03:13 Neut # (Auto) 7.03 10^3/uL (1.8-7.7) 06/15/23 03:13 Lymph # (Auto) 2.0 10^3/uL (0.8-4.8) 06/15/23 03:13 [place] # (Auto) 0.7 10^3/uL (0.2-0.9) 06/15/23 03:13 Eos # (Auto) 0.3 10^3/uL (0.0-0.8) 06/15/23 03:13 Baso # (Auto) 0.1 10^3/uL (0.0-0.1) 06/15/23 03:13 Nucleated RBC % (auto) 0 % 06/15/23 03:13 Nucleated RBCs # 0.0 /100WBC 06/15/23 03:13 Specimen Type Arterial 06/15/23 03:38 Sample Site Brachial, right 06/15/23 03:38 ABG pH 7.38 (7.35-7.45) 06/15/23 03:38 ABG pCO2 43.4 mmHg (35-45) 06/15/23 03:38 ABG pO2 75.3 mmHg (80.0-100.0) L 06/15/23 03:38 ABG HCO3 25.6 mmol/L (22-26) 06/15/23 03:38 ABG Base Excess 0.2 mmol/L (-2.0-2.0) 06/15/23 03:38 Sourav Test N/a 06/15/23 03:38 Hematocrit 39.5 % (42-52) L 06/15/23 03:38 Hgb O2 Saturation 93.7 % (95-100) L 06/15/23 03:38 Carboxyhemoglobin 1.9 %THgb (0.4-20.1) 06/15/23 03:38 Methemoglobin 0.2 % (0.4-1.5) L 06/15/23 03:38 Total Hemoglobin 12.9 g/dL (14-18) L 06/15/23 03:38 O2 Delivery Device Room air 06/15/23 03:38 Saddle Stitching Machine Operator ID [email or web address] 06/15/23 03:38 Sodium 136 mmol/L (136-145) 06/15/23 03:13 Potassium 3.8 mmol/L (3.5-5.1) 06/15/23 03:13 Chloride 100 mmol/L (98-107) 06/15/23 03:13 Carbon Dioxide 27 mmol/L (22-29) 06/15/23 03:13 Anion Gap 12.8 (5-19) 06/15/23 03:13 BUN 24 mg/dL (6-20) H 06/15/23 03:13 Creatinine 1.6 mg/dL (0.7-1.2) H 06/15/23 03:13 GFR Calculation 44.5 mL/min (90-130) L 06/15/23 03:13 Glucose 95 mg/dL (65-115) 06/15/23 03:13 Calculated Osmolality 286 mOsm/kg (285-295) 06/15/23 03:13 Lactic Acid 1.1 mmol/L (0.5-2.2) 06/15/23 03:13 Calcium 8.3 mg/dL (8.5-10.5) L 06/15/23 03:13 Total Bilirubin 0.6 mg/dL (0.15-1.2) 06/15/23 03:13 AST 26 U/L (0-40) 06/15/23 03:13 ALT 37 U/L (0-41) 06/15/23 03:13 Alkaline Phosphatase 83 U/L (40-130) 06/15/23 03:13 Troponin T Baseline 43 ng/L (0-15) H 06/15/23 03:13 NT-Pro-B Natriuret Pep 25798 pg/mL (0-125) H 06/15/23 03:13 Total Protein 6.2 g/dL (6.6-8.7) L 06/15/23 03:13 Albumin 3.5 g/dL (3.5-5.2) 06/15/23 03:13 Globulin 2.7 g/dL (1.3-4.6) 06/15/23 03:13 SARS-CoV-2 Ag (Rapid) negative (Negative) 06/15/23 03:19 All radiology interpretation(s) finalized by discharge Discharge Plan Discharge Patient Disposition: Home Clinical Impression: Acute exacerbation of chronic obstructive airways disease, HFrEF (heart failure with reduced ejection fraction), Pulmonary edema Condition: Stable Prescriptions: New furosemide 40 mg tablet 40 mg PO DAILY Qty: 5 0RF Medrol (Kelvin) 4 mg tablets,dose pack See Rx Instructions .ROUTE .COMPLEX Qty: 21 0RF Rx Instructions: orally per package directions Discontinued furosemide [Lasix] 20 mg tablet 20 mg PO QAM No Action budesonide-formoterol [Symbicort] 80-4.5 mcg/actuation HFA aerosol inhaler 2 inh inhalation BID Qty: 10.2 0RF carvedilol [Coreg] 12.5 mg tablet 12.5 mg PO BID Qty: 120 3RF Rx Instructions: must administer with a meal/food Aspir-81 81 mg Tablet,Delayed Release (Dr/Ec) 81 mg PO .TWICE A WEEK losartan 25 mg tablet 25 mg PO QAM Spiriva with HandiHaler 18 mcg capsule, w/inhalation device 1 cap inhalation DAILY Qty: 30 0RF Rx Instructions: puncture 1 cap using device; one dose = 2 inhalations prednisone 20 mg tablet 20 mg PO TID Qty: 15 0RF Rx Instructions: 1 p.o. 3 times daily x3 days, 1 p.o. twice daily x2 days, 1 p.o. daily x2 days albuterol sulfate 90 mcg/actuation HFA aerosol inhaler 1 inh inhalation 6XD PRN (Reason: Shortness Of Breath Or Wheezing) Qty: 8.5 2RF Discharge Orders: Discharge ED (Routine); Ordered 06/15/23 Ordered By: Lionel Camacho Referrals: Nano Cohen DO [Primary Care Provider] - 4-7 days Patient Instructions: Heart Failure (ED), Pulmonary Edema (ED), COPD (Chronic Obstructive Pulmonary Disease) (ED), Opioid Safety, Pain Management Activity Restrictions/Additional Instructions: Medications as directed. Take the furosemide (water pill) for the next 5 days. Follow-up with your doctor next week. Return for worsening symptoms despite treatment. Coding Level of Care Code ED Control Panel Assembler for Zoë Arce
[2023-06-15 03:49] LABS: ABG PCO2 43.4 mmHg (35-45); ABG PH Result 7.38 (7.35-7.45); Arterial Blood Gas Hematocrit 39.5 % (42-52); Base Excess ABG 0.2 mmol/L (-2.0-2.0); Blood Gas Sample Site Brachial, right; Blood Gas Sample Type Arterial; Carboxyhemoglobin 1.9 %THgb (0.4-20.1); HCO3 ABG 25.6 mmol/L (22-26); HGB O2 Sat 93.7 % (95-100); Methemoglobin 0.2 % (0.4-1.5); Oxygen Device ROOM AIR; PO2 ABG 75.3 mmHg (80.0-100.0); Total Hemoglobin 12.9 g/dL (14-18)
[2023-06-15 03:54] LABS: Lactic Sepsis W/Reflex 1.1 mmol/L (0.5-2.2); Troponin(5th) Baseline 43 ng/L (0-15)
[2023-06-15 04:03] LABS: Alanine Aminotransferase 37 U/L (0-41); Albumin Level 3.5 g/dL (3.5-5.2); Alkaline Phosphatase 83 U/L (40-130); Anion Gap 12.8 (5-19); Aspartate Amino Transferase 26 U/L (0-40); Blood Urea Nitrogen 24 mg/dL (6-20); Calcium 8.3 mg/dL (8.5-10.5); Carbon Dioxide 27 mmol/L (22-29); Chloride 100 mmol/L (98-107); Globulin 2.7 g/dL (1.3-4.6); Glomerular Filtration Rate 44.5 mL/min (90-130); Glucose 95 mg/dL (65-115); NT Pro B Type Natriuretic Pept 11942 pg/mL (0-125); Osmolality Calculated 286 mOsm/kg (285-295); Potassium 3.8 mmol/L (3.5-5.1); Sodium 136 mmol/L (136-145); Total Bilirubin 0.6 mg/dL (0.15-1.2); Total Protein 6.2 g/dL (6.6-8.7)
[2023-06-15] MEDS: oxyCODONE-APAP 5-325 mg Tablet 1 TAB PO (04:48)
[2023-06-15 04:52] VITALS: BP 149/84; PULSE 95; RESP 19; O2SAT 97
== END 2023-06-15 04:54 | disposition home or self-care (01) ==
PROVIDERS: Emergency Provider Emergency Medicine; PCP Family Medicine
DX: J44.1 Chronic obstructive pulmonary disease with (acute) exacerbation (principal); J81.1 Chronic pulmonary edema; I13.0 Hypertensive heart and chronic kidney disease with heart failure and stage 1 through stage 4 chronic kidney disease, or unspecified chronic kidney disease; I50.20 Unspecified systolic (congestive) heart failure; N18.30 Chronic kidney disease, stage 3 unspecified; I25.10 Atherosclerotic heart disease of native coronary artery without angina pectoris; Z72.0 Tobacco use; Z11.52 Encounter for screening for COVID-19; Z79.82 Long term (current) use of aspirin
CPT/HCPCS: 36415; 36600; 71045; 80053; 82805; 83605; 83880; 84484; 85025; 87040; 87426; 93005; 94640; 96374; 96375; 99285; J1940; J2270; J2405; J2930

== ENCOUNTER 2023-06-22 19:48 | Emergency (ER) | payer MEDICARE, SELFPAY ==
[2023-06-22 20:12] VITALS: BP 145/93; PULSE 85; RESP 22; TEMP 36.8; O2SAT 99; BMI 25.8
== END 2023-06-22 22:16 | disposition left against medical advice (07) ==
PROVIDERS: Emergency Provider Family Medicine; PCP Family Medicine
DX: Z53.21 Procedure and treatment not carried out due to patient leaving prior to being seen by health care provider (principal)
CPT/HCPCS: 99283

== ENCOUNTER 2023-07-08 04:11 | Emergency (ER) | payer MEDICARE, SELFPAY ==
--- NOTE | 2023-07-08 04:12 | XRR_ITS ---
PROCEDURE INFORMATION: Exam: XR Chest Exam date and time: 07/08/2023 4:13 AM Age: 58 years old Clinical indication: Shortness of breath and wheezing; Prior surgery; Surgery date: 6+ months; Surgery type: RT shoulder; Patient HX: C/O SOB with wheezing. History of copd. TECHNIQUE: Imaging protocol: Radiologic exam of the chest. Views: 1 view. COMPARISON: CR (CHEST, ) 06/15/2023 3:41 AM FINDINGS: Lungs: [id number]-vr-[id number] COPD. Diffuse interstitial prominence has progressed. Pleural spaces: No pneumothorax. Question trace right effusion. Heart/Mediastinum: The heart is large. Advanced diffuse vascular calcification noted. Bones/joints: Left glenoid screw. XR/XR chest 1V portable [id number] IMPRESSION: 1. Progressive mild diffuse interstitial prominence that may be due to edema or pneumonitis. 2. No other change from about 3 weeks ago.
--- NOTE | 2023-07-08 04:12 | ECG_ITS ---
[facility] Test Date: 2023-07-08 Pat Name: Christian Sparks Department: Room: Gender: Male Die Turner: : 1965 Requested By: Paco Nice Order Number: [id number] Jesús MD: Oneida Mccall M.D. Measurements Intervals [place] Rate: 87 P: 38 ME: 156 QRS: 58 QRSD: 71 T: 82 QT: 385 QTc: 464 Interpretive Statements SINUS RHYTHM WITH FREQUENT PVCS. MODERATE VOLTAGE CRITERIA FOR LVH, CONSIDER NORMAL VARIANT [MEETS CRITERIA IN ONE OF: R(aVL), S(V1), R(V5), R(V5/V6)+S(V1)] POSSIBLE ANTEROSEPTAL MYOCARDIAL INFARCTION , OF INDETERMINATE AGE [30 ms Q WAVE IN V1-V4] Compared to ECG 06/15/2023 03:11:43 No significant change Electronically Signed On 07-08-2023 9:11:05 SUPERVISOR SALVAGE by Oneida Mccall M.D. [id number] f
[2023-07-08 04:13] VITALS: BP 179/109; PULSE 101; RESP 20; TEMP 36.8; O2SAT 93; BMI 25.8
--- NOTE | 2023-07-08 04:16 | W.ED.SOB ---
HPI - SOB/Dyspnea General: Chief Complaint: Shortness of Breath/Dyspnea Stated Complaint: SOB Time Seen by Provider: 07/08/23 04:11 Source: patient and EMS Mode of arrival: EMS Limitations: no limitations History of Present Illness: HPI Narrative: 58-year-old male with a history of COPD states that he is ran out of his albuterol he is having increasing shortness of breath tonight and EMS states the right he did have wheezing he received a breathing treatment in route he feels much improved he is in no distress here his pulse ox is 96% here on room air he denies any fevers. States he has been having some mild chest pains over the last 2 days Associated symptoms: Reports chest pain; Deny abdominal pain, fever(s), nausea or vomiting Review of Systems Const: Denies: fever(s), chills, body aches or change in appetite Eyes: Denies: blurry vision or eye discomfort ENMT: Denies: throat pain or dental pain Card: Reports: chest pain Resp: Reports: dyspnea and wheezing GI: Denies: abdominal pain, nausea, vomiting or diarrhea : Denies: dysuria Musc: Denies: neck pain or back pain Skin/Breast: Denies: rash Neuro: Denies: headache(s) PFSH ED PFSH: Medical History Chest pain CKD (chronic kidney disease) stage 3, GFR 30-59 ml/min COPD (chronic obstructive pulmonary disease) Coronary artery disease Hypertension Migraine Osteoarthritis of right shoulder Stenosis, spinal, lumbar Tobacco use Worsening angina Surgical History H/O shoulder surgery H/O skin graft Hx of tonsillectomy Post-operative state S/P lumbar laminectomy (05/25/19) Dr Hinojosa bilateral L3-4 laminotomy/foraminotomy. Family History Mother CAD (coronary artery disease) Father Diabetes Social History Smoking and tobacco/nicotine status: current every day tobacco/nicotine user Alcohol intake: current Alcohol intake frequency: few times a month Substance/Drug Use: never Lives independently: Yes Household members: spouse Marital status: Current occupational status: disabled Physical Exam Const: COMMON NORMALS: patient oriented x3 HENMT: COMMON NORMALS: normocephalic and atraumatic HEAD & SCALP: normocephalic and atraumatic Eye: COMMON NORMALS: Equal, round and reactive pupils present and EOMs intact bilaterally PUPIL: Yes Equal, round and reactive pupils present Neck/C-Spine: COMMON NORMALS: full ROM and supple Chest: COMMONS NORMALS: normal inspection of the chest and normal palpation of entire chest wall Resp: COMMON NORMALS: normal respiratory effort, No retractions, No use of accessory muscles and clear to auscultation bilaterally AUSCULTATION: clear to auscultation bilaterally Cardio: COMMON NORMALS: regular rate, regular rhythm and No murmurs present (Cardio) RATE: regular rate RHYTHM: regular rhythm GI: COMMON NORMALS: Normal to inspection, nondistended, normoactive bowel sounds present, Soft to palpation, non-tender and no masses PALPATION: Yes Soft to palpation Extremity: COMMON NORMALS: normal to inspection and full ROM Neuro: COMMON NORMALS: patient oriented x3, moves all extremities and no focal motor deficits Psych: COMMON NORMALS: mental status grossly normal, Normal thought process present and cooperative THOUGHT PROCESS: Normal thought process present Skin: COMMON NORMALS: no rashes or lesions noted and no wounds GENERAL SKIN EXAM: no rashes or lesions noted Course Vital Signs: Vital signs: Vital Signs Temperature 98.3 F 07/08/23 04:13 Pulse Rate 106 H 07/08/23 04:59 Respiratory Rate 18 07/08/23 04:59 Blood Pressure 125/91 07/08/23 04:52 Pulse Oximetry 97 07/08/23 04:59 Oxygen Delivery Me thod Room Air 07/08/23 04:59 Oxygen Flow Rate 2 07/08/23 04:52 MDM - SOB/Dyspnea Medical Decision Making Patient presents here with a COPD exacerbation x-ray does show pneumonitis his white count is normal COVID is negative he is much improved here after breathing treatment he had some chest pain for 2 days likely from his dyspnea EKG shows PVCs no other changes his troponins at his baseline no signs of acute coronary syndrome. We will place him on doxycycline along with steroid and albuterol he is to follow-up with his PCP and return if worsening. Medical Records I reviewed the patient's medical records. Lab Data I reviewed the patient's lab results. 07/08/23 04:37 07/08/23 04:37 Labs/Radiology: Radiology Impressions Chest X-Ray 07/08/23 04:12 IMPRESSION: 1. Progressive mild diffuse interstitial prominence that may be due to edema or pneumonitis. 2. No other change from about 3 weeks ago. Laboratory Results WBC 9.89 10^3/uL (3.29-11.43) 07/08/23 04:37 RBC 4.68 10^6/uL (3.85-5.65) 07/08/23 04:37 Hgb 13.50 g/dL (11.27-16.99) 07/08/23 04:37 Hct 42.5 % (37-53) 07/08/23 04:37 MCV 90.8 fl (82-101) 07/08/23 04:37 MCH 28.8 pg (27-33) 07/08/23 04:37 MCHC 31.8 g/dL (30-55) 07/08/23 04:37 RDW 13.8 % (12.1-15.1) 07/08/23 04:37 Plt Count 321 10^3/cmm (157-399) 07/08/23 04:37 MPV 10.3 fL (7.4-10.4) 07/08/23 04:37 Neut % (Auto) 73.6 % 07/08/23 04:37 Lymph % (Auto) 17.4 % 07/08/23 04:37 [place] % (Auto) 5.3 % 07/08/23 04:37 Eos % (Auto) 2.4 % 07/08/23 04:37 Baso % (Auto) 0.7 % 07/08/23 04:37 Neut # (Auto) 7.28 10^3/uL (1.8-7.7) 07/08/23 04:37 Lymph # (Auto) 1.7 10^3/uL (0.8-4.8) 07/08/23 04:37 [place] # (Auto) 0.5 10^3/uL (0.2-0.9) 07/08/23 04:37 Eos # (Auto) 0.2 10^3/uL (0.0-0.8) 07/08/23 04:37 Baso # (Auto) 0.1 10^3/uL (0.0-0.1) 07/08/23 04:37 Nucleated RBC % (auto) 0 % 07/08/23 04:37 Nucleated RBCs # 0.0 /100WBC 07/08/23 04:37 Sodium 138 mmol/L (136-145) 07/08/23 04:37 Potassium 4.0 mmol/L (3.5-5.1) 07/08/23 04:37 Chloride 102 mmol/L (98-107) 07/08/23 04:37 Carbon Dioxide 27 mmol/L (22-29) 07/08/23 04:37 Anion Gap 13.0 (5-19) 07/08/23 04:37 BUN 25 mg/dL (6-20) H 07/08/23 04:37 Creatinine 1.7 mg/dL (0.7-1.2) H 07/08/23 04:37 GFR Calculation 41.5 mL/min (90-130) L 07/08/23 04:37 Glucose 97 mg/dL (65-115) 07/08/23 04:37 Calculated Osmolality 290 mOsm/kg (285-295) 07/08/23 04:37 Calcium 9.4 mg/dL (8.5-10.5) 07/08/23 04:37 Total Bilirubin 0.5 mg/dL (0.15-1.2) 07/08/23 04:37 AST 27 U/L (0-40) 07/08/23 04:37 ALT 25 U/L (0-41) 07/08/23 04:37 Alkaline Phosphatase 96 U/L (40-130) 07/08/23 04:37 Troponin T Baseline 39 ng/L (0-15) H 07/08/23 04:37 NT-Pro-B Natriuret Pep 78219 pg/mL (0-125) H 07/08/23 04:37 Total Protein 6.3 g/dL (6.6-8.7) L 07/08/23 04:37 Albumin 4.0 g/dL (3.5-5.2) 07/08/23 04:37 Globulin 2.3 g/dL (1.3-4.6) 07/08/23 04:37 Influenza Type A Ag negative (Negative) 07/08/23 04:50 Influenza Type B Ag negative (Negative) 07/08/23 04:50 SARS-CoV-2 Ag (Rapid) negative (Negative) 07/08/23 04:50 All radiology interpretation(s) finalized by discharge Discharge Plan Discharge Patient Disposition: Home Clinical Impression: Acute exacerbation of chronic obstructive airways disease, Bronchitis Condition: Stable Prescriptions: New prednisone 50 mg tablet 50 mg PO DAILY Qty: 5 0RF albuterol sulfate 90 mcg/actuation HFA aerosol inhaler 2 inh INHALATION Q6H PRN (Reason: shortness of breath or wheezing) Qty: 8 0RF doxycycline hyclate 100 mg tablet 100 mg PO BID 7 Days Qty: 14 0RF No Action budesonide-formoterol [Symbicort] 80-4.5 mcg/actuation HFA aerosol inhaler 2 inh inhalation BID Qty: 10.2 0RF carvedilol [Coreg] 12.5 mg tablet 12.5 mg PO BID Qty: 120 3RF Rx Instructions: must administer with a meal/food Aspir-81 81 mg Tablet,Delayed Release (Dr/Ec) 81 mg PO .TWICE A WEEK losartan 25 mg tablet 25 mg PO QAM Spiriva with HandiHaler 18 mcg capsule, w/inhalation device 1 cap inhalation DAILY Qty: 30 0RF Rx Instructions: puncture 1 cap using device; one dose = 2 inhalations prednisone 20 mg tablet 20 mg PO TID Qty: 15 0RF Rx Instructions: 1 p.o. 3 times daily x3 days, 1 p.o. twice daily x2 days, 1 p.o. daily x2 days furosemide 40 mg tablet 40 mg PO DAILY Qty: 5 0RF Medrol (Kelvin) 4 mg tablets,dose pack See Rx Instructions .ROUTE .COMPLEX Qty: 21 0RF Rx Instructions: orally per package directions albuterol sulfate 90 mcg/actuation HFA aerosol inhaler 1 inh inhalation 6XD PRN (Reason: Shortness Of Breath Or Wheezing) Qty: 8.5 2RF Discharge Orders: Discharge ED (Routine); Ordered 07/08/23 Ordered By: Paco Nice Referrals: Nano Cohen DO [Primary Care Provider] - 1-3 days Discharge Diet: Advance as tolerated Discharge Activity: Resume usual activity Patient Instructions: Acute Bronchitis (ED) Coding Level of Care Code ED Sales Representative Graphic Art for Zoë Arce
--- NOTE | 2023-07-08 04:26 | ECG_ITS ---
[facility] Test Date: 2023-07-08 Pat Name: Christian Sparks Department: Room: Gender: Male Enamel Drier: : 1965 Requested By: Paco Nice Order Number: [id number] Jesús MD: Oneida Mccall M.D. Measurements Intervals [place] Rate: 72 P: 14 DE: 134 QRS: 57 QRSD: 86 T: 39 QT: 455 QTc: 499 Interpretive Statements SINUS RHYTHM MINIMAL VOLTAGE CRITERIA FOR LVH, CONSIDER NORMAL VARIANT [MEETS CRITERIA IN ONE OF: R(aVL), S(V1), R(V5), R(V5/V6)+S(V1)] NONSPECIFIC T-WAVE ABNORMALITY PROLONGED QT INTERVAL Compared to ECG 06/15/2023 03:11:43 Prolonged QT interval now present Ventricular premature complex(es) no longer present Myocardial infarct finding no longer present Electronically Signed On 07-09-2023 17:04:47 QUILL MACHINE OPERATOR by Oneida Mccall M.D. [email or web address] [id number] f
[2023-07-08 04:43] LABS: Basophils # 0.1 10^3/uL (0.0-0.1); Basophils % 0.7 %; Eosinophils # 0.2 10^3/uL (0.0-0.8); Eosinophils % 2.4 %; Hematocrit 42.5 % (37-53); Lymphocytes # 1.7 10^3/uL (0.8-4.8); Lymphocytes % 17.4 %; Mean Corpuscular HGB Conc 31.8 g/dL (30-55); Mean Corpuscular Hemoglobin 28.8 pg (27-33); Mean Corpuscular Volume 90.8 fl (82-101); Mean Platelet Volume 10.3 fL (7.4-10.4); Monocytes # 0.5 10^3/uL (0.2-0.9); Monocytes % 5.3 %; Neutrophils # 7.28 10^3/uL (1.8-7.7); Neutrophils % 73.6 %; Nucleated Red Blood Cells % 0 %; Platelet Count 321 10^3/cmm (157-399); Red Blood Count 4.68 10^6/uL (3.85-5.65); Red Cell Distribution Width 13.8 % (12.1-15.1); White Blood Count 9.89 10^3/uL (3.29-11.43)
[2023-07-08] MEDS: methylPREDNISolone sod succ 125 mg/2 mL INJ IV (04:44)
[2023-07-08] MEDS: aspirin 81 mg Chew Tablet 324 MG PO (04:44)
[2023-07-08 04:52] VITALS: BP 125/91; PULSE 81; RESP 20; O2SAT 93
[2023-07-08 04:59] VITALS: PULSE 106; RESP 18; O2SAT 97
[2023-07-08] MEDS: albuterol 8 gm MDI 2 PUFF INHALATION (04:59)
[2023-07-08 05:03] LABS: Troponin(5th) Baseline 39 ng/L (0-15)
[2023-07-08 05:11] LABS: Alanine Aminotransferase 25 U/L (0-41); Alkaline Phosphatase 96 U/L (40-130); Aspartate Amino Transferase 27 U/L (0-40); Blood Urea Nitrogen 25 mg/dL (6-20); Calcium 9.4 mg/dL (8.5-10.5); Carbon Dioxide 27 mmol/L (22-29); Chloride 102 mmol/L (98-107); Globulin 2.3 g/dL (1.3-4.6); Glomerular Filtration Rate 41.5 mL/min (90-130); Glucose 97 mg/dL (65-115); NT Pro B Type Natriuretic Pept 11671 pg/mL (0-125); Osmolality Calculated 290 mOsm/kg (285-295); Sodium 138 mmol/L (136-145); Total Bilirubin 0.5 mg/dL (0.15-1.2); Total Protein 6.3 g/dL (6.6-8.7)
[2023-07-08 05:14] LABS: Influenza A by IFA negative (Negative); Influenza B by IFA negative (Negative); SARS Covid-2 Antigen negative (Negative)
[2023-07-08 05:25] VITALS: BP 150/91; PULSE 74; RESP 20; O2SAT 94
== END 2023-07-08 05:26 | disposition home or self-care (01) ==
PROVIDERS: Emergency Provider Emergency Medicine; PCP Family Medicine
DX: J44.1 Chronic obstructive pulmonary disease with (acute) exacerbation (principal); J44.0 Chronic obstructive pulmonary disease with (acute) lower respiratory infection; J20.9 Acute bronchitis, unspecified; Z79.82 Long term (current) use of aspirin; Z11.52 Encounter for screening for COVID-19; Z72.0 Tobacco use; I12.9 Hypertensive chronic kidney disease with stage 1 through stage 4 chronic kidney disease, or unspecified chronic kidney disease; N18.30 Chronic kidney disease, stage 3 unspecified; I25.10 Atherosclerotic heart disease of native coronary artery without angina pectoris
CPT/HCPCS: 71045; 80053; 83880; 84484; 85025; 87426; 87804; 93005; 93010; 94640; 96374; 99285; J2930; J3535

== ENCOUNTER 2023-07-28 07:14 | Inpatient (IN) | payer MEDICARE, SELFPAY ==
[2023-07-28] VITALS (101 sets, daily range): BP systolic 81–157; BP diastolic 49–109; PULSE 0–127; RESP 7–139; TEMP 36.7–37; O2SAT 84–100; BMI 25.8
--- NOTE | 2023-07-28 07:18 | XRR_ITS ---
PROCEDURE INFORMATION: Exam: XR Chest Exam date and time: 07/28/2023 7:29 AM Age: 58 years old Clinical indication: Shortness of breath; Additional info: SOB TECHNIQUE: Imaging protocol: Radiologic exam of the chest. Views: 1 view. COMPARISON: CR (CHEST, ) 07/08/2023 4:13 AM FINDINGS: Lungs: Unremarkable. No consolidation. Pleural spaces: Unremarkable. No pleural effusion. No pneumothorax. Heart/Mediastinum: Unremarkable. No cardiomegaly. Bones/joints: Unremarkable. XR/XR chest 1V portable [id number] IMPRESSION: No acute findings.
--- NOTE | 2023-07-28 07:21 | ECG_ITS ---
[facility] Test Date: 2023-07-28 Pat Name: Christian Sparks Department: Room: Gender: Male Vocational Services Specialist: EVELIO: 1965 Requested By: Paco Nice Order Number: [id number] Jesús MD: Elham Johnson M.D. Measurements Intervals [place] Rate: 90 P: 72 PA: 132 QRS: 55 QRSD: 84 T: 76 QT: 415 QTc: 508 Interpretive Statements SINUS RHYTHM WITH FREQUENT SUPRAVENTRICULAR PREMATURE COMPLEXES POSSIBLE LEFT ATRIAL ENLARGEMENT [-0.1mV P-WAVE IN V1/V2] PROLONGED QT INTERVAL Compared to ECG 07/08/2023 04:19:59 Prolonged QT interval now present Ventricular premature complex(es) no longer present Myocardial infarct finding no longer present Electronically Signed On 07-28-2023 19:42:21 JUNIOR MARKETING ASSOCIATE by Elham Johnson M.D. [id number]
[2023-07-28] MEDS: albuterol 2.5 mg/3 mL Neb INHALATION (07:27)
--- NOTE | 2023-07-28 07:35 | W.ED.SOB ---
HPI - SOB/Dyspnea General: Chief Complaint: Shortness of Breath/Dyspnea Stated Complaint: SOB; CHEST PAIN Time Seen by Provider: 07/28/23 07:14 Source: patient and EMS Mode of arrival: EMS Limitations: no limitations History of Present Illness: HPI Narrative: 58-year-old male has history of COPD states he had increasing shortness of breath and wheezing since last night. Had a nonproductive cough also having sharp chest pains. Patient received a breathing treatment and route along with Solu-Medrol. States his pain is sharp in nature rates it a 3 out of 10 currently denies any vomiting or diarrhea. Associated symptoms: Reports chest pain; Deny abdominal pain, fever(s), nausea or vomiting Review of Systems Const: Denies: fever(s), chills, body aches or change in appetite ENMT: Denies: throat pain or dental pain Card: Reports: chest pain Resp: Reports: dyspnea and wheezing GI: Denies: abdominal pain, nausea, vomiting or diarrhea : Denies: dysuria Musc: Denies: neck pain or back pain Skin/Breast: Denies: rash Neuro: Denies: headache(s) Psych: Denies: depression Jeffy/Lymph: Denies: easy bruising All/Imm: Denies: urticaria PFSH ED PFSH: Medical History Coronary artery disease Worsening angina CKD (chronic kidney disease) stage 3, GFR 30-59 ml/min Tobacco use Osteoarthritis of right shoulder COPD (chronic obstructive pulmonary disease) Chest pain Migraine Hypertension Stenosis, spinal, lumbar Surgical History Post-operative state Hx of tonsillectomy H/O shoulder surgery H/O skin graft S/P lumbar laminectomy (05/25/19) Dr Hinojosa bilateral L3-4 laminotomy/foraminotomy. Family History Mother CAD (coronary artery disease) Father Diabetes Social History Smoking and tobacco/nicotine status: current every day tobacco/nicotine user Alcohol intake: current Alcohol intake frequency: few times a month Substance/Drug Use: never Lives independently: Yes Household members: spouse Marital status: Current occupational status: disabled Physical Exam Const: COMMON NORMALS: no acute distress, patient oriented x3 and healthy appearing HENMT: COMMON NORMALS: normocephalic and atraumatic HEAD & SCALP: normocephalic and atraumatic Neck/C-Spine: COMMON NORMALS: full ROM and supple Chest: COMMONS NORMALS: normal inspection of the chest and normal palpation of entire chest wall Resp: COMMON NORMALS: No retractions and No use of accessory muscles EFFORT & INSPECTION: Yes tachypneic AUSCULTATION: wheezes Cardio: COMMON NORMALS: regular rate, regular rhythm and No murmurs present (Cardio) RATE: regular rate RHYTHM: regular rhythm GI: COMMON NORMALS: Normal to inspection, nondistended, normoactive bowel sounds present, Soft to palpation, non-tender and no masses PALPATION: Yes Soft to palpation Extremity: COMMON NORMALS: normal to inspection and full ROM Neuro: COMMON NORMALS: patient oriented x3, moves all extremities and no focal motor deficits Psych: COMMON NORMALS: mental status grossly normal, Normal thought process present and cooperative THOUGHT PROCESS: Normal thought process present Skin: COMMON NORMALS: no rashes or lesions noted and no wounds GENERAL SKIN EXAM: no rashes or lesions noted Course Vital Signs: Vital signs: Vital Signs Temperature 98.0 F 07/28/23 07:14 Pulse Rate 112 H 07/28/23 09:07 Respiratory Rate 23 H 07/28/23 09:07 Blood Pressure 154/94 07/28/23 09:07 Pulse Oximetry 93 07/28/23 09:07 Oxygen Delivery Me thod Room Air 07/28/23 09:07 Oxygen Flow Rate 5 07/28/23 07:14 MDM - SOB/Dyspnea Medical Decision Making Patient presents here with shortness of breath hypoxia likely from COPD and CHF exacerbation he had some improvement here his BNP is elevated CT showed pulmonary edema spoke to the hospitalist will admit at this time. Medical Records I reviewed the patient's medical records. Lab Data I reviewed the patient's lab results. 07/28/23 07:30 07/28/23 07:30 Labs/Radiology: Radiology Impressions Chest X-Ray 07/28/23 07:18 IMPRESSION: No acute findings. Chest CTA 07/28/23 08:40 IMPRESSION: 1. No pulmonary embolism. 2. Pulmonary edema. 3. Small bilateral pleural effusions. 4. Incidental findings above. Laboratory Results WBC 12.61 10^3/uL (3.29-11.43) H 07/28/23 07:30 RBC 4.51 10^6/uL (3.85-5.65) 07/28/23 07:30 Hgb 13.10 g/dL (11.27-16.99) 07/28/23 07:30 Hct 41.5 % (37-53) 07/28/23 07:30 MCV 92.0 fl (82-101) 07/28/23 07:30 MCH 29.0 pg (27-33) 07/28/23 07:30 MCHC 31.6 g/dL (30-55) 07/28/23 07:30 RDW 14.6 % (12.1-15.1) 07/28/23 07:30 Plt Count 303 10^3/cmm (157-399) 07/28/23 07:30 MPV 10.6 fL (7.4-10.4) H 07/28/23 07:30 Neut % (Auto) 80.3 % 07/28/23 07:30 Lymph % (Auto) 11.9 % 07/28/23 07:30 [place] % (Auto) 4.8 % 07/28/23 07:30 Eos % (Auto) 1.9 % 07/28/23 07:30 Baso % (Auto) 0.6 % 07/28/23 07:30 Neut # (Auto) 10.12 10^3/uL (1.8-7.7) H 07/28/23 07:30 Lymph # (Auto) 1.5 10^3/uL (0.8-4.8) 07/28/23 07:30 [place] # (Auto) 0.6 10^3/uL (0.2-0.9) 07/28/23 07:30 Eos # (Auto) 0.2 10^3/uL (0.0-0.8) 07/28/23 07:30 Baso # (Auto) 0.1 10^3/uL (0.0-0.1) 07/28/23 07:30 Nucleated RBC % (auto) 0 % 07/28/23 07:30 Nucleated RBCs # 0.0 /100WBC 07/28/23 07:30 Sodium 138 mmol/L (136-145) 07/28/23 07:30 Potassium 4.3 mmol/L (3.5-5.1) 07/28/23 07:30 Chloride 103 mmol/L (98-107) 07/28/23 07:30 Carbon Dioxide 29 mmol/L (22-29) 07/28/23 07:30 Anion Gap 10.3 (5-19) 07/28/23 07:30 BUN 25 mg/dL (6-20) H 07/28/23 07:30 Creatinine 1.3 mg/dL (0.7-1.2) H 07/28/23 07:30 GFR Calculation 56.5 mL/min (90-130) L 07/28/23 07:30 Glucose 98 mg/dL (65-115) 07/28/23 07:30 Calculated Osmolality 290 mOsm/kg (285-295) 07/28/23 07:30 Calcium 8.9 mg/dL (8.5-10.5) 07/28/23 07:30 Total Bilirubin 0.6 mg/dL (0.15-1.2) 07/28/23 07:30 AST 34 U/L (0-40) 07/28/23 07:30 ALT 42 U/L (0-41) H 07/28/23 07:30 Alkaline Phosphatase 96 U/L (40-130) 07/28/23 07:30 Troponin T Baseline 39 ng/L (0-15) H 07/28/23 07:30 NT-Pro-B Natriuret Pep 31957 pg/mL (0-125) H 07/28/23 07:30 Total Protein 6.6 g/dL (6.6-8.7) 07/28/23 07:30 Albumin 3.9 g/dL (3.5-5.2) 07/28/23 07:30 Globulin 2.7 g/dL (1.3-4.6) 07/28/23 07:30 All radiology interpretation(s) finalized by discharge EKG Data EKG 1: I personally reviewed and interpreted this EKG as follows: EKG Interpretation Date: 07/28/23 EKG interpretation time: 07:21 Interpretation: nsr hr [address] or t wave abnormalities qrs 84 qtc 462 Discharge Plan Discharge Patient Disposition: Admitted As Inpatient Clinical Impression: Acute exacerbation of CHF (congestive heart failure), Acute exacerbation of chronic obstructive pulmonary disease (COPD) Condition: Stable Prescriptions: No Action aspirin [Aspir-81] 81 mg Tablet,Delayed Release (Dr/Ec) 324 mg PO .ONE TIME DOSE prednisone 50 mg tablet 50 mg PO DAILY Qty: 5 0RF albuterol sulfate 90 mcg/actuation HFA aerosol inhaler 2 inh INHALATION Q6H PRN (Reason: shortness of breath or wheezing) Qty: 8 0RF doxycycline hyclate 100 mg tablet 100 mg PO BID Referrals: Nano Cohen DO [Primary Care Provider] - Coding Level of Care Code ED 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
[2023-07-28 07:50] LABS: Basophils # 0.1 10^3/uL (0.0-0.1); Basophils % 0.6 %; Eosinophils # 0.2 10^3/uL (0.0-0.8); Eosinophils % 1.9 %; Hematocrit 41.5 % (37-53); Lymphocytes # 1.5 10^3/uL (0.8-4.8); Lymphocytes % 11.9 %; Mean Corpuscular HGB Conc 31.6 g/dL (30-55); Mean Platelet Volume 10.6 fL (7.4-10.4); Monocytes # 0.6 10^3/uL (0.2-0.9); Monocytes % 4.8 %; Neutrophils # 10.12 10^3/uL (1.8-7.7); Neutrophils % 80.3 %; Nucleated Red Blood Cells % 0 %; Platelet Count 303 10^3/cmm (157-399); Red Blood Count 4.51 10^6/uL (3.85-5.65); Red Cell Distribution Width 14.6 % (12.1-15.1); White Blood Count 12.61 10^3/uL (3.29-11.43)
--- NOTE | 2023-07-28 07:56 | PC.PHAR ---
pt states his family () takes care of his medications-rx filled 07/14/23 5d/s for prednisone 50mg daily and doxycycline hyclate 100mg bid filled 07/14/23 7d/s-pts family states the pt just picked rx's up-pt and pts family states the pt has only taken one dose and that was on 07/26/23-on previously entered med rec coreg 12.5mg bid filled 04/10/23 90d/s,lasix 40mg daily filled 03/14/23 60d/s-losartan 25mg qam filled 03/14/23 90d/s-symbicort 80-4.5mcg 2p bid-spiriva with handihaler 18mcg daily pts family states the pt doesnt take any of those medications states its been at least 6 months since he took-pts family states the pt is only taking the medications entered
[2023-07-28 08:13] LABS: Troponin(5th) Baseline 39 ng/L (0-15)
[2023-07-28] MEDS: hyDRALAzine 20 mg/mL INJ 1 mL 10 MG IVP (08:25)
[2023-07-28 08:30] LABS: Alanine Aminotransferase 42 U/L (0-41); Albumin Level 3.9 g/dL (3.5-5.2); Alkaline Phosphatase 96 U/L (40-130); Anion Gap 10.3 (5-19); Aspartate Amino Transferase 34 U/L (0-40); Blood Urea Nitrogen 25 mg/dL (6-20); Calcium 8.9 mg/dL (8.5-10.5); Carbon Dioxide 29 mmol/L (22-29); Chloride 103 mmol/L (98-107); Globulin 2.7 g/dL (1.3-4.6); Glomerular Filtration Rate 56.5 mL/min (90-130); Glucose 98 mg/dL (65-115); NT Pro B Type Natriuretic Pept 17835 pg/mL (0-125); Osmolality Calculated 290 mOsm/kg (285-295); Potassium 4.3 mmol/L (3.5-5.1); Sodium 138 mmol/L (136-145); Total Bilirubin 0.6 mg/dL (0.15-1.2); Total Protein 6.6 g/dL (6.6-8.7)
--- NOTE | 2023-07-28 08:40 | CTR_ITS ---
PROCEDURE INFORMATION: Exam: CTA Chest With Contrast Exam date and time: 07/28/2023 8:51 AM Age: 58 years old Clinical indication: Pain; Angina pectoris; Additional info: Cp TECHNIQUE: Imaging protocol: Computed tomographic angiography of the chest with contrast. Exam focused on the arteries. 3D rendering (Not supervised by radiologist): MIP and/or 3D reconstructed images were created by the technologist. Radiation optimization: All CT scans at this facility use at least one of these dose optimization techniques: automated exposure control; mA and/or kV adjustment per patient size (includes targeted exams where dose is matched to clinical indication); or iterative reconstruction. Contrast material: OMNI 350; Contrast volume: 79 ml; Contrast route: INTRAVENOUS (IV); REPORTING DATA: Count of CT and Cardiac NM exams in prior 12 months: This patient has received 0 known CTs and 0 known cardiac nuclear medicine studies in the 12 months prior to the current study. COMPARISON: CR (CHEST, ) 07/28/2023 7:29 AM RADIATION DOSE METRICS: Total DLP (mGy-cm): 267.38 FINDINGS: Pulmonary arteries: The pulmonary arteries are adequately opacified for evaluation to the subsegmental level. There is no filling defect to suggest embolism. Aorta: There is mild aortic atherosclerotic disease. Lungs: There are marcelo calcifications in subcarinal region and bilateral sanya. There is diffuse bilateral interlobular septal thickening and central bronchial wall thickening. There is patchy mild ill-defined bilateral pulmonary ground-glass opacity, greater on the right. There are small calcified granulomas in both lower lobes. Pleural spaces: There are small simple dependent bilateral pleural effusions. There is no pneumothorax. Heart: There is mild cardiac enlargement. There is no pericardial effusion. Lymph nodes: There is no mediastinal or hilar lymphadenopathy. Liver: 2.4 cm cyst in the superior right lobe of the liver. Bones/joints: No acute fracture. No suspicious bone lesions. There is moderate degenerative disease at the left shoulder. Soft tissues: The extrathoracic soft tissues are unremarkable. CT/CT angio chest PE protcl [id number] IMPRESSION: 1. No pulmonary embolism. 2. Pulmonary edema. 3. Small bilateral pleural effusions. 4. Incidental findings above.
[2023-07-28] MEDS: iohexol 350 mg/mL 500 mL Btl (per mL) IV (08:57)
[2023-07-28] MEDS: morphine 4 mg/mL SDV 1 mL IVP (09:02)
[2023-07-28] MEDS: FUROsemide 10 mg/mL SDV 10mL 60 MG IVP (09:02)
[2023-07-28 09:45] LABS: Troponin 5 2HR 31.36 ng/L (0-15)
--- NOTE | 2023-07-28 09:55 | ECG_ITS ---
[facility] Test Date: 2023-07-28 Pat Name: Christian Sparks Department: Room: Gender: Male Equity Research Associate: : 1965 Requested By: Paco Nice Order Number: [id number] Jesús MD: Elham Johnson M.D. Measurements Intervals [place] Rate: 102 P: 0 NC: 0 QRS: 55 QRSD: 86 T: 65 QT: 387 QTc: 506 Interpretive Statements Multifocal atrial rhythm NONSPECIFIC T-WAVE ABNORMALITY ABNORMAL RHYTHM ECG Compared to ECG 07/08/2023 04:19:59 T-wave abnormality now present Sinus rhythm no longer present Ventricular premature complex(es) no longer present Myocardial infarct finding no longer present Electronically Signed On 07-28-2023 19:49:29 POWER PLANT OPERATIONS MANAGER by Elham Johnson M.D. [id number]
[2023-07-28 10:08] LABS: Troponin 5 2HR Delta -7.64 ABS# (0-10)
--- NOTE | 2023-07-28 10:53 | ECG_ITS ---
[facility] Test Date: 2023-07-28 Pat Name: Christian Sparks Department: Room: 277 Gender: Male Contact Lens Flashing Puncher: : 1965 Requested By: Jarocho Nazario Order Number: [id number] Jesús MD: Elham Johnson M.D. Measurements Intervals [place] Rate: 155 P: 0 NV: 0 QRS: 75 QRSD: 109 T: 0 QT: 326 QTc: 524 Interpretive Statements Atrial fibrillation with rapid ventricular rate; ventricular couplet VOLTAGE CRITERIA FOR LVH [MEETS CRITERIA IN ONE OF: R(aVL), S(V1), R(V5), R(V5/V6)+S(V1)] * INTERPRETATION BASED ON A DEFAULT AGE OF 40 YEARS Compared to ECG 07/28/2023 09:55:59 Left ventricular hypertrophy now present Myocardial infarct finding now present Atrial fibrillation no longer present T-wave abnormality no longer present Electronically Signed On 07-28-2023 19:45:07 YOKER by Elham Johnson M.D. [id number]
[2023-07-28] MEDS: dilTIAZem 5 mg/mL SDV 5 mL 10 MG IVP (11:32)
[2023-07-28] MEDS: morphine 4 mg/mL SDV 1 mL 2 MG IVP ×2 (11:32→20:15)
[2023-07-28] MEDS: levalbuterol 0.63 mg/3 mL Neb INHALATION ×3 (11:56→20:14)
[2023-07-28] MEDS: ipratropium 0.5 mg/2.5 mL Neb INHALATION ×3 (11:56→20:14)
[2023-07-28 12:21] LABS: Procalcitonin 0.09 ng/mL (0-0.5); Thyroid Stimulating Hormone 1.05 uIU/mL (0.27-4.20)
[2023-07-28 13:37] LABS: Troponin 5 6HR 27.56 ng/L (0-15)
[2023-07-28 13:41] LABS: Add Urine Microscopic? NO; Charge for UA Resulting for Rev
[2023-07-28 13:41] LABS: Troponin 5 6HR Delta -11.44 ng/L (0-12)
[2023-07-28 13:49] LABS: Iron 39 ug/dL (59-158); Total Iron Binding Capacity 300 mcg/dl; Unsaturated Iron Binding 261 ug/dL (112-347)
[2023-07-28 13:52] LABS: Amphetamines Screen Urine Positive (Negative); Barbiturates Screen Urine Negative (Negative); Benzodiazepines Screen Urine Positive (Negative); Cocaine Screen Urine Negative (Negative); Opiate Screen Urine Positive (Negative); PCP Screen Urine Negative (Negative); THC Screen Urine Negative (Negative)
[2023-07-28 13:54] LABS: Bilirubin Urine Neg (Negative); Blood Urine Neg (Negative); Glucose Urine UA Norm (Normal); Ketones Urine Negative (Negative); Leukocyte Esterase Urine Negative (Negative); Nitrate Urine Negative (Negative); Protein Urine Neg (Negative); Sulfosalicylic Acid Urine Negative (Negative); Urine Appearance Clear (CLEAR); Urine Color Colorless (Yellow); Urobilinogen Urine Norm (Negative); pH Urine 8 (5-7)
[2023-07-28] MEDS: metoprolol tartrate 25 mg Tablet PO ×2 (13:56→20:25)
[2023-07-28] MEDS: FUROsemide 10 mg/mL SDV 4mL 40 MG IVP (13:56)
--- NOTE | 2023-07-28 13:59 | ECG_ITS ---
[facility] Test Date: 2023-07-28 Pat Name: Christian Sparks Department: Room: 277 Gender: Male Harpsichord Maker: EVELIO: 1965 Requested By: Paco Nice Order Number: [id number] Jesús MD: Elham Johnson M.D. Measurements Intervals [place] Rate: 92 P: 87 IN: 159 QRS: 80 QRSD: 68 T: 83 QT: 320 QTc: 396 Interpretive Statements Multifocal atrial rhythm with FREQUENT VENTRICULAR PREMATURE COMPLEXES POSSIBLE RIGHT ATRIAL ENLARGEMENT [0.25mV P WAVE] MODERATE VOLTAGE CRITERIA FOR LVH, CONSIDER NORMAL VARIANT [MEETS CRITERIA IN ONE OF: R(aVL), S(V1), R(V5), R(V5/V6)+S(V1)] POSSIBLE SEPTAL MYOCARDIAL INFARCTION [30 ms Q WAVE IN V1/V2], PROBABLY OLD ABNORMAL RHYTHM ECG Compared to ECG 07/28/2023 10:53:28 Supraventricular tachycardia no longer present Myocardial infarct finding still present Electronically Signed On 07-28-2023 19:51:45 TIME CHECKER by Elham Johnson M.D. [id number]
[2023-07-28 14:04] LABS: Vitamin B12 710 pg/mL (232-1245)
--- NOTE | 2023-07-28 14:20 | USCV_ITS ---
Christian Sparks Age: 58 Gender: M : 1965 Exam Date: 07/28/2023 17:48 Ordering Phys: Jarocho Nazario MD Technologist: Rah Francois [place] [facility] [place] chf BP: 149 / 78 HR: 85 Rhythm: Sinus Technical Quality: Adequate MEASUREMENTS (Male / Female) Normal Values 2D ECHO LVOT Diameter 2.0 cm LV Ejection Fraction MOD 2C 55.7 % LV Ejection Fraction 2C AL 56.3 % LA Diameter 3.7 cm LA Width 4.2 cm LA Height 5.7 cm RA Width 3.7 cm RA Height 5.2 cm Aorta at Sinotubular Diameter 2.5 cm IVC Diameter 1.7 cm M-MODE Aortic Annulus Diameter 2.4 cm LA Ao Ratio MM 1.3 MV E Point Septal Separation 1.7 cm DOPPLER AV Peak Velocity 148.0 cm/s LVOT Peak Velocity 108.0 cm/s AV Area Cont Eq vti 2.4 cm squared AV Area Cont Eq pk 2.3 cm squared MV Peak Velocity 85.0 cm/s MV Area PHT 3.7 cm squared Mitral E to A Ratio 1.4 MV E' Velocity 44.0 cm/s Mitral E to MV E' Ratio 17.2 Mitral E to LV E' Lateral Ratio 14.0 Mitral E to LV E' Septal Ratio 22.3 TR Peak Velocity 306.7 cm/s TR Peak Gradient 37.6 mmHg TR Mean Velocity 244.5 cm/s TR Mean Gradient 28.2 mmHg TR Velocity Time Integral 78.3 cm Right Atrial Pressure 3.0 mmHg Pulmonary Artery Systolic Pressu 40.6 mmHg PV Peak Velocity 82.0 cm/s RV Acceleration Time 0.1 s RV Ejection Time 0.3 s RV AcT/ET 0.3 FINDINGS Left Ventricle Mildly dilated left ventricle with an ejection fraction of 48%. Diffuse hypokinesia was noted Right Ventricle The right ventricle is normal in size and function. Right Atrium Mildly increased right atrial size. Left Atrium Mildly increased left atrial size. Mitral Valve Mild mitral valve regurgitation. Thickened mitral valve. Aortic Valve No gross abnormalities noted Tricuspid Valve Trace to mild tricuspid valve regurgitation. Estimated pulmonary artery peak systolic pressure 41 mmHg Pulmonic Valve No gross abnormalities noted Pericardium No pericardial effusion. Aorta Normal aortic annulus size. IVC Normal inferior vena cava. CONCLUSIONS Mildly dilated left ventricle with an ejection fraction of 48%. Diffuse hypokinesia of the left ventricle mild biatrial enlargement. Minimally thickened mitral valve with mild mitral valve regurgitation. Trace to mild tricuspid valve regurgitation. Estimated pulmonary artery peak systolic pressure 41 mm of Hg There is no pericardial effusion. There are no intracardiac masses. Compared to the previous study from 03/13/2023, there may not be significant change. Dr Elham Johnson MD [facility] (Electronically Signed) Final Date: 28 July 2023 19:27 S
--- NOTE | 2023-07-28 14:27 | P.HP_ITS ---
Providers/Chief Complaint 2 Admitting Physician: Jarocho Nazario MD Primary Care Provider: Nano Cohen DO Chief Complaint: SOB; CHEST PAIN History of Present Illness Christian Sparks is a 58 year old male history of CAD, last angiogram in March 31 showing moderate left main stenosis for which she was sent home on medical therapy, COPD, noncompliance, unstable angina who has not been on his oral medications for last few months, has not followed up with any chief risk officer appointments. To the ER today with worsening shortness of breath for last few weeks. As per the patient whenever he tries to sleep he feels as if he is drowning and not able to breathe and wakes up choking. In the ER he underwent CT chest which was concerning for pulmonary edema with mild pleural effusion. Review of Systems 2 General: Reports: 10 or more systems reviewed and unremarkable except in HPI and below Const: Denies: fever(s), chills, body aches, change in appetite, change in weight, malaise, night sweats, diaphoresis, change in sleep pattern, daytime sleepiness or snoring Eyes: Denies: change in vision, blurry vision, photophobia, eye discomfort or eye discharge ENMT: Denies: throat pain, enlarged tonsils, hoarseness, mouth pain, oral sores, dry mouth, tinnitus, nasal congestion or post nasal drip Card: Denies: chest pain, palpitations, irregular heart rhythm, edema, swelling of feet/ankles, lightheadedness, syncope, pre-syncope, dyspnea on exertion, orthopnea, leg pain with exertion or acrocyanosis Resp: Denies: dyspnea, productive cough, non-productive cough, wheezing, stridor, pain on inspiration, change in phlegm color, hemoptysis or chest congestion GI: Denies: abdominal pain, nausea, vomiting, hematemesis, coffee ground emesis, dysphagia, heartburn, diarrhea, constipation, bloating, GI cramping, change in bowel habits, pain on defecation, hematochezia or melena : Denies: flank pain, difficulty urinating, dysuria, urinary frequency, urinary urgency, urinary hesitancy, urinary dribbling, difficulty starting urination, change in urine stream, nocturia or hematuria Musc: Denies: neck pain, back pain, extremity pain, joint pain, joint swelling, joint redness, joint stiffness or limited range of motion Neuro: Denies: headache(s), numbness in extremities, weakness in extremities, sensory changes, lack of coordination, difficulty walking, frequent falls, dizziness, vertigo, confusion, Slurred speech present, difficulty communicating thoughts or seizure-like activity Psych: Denies: anxiety, depression, mood swings, panic attacks, hopelessness or irritability Endo: Denies: polyuria, polydipsia, tired all the time, cold intolerance, excessive sweating, flushing or heat intolerance Jeffy/Lymph: Denies: easy bruising or easy bleeding All/Imm: Denies: tongue swelling, facial swelling or acute wheezing Medications/Allergies Home Medications Medication Instructions Recorded Confirmed Last Taken Type aspirin 81 mg tablet,delayed 324 mg PO .ONE TIME DOSE 05/24/23 07/28/23 07/28/23 05:00 History release albuterol sulfate 90 mcg/actuation 2 inh inhalation Q6H PRN shortness 07/08/23 07/28/23 Unknown Rx aerosol inhaler of breath or wheezing #8 grams prednisone 50 mg tablet 50 mg PO DAILY #5 tabs 07/08/23 07/28/23 2 Days Ago Rx ~07/26/23 see pharmacy comment doxycycline hyclate 100 mg tablet 100 mg PO BID 07/28/23 07/28/23 2 Days Ago History ~07/26/23 see pharmacy comment Allergies Allergy/AdvReac Type Severity Reaction Status Date / Time gabapentin Allergy Intermediate nausea/vomi Verified 07/28/23 07:56 ting PFSH Acute 2 PFSH: Medical History (Updated 07/28/23 @ 14:36 by Jarocho Nazario MD) Coronary artery disease Angiogram: March 2023: Moderate left main stenosis. Not hemodynamically significant on IVUS. Medical therapy. Worsening angina CKD (chronic kidney disease) stage 3, GFR 30-59 ml/min Tobacco use Osteoarthritis of right shoulder COPD (chronic obstructive pulmonary disease) Chest pain Migraine Hypertension Stenosis, spinal, lumbar Surgical History Post-operative state Hx of tonsillectomy H/O shoulder surgery H/O skin graft S/P lumbar laminectomy (05/25/19) Dr Hinojosa bilateral L3-4 laminotomy/foraminotomy. Family History Mother CAD (coronary artery disease) Father Diabetes Social History Smoking and tobacco/nicotine status: current every day tobacco/nicotine user Alcohol intake: current Alcohol intake frequency: few times a month Substance/Drug Use: never Lives independently: Yes Household members: spouse Marital status: Current occupational status: disabled Vitals/I&O/Wt Last Vital Signs Temp 98.1 F 07/28/23 11:29 Pulse 104 H 07/28/23 11:58 Resp 20 H 07/28/23 11:58 BP 134/93 07/28/23 11:29 Pulse Ox 90 07/28/23 12:01 O2 Del Method Room Air 07/28/23 12:01 O2 Flow Rate 2 07/28/23 10:25 Weight last 48 hrs Weight 74.843 kg Weight 74.843 kg Physical Exam 2 Narrative: General: No acute distress, AO x3, chronically sick appearing HEENT: PERRLA, pupils bilaterally equal and reactive Chest: Normal vesicular breath sounds, no added sounds, equal good air entry bilaterally CVS: S1-S2 regular, pansystolic murmur at apex s, no tachycardia, no gallops, no rubs Abdomen: Soft, nontender, no organomegaly, bowel sounds present Neuro: No focal deficits, no facial deformity, AO x3, power 5/5 in all limbs Urinary Catheter Management: Rajput: Cath Placed During This Visit: yes Urinary Catheter Date of Insertion: 07/28/23 Urinary Catheter Time of Insertion: 13:19 Data 07/28/23 07:30 07/28/23 07:30 A&P Assessment and plan (1) Acute exacerbation of CHF (congestive heart failure): Qualifiers: Heart failure type: unspecified Qualified Code(s): I50.9 - Heart failure, unspecified (2) HFrEF (heart failure with reduced ejection fraction): (3) Coronary artery disease: Last angiogram in March 2023 showed moderate left main stenosis. IVUS is nonsignificant for which he was sent home on medical therapy (4) CKD (chronic kidney disease) stage 3, GFR 30-59 ml/min: (5) COPD (chronic obstructive pulmonary disease): (6) Amphetamine abuse: (7) Arrhythmia: (8) Noncompliance: Plan Shortness of breath: Most likely in setting of congestive heart failure. Echocardiogram from March 2023 showed an EF of 40 to 45%, global LV hypokinesia with moderate hypokinesis of the anterior anterolateral wall. Patient is noncompliant to medications. Appreciate CT chest. Check MRSA swab, respiratory viral panel, sputum culture. For now start patient on IV Lasix 40 mg twice daily. Fluid restriction up to 1500 cc. Strict input output charting, daily weights. Rajput catheterization. environmental monitoring specialist. Repeat echocardiogram. Arrhythmia: Patient having frequent VPCs. Multifocal atrial tachycardia versus nonsustained V. tach. Check troponin cycle, magnesium, phosphorus. Keep potassium around 4, magnesium around 2. Telemetry. Start patient on metoprolol 25 mg twice daily. Aspirin 81 mg daily, atorvastatin 20 mg nightly. Check, A1c, lipid panel, urine drug screen. CKD: Baseline creatinine seems to be around 1.5-1.6. Currently 1.3. Medication reconciliation done for nephrotoxic drugs. Monitor BMP daily. Monitor electrolytes. For COPD: Not in exacerbation. Hold off on steroids. Pulmicort twice daily, ipratropium and Xopenex every 6 hours. Full code Heparin 5000 every 8 hourly for DVT prophylaxis Famotidine for PUD prophylaxis Attestations 2 Medical Necessity Statement*: Admission for more than 2 midnights for management of shortness of breath in setting of congestive heart failure, arrhythmia with concerns for frequent VPCs, CKD Diagnoses Acute exacerbation of CHF (congestive heart failure) I50.9 Heart failure type: unspecified HFrEF (heart failure with reduced ejection fraction) I50.20 Coronary artery disease I25.10 CKD (chronic kidney disease) stage 3, GFR 30-59 ml/min N18.30 COPD (chronic obstructive pulmonary disease) J44.9 Amphetamine abuse F15.10 Arrhythmia I49.9 Noncompliance Z91.199
[2023-07-28] MEDS: magnesium sulfate premix 2 GM/50 ML PIGGYBACK IV (14:43)
[2023-07-28 14:45] LABS: Phosphorus 2.4 mg/dL (2.5-4.5)
--- NOTE | 2023-07-28 16:00 | PC.NURSE ---
Pt urine clear when foely catheter placed. After placement pt keeps pulling on catheter. Slight hematuria from pulling on zhang noted.
--- NOTE | 2023-07-28 16:27 | PC.NURSE ---
Pt and at bedside arguing. Pt states that he would still like to be involved in care and updated on information.
[2023-07-28 17:32] LABS: Adenovirus Not Detected (NOT DETECT); Chlamydia Pneumoniae Not Detected (NOT DETECT); Coronavirus 229E,HKU1,NL63,OC4 Not Detected (NOT DETECT); Human Metapneumovirus Not Detected (NOT DETECT); Human Rhinovirus/Enterovirus Not Detected (NOT DETECT); Influenza A Not Detected (NOT DETECT); Influenza A H1 Not Detected (NOT DETECT); Influenza A H1-2009 Not Detected (NOT DETECT); Influenza A H3 Not Detected (NOT DETECT); Influenza B Not Detected (NOT DETECT); Mycoplasma Pneumoniae Not Detected (NOT DETECT); Parainfluenza Virus Type 1 Not Detected (NOT DETECT); Parainfluenza Virus Type 2 Not Detected (NOT DETECT); Parainfluenza Virus Type 3 Not Detected (NOT DETECT); Parainfluenza Virus Type 4 Not Detected (NOT DETECT); Respiratory Syncytial Virus A Not Detected (NOT DETECT); Respiratory Syncytial Virus B Not Detected (NOT DETECT); SARS-COV-2 Not Detected (NOT DETECT)
[2023-07-28] MEDS: famotidine 20 mg Tablet PO (17:51)
--- NOTE | 2023-07-28 19:01 | ECG_ITS ---
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 Measurements Intervals [place] Rate: 79 P: 19 [place]: 140 QRS: 73 QRSD: 94 T: 62 QT: 270 QTc: 309 Interpretive Statements SINUS RHYTHM WITH FREQUENT VENTRICULAR PREMATURE COMPLEXES MODERATE VOLTAGE CRITERIA FOR LVH, CONSIDER NORMAL VARIANT [MEETS CRITERIA IN ONE OF: R(aVL), S(V1), R(V5), R(V5/V6)+S(V1)] POSSIBLE ANTERIOR MYOCARDIAL INFARCTION [30 ms Q WAVE IN V3/V4, OR R < 0.2 mV IN V4], OF INDETERMINATE AGE Compared to ECG 07/28/2023 19:09:34 T-wave abnormality no longer present Possible ischemia no longer present Myocardial infarct finding still present Electronically Signed On 07-29-2023 15:52:01 AGRICULTURAL ECONOMICS TEACHER by Elham Johnson M.D. [id number]
[2023-07-28] MEDS: calcium gluconate 0.9% NaCL 1 GM/50 ML PREMIX IV (19:23)
[2023-07-28] MEDS: magnesium sulfate premix 1 GM/100 ML PIGGYBACK IV (19:24)
[2023-07-28] MEDS: amiodarone 150 MG/100 ML PREMIX 400 MG IV (19:31)
--- NOTE | 2023-07-28 19:31 | P.PNCC_ITS ---
Critical Care Event Note Got a call from the nurse on the floor at around 6:50 PM saying patient having episodes of arrhythmias on etl analyst developer. Family at bedside who reported patient having possible seizure-like activity during the arrhythmia. On reviewing the telemetry it seems patient having runs of torsades and nonsustained V. tach. On examination patient is awake and alert complaining of mild chest heaviness and difficulty in breathing. Patient stating feeling constipated and going to the bathroom multiple times to have a bowel movement and straining. Nurse complains of patient having chest heaviness and pain during the event of screening. Patient was resting during nonsustained V. tach and torsades currently. Plan: EKG done shows a normal QTc of around 420. Give her 1 g of IV magnesium, 1 g of IV calcium chloride. Amnio push 150 mg start IV followed by amiodarone drip. Check stat labs including CBC, CMP, magnesium, phosphorus, troponin cycle. Care discussed in detail with Dr. Johnson. He is available overnight if needed. Will consult Dr. Del Toro who is patient's primary medical associate and will be available tomorrow. N.p.o. after midnight for possible Lexiscan versus cardiac cath. Transfer to ICU. Care discussed in detail with patient and patient's family members at bedside. CODE STATUS: Discussed in detail with the patient again. He is full code. will be the DPOA. The high probability of a clinically significant, sudden or life threatening deterioration of the patient's [cardiac] system(s) required my full and direct attention, intervention and personal management. The critical care time is as shown. This time is in addition to time spent performing any reported procedures but includes the following: [x] Data and vital sign review and interpretation [x] Patient assessment, examination and intervention [x] Documentation [x] Medication orders and management Critical Care Time Code activated: No Critical Care Time (min): 70 Coding Level of Care Code Critical Care Other Coding Information This patient has a high probability of clinically significant, sudden or life threatening deterioration of the patient's (neurological/pulmonary/cardiac/renal/ID/endocrine) systems required my full, direct attention, the highest level of physician preparedness for urgent intervention and personal management. I managed/supervised life or organ supporting interventions that required frequent physician assessment. I devoted my full attention in the ICU to the direct care of this patient for the period o f time indicated above. Time I spent with family or surrogate(s) is included only if the patient was incapable of providing necessary information or participating in decision making. This time includes the following services provided: Telemetry review Hemodynamic interpretation, assessment and management Review and interpretation of CXR Review and interpretation of lab values Review and interpretation of microbiologic data and culture results Review of medications and administration Review and interpretation of Nutrition requirements and management Discussion of management with other consultants and services Clinical update to family members
--- NOTE | 2023-07-28 19:57 | PC.NURSE ---
Pt on toilet attempting to have a BM. Complains of chest pain rated at 10/10, weakness, anxiety and heaviness. Diaporetic. Moves pt to bed. HR on tele appears to be in Torsades de Pointes with a rate of 194BPM. Dr. Nazario notified via phone. Amio, Magnesium, and Calcium started per orders. Bedside report given in the ICU.
[2023-07-28] MEDS: budesonide 0.5 mg/2 mL Neb INHALATION (20:14)
[2023-07-28] MEDS: sennosides-docusate Tablet 1 TAB PO (20:15)
[2023-07-28] MEDS: atorvastatin 40 mg Tablet 20 MG PO (20:25)
[2023-07-28 20:38] LABS: Basophils % 0.1 %; Lymphocytes # 0.4 10^3/uL (0.8-4.8); Lymphocytes % 2.5 %; Mean Corpuscular HGB Conc 32.7 g/dL (30-55); Mean Corpuscular Hemoglobin 28.9 pg (27-33); Mean Corpuscular Volume 88.6 fl (82-101); Monocytes # 0.3 10^3/uL (0.2-0.9); Neutrophils # 16.41 10^3/uL (1.8-7.7); Neutrophils % 95.1 %; Nucleated Red Blood Cells % 0 %; Platelet Count 332 10^3/cmm (157-399); Red Blood Count 4.63 10^6/uL (3.85-5.65); Red Cell Distribution Width 14.6 % (12.1-15.1); White Blood Count 17.26 10^3/uL (3.29-11.43)
[2023-07-28 20:59] LABS: Alanine Aminotransferase 35 U/L (0-41); Albumin Level 3.9 g/dL (3.5-5.2); Alkaline Phosphatase 91 U/L (40-130); Anion Gap 20.1 (5-19); Aspartate Amino Transferase 21 U/L (0-40); Blood Urea Nitrogen 31 mg/dL (6-20); Calcium 9.3 mg/dL (8.5-10.5); Carbon Dioxide 22 mmol/L (22-29); Chloride 98 mmol/L (98-107); Globulin 2.2 g/dL (1.3-4.6); Glomerular Filtration Rate 56.5 mL/min (90-130); Glucose 224 mg/dL (65-115); Osmolality Calculated 296 mOsm/kg (285-295); Potassium 4.1 mmol/L (3.5-5.1); Sodium 136 mmol/L (136-145); Total Bilirubin 0.7 mg/dL (0.15-1.2); Total Protein 6.1 g/dL (6.6-8.7)
[2023-07-28 21:00] LABS: Troponin(5th) Baseline 26 ng/L (0-15)
[2023-07-28] MEDS: magnesium hydroxide 30 mL UDC PO (21:27)
--- NOTE | 2023-07-28 21:37 | ECG_ITS ---
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 Measurements Intervals [place] Rate: 73 P: -1 [place]: 148 QRS: 78 QRSD: 85 T: 84 QT: 389 QTc: 430 Interpretive Statements SINUS RHYTHM MINIMAL VOLTAGE CRITERIA FOR LVH, CONSIDER NORMAL VARIANT [MEETS CRITERIA IN ONE OF: R(aVL), S(V1), R(V5), R(V5/V6)+S(V1)] NONSPECIFIC T-WAVE ABNORMALITY Compared to ECG 07/28/2023 19:10:54 T-wave abnormality now present Ventricular premature complex(es) no longer present Myocardial infarct finding no longer present Electronically Signed On 07-29-2023 17:46:01 BLACK OXIDE OPERATOR by Elham Johnson M.D. [id number]
[2023-07-28 23:09] LABS: Troponin 5 2HR 25.34 ng/L (0-15); Troponin 5 2HR Delta -0.66 ABS# (0-10)
[2023-07-29] VITALS (134 sets, daily range): BP systolic 79–143; BP diastolic 36–99; PULSE 55–80; RESP 0–30; TEMP 36.2–37.1; O2SAT 87–100
--- NOTE | 2023-07-29 00:30 | ECG_ITS ---
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 Measurements Intervals [place] Rate: 62 P: 39 [place]: 157 QRS: 75 QRSD: 80 T: 0 QT: 409 QTc: 418 Interpretive Statements SINUS RHYTHM WITH OCCASIONAL SUPRAVENTRICULAR PREMATURE COMPLEXES VOLTAGE CRITERIA FOR LVH [MEETS CRITERIA IN ONE OF: R(aVL), S(V1), R(V5), R(V5/V6)+S(V1)] NONSPECIFIC T-WAVE ABNORMALITY Compared to ECG 07/28/2023 21:37:08 No significant changes Electronically Signed On 07-29-2023 17:46:47 PAPERHANGER AND PAINTER by Elham Johnson M.D. [email or web address]/store/OM/[id number]
[2023-07-29] MEDS: FUROsemide 10 mg/mL SDV 4mL 40 MG IVP ×2 (01:27→13:23)
[2023-07-29 02:04] LABS: Estmated Average Glucose 105; Hemoglobin A1C 5.3 % (4.0-6.0)
[2023-07-29 02:16] LABS: Folate Level 17.1 ng/mL (4.5-32.2)
[2023-07-29] MEDS: ipratropium 0.5 mg/2.5 mL Neb INHALATION ×4 (02:35→20:13)
[2023-07-29] MEDS: levalbuterol 0.63 mg/3 mL Neb INHALATION ×4 (02:35→20:13)
[2023-07-29 03:06] LABS: Basophils % 0.2 %; Eosinophils % 0.1 %; Hematocrit 41.5 % (37-53); Lymphocytes # 1.2 10^3/uL (0.8-4.8); Lymphocytes % 6.1 %; Mean Corpuscular HGB Conc 32.5 g/dL (30-55); Mean Corpuscular Hemoglobin 28.7 pg (27-33); Mean Corpuscular Volume 88.3 fl (82-101); Mean Platelet Volume 10.7 fL (7.4-10.4); Monocytes # 1.2 10^3/uL (0.2-0.9); Neutrophils # 16.66 10^3/uL (1.8-7.7); Neutrophils % 87.1 %; Nucleated Red Blood Cells % 0 %; Platelet Count 328 10^3/cmm (157-399); Red Cell Distribution Width 14.7 % (12.1-15.1); White Blood Count 19.13 10^3/uL (3.29-11.43)
[2023-07-29 03:32] LABS: Alanine Aminotransferase 33 U/L (0-41); Albumin Level 3.8 g/dL (3.5-5.2); Alkaline Phosphatase 88 U/L (40-130); Anion Gap 15.2 (5-19); Aspartate Amino Transferase 19 U/L (0-40); Blood Urea Nitrogen 31 mg/dL (6-20); Calcium 9.1 mg/dL (8.5-10.5); Carbon Dioxide 27 mmol/L (22-29); Chloride 99 mmol/L (98-107); Chol HDL Ratio 2.75 mg/dL (1.0-5.00); Cholesterol 140 mg/dL (0-200); Creatinine Clr Calc Pharmacy 55.9263; Globulin 2.3 g/dL (1.3-4.6); Glomerular Filtration Rate 51.9 mL/min (90-130); Glucose 112 mg/dL (65-115); HDL Cholesterol 51 mg/dL (60-100); LDL Cholesterol Calculated 76 mg/dL (50-129); LDL HDL Ratio 1.49 RATIO (0.00-3.22); Magnesium 2.5 mg/dL (1.7-2.3); Osmolality Calculated 291 mOsm/kg (285-295); Phosphorus 3.6 mg/dL (2.5-4.5); Potassium 4.2 mmol/L (3.5-5.1); Sodium 137 mmol/L (136-145); Total Bilirubin 0.5 mg/dL (0.15-1.2); Total Protein 6.1 g/dL (6.6-8.7); Triglycerides 63 mg/dL (0-150)
[2023-07-29] MEDS: metoprolol tartrate 25 mg Tablet PO ×2 (08:01→20:21)
[2023-07-29] MEDS: aspirin 81 mg EC Tablet PO (08:01)
[2023-07-29] MEDS: famotidine 20 mg Tablet PO ×2 (08:01→17:22)
[2023-07-29] MEDS: acetaminophen 325 mg Tablet 650 MG PO (08:06)
--- NOTE | 2023-07-29 08:40 | P.CONIM_ITS ---
Providers/Reason For Consult 2 Consulting Physician/Specialty*: Gatito Del Toro MD/ Cardiology Reason for Consult*: Torsades/ shortness of breath Requesting Physician: Dr Nazario Attending Physician: Jarocho Nazario MD Primary Care Provider: Nano Cohen DO History of Present Illness History of Present Illness Christian Sparks is a 58 year old male with PMH of moderate left artery stenosis, COPD who presented with worsening shortness of breath. ECHO shows mildly reduced LV systolic function. He had methamphetamine screen positive. Denies chest pain but says when feels short of breath at night, has some tightness. Yesterday he had a run of torsades. Review of Systems 2 Const: Denies: fever(s) or chills Card: Reports: chest pain (pressure), palpitations, lightheadedness (with shortness of breath) and dyspnea on exertion; Denies: irregular heart rhythm, swelling of feet/ankles, pre-syncope, orthopnea or leg pain with exertion Resp: Denies: dyspnea, productive cough or non-productive cough Musc: Reports: neck pain and back pain Neuro: Denies: headache(s) or dizziness Psych: Denies: anxiety, depression, suicidal ideation or homicidal ideation Jeffy/Lymph: Denies: easy bruising or easy bleeding Medications/Allergies Home Medications Medication Instructions Recorded Confirmed Last Taken Type aspirin 81 mg tablet,delayed 324 mg PO .ONE TIME DOSE 05/24/23 07/28/23 07/28/23 05:00 History release albuterol sulfate 90 mcg/actuation 2 inh inhalation Q6H PRN shortness 07/08/23 07/28/23 Unknown Rx aerosol inhaler of breath or wheezing #8 grams prednisone 50 mg tablet 50 mg PO DAILY #5 tabs 07/08/23 07/28/23 2 Days Ago Rx ~07/26/23 see pharmacy comment doxycycline hyclate 100 mg tablet 100 mg PO BID 07/28/23 07/28/23 2 Days Ago History ~07/26/23 see pharmacy comment Allergies Allergy/AdvReac Type Severity Reaction Status Date / Time gabapentin Allergy Intermediate nausea/vomi Verified 07/28/23 07:56 ting Current Medications Generic Name Dose Route Start Last Admin Trade Name Freq PRN Reason Stop Dose Admin Acetaminophen 650 mg 07/28/23 11:05 07/29/23 08:06 Acetaminophen 325 Mg Tablet PO 650 mg Q6H PRN Administration Mild/Mod Pain Or Temp >/= 101 Aspirin 81 mg 07/29/23 09:00 07/29/23 08:01 Aspirin 81 Mg Ec Tablet PO 81 mg DAILY ELIZABETH Administration Atorvastatin Calcium 20 mg 07/28/23 21:00 07/28/23 20:25 Atorvastatin 40 Mg Tablet PO 20 mg BEDTIME ELIZABETH Administration Budesonide 0.5 mg 07/28/23 11:10 07/28/23 20:14 Budesonide 0.5 Mg/2 Ml Neb INHALATION 0.5 mg BID.RESPIRATORY ELIZABETH Administration Famotidine 20 mg 07/28/23 18:00 07/29/23 08:01 Famotidine 20 Mg Tablet PO 20 mg BID ELIZABETH Administration Furosemide 40 mg 07/28/23 13:00 07/29/23 01:27 Furosemide 10 Mg/Ml Sdv 4ml IVP 40 mg Q12H ELIZABETH Administration Amiodarone HCl/Dextrose 360 mg in 200 mls @ 0 mls/hr 07/28/23 19:15 07/29/23 01:27 Nexterone IV 0.5 mg/min .Q0M ELIZABETH 16.67 mls/hr Administration Protocol Per Protocol Ipratropium Mobile 0.5 mg 07/28/23 20:00 07/29/23 02:35 Ipratropium 0.5 Mg/2.5 Ml Neb INHALATION 0.5 mg Q6H.RESP ELIZABETH Administration Levalbuterol HCl 0.63 mg 07/28/23 11:10 07/29/23 02:35 Levalbuterol 0.63 Mg/3 Ml Neb INHALATION 0.63 mg Q6H.RESP ELIZABETH Administration Metoprolol Tartrate 25 mg 07/28/23 13:00 07/29/23 08:01 Metoprolol Tartrate 25 Mg Tablet PO 25 mg BID@0900,2100 ELIZABETH Administration Morphine Sulfate 2 mg 07/28/23 11:05 07/28/23 20:15 Morphine 4 Mg/Ml Sdv 1 Ml IVP 2 mg Q4H PRN Administration SEVERE PAIN PFSH Acute 2 PFSH: Medical History Coronary artery disease Angiogram: March 2023: Moderate left main stenosis. Not hemodynamically significant on IVUS. Medical therapy. Worsening angina CKD (chronic kidney disease) stage 3, GFR 30-59 ml/min Tobacco use Osteoarthritis of right shoulder COPD (chronic obstructive pulmonary disease) Chest pain Migraine Hypertension Stenosis, spinal, lumbar Surgical History Post-operative state Hx of tonsillectomy H/O shoulder surgery H/O skin graft S/P lumbar laminectomy (05/25/19) Dr Hinojosa bilateral L3-4 laminotomy/foraminotomy. Family History Mother CAD (coronary artery disease) Father Diabetes Social History Smoking and tobacco/nicotine status: current every day tobacco/nicotine user Alcohol intake: current Alcohol intake frequency: few times a month Substance/Drug Use: never Lives independently: Yes Household members: spouse Marital status: Current occupational status: disabled Vitals/I&O/Wt Last Vital Signs Temp 97.8 F 07/29/23 08:03 Pulse 65 07/29/23 06:00 Resp 12 07/29/23 04:45 BP 103/68 07/29/23 04:45 Pulse Ox 99 07/29/23 04:45 O2 Del Method Nasal Cannula 07/29/23 02:00 O2 Flow Rate 2 07/29/23 02:00 07/28/23 07/29/23 07/29/23 22:59 06:59 14:59 Intake Total 540 / 540 186.648 / 726.648 Output Total 1200 / 1200 650 / 1850 Balance -660 / -660 -463.352 / -1123.352 Weight last 48 hrs Weight 138 lb Weight 165 lb Weight 165 lb Physical Exam 2 Narrative: GENERAL: Patient is alert, awake and oriented x3. [] NECK: No jugular vein distension. [] HEENT: No cyanosis. No icterus. No pallor. [] HEART: Regular S1 and S2. No murmur, rub or gallop. [] LUNGS: Clear to auscultate bilaterally. [] CENTRAL NERVOUS SYSTEM: Grossly nonfocal. [] EXTREMITIES: Lower extremities with 1+ edema bilaterally. Pulses palpable in the lower extremities, both dorsalis pedis and posterior tibial. [] Urinary Catheter Management: Rajput: Cath Placed During This Visit: yes Reason for Continuing Indwelling Catheter: Accurate Measurement of Urinary Output in Critically Ill Patients Urinary Catheter Date of Insertion: 07/28/23 Urinary Catheter Time of Insertion: 13:19 Data 07/30/23 05:10 07/30/23 05:10 A&P Assessment and plan (1) CKD (chronic kidney disease) stage 3, GFR 30-59 ml/min: (2) COPD (chronic obstructive pulmonary disease): (3) Tobacco use: (4) Acute exacerbation of CHF (congestive heart failure): Qualifiers: Heart failure type: unspecified Qualified Code(s): I50.9 - Heart failure, unspecified Plan Patient has congestive heart failure symptoms. Continue diuretics. Monitor I and Os Patient had Torsades episode. As had a recent cath with only moderate left main disease confirmed on IVUS, we will proceed with stress test to rule out ischemia. Continue amiodarone. Continue metoprolol. Monitor rhythm. Maintain electrolytes in normal limits Thank you for involving us with care of this patient. We will continue to follow. Please call with questions. Consult Attestations 2 Medical Necessity Statement: Care expected to cross 2 midnights. Coding Level of Care Code Acute Code for Chg Fwd Diagnoses CKD (chronic kidney disease) stage 3, GFR 30-59 ml/min N18.30 COPD (chronic obstructive pulmonary disease) J44.9 Tobacco use Z72.0 Acute exacerbation of CHF (congestive heart failure) I50.9 Heart failure type: unspecified
[2023-07-29] MEDS: budesonide 0.5 mg/2 mL Neb INHALATION ×2 (09:07→20:13)
[2023-07-29] MEDS: morphine 4 mg/mL SDV 1 mL 2 MG IVP ×2 (09:58→18:24)
--- NOTE | 2023-07-29 17:38 | P.PN_ITS ---
Subjective 2 Subjective: Today he is feeling somewhat better. Denies chest pain or pressure. Reports feeling lightheaded during tachycardia episode yesterday. Discussed with him regarding arrhythmia, cardiomyopathy, further assessment with stress test as discussed and recommended with him by cardiology which she is agreeable. Discussed risks of methenamine use, including cardiac risks, he understands and plans to abstain from further use. Vitals/I&O/Wt Last Vital Signs Temp 97.2 F L 07/29/23 16:38 Pulse 61 07/29/23 14:14 Resp 16 07/29/23 14:02 BP 112/65 07/29/23 13:30 Pulse Ox 96 07/29/23 14:02 O2 Del Method Room Air 07/29/23 14:02 O2 Flow Rate 2 07/29/23 09:07 07/29/23 07/29/23 07/29/23 06:59 14:59 22:59 Intake Total 186.648 / 726.648 189.76 / 189.76 Output Total 650 / 1850 250 / 250 1300 / 1550 Balance -463.352 / -1123.352 -60.24 / -60.24 -1300 / -1360.24 Weight last 48 hrs Weight 62.596 kg Weight 74.843 kg Weight 74.843 kg Physical Exam 2 Const: COMMON NORMALS: patient oriented x3 and alert GENERAL APPEARANCE: c ooperative ORIENTATION/CONSCIOUSNESS: Yes awake HENMT: COMMON NORMALS: oropharynx normal Neck/C-Spine: COMMON NORMALS: no JVD Resp: COMMON NORMALS: normal respiratory effort and clear to auscultation bilaterally AUSCULTATION: clear to auscultation bilaterally Cardio: COMMON NORMALS: no JVD, regular rhythm, S1 normal heart sound present, S2 normal heart sound present and No murmurs present (Cardio) RHYTHM: regular rhythm HEART SOUNDS: S1 normal heart sound present and S2 normal heart sound present GI: COMMON NORMALS: Normal to inspection, nondistended, normoactive bowel sounds present, Soft to palpation and non-tender PALPATION: Yes Soft to palpation Extremity: COMMON NORMALS: no joint enlargement and no pedal edema Neuro: COMMON NORMALS: patient oriented x3 and moves all extremities S ENSORIUM/ORIENTATION: Yes alert Skin: COMMON NORMALS: no rashes or lesions noted GENERAL SKIN EXAM: no rashes or lesions noted Urinary Catheter Management: Rajput: Cath Placed During This Visit: yes Reason for Continuing Indwelling Catheter: Accurate Measurement of Urinary Output in Critically Ill Patients Urinary Catheter Date of Insertion: 07/28/23 Urinary Catheter Time of Insertion: 13:19 Data 07/29/23 02:15 07/29/23 02:15 A&P Assessment and plan (1) Acute exacerbation of CHF (congestive heart failure): Qualifiers: Heart failure type: unspecified Qualified Code(s): I50.9 - Heart failure, unspecified (2) HFrEF (heart failure with reduced ejection fraction): (3) Coronary artery disease: Last angiogram in March 2023 showed moderate left main stenosis. IVUS is nonsignificant for which he was sent home on medical therapy (4) CKD (chronic kidney disease) stage 3, GFR 30-59 ml/min: (5) COPD (chronic obstructive pulmonary disease): (6) Amphetamine abuse: (7) Arrhythmia: (8) Noncompliance: Plan Arrhythmia: Dorsalgia/NSVT last night, transferred to ICU, started on amiodarone drip. Discussed with cardiology today, appreciate recommendations. Cardiology note reviewed. Continue amiodarone. Additional assessment planned with stress test tomorrow morning. Discussed with him. Discussed avoidance of methamphetamine. Reviewed vitals, potassium, magnesium. Recheck in the morning. Continue to monitor on telemetry. Hypotension: While sleeping. Maintain blood pressure while awake. Continue to monitor blood pressures. Continue amiodarone. May have to discontinue metoprolol if recurrent. Shortness of breath: Most likely in setting of congestive heart failure. Continue diuresis. Reviewed LEE, -323 mL, but blood pressure soft, will not escalate diuretics further for now with risk of hypotension, kidney injury. At risk of kidney injury, monitor renal function. At risk of electrolyte normalities, recheck. Monitor on telemetry due to risk of arrhythmia. Reviewed respiratory viral panel. Reviewed blood culture, remains negative. Echocardiogram reviewed, EF noted 48%. Diffuse hypokinesia of left ventricle. Fluid restriction up to 1500 cc. Strict input output charting, daily weights. Rajput catheterization. He is complaining Rajput is bothering him. Rajput removed. CKD: Baseline creatinine seems to be around 1.5-1.6. Currently 1.3. Medication reconciliation done for nephrotoxic drugs. Monitor BMP daily. Monitor electrolytes. For COPD: Not in exacerbation. Hold off on steroids. Pulmicort twice daily, ipratropium and Xopenex every 6 hours. Full code Heparin 5000 every 8 hourly for DVT prophylaxis Famotidine for PUD prophylaxis Attestations 2 Medical Necessity Statement*: Continue admission for assessment management of arrhythmia, decompensated CHF. Diagnoses Acute exacerbation of CHF (congestive heart failure) I50.9 Heart failure type: unspecified HFrEF (heart failure with reduced ejection fraction) I50.20 Coronary artery disease I25.10 CKD (chronic kidney disease) stage 3, GFR 30-59 ml/min N18.30 COPD (chronic obstructive pulmonary disease) J44.9 Amphetamine abuse F15.10 Arrhythmia I49.9 Noncompliance Z91.199
--- NOTE | 2023-07-29 18:15 | PC.NURSE ---
Removed Rajput per Dr Hearn order. 10mL of fluid removed from balloon. Catheter intact. Patient has urinated into toilet.
--- NOTE | 2023-07-29 18:34 | PC.NURSE ---
Shift summary: uneventful shift. Patient has emily up to the chair for about half of the day. Ambulated 200 feet with no arrythmias. Has drank all of his fluid restriction and drank all 1500mL, understands that count restarts at beginning of day shift tommorow. Stress test planned for tommorow.
[2023-07-29] MEDS: atorvastatin 40 mg Tablet 20 MG PO (20:21)
[2023-07-30] VITALS (46 sets, daily range): BP systolic 85–128; BP diastolic 52–94; PULSE 51–77; RESP 12–25; TEMP 36.3–36.8; O2SAT 77–100
--- NOTE | 2023-07-30 | ECG_ITS ---
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 Interpretive Statements NAME OF STUDY: LEXISCAN SESTAMIBI STRESS TEST INDICATION: [Chest Pain] Procedure: At the baseline, the blood pressure was 140/85 mmHg with a heart rate of 61 bpm. The electrocardiogram showed normal sinus rhythm, normal axis with normal ST and T's. The Lexiscan was infused over a period of 20 seconds. A total of 0.4 mg of Lexiscan was infused. The stress phase was continued for a total of 5 minutes. Heart rate was at the end of stress phase was 69 bpm and a blood pressure of 106/78 mmHg. The EKG at the peak infusion revealed normal sinus rhythm with no significant ST-T wave changes. Sestamibi was injected 20 seconds after the Lexiscan infusion. Blood pressure at the end of recovery phase was 114/78 mmHg with a heart rate of 63 bpm. During recovery patient had accelerated idioventricular rhythm Conclusion: 1. Normal EKG response to Lexiscan infusion 2. No Lexiscan induced chest pain or cardiac arrhythmia. 3. Normal blood pressure and heart rate response. 4. Sestamibi/sestamibi perfusion scan pending; see separate report. Electronically Signed On 08-27-2023 15:53:08 CAN FILLER by Gatito Del Toro M.D. [id number]
[2023-07-30] MEDS: FUROsemide 10 mg/mL SDV 4mL 40 MG IVP ×2 (00:38→13:31)
[2023-07-30 06:06] LABS: Basophils # 0.1 10^3/uL (0.0-0.1); Basophils % 0.6 %; Eosinophils # 0.3 10^3/uL (0.0-0.8); Eosinophils % 3.4 %; Hematocrit 45.2 % (37-53); Lymphocytes # 2.4 10^3/uL (0.8-4.8); Lymphocytes % 23.5 %; Mean Corpuscular HGB Conc 32.3 g/dL (30-55); Mean Corpuscular Hemoglobin 29.5 pg (27-33); Mean Corpuscular Volume 91.3 fl (82-101); Mean Platelet Volume 11.1 fL (7.4-10.4); Monocytes # 0.7 10^3/uL (0.2-0.9); Neutrophils % 65.1 %; Nucleated Red Blood Cells % 0 %; Platelet Count 272 10^3/cmm (157-399); Red Blood Count 4.95 10^6/uL (3.85-5.65); Red Cell Distribution Width 14.8 % (12.1-15.1); White Blood Count 10.13 10^3/uL (3.29-11.43)
[2023-07-30 06:28] LABS: Blood Urea Nitrogen 31 mg/dL (6-20); Calcium 8.8 mg/dL (8.5-10.5); Carbon Dioxide 30 mmol/L (22-29); Chloride 96 mmol/L (98-107); Glomerular Filtration Rate 51.9 mL/min (90-130); Glucose 119 mg/dL (65-115); Osmolality Calculated 290 mOsm/kg (285-295); Sodium 136 mmol/L (136-145)
[2023-07-30 06:32] LABS: Anion Gap 13.2 (5-19); Potassium 3.2 mmol/L (3.5-5.1)
[2023-07-30] MEDS: regadenoson 0.4 Mg/5 ml Syringe IVP (07:53)
[2023-07-30] MEDS: aminophylline 25 mg/mL SDV 10 mL IVP (08:00)
--- NOTE | 2023-07-30 08:18 | P.PN_ITS ---
Subjective 2 Subjective: No further arrhythmias. Vitals/I&O/Wt Last Vital Signs Temp 98.0 F 07/30/23 04:00 Pulse 72 07/30/23 08:04 Resp 20 H 07/30/23 04:00 BP 114/78 07/30/23 08:04 Pulse Ox 96 07/30/23 04:00 O2 Del Method Room Air 07/29/23 20:00 O2 Flow Rate 2 07/29/23 09:07 07/29/23 07/30/23 07/30/23 22:59 06:59 14:59 Intake Total 1500 / 1689.76 184.481 / 1874.241 480 / 480 Output Total 1300 / 1550 400 / 400 Balance 200 / 139.76 184.481 / 324.241 80 / 80 Weight last 48 hrs Weight 136 lb Weight 136 lb 9.6 oz Weight 138 lb Weight 165 lb Physical Exam 2 Narrative: GENERAL: Patient is alert, awake and oriented x3. [] NECK: No jugular vein distension. [] HEENT: No cyanosis. No icterus. No pallor. [] HEART: Regular S1 and S2. No murmur, rub or gallop. [] LUNGS: Clear to auscultate bilaterally. [] CENTRAL NERVOUS SYSTEM: Grossly nonfocal. [] EXTREMITIES: Lower extremities with 1+ edema bilaterally. Pulses palpable in the lower extremities, both dorsalis pedis and posterior tibial. [] Urinary Catheter Management: Rajput: Cath Placed During This Visit: yes Reason for Continuing Indwelling Catheter: Accurate Measurement of Urinary Output in Critically Ill Patients Urinary Catheter Date of Insertion: 07/28/23 Urinary Catheter Time of Insertion: 13:19 Data 07/30/23 05:10 07/30/23 05:10 A&P Assessment and plan (1) CKD (chronic kidney disease) stage 3, GFR 30-59 ml/min: (2) COPD (chronic obstructive pulmonary disease): (3) Tobacco use: (4) Acute exacerbation of CHF (congestive heart failure): Qualifiers: Heart failure type: unspecified Qualified Code(s): I50.9 - Heart failure, unspecified (5) HFrEF (heart failure with reduced ejection fraction): (6) Coronary artery disease: Last angiogram in March 2023 showed moderate left main stenosis. IVUS is nonsignificant for which he was sent home on medical therapy (7) Amphetamine abuse: (8) Arrhythmia: (9) Noncompliance: Plan Stress test was not suggestive of significant ischemia. Prior infarct seen. Stress test showed severely reduced LV systolic function. Echo was of limited quality. Will recommend a limited echocardiogram with contrast to better assess LV function as that will determine if he needs LifeVest/ICD. He did have torsades. Continue amiodarone p.o. Thank you for involving us with care of this patient. We will continue to follow. Please call with questions. Attestations 2 Medical Necessity Statement*: Care expected to cross 2 midnights. Coding Level of Care Code Acute Code for Chg Fwd Diagnoses CKD (chronic kidney disease) stage 3, GFR 30-59 ml/min N18.30 COPD (chronic obstructive pulmonary disease) J44.9 Tobacco use Z72.0 Acute exacerbation of CHF (congestive heart failure) I50.9 Heart failure type: unspecified HFrEF (heart failure with reduced ejection fraction) I50.20 Coronary artery disease I25.10 Amphetamine abuse F15.10 Arrhythmia I49.9 Noncompliance Z91.199
[2023-07-30] MEDS: ondansetron 2 mg/ML SDV 2 mL 4 MG IVP (08:41)
[2023-07-30] MEDS: famotidine 20 mg Tablet PO (09:18)
[2023-07-30] MEDS: metoprolol tartrate 25 mg Tablet PO (09:19)
[2023-07-30] MEDS: aspirin 81 mg EC Tablet PO (09:19)
[2023-07-30] MEDS: potassium chloride ER 20 mEq Tablet 40 MEQ PO (09:19)
--- NOTE | 2023-07-30 11:19 | PC.NURSE ---
Patient throwing things in room, drinks,and personal cellphone. Nurse in joining room entered quickly to assess for patient safety. Patient then threw empty washbasin at nurse and said he couldn't find his call light to call anyone and he wanted toast with jelly, and that he would pull his IVs out. Nurse educated on location of call light across patients lap and that dietary had been called and were bringing him toast. Education provided against pulling IVs out and the need for access. Moments later patient family arrived. Verbal argument heard from nurses desk between patient and , nurse to assess safety of patient and found patient to be out of bed with shoes on and pulling IV's out. Patient stated he was leaving to go smoke a cigarette and he would be back. Nurse educated against this and that he would have to sign AMA and remove remaining IV and contact provider. Patient does not want nicotine patch or lozenge. Patient verbally aggressive, visitors left, dr. jackson and dr. thomson notified of patient wanting to leave. Patient is currently resting in bed with toast, waiting on provider to round.
--- NOTE | 2023-07-30 11:30 | USCV_ITS ---
Christian Sparks Age: 58 Gender: M : 1965 Exam Date: 07/30/2023 12:25 Ordering Phys: Gatito Del Toro M.D ([email or web address]) Technologist: CHRISTIAN Exam Location: [facility] [place] Indication: EF WITH CONTRAST BP: 115 / 72 HR: 54 Rhythm: Sinus Technical Quality: Adequate MEASUREMENTS (Male / Female) Normal Values 2D ECHO LVOT Diameter 2.0 cm LV Ejection Fraction MOD 2C 56.9 % LV Ejection Fraction 2C AL 59.0 % LA Diameter 3.6 cm LA Width 3.6 cm LA Height 4.3 cm RA Width 3.5 cm RA Height 5.4 cm Aorta at Sinotubular Diameter 2.2 cm IVC Diameter 1.9 cm M-MODE Aortic Annulus Diameter 2.8 cm LA Ao Ratio MM 1.2 MV E Point Septal Separation 1.8 cm DOPPLER Right Atrial Pressure 3.0 mmHg FINDINGS Left Ventricle Right Ventricle Right Atrium Left Atrium Mitral Valve Aortic Valve Tricuspid Valve Pulmonic Valve Pericardium Aorta IVC CONCLUSIONS This is a limited echocardiogram performed to assess LV systolic function. LV systolic function is mildly reduced with EF of 40 to 45%. Mild global hypokinesis is seen with moderate hypokinesis of anterolateral wall. Gatito Del Toro MD (Electronically Signed) Final Date: 30 July 2023 13:39 S
[2023-07-30] MEDS: nicotine 21 mg Patch 1 PATCH TRANSDERMA (11:59)
--- NOTE | 2023-07-30 12:00 | P.PN_ITS ---
Vitals/I&O/Wt Last Vital Signs Temp 98.2 F 07/30/23 11:50 Pulse 52 L 07/30/23 11:45 Resp 14 07/30/23 11:45 BP 97/63 07/30/23 11:45 Pulse Ox 97 07/30/23 11:45 O2 Del Method Room Air 07/29/23 20:00 O2 Flow Rate 2 07/29/23 09:07 07/29/23 07/30/23 07/30/23 22:59 06:59 14:59 Intake Total 1500 / 1689.76 184.481 / 1874.241 648.367 / 648.367 Output Total 1300 / 1550 600 / 600 Balance 200 / 139.76 184.481 / 324.241 48.367 / 48.367 Weight last 48 hrs Weight 61.689 kg Weight 61.961 kg Weight 62.596 kg Physical Exam 2 Const: COMMON NORMALS: patient oriented x3 and alert GENERAL APPEARANCE: c ooperative ORIENTATION/CONSCIOUSNESS: Yes awake HENMT: COMMON NORMALS: oropharynx normal Neck/C-Spine: COMMON NORMALS: no JVD Resp: COMMON NORMALS: normal respiratory effort and clear to auscultation bilaterally AUSCULTATION: clear to auscultation bilaterally Cardio: COMMON NORMALS: no JVD, regular rhythm, S1 normal heart sound present, S2 normal heart sound present and No murmurs present (Cardio) RHYTHM: regular rhythm HEART SOUNDS: S1 normal heart sound present and S2 normal heart sound present GI: COMMON NORMALS: Normal to inspection, nondistended, normoactive bowel sounds present, Soft to palpation and non-tender PALPATION: Yes Soft to palpation Extremity: COMMON NORMALS: no joint enlargement and no pedal edema Neuro: COMMON NORMALS: patient oriented x3 and moves all extremities S ENSORIUM/ORIENTATION: Yes alert Skin: COMMON NORMALS: no rashes or lesions noted GENERAL SKIN EXAM: no rashes or lesions noted Urinary Catheter Management: Rajput: Cath Placed During This Visit: yes Reason for Continuing Indwelling Catheter: Accurate Measurement of Urinary Output in Critically Ill Patients Urinary Catheter Date of Insertion: 07/28/23 Urinary Catheter Time of Insertion: 13:19 Data 07/30/23 05:10 07/30/23 05:10 A&P Assessment and plan (1) Acute exacerbation of CHF (congestive heart failure): Qualifiers: Heart failure type: unspecified Qualified Code(s): I50.9 - Heart failure, unspecified (2) HFrEF (heart failure with reduced ejection fraction): (3) Coronary artery disease: Last angiogram in March 2023 showed moderate left main stenosis. IVUS is nonsignificant for which he was sent home on medical therapy (4) CKD (chronic kidney disease) stage 3, GFR 30-59 ml/min: (5) COPD (chronic obstructive pulmonary disease): (6) Amphetamine abuse: (7) Arrhythmia: (8) Noncompliance: Plan Arrhythmia: So far without additional DDP/NSVT. Continue to monitor on telemetry. Discussed with billing analyst. Reviewed stress test results. Discussed with him. Noted abnormality, additionally noted lower ejection fraction than prior. He was close to leaving AGAINST MEDICAL ADVICE, but decided to stay to complete assessment and treatment. Ejection fraction 27% on stress test. Discussed with him risk of potentially life-threatening arrhythmia with cardiomyopathy. Risk may be highest in case of EF less than 30%, but he may be at risk even if EF as above, discussed with him to seek medical attention immediately in case he is feeling unwell, having syncopal episodes, persistent palpitations, or other concerning symptoms. Per discussion with billing analyst additional assessment will be performed with limited contrast echocardiogram to get a better idea of actual ejection fraction, discussed with him consideration of LifeVest in case ejection fraction less than 30%. He states that he is aware of what LifeVest is. Verbalized understanding. Continue to encourage abstinence from methamphetamines. Reviewed vitals, CBC, potassium, magnesium. Recheck in the morning. Continue to monitor on telemetry. Switch amiodarone drip to oral Amio. Hypotension: Adjusted blood pressure cuff size. As per discussion with cardiology, continues on amiodarone, so can decrease metoprolol dose to 12.5 mg twice daily. Reassess blood pressure. Maintain blood pressure while awake. Continue to monitor blood pressures. Continue amiodarone. May have to discontinue metoprolol if recurrent. Shortness of breath: Continues on IV Lasix. At risk of kidney injury, electrolyte monitor, follow-up chemistry. Reviewed chemistry including potassium, acid-base, renal function. Reviewed also magnesium. Most likely in setting of congestive heart failure. Reviewed prior echocardiogram, stress test. Discussed with billing analyst. He will have additional assessment with limited contrast echocardiogram due to discrepancy between reported ejection fraction. May need LifeVest due to risk of arrhythmia with cardiomyopathy. Cautious diuresis due to soft blood pressure. Noted I&O in positive balance, however, Rajput catheter has been removed, not likely tract well. Weight is down at 61.7 kg. Will not escalate diuretics currently due to risk of kidney injury. Reviewed respiratory viral panel. Reviewed blood culture, remains negative. Echocardiogram reviewed, EF noted 48%. Diffuse hypokinesia of left ventricle. Fluid restriction up to 1500 cc. Strict input output charting, daily weights. Rajput catheterization. He is complaining Rajput is bothering him. Rajput removed. CKD: Baseline creatinine seems to be around 1.5-1.6. Currently 1.4. Medication reconciliation done for nephrotoxic drugs. Monitor BMP daily. Monitor electrolytes. Smoking addiction: He was having quite a strong cigarette craving today nearly leaving AMA, however, agreed to stay. Discussed with him and he is agreeable to nicotine patches plus lozenges for cravings. Requested. For COPD: Not in exacerbation. Hold off on steroids. Pulmicort twice daily, ipratropium and Xopenex every 6 hours. Full code Heparin 5000 every 8 hourly for DVT prophylaxis Famotidine for PUD prophylaxis Attestations 2 Medical Necessity Statement*: Continue admission for assessment of management of recurrent arrhythmia, cardiomyopathy, CHF exacerbation, hypotension. and High MDM includes amount and/or complexity of data reviewed/ordered [ resulted lab(s)/test(s), ordered lab(s)/test(s) and other healthcare professional discussion] and described risk of complication, morbidity or mortality of management as documented Diagnoses Acute exacerbation of CHF (congestive heart failure) I50.9 Heart failure type: unspecified HFrEF (heart failure with reduced ejection fraction) I50.20 Coronary artery disease I25.10 CKD (chronic kidney disease) stage 3, GFR 30-59 ml/min N18.30 COPD (chronic obstructive pulmonary disease) J44.9 Amphetamine abuse F15.10 Arrhythmia I49.9 Noncompliance Z91.199
[2023-07-30] MEDS: perflutren protein-a microsphr 0.22 mg/mL SDV 3 mL IV (12:54)
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
--- NOTE | 2023-07-30 14:06 | PC.NURSE ---
Patient removed his IV, stated he was leaving and then left his room. This nurse attempted to discuss risks with patient, in the hallway. Patient stated he remembered the risks Dr. Hearn discussed with him earlier. Patient verbally polite and stated he just wanted to leave and he understood the risks of leaving. This nurse was able to have patient sign AMA paperwork. Dr. Hearn notified.
--- NOTE | 2023-07-30 14:18 | P.DS_ITS ---
Discharge Providers Date of Admission: 07/28/23 10:34 Date of Discharge: July 30, 2023 Attending Provider at Admission: Jarocho Nazario MD Attending Provider at Discharge: Richard Hearn Primary Care Provider: Nano Cohen DO Diagnoses at Discharge Discharge Diagnosis (1) Acute exacerbation of CHF (congestive heart failure): Status: Acute Qualifiers: Heart failure type: unspecified Qualified Code(s): I50.9 - Heart failure, unspecified (2) HFrEF (heart failure with reduced ejection fraction): Status: Acute (3) Coronary artery disease: Status: Acute Permanent problem details: Angiogram: March 2023: Moderate left main stenosis. Not hemodynamically significant on IVUS. Medical therapy. (4) CKD (chronic kidney disease) stage 3, GFR 30-59 ml/min: Status: Acute (5) COPD (chronic obstructive pulmonary disease): Status: Acute (6) Amphetamine abuse: Status: Acute (7) Arrhythmia: Status: Acute (8) Noncompliance: Status: Acute Reason for Visit Reason for Visit: SOB; CHEST PAIN Hospital Course Hospital Course 58-year-old gentleman with history of CHF, nonobstructive CAD with left main stenosis on prior coronary angiography, nonischemic cardiomyopathy was admitted with presenting with shortness of breath, chest pain, found to be in decompensated congestive heart failure, with prior reduced ejection fraction, 45 to 45%, global LV hypokinesia, moderate hypokinesis of anterior anterolateral wall. Was found positive for amphetamine, when discussed stating that he had used methamphetamine but that he had very poor experience with this and was not going to do it again, discussed cardiovascular risk including ME, CVA with repeat use, risk of disabling or life-threatening complications including worsening cardiomyopathy, ME/cardiac ischemia, arrhythmia, . He verbalized understanding. Discussed that he may consider rehabilitation. He was treated with IV diuretics, fluid restriction for congestive heart failure, echocardiogram was repeated, noted ejection fraction about 45%. He additionally had reports of tremors and syncope at home associated with palpitations, and had an episode of torsades/ventricular tachycardia in the hospital accompanied with the symptoms. Was started on amiodarone drip, transferred to intensive care unit for additional treatment and monitoring. Had electrolytes replaced. He discussed additional options for assessment with cardiology for possible ischemic heart disease, settling on stress testing which he underwent today. This showed an area of suspected prior infarction of medium size in LAD territory, small sized area of prior infarct with minimal layla-infarct ischemia in LCx territory. EF reported this 27%. Discussed increased risk of arrhythmia, potentially life-threatening, again reiterating avoidance of drug use, importance of additional monitoring and blood pressure optimization given he also has had some episodes of soft blood pressure. Metoprolol has been continued but reduced in dose for tonight to 12.5 mg. Noted some worsening in renal function, creatinine up to 1.4. Discussed with him need for additional assessment and monitoring in the hospital prior to consideration of discharge tomorrow with continued amiodarone, reduced dose metoprolol if everything was going well, but cautioned to seek medical attention given high risk of cardiac comorbidity with cardiomyopathy, other comorbidities. He stated he was understanding no additional risks of arrhythmia, hypotension, shock, other eventually disabling or life-threatening complications. However, a little bit later in the afternoon he left AGAINST MEDICAL ADVICE. Earlier citing severe need for a cigarette, he initially stated he will stay with nicotine patch, lozenges, but still left before I could come back to revisit with him about discharge or provide him with discharge medications and referrals. As per cardiology referrals given for additional cardiac monitoring and referral for follow-up with PCP and cardiology. He is additionally given prescription for amiodarone, low-dose metoprolol, and atorvastatin. I could not reach him on the telephone system nor could I reach his spouse. I also tried to call his son. I was finally able to reach his brother who states he will get in touch and make sure patient gets his prescriptions and follows up with referrals for quality assurance monitor final, follow-up with providers, seek medical attention in case of any worsening or concerning symptoms. Please reassess, monitor for any amiodarone related complications including eyes, thyroid, lungs, liver. Will reassess blood pressures, renal function. Continue to encourage abstinence from methamphetamine and smoking cessation. Physical Exam Narrative: Please refer to earlier note for physical exam. Urinary Catheter Management: Rajput: Cath Placed During This Visit: yes Reason for Continuing Indwelling Catheter: Accurate Measurement of Urinary Output in Critically Ill Patients Urinary Catheter Date of Insertion: 07/28/23 Urinary Catheter Time of Insertion: 13:19 Discharge Data Studies Completed and Pending Completed Studies During Hospitalization Category Date Time Status CTA chest [CT angio chest PE protcl [id number]] Stat Cat Scan 07/28/23 08:40 Completed Sestamibi Stress Test Request Routine Exams 07/30/23 08:00 Draft XR chest 1V portable [id number] Stat Exams 07/28/23 07:18 Completed NM jony perf SPECT r/s* [id number] Routine Nuc Med 07/30/23 22:21 Completed CV. echo complete* [id number] Routine Ultrasound 07/28/23 14:20 Completed CV. echo lmt w/w contras [id number] Routine Ultrasound 07/30/23 11:30 Completed Pending at discharge Category Date Time Status Basic Metabolic Panel AM LABS Lab 07/31/23 04:00 Ordered Basic Metabolic Panel AM LABS Lab 08/01/23 04:00 Ordered Complete Blood Count w/Auto AM LABS Lab 07/31/23 04:00 Ordered Complete Blood Count w/Auto AM LABS Lab 08/01/23 04:00 Ordered MRSA [Methicillin Resistant S.aureu] Routine Lab 07/28/23 11:08 Received Sputum Culture and Gram Stain Routine Lab 07/28/23 11:07 Uncollected Radiology Impressions Chest X-Ray 07/28/23 07:18 IMPRESSION: No acute findings. Chest CTA 07/28/23 08:40 IMPRESSION: 1. No pulmonary embolism. 2. Pulmonary edema. 3. Small bilateral pleural effusions. 4. Incidental findings above. Laboratory Results WBC 10.13 10^3/uL (3.29-11.43) 07/30/23 05:10 RBC 4.95 10^6/uL (3.85-5.65) 07/30/23 05:10 Hgb 14.60 g/dL (11.27-16.99) 07/30/23 05:10 Hct 45.2 % (37-53) 07/30/23 05:10 MCV 91.3 fl (82-101) 07/30/23 05:10 MCH 29.5 pg (27-33) 07/30/23 05:10 MCHC 32.3 g/dL (30-55) 07/30/23 05:10 RDW 14.8 % (12.1-15.1) 07/30/23 05:10 Plt Count 272 10^3/cmm (157-399) 07/30/23 05:10 MPV 11.1 fL (7.4-10.4) H 07/30/23 05:10 Neut % (Auto) 65.1 % 07/30/23 05:10 Lymph % (Auto) 23.5 % 07/30/23 05:10 Hamblen % (Auto) 7.0 % 07/30/23 05:10 Eos % (Auto) 3.4 % 07/30/23 05:10 Baso % (Auto) 0.6 % 07/30/23 05:10 Neut # (Auto) 6.60 10^3/uL (1.8-7.7) 07/30/23 05:10 Lymph # (Auto) 2.4 10^3/uL (0.8-4.8) 07/30/23 05:10 Hamblen # (Auto) 0.7 10^3/uL (0.2-0.9) 07/30/23 05:10 Eos # (Auto) 0.3 10^3/uL (0.0-0.8) 07/30/23 05:10 Baso # (Auto) 0.1 10^3/uL (0.0-0.1) 07/30/23 05:10 Nucleated RBC % (auto) 0 % 07/30/23 05:10 Nucleated RBCs # 0.0 /100WBC 07/30/23 05:10 Sodium 136 mmol/L (136-145) 07/30/23 05:10 Potassium 3.2 mmol/L (3.5-5.1) L 07/30/23 05:10 Chloride 96 mmol/L (98-107) L 07/30/23 05:10 Carbon Dioxide 30 mmol/L (22-29) H 07/30/23 05:10 Anion Gap 13.2 (5-19) 07/30/23 05:10 BUN 31 mg/dL (6-20) H 07/30/23 05:10 Creatinine 1.4 mg/dL (0.7-1.2) H 07/30/23 05:10 GFR Calculation 51.9 mL/min (90-130) L 07/30/23 05:10 Glucose 119 mg/dL (65-115) H 07/30/23 05:10 Estimat Average Glucose 105 07/28/23 07:30 Hemoglobin A1c 5.3 % (4.0-6.0) 07/28/23 07:30 Calculated Osmolality 290 mOsm/kg (285-295) 07/30/23 05:10 Calcium 8.8 mg/dL (8.5-10.5) 07/30/23 05:10 Phosphorus 3.6 mg/dL (2.5-4.5) 07/29/23 02:15 Magnesium 2.0 mg/dL (1.7-2.3) 07/30/23 05:10 Iron 39 ug/dL (59-158) L 07/28/23 09:20 TIBC 300 mcg/dl 07/28/23 09:20 % Saturation 13.0 % (20-50) L 07/28/23 09:20 Unsat Iron Binding 261 ug/dL (112-347) 07/28/23 09:20 Total Bilirubin 0.5 mg/dL (0.15-1.2) 07/29/23 02:15 AST 19 U/L (0-40) 07/29/23 02:15 ALT 33 U/L (0-41) 07/29/23 02:15 Alkaline Phosphatase 88 U/L (40-130) 07/29/23 02:15 Troponin T Baseline 26 ng/L (0-15) H 07/28/23 19:59 Troponin T 120 Minute 25.34 ng/L (0-15) H 07/28/23 22:41 Delta Troponin T -0.66 ABS# (0-10) L 07/28/23 22:41 Troponin T Hi Sens 6Hr 34.30 ng/L (0-15) H 07/29/23 02:15 Troponin T Hi Sens 6Hr Delta 8.30 ng/L (0-12) 07/29/23 02:15 NT-Pro-B Natriuret Pep 60449 pg/mL (0-125) H 07/28/23 07:30 Total Protein 6.1 g/dL (6.6-8.7) L 07/29/23 02:15 Albumin 3.8 g/dL (3.5-5.2) 07/29/23 02:15 Globulin 2.3 g/dL (1.3-4.6) 07/29/23 02:15 Triglycerides 63 mg/dL (0-150) 07/29/23 02:15 Cholesterol 140 mg/dL (0-200) 07/29/23 02:15 LDL Cholesterol, Calc 76 mg/dL (50-129) 07/29/23 02:15 HDL Cholesterol 51 mg/dL (60-100) L 07/29/23 02:15 LDL/HDL Ratio 1.49 RATIO (0.00-3.22) 07/29/23 02:15 Cholesterol/HDL Ratio 2.75 mg/dL (1.0-5.00) 07/29/23 02:15 Vitamin B12 710 pg/mL (232-1245) 07/28/23 09:20 Folate 17.1 ng/mL (4.5-32.2) 07/28/23 19:59 Procalcitonin 0.09 ng/mL (0-0.5) 07/28/23 09:20 TSH 1.05 uIU/mL (0.27-4.20) 07/28/23 09:20 Urine Color Colorless (Yellow) 07/28/23 13:30 Urine Appearance Clear (CLEAR) 07/28/23 13:30 Urine pH 8 (5-7) H 07/28/23 13:30 Ur Specific Mallard 1.010 (1.005-1.030) 07/28/23 13:30 Urine Protein Neg (Negative) 07/28/23 13:30 Urine Glucose (UA) Norm (Normal) 07/28/23 13:30 Urine Ketones Negative (Negative) 07/28/23 13:30 Urine Blood Neg (Negative) 07/28/23 13:30 Urine Nitrate Negative (Negative) 07/28/23 13:30 Urine Bilirubin Neg (Negative) 07/28/23 13:30 Prot Sulfosalicylic Acd Negative (Negative) 07/28/23 13:30 Urine Urobilinogen Norm mg/dL (Negative) 07/28/23 13:30 Ur Leukocyte Esterase Negative (Negative) 07/28/23 13:30 Nasal Influ A H1 2009 PCR Not detected (NOT DETECT) 07/28/23 13:30 Urine Opiates Screen Positive ng/mL (Negative) H 07/28/23 13:30 Ur Barbiturates Screen Negative ng/mL (Negative) 07/28/23 13:30 Ur Phencyclidine Scrn Negative ng/mL (Negative) 07/28/23 13:30 Ur Amphetamines Screen Positive ng/mL (Negative) H 07/28/23 13:30 U Benzodiazepines Scrn Positive ng/mL (Negative) H 07/28/23 13:30 Urine Cocaine Screen Negative ng/mL (Negative) 07/28/23 13:30 U Marijuana (THC) Screen Negative ng/mL (Negative) 07/28/23 13:30 Adenovirus (PCR) Not detected (NOT DETECT) 07/28/23 13:30 C. pneumoniae DNA (PCR) Not detected (NOT DETECT) 07/28/23 13:30 Coronavirus 229E (PCR) Not detected (NOT DETECT) 07/28/23 13:30 Human Metapneumovir PCR Not detected (NOT DETECT) 07/28/23 13:30 Influenza A (H1) PCR Not detected (NOT DETECT) 07/28/23 13:30 Influenza A (H3) PCR Not detected (NOT DETECT) 07/28/23 13:30 Influenza Type A (PCR) Not detected (NOT DETECT) 07/28/23 13:30 Influenza Type B (PCR) Not detected (NOT DETECT) 07/28/23 13:30 M. pneumoniae (PCR) Not detected (NOT DETECT) 07/28/23 13:30 Parainfluenza 1 (PCR) Not detected (NOT DETECT) 07/28/23 13:30 Parainfluenza 2 (PCR) Not detected (NOT DETECT) 07/28/23 13:30 Parainfluenza 3 (PCR) Not detected (NOT DETECT) 07/28/23 13:30 Parainfluenza 4 (PCR) Not detected (NOT DETECT) 07/28/23 13:30 RSV Type A (PCR) Not detected (NOT DETECT) 07/28/23 13:30 RSV Type B (PCR) Not detected (NOT DETECT) 07/28/23 13:30 Entero/Rhino (PCR) Not detected (NOT DETECT) 07/28/23 13:30 SARS-CoV-2 (PCR) Not detected (NOT DETECT) 07/28/23 13:30 Vitals Last Vital Signs Temp 98.2 F 07/30/23 11:50 Pulse 52 L 07/30/23 11:45 Resp 14 07/30/23 11:45 BP 97/63 07/30/23 11:45 Pulse Ox 97 07/30/23 11:45 O2 Del Method Room Air 07/29/23 20:00 O2 Flow Rate 2 07/29/23 09:07 Discharge Plan Discharge Patient Disposition: Left Against Medical Advice Condition: Fair Prescriptions: New metoprolol tartrate 25 mg Tablet 12.5 mg PO BID@0900,2100 Qty: 90 0RF amiodarone [Pacerone] 200 mg Tablet 400 mg PO BID Qty: 180 0RF Rx Instructions: Take 400 mg twice daily for 1 week then decrease to 200 mg twice daily. atorvastatin 40 mg Tablet 20 mg PO BEDTIME Qty: 90 0RF Continued aspirin [Aspir-81] 81 mg Tablet,Delayed Release (Dr/Ec) 324 mg PO .ONE TIME DOSE albuterol sulfate 90 mcg/actuation HFA aerosol inhaler 2 inh INHALATION Q6H PRN (Reason: shortness of breath or wheezing) Qty: 8 0RF Discontinued prednisone 50 mg tablet 50 mg PO DAILY Qty: 5 0RF doxycycline hyclate 100 mg tablet 100 mg PO BID Other Ambulatory Orders: MCT/Event Monitor 21 Days (Routine) Timeframe: 1 Day Facility: [facility] - Location: Radiology Ordered By: Richard Hearn Referrals: Regina Coy FNP [Nurse Practitioner] - 1 week Nano Cohen DO [Primary Care Provider] - 4-7 days Patient Instructions: Amiodarone (By mouth), Heart Failure (GEN), Methamp hetamine Use Disorder (GEN), Against Medical Advice (DC), Tachycardia (GEN), Opioid Safety Discharge Attestations Time Spent in Discharge Care*: greater than 30 min Quality Metrics Clinical Quality Measures [ No reported AMI, CVA or VTE this stay] Coding Level of Care Code 60395 Total time (in minutes) for Discharge: 55 Diagnoses Acute exacerbation of CHF (congestive heart failure) I50.9 Heart failure type: unspecified HFrEF (heart failure with reduced ejection fraction) I50.20 Coronary artery disease I25.10 CKD (chronic kidney disease) stage 3, GFR 30-59 ml/min N18.30 COPD (chronic obstructive pulmonary disease) J44.9 Amphetamine abuse F15.10 Arrhythmia I49.9 Noncompliance Z91.199
--- NOTE | 2023-07-30 22:21 | NMCV_ITS ---
NM jony perf SPECT r/s* [id number] Christian Sparks Age: 58 Gender: M : 1965 Exam Date: 07/30/2023 06:33 Ordering Phys: Richard Hearn MD Technologist: NIALL Campo Exam Location: [facility] Indications: CHEST PAIN STRESS TEST Please see separate stress test report in [facility] for full findings IMAGE PROTOCOL Rest/Stress 1 Lexiscan Day Radiopharmaceutical Dose (mCi) Administration Site Administered by Rest: Tc-99m 10.9 IV NIALL Loyd Sestamibi Stress:Tc-99m 32.7 IV NIALL Loyd Sestamibi Rest: 30-Jul-2023 60 Discovery 630 Stress: 30-Jul-2023 30 Discovery 630 0.4mg Lexiscan. Supine position only as patient was unable to lay prone. SPECT RESULTS Technical Quality: Excellent Raw Data Analysis: Normal Image Corrections: No attenuation or motion correction applied Summed Stress Score: 6 Summed Rest Score: 3 Summed Difference Score: 3 PERFUSION FINDINGS There is a medium to large sized fixed perfusion defect in apical wall. This is consistent with medium sized area of prior infarct in the LAD territory. No ischemia seen. There is a small sized partially reversible perfusion defect in inferolateral and inferior thayer. This is consistent with small sized prior infarct in left circumflex artery territory with minimal layla-infarct ischemia. FUNCTIONAL RESULTS (calculated via Gated SPECT) Stress Image LV EF (%): 27 Stress EDV (mL):222 TID: 1.02 Stress ESV (mL):161 FUNCTIONAL FINDINGS: LV systolic function is severely reduced with EF 27%. Severe global hypokinesis seen. IMPRESSIONS 1. Medium sized area of prior infarct seen in LAD territory. 2. Small sized area of prior infarct with minimal layla-infarct ischemia in left circumflex artery territory. 3. LV systolic function is severely reduced with EF of 27%. Gatito Del Toro MD (Electronically Signed) Final Date: 30 July 2023 11:18 S
[2023-07-31 14:00] LABS: Methicillin-Resist S.aureu PCR DETECTED (NOT DETECTED)
== END 2023-07-30 14:00 | disposition left against medical advice (07) | DRG 291 ==
LOC: ER 09:39 → MEDSURG 19:14 → ICU 23:37 → MEDSURG 07-29 06:55
PROVIDERS: Admitting Provider Student in an Organized Health Care Education/Training Program; Emergency Provider Emergency Medicine; PCP Family Medicine; Visit Provider Internal Medicine
DX: I13.0 Hypertensive heart and chronic kidney disease with heart failure and stage 1 through stage 4 chronic kidney disease, or unspecified chronic kidney disease (principal); I50.23 Acute on chronic systolic (congestive) heart failure; I47.29 Other ventricular tachycardia; N18.30 Chronic kidney disease, stage 3 unspecified; F17.210 Nicotine dependence, cigarettes, uncomplicated; J44.9 Chronic obstructive pulmonary disease, unspecified; I25.10 Atherosclerotic heart disease of native coronary artery without angina pectoris; M19.011 Primary osteoarthritis, right shoulder; G43.909 Migraine, unspecified, not intractable, without status migrainosus; Z91.148 Patient's other noncompliance with medication regimen for other reason; F15.10 Other stimulant abuse, uncomplicated; I49.3 Ventricular premature depolarization; I95.9 Hypotension, unspecified; I42.9 Cardiomyopathy, unspecified; R09.02 Hypoxemia
CPT/HCPCS: 36415; 51702; 71045; 71275; 78452; 80048; 80053; 80061; 80306; 81003; 82607; 82746; 83036; 83540; 83550; 83735; 83880; 84100; 84145; 84443; 84484; 85025; 87486; 87581; 87633; 87641; 93005; 93017; 93306; 94640; 94664; 96374; 96375; 96376; 99285; A4222; A9500; C8924; J0280; J0283; J0360; J0610; J1940; J2060; J2270; J2405; J2785; J3475; J3490; J7613; J7614; J7626; J7644; Q9956; Q9967

== ENCOUNTER 2023-07-31 11:43 | Emergency (ER) | payer MEDICARE, SELFPAY ==
--- NOTE | 2023-07-31 11:46 | XRR_ITS ---
PROCEDURE INFORMATION: Exam: XR Chest Exam date and time: 07/31/2023 12:01 PM Age: 58 years old Clinical indication: Pain; Angina pectoris; Additional info: Cp TECHNIQUE: Imaging protocol: Radiologic exam of the chest. Views: 1 view. COMPARISON: CT angio chest PE protcl [id number] 07/28/2023 8:51 AM FINDINGS: Lungs: Calcified subcarinal and right hilar nodes as seen on prior CT. Pleural spaces: Unremarkable. No pleural effusion. No pneumothorax. Heart/Mediastinum: Unremarkable. No cardiomegaly. Bones/joints: Unremarkable. Left-sided shoulder surgery. XR/XR chest 1V portable [id number] IMPRESSION: No acute findings.
--- NOTE | 2023-07-31 11:46 | ECG_ITS ---
[facility] Test Date: 2023-07-31 Pat Name: Christian Sparks Department: Room: Gender: Male Statistics Intern: : 1965 Requested By: Paco Nice Order Number: [id number] Jesús MD: Yoly Aleman M.D. Measurements Intervals [place] Rate: 80 P: 64 [place]: 132 QRS: 64 QRSD: 85 T: 72 QT: 384 QTc: 445 Interpretive Statements SINUS RHYTHM WITH OCCASIONAL SUPRAVENTRICULAR PREMATURE COMPLEXES VOLTAGE CRITERIA FOR LVH [MEETS CRITERIA IN ONE OF: R(aVL), S(V1), R(V5), R(V5/V6)+S(V1)] NONSPECIFIC T-WAVE ABNORMALITY Compared to ECG 07/29/2023 00:30:49 No significant changes Electronically Signed On 07-31-2023 15:21:42 BALER OPERATOR by Yoly Aleman M.D. [email or web address] Softwarememorial hospital at stone countyreMailmercy hospital.[employer]/store/NU/[id number] f
[2023-07-31 11:53] VITALS: BP 133/87; PULSE 72; RESP 18; TEMP 36.8; O2SAT 97; BMI 25.8
[2023-07-31 12:27] LABS: Basophils # 0.1 10^3/uL (0.0-0.1); Basophils % 0.7 %; Eosinophils # 0.3 10^3/uL (0.0-0.8); Eosinophils % 3.6 %; Hematocrit 44.7 % (37-53); Lymphocytes # 1.4 10^3/uL (0.8-4.8); Lymphocytes % 16.1 %; Mean Corpuscular HGB Conc 31.5 g/dL (30-55); Mean Corpuscular Volume 91.8 fl (82-101); Monocytes # 0.7 10^3/uL (0.2-0.9); Monocytes % 7.8 %; Neutrophils # 6.31 10^3/uL (1.8-7.7); Neutrophils % 71.1 %; Nucleated Red Blood Cells % 0 %; Platelet Count 364 10^3/cmm (157-399); Red Blood Count 4.87 10^6/uL (3.85-5.65); Red Cell Distribution Width 14.5 % (12.1-15.1); White Blood Count 8.87 10^3/uL (3.29-11.43)
[2023-07-31 12:39] LABS: INR 0.96 (0.8-1.2)
--- NOTE | 2023-07-31 12:45 | ED_ITS ---
HPI - Chest Pain 2 General: Chief Complaint: Chest Pain Stated Complaint: chest pains Time Seen by Provider: 07/31/23 12:34 Source: patient Mode of arrival: ambulatory Limitations: no limitations History of Present Illness: 58-year-old male states that he has been having chest pain over the last 5 days. Patient had left AMA yesterday from the hospital states he did not get any of his meds filled that he was supposed to get filled he has a history of CHF, COPD. States the pain has been constant rates it a 2 out of 10 currently he is in no distress here with normal vital signs. Associated symptoms: Deny abdominal pain, dyspnea, fever(s), nausea or vomiting Review of Systems 2 Const: Denies: fever(s), chills, body aches or change in appetite ENMT: Denies: throat pain or dental pain Card: Reports: chest pain Resp: Denies: dyspnea GI: Denies: abdominal pain, nausea, vomiting or diarrhea Musc: Denies: neck pain or back pain Skin/Breast: Denies: rash Neuro: Denies: headache(s) PFSH ED 2 PFSH: Medical History Coronary artery disease Angiogram: March 2023: Moderate left main stenosis. Not hemodynamically significant on IVUS. Medical therapy. Worsening angina CKD (chronic kidney disease) stage 3, GFR 30-59 ml/min Tobacco use Osteoarthritis of right shoulder COPD (chronic obstructive pulmonary disease) Chest pain Migraine Hypertension Stenosis, spinal, lumbar Surgical History Post-operative state Hx of tonsillectomy H/O shoulder surgery H/O skin graft S/P lumbar laminectomy (05/25/19) Dr Hinojosa bilateral L3-4 laminotomy/foraminotomy. Family History Mother CAD (coronary artery disease) Father Diabetes Social History Smoking and tobacco/nicotine status: current every day tobacco/nicotine user Alcohol intake: current Alcohol intake frequency: few times a month Substance/Drug Use: never Lives independently: Yes Household members: spouse Marital status: Current occupational status: disabled Physical Exam 2 Const: COMMON NORMALS: no acute distress, patient oriented x3 and healthy appearing HENMT: COMMON NORMALS: normocephalic and atraumatic HEAD & SCALP: n ormocephalic and atraumatic Neck/C-Spine: COMMON NORMALS: full ROM and supple Chest: COMMONS NORMALS: normal inspection of the chest Resp: COMMON NORMALS: normal respiratory effort, No retractions, No use of accessory muscles and clear to auscultation bilaterally AUSCULTATION: clear to auscultation bilaterally Cardio: COMMON NORMALS: regular rate, regular rhythm and No murmurs present (Cardio) RATE: regular rate RHYTHM: regular rhythm Extremity: COMMON NORMALS: normal to inspection and full ROM Neuro: COMMON NORMALS: patient oriented x3, moves all extremities and no focal motor deficits Psych: COMMON NORMALS: mental status grossly normal, Normal thought process present and cooperative THOUGHT PROCESS: Normal thought process present Skin: COMMON NORMALS: no rashes or lesions noted and no wounds GENERAL SKIN EXAM: no rashes or lesions noted Course 2 Vital Signs: Vital signs: Vital Signs Temperature 98.2 F 07/31/23 11:53 Pulse Rate 72 07/31/23 11:53 Respiratory Rate 18 07/31/23 12:54 Blood Pressure 126/77 07/31/23 12:54 Pulse Oximetry 98 07/31/23 12:54 Oxygen Delivery Me thod Room Air 07/31/23 11:53 MDM - Chest Pain Medical Decision Making Patient presents for chest pain his troponin here is at his baseline his BNP is much improved he is well-appearing here I did speak to hospitalist that took care of him while he was here he had stated that he did call him and meds to [facility] on [address] I spoke to the animal husbandry manager Dr. Gurrola states that he believes patient stable for discharge as well we will follow-up inform patient he is feels meds from [facility] follow-up with PCP along with cardiology and return if worsening he understands agrees to plan. Medical Records I reviewed the patient's medical records. Lab Data I reviewed the patient's lab results. 07/31/23 12:07 07/31/23 12:07 Radiology Impressions Chest X-Ray 07/31/23 11:46 IMPRESSION: No acute findings. Laboratory Results WBC 8.87 10^3/uL (3.29-11.43) 07/31/23 12:07 RBC 4.87 10^6/uL (3.85-5.65) 07/31/23 12:07 Hgb 14.10 g/dL (11.27-16.99) 07/31/23 12:07 Hct 44.7 % (37-53) 07/31/23 12:07 MCV 91.8 fl (82-101) 07/31/23 12:07 MCH 29.0 pg (27-33) 07/31/23 12:07 MCHC 31.5 g/dL (30-55) 07/31/23 12:07 RDW 14.5 % (12.1-15.1) 07/31/23 12:07 Plt Count 364 10^3/cmm (157-399) 07/31/23 12:07 MPV 10.0 fL (7.4-10.4) 07/31/23 12:07 Neut % (Auto) 71.1 % 07/31/23 12:07 Lymph % (Auto) 16.1 % 07/31/23 12:07 [place] % (Auto) 7.8 % 07/31/23 12:07 Eos % (Auto) 3.6 % 07/31/23 12:07 Baso % (Auto) 0.7 % 07/31/23 12:07 Neut # (Auto) 6.31 10^3/uL (1.8-7.7) 07/31/23 12:07 Lymph # (Auto) 1.4 10^3/uL (0.8-4.8) 07/31/23 12:07 [place] # (Auto) 0.7 10^3/uL (0.2-0.9) 07/31/23 12:07 Eos # (Auto) 0.3 10^3/uL (0.0-0.8) 07/31/23 12:07 Baso # (Auto) 0.1 10^3/uL (0.0-0.1) 07/31/23 12:07 Nucleated RBC % (auto) 0 % 07/31/23 12:07 Nucleated RBCs # 0.0 /100WBC 07/31/23 12:07 PT 13.10 SECONDS (12.1-14.9) 07/31/23 12:07 INR 0.96 (0.8-1.2) 07/31/23 12:07 Sodium 141 mmol/L (136-145) 07/31/23 12:07 Potassium 4.6 mmol/L (3.5-5.1) 07/31/23 12:07 Chloride 101 mmol/L (98-107) 07/31/23 12:07 Carbon Dioxide 33 mmol/L (22-29) H 07/31/23 12:07 Anion Gap 11.6 (5-19) 07/31/23 12:07 BUN 28 mg/dL (6-20) H 07/31/23 12:07 Creatinine 1.5 mg/dL (0.7-1.2) H 07/31/23 12:07 GFR Calculation 47.9 mL/min (90-130) L 07/31/23 12:07 Glucose 86 mg/dL (65-115) 07/31/23 12:07 Calculated Osmolality 297 mOsm/kg (285-295) H 07/31/23 12:07 Calcium 9.1 mg/dL (8.5-10.5) 07/31/23 12:07 Total Bilirubin 0.3 mg/dL (0.15-1.2) 07/31/23 12:07 AST 18 U/L (0-40) 07/31/23 12:07 ALT 28 U/L (0-41) 07/31/23 12:07 Alkaline Phosphatase 101 U/L (40-130) 07/31/23 12:07 Troponin T Baseline 29 ng/L (0-15) H 07/31/23 12:07 NT-Pro-B Natriuret Pep 3118 pg/mL (0-125) H 07/31/23 12:07 Total Protein 6.4 g/dL (6.6-8.7) L 07/31/23 12:07 Albumin 4.0 g/dL (3.5-5.2) 07/31/23 12:07 Globulin 2.4 g/dL (1.3-4.6) 07/31/23 12:07 Lipase 52 U/L (13-60) 07/31/23 12:07 All radiology interpretation(s) finalized by discharge EKG Data EKG 1: I personally reviewed and interpreted this EKG as follows: EKG interpretation date: 07/31/23 EKG interpretation time: 11:51 Interpretation: nsr hr [address] or twave abnormalities qrs 85 qtc 420 Discharge Plan Discharge Patient Disposition: Home Clinical Impression: Chest pain Condition: Stable Prescriptions: No Action prednisone 50 mg tablet 50 mg PO DAILY Qty: 5 0RF albuterol sulfate 90 mcg/actuation HFA aerosol inhaler 2 inh INHALATION Q6H PRN (Reason: shortness of breath or wheezing) Qty: 8 0RF doxycycline hyclate 100 mg tablet 100 mg PO BID Discharge Orders: Discharge ED (Routine); Ordered 07/31/23 Ordered By: Paco Nice Referrals: Nano Cohen DO [Primary Care Provider] - 1-3 days Discharge Diet: Advance as tolerated Discharge Activity: Resume usual activity Patient Instructions: Chest Pain (ED) Coding Level of Care Code ED Community Mental Health Social Worker for Zoë Arce
[2023-07-31 12:49] LABS: Troponin(5th) Baseline 29 ng/L (0-15)
[2023-07-31 12:54] VITALS: BP 126/77; RESP 18; O2SAT 98
[2023-07-31 12:57] LABS: Alanine Aminotransferase 28 U/L (0-41); Alkaline Phosphatase 101 U/L (40-130); Anion Gap 11.6 (5-19); Aspartate Amino Transferase 18 U/L (0-40); Blood Urea Nitrogen 28 mg/dL (6-20); Calcium 9.1 mg/dL (8.5-10.5); Carbon Dioxide 33 mmol/L (22-29); Chloride 101 mmol/L (98-107); Creatinine Clr Calc Pharmacy 52.1979; Globulin 2.4 g/dL (1.3-4.6); Glomerular Filtration Rate 47.9 mL/min (90-130); Glucose 86 mg/dL (65-115); Lipase 52 U/L (13-60); NT Pro B Type Natriuretic Pept 3118 pg/mL (0-125); Osmolality Calculated 297 mOsm/kg (285-295); Potassium 4.6 mmol/L (3.5-5.1); Sodium 141 mmol/L (136-145); Total Bilirubin 0.3 mg/dL (0.15-1.2); Total Protein 6.4 g/dL (6.6-8.7)
== END 2023-07-31 13:36 | disposition home or self-care (01) ==
PROVIDERS: Emergency Provider Emergency Medicine; PCP Family Medicine
DX: R07.9 Chest pain, unspecified (principal); Z72.0 Tobacco use; I25.10 Atherosclerotic heart disease of native coronary artery without angina pectoris; I12.9 Hypertensive chronic kidney disease with stage 1 through stage 4 chronic kidney disease, or unspecified chronic kidney disease; N18.30 Chronic kidney disease, stage 3 unspecified; J44.9 Chronic obstructive pulmonary disease, unspecified
CPT/HCPCS: 36415; 71045; 80053; 83690; 83880; 84484; 85025; 85610; 93005; 99285

== ENCOUNTER 2023-08-22 17:59 | Emergency (ER) | payer MEDICARE, MEDICAID, SELFPAY ==
[2023-08-22 18:00] VITALS: BP 156/82; PULSE 81; RESP 16; TEMP 36.6; O2SAT 95; BMI 25.8
--- NOTE | 2023-08-22 18:02 | ECG_ITS ---
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 Measurements Intervals [place] Rate: 88 P: 80 [place]: 144 QRS: 86 QRSD: 85 T: 80 QT: 406 QTc: 494 Interpretive Statements SINUS RHYTHM WITH SINUS ARRHYTHMIA POSSIBLE ANTERIOR MYOCARDIAL INFARCTION , OF INDETERMINATE AGE [30 ms Q WAVE IN V3/V4, OR R < 0.2 mV IN V4] Compared to ECG 07/31/2023 11:51:26 Myocardial infarct finding now present Left ventricular hypertrophy no longer present T-wave abnormality no longer present Electronically Signed On 08-23-2023 13:42:08 REFINERY OPERATOR ALKYLATION by Elham Johnson M.D. [email or web address] [email or web address].[employer]/store/NU/[id number] f
--- NOTE | 2023-08-22 18:05 | XRR_ITS ---
PROCEDURE INFORMATION: Exam: XR Chest Exam date and time: 08/22/2023 6:23 PM Age: 58 years old Clinical indication: Shortness of breath; Additional info: SOB TECHNIQUE: Imaging protocol: Radiologic exam of the chest. Views: 1 view. COMPARISON: CR XR chest 1V portable [id number] 07/31/2023 12:01 PM FINDINGS: Lungs: Bibasal atelectasis. Pleural spaces: Bilateral pleural effusions with the left being greater than the right. No pneumothorax. Heart/Mediastinum: Mild cardiomegaly. Bones/joints: Postop changes are noted in the left shoulder. XR/XR chest 1V portable [id number] IMPRESSION: 1. Bilateral pleural effusions with the left being greater than the right. 2. Associated bibasal atelectasis
--- NOTE | 2023-08-22 18:29 | ED_ITS ---
HPI - Chest Pain 2 General: Chief Complaint: Chest Pain Stated Complaint: chest pain sob Time Seen by Provider: 08/22/23 18:21 Source: patient Mode of arrival: ambulatory Limitations: no limitations History of Present Illness: 58-year-old male has a history of COPD a long with CHF states he has been having chest pain been a sharp pain today along with some shortness of breath. He states has been out of his nitro's and did have anything to take at home. States pains like it has been in the past have seen him many times for the same pain. He denies any vomiting or diarrhea. Associated symptoms: Reports dyspnea; Deny abdominal pain, fever(s), nausea or vomiting Review of Systems 2 Const: Denies: fever(s), chills, body aches or change in appetite ENMT: Denies: throat pain or dental pain Card: Reports: chest pain Resp: Reports: dyspnea GI: Denies: abdominal pain, nausea, vomiting or diarrhea : Denies: dysuria Musc: Denies: neck pain or back pain Skin/Breast: Denies: rash Neuro: Denies: headache(s) Psych: Denies: depression Jeffy/Lymph: Reports: easy bruising All/Imm: Reports: urticaria PFSH ED 2 PFSH: Medical History Coronary artery disease Angiogram: March 2023: Moderate left main stenosis. Worsening angina CKD (chronic kidney disease) stage 3, GFR 30-59 ml/min Tobacco use Osteoarthritis of right shoulder COPD (chronic obstructive pulmonary disease) Chest pain Migraine Hypertension Stenosis, spinal, lumbar Surgical History Post-operative state Hx of tonsillectomy H/O shoulder surgery H/O skin graft S/P lumbar laminectomy (05/25/19) Dr Hinojosa bilateral L3-4 laminotomy/foraminotomy. Family History Mother CAD (coronary artery disease) Father Diabetes Social History Smoking and tobacco/nicotine status: current every day tobacco/nicotine user Alcohol intake: current Alcohol intake frequency: few times a month Substance/Drug Use: never Lives independently: Yes Household members: spouse Marital status: Current occupational status: disabled Physical Exam 2 Const: COMMON NORMALS: no acute distress, patient oriented x3 and healthy appearing HENMT: COMMON NORMALS: normocephalic and atraumatic HEAD & SCALP: n ormocephalic and atraumatic Eye: COMMON NORMALS: Equal, round and reactive pupils present and EOMs intact bilaterally PUPIL: Yes Equal, round and reactive pupils present Neck/C-Spine: COMMON NORMALS: full ROM and supple Chest: COMMONS NORMALS: normal inspection of the chest and normal palpation of entire chest wall Resp: COMMON NORMALS: normal respiratory effort, No retractions, No use of accessory muscles and clear to auscultation bilaterally AUSCULTATION: clear to auscultation bilaterally Cardio: COMMON NORMALS: regular rate, regular rhythm and No murmurs present (Cardio) RATE: regular rate RHYTHM: regular rhythm GI: COMMON NORMALS: Normal to inspection, nondistended, normoactive bowel sounds present, Soft to palpation, non-tender and no masses PALPATION: Yes Soft to palpation Extremity: COMMON NORMALS: normal to inspection and full ROM Neuro: COMMON NORMALS: patient oriented x3, moves all extremities and no focal motor deficits Psych: COMMON NORMALS: mental status grossly normal, Normal thought process present and cooperative THOUGHT PROCESS: Normal thought process present Skin: COMMON NORMALS: no rashes or lesions noted and no wounds GENERAL SKIN EXAM: no rashes or lesions noted Course 2 Vital Signs: Vital signs: Vital Signs Temperature 97.8 F 08/22/23 18:00 Pulse Rate 88 08/22/23 19:13 Respiratory Rate 22 H 08/22/23 19:13 Blood Pressure 156/82 08/22/23 18:00 Pulse Oximetry 92 08/22/23 19:13 Oxygen Delivery Me thod Room Air 08/22/23 19:13 MDM - Chest Pain Medical Decision Making Patient presents for chest pains atypical in nature his pain is resolved here his troponins here are normal he feels much improved he is ran out of his nitro along with his inhaler we will refill both we will start him on Lasix as well he is to follow-up with PCP and return if worsening Lab Data 08/22/23 19:11 08/22/23 19:11 Radiology Impressions Chest X-Ray 08/22/23 18:05 IMPRESSION: 1. Bilateral pleural effusions with the left being greater than the right. 2. Associated bibasal atelectasis Laboratory Results WBC 9.67 10^3/uL (3.29-11.43) 08/22/23 19:11 RBC 4.00 10^6/uL (3.85-5.65) 08/22/23 19:11 Hgb 11.60 g/dL (11.27-16.99) 08/22/23 19:11 Hct 36.6 % (37-53) L 08/22/23 19:11 MCV 91.5 fl (82-101) 08/22/23 19:11 MCH 29.0 pg (27-33) 08/22/23 19:11 MCHC 31.7 g/dL (30-55) 08/22/23 19:11 RDW 14.9 % (12.1-15.1) 08/22/23 19:11 Plt Count 274 10^3/cmm (157-399) 08/22/23 19:11 MPV 10.5 fL (7.4-10.4) H 08/22/23 19:11 Neut % (Auto) 78.2 % 08/22/23 19:11 Lymph % (Auto) 13.3 % 08/22/23 19:11 [place] % (Auto) 5.4 % 08/22/23 19:11 Eos % (Auto) 2.1 % 08/22/23 19:11 Baso % (Auto) 0.7 % 08/22/23 19:11 Neut # (Auto) 7.56 10^3/uL (1.8-7.7) 08/22/23 19:11 Lymph # (Auto) 1.3 10^3/uL (0.8-4.8) 08/22/23 19:11 [place] # (Auto) 0.5 10^3/uL (0.2-0.9) 08/22/23 19:11 Eos # (Auto) 0.2 10^3/uL (0.0-0.8) 08/22/23 19:11 Baso # (Auto) 0.1 10^3/uL (0.0-0.1) 08/22/23 19:11 Nucleated RBC % (auto) 0 % 08/22/23 19:11 Nucleated RBCs # 0.0 /100WBC 08/22/23 19:11 Sodium 143 mmol/L (136-145) 08/22/23 19:11 Potassium 4.4 mmol/L (3.5-5.1) 08/22/23 19:11 Chloride 108 mmol/L (98-107) H 08/22/23 19:11 Carbon Dioxide 27 mmol/L (22-29) 08/22/23 19:11 Anion Gap 12.4 (5-19) 08/22/23 19:11 BUN 21 mg/dL (6-20) H 08/22/23 19:11 Creatinine 1.2 mg/dL (0.7-1.2) 08/22/23 19:11 GFR Calculation 62.0 mL/min (90-130) L 08/22/23 19:11 Glucose 95 mg/dL (65-115) 08/22/23 19:11 Calculated Osmolality 299 mOsm/kg (285-295) H 08/22/23 19:11 Calcium 8.9 mg/dL (8.5-10.5) 08/22/23 19:11 Total Bilirubin 0.5 mg/dL (0.15-1.2) 08/22/23 19:11 AST 20 U/L (0-40) 08/22/23 19:11 ALT 22 U/L (0-41) 08/22/23 19:11 Alkaline Phosphatase 83 U/L (40-130) 08/22/23 19:11 Troponin T Baseline 22 ng/L (0-15) H 08/22/23 19:11 Troponin T 120 Minute 22.69 ng/L (0-15) H 08/22/23 20:45 Delta Troponin T 0.69 ABS# (0-10) 08/22/23 20:45 NT-Pro-B Natriuret Pep 48619 pg/mL (0-125) H 08/22/23 19:11 Total Protein 6.1 g/dL (6.6-8.7) L 08/22/23 19:11 Albumin 3.7 g/dL (3.5-5.2) 08/22/23 19:11 Globulin 2.4 g/dL (1.3-4.6) 08/22/23 19:11 All radiology interpretation(s) finalized by discharge Discharge Plan Discharge Patient Disposition: Home Clinical Impression: Chest pain Qualifiers: Chest pain type: unspecified Qualified Code(s): R07.9 - Chest pain, unspecified Condition: Stable Prescriptions: New nitroglycerin 0.4 mg tablet, sublingual 0.4 mg sublingual Q5M PRN (Reason: chest pain) Qty: 30 0RF Rx Instructions: do not exceed 3 doses per episode Lasix 40 mg tablet 40 mg PO DAILY Qty: 30 0RF Continued albuterol sulfate 90 mcg/actuation HFA aerosol inhaler 2 inh INHALATION Q6H PRN (Reason: shortness of breath or wheezing) Qty: 8 0RF No Action prednisone 50 mg tablet 50 mg PO DAILY Qty: 5 0RF doxycycline hyclate 100 mg tablet 100 mg PO BID Discharge Orders: Discharge ED (Routine); Ordered 08/22/23 Ordered By: Paco Nice Referrals: Nano Cohen DO [Primary Care Provider] - 4-7 days Discharge Diet: Advance as tolerated Discharge Activity: Resume usual activity Patient Instructions: Chest Pain (ED) Coding Level of Care Code ED [employer] Consultant for Zoë Arce
[2023-08-22] MEDS: albuterol 2.5 mg/3 mL Neb INHALATION (19:11)
[2023-08-22 19:13] VITALS: PULSE 88; RESP 22; O2SAT 92
[2023-08-22] MEDS: morphine 4 mg/mL SDV 1 mL IVP (19:18)
[2023-08-22] MEDS: ondansetron 2 mg/ML SDV 2 mL 4 MG IVP (19:18)
[2023-08-22 19:19] LABS: Basophils # 0.1 10^3/uL (0.0-0.1); Basophils % 0.7 %; Eosinophils # 0.2 10^3/uL (0.0-0.8); Eosinophils % 2.1 %; Hematocrit 36.6 % (37-53); Lymphocytes # 1.3 10^3/uL (0.8-4.8); Lymphocytes % 13.3 %; Mean Corpuscular HGB Conc 31.7 g/dL (30-55); Mean Corpuscular Volume 91.5 fl (82-101); Mean Platelet Volume 10.5 fL (7.4-10.4); Monocytes # 0.5 10^3/uL (0.2-0.9); Monocytes % 5.4 %; Neutrophils # 7.56 10^3/uL (1.8-7.7); Neutrophils % 78.2 %; Nucleated Red Blood Cells % 0 %; Platelet Count 274 10^3/cmm (157-399); Red Cell Distribution Width 14.9 % (12.1-15.1); White Blood Count 9.67 10^3/uL (3.29-11.43)
[2023-08-22 19:43] LABS: Troponin(5th) Baseline 22 ng/L (0-15)
[2023-08-22 19:51] LABS: Alanine Aminotransferase 22 U/L (0-41); Albumin Level 3.7 g/dL (3.5-5.2); Alkaline Phosphatase 83 U/L (40-130); Anion Gap 12.4 (5-19); Aspartate Amino Transferase 20 U/L (0-40); Blood Urea Nitrogen 21 mg/dL (6-20); Calcium 8.9 mg/dL (8.5-10.5); Carbon Dioxide 27 mmol/L (22-29); Chloride 108 mmol/L (98-107); Globulin 2.4 g/dL (1.3-4.6); Glucose 95 mg/dL (65-115); NT Pro B Type Natriuretic Pept 14181 pg/mL (0-125); Osmolality Calculated 299 mOsm/kg (285-295); Potassium 4.4 mmol/L (3.5-5.1); Sodium 143 mmol/L (136-145); Total Bilirubin 0.5 mg/dL (0.15-1.2); Total Protein 6.1 g/dL (6.6-8.7)
--- NOTE | 2023-08-22 20:07 | ECG_ITS ---
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 Measurements Intervals [place] Rate: 84 P: 78 CT: 147 QRS: 83 QRSD: 87 T: 57 QT: 408 QTc: 484 Interpretive Statements SINUS RHYTHM NONSPECIFIC T-WAVE ABNORMALITY Poor R wave progression Compared to ECG 07/31/2023 11:51:26 Left ventricular hypertrophy no longer present T-wave abnormality still present Electronically Signed On 08-23-2023 13:48:04 TRADING MANAGER by Elham Johnson M.D. [email or web address] Incsan joaquin valley [facility].[employer]/store/OM/[id number]
[2023-08-22] MEDS: FUROsemide 10 mg/mL SDV 10mL 60 MG IVP (20:57)
[2023-08-22 21:16] LABS: Troponin 5 2HR 22.69 ng/L (0-15); Troponin 5 2HR Delta 0.69 ABS# (0-10)
[2023-08-22 21:43] VITALS: BP 131/82; PULSE 86; RESP 15; O2SAT 93
== END 2023-08-22 21:44 | disposition home or self-care (01) ==
PROVIDERS: Emergency Provider Emergency Medicine; PCP Family Medicine
DX: R07.9 Chest pain, unspecified (principal)
CPT/HCPCS: 36415; 71045; 80053; 83880; 84484; 85025; 93005; 94640; 96374; 96375; 99285; J1940; J2270; J2405; J7613

== ENCOUNTER 2023-09-25 18:43 | Emergency (ER) | payer MEDICARE, SELFPAY ==
[2023-09-25] VITALS (32 sets, daily range): BP systolic 131–146; BP diastolic 84–88; PULSE 66–78; RESP 15–33; TEMP 36.6; O2SAT 96–99
--- NOTE | 2023-09-25 18:50 | ECG_ITS ---
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 Measurements Intervals [place] Rate: 71 P: 38 MD: 148 QRS: 52 QRSD: 84 T: 66 QT: 473 QTc: 517 Interpretive Statements SINUS RHYTHM WITH SINUS ARRHYTHMIA POSSIBLE ANTERIOR MYOCARDIAL INFARCTION , OF INDETERMINATE AGE [30 ms Q WAVE IN V3/V4, OR R < 0.2 mV IN V4] Compared to ECG 08/22/2023 20:07:10 Myocardial infarct finding now present T-wave abnormality no longer present Poor R-wave progression no longer present Electronically Signed On 09-26-2023 12:05:07 HOSPITAL HOUSEKEEPER by Gatito Del Toro M.D. [email or web address]iggleWe[employer] Webblanchard [facility].[employer]/store/M0/[id number]
--- NOTE | 2023-09-25 18:55 | XRR_ITS ---
PROCEDURE INFORMATION: Exam: XR Chest Exam date and time: 09/25/2023 7:37 PM Age: 58 years old Clinical indication: Pain; Chest pressure; Additional info: Chest pain TECHNIQUE: Imaging protocol: Radiologic exam of the chest. Views: 1 view. COMPARISON: CR (CHEST, ) 08/22/2023 6:23 PM FINDINGS: Lungs: Left lower lobe calcified granuloma. No consolidation. Pleural spaces: Unremarkable. No pleural effusion. No pneumothorax. Heart/Mediastinum: Cardiomegaly, negative for infiltrate. Bones/joints: Unremarkable. XR/XR chest 1V portable [id number] IMPRESSION: Cardiomegaly, negative for infiltrate.
[2023-09-25 19:24] LABS: Basophils # 0.1 10^3/uL (0.0-0.1); Basophils % 0.9 %; Eosinophils # 0.5 10^3/uL (0.0-0.8); Eosinophils % 6.1 %; Hematocrit 41.7 % (37-53); Lymphocytes # 1.4 10^3/uL (0.8-4.8); Lymphocytes % 17.9 %; Mean Corpuscular HGB Conc 31.2 g/dL (30-55); Mean Corpuscular Hemoglobin 28.8 pg (27-33); Mean Corpuscular Volume 92.5 fl (82-101); Mean Platelet Volume 10.5 fL (7.4-10.4); Monocytes # 0.6 10^3/uL (0.2-0.9); Monocytes % 7.5 %; Neutrophils # 5.37 10^3/uL (1.8-7.7); Neutrophils % 67.3 %; Nucleated Red Blood Cells % 0 %; Platelet Count 270 10^3/cmm (157-399); Red Blood Count 4.51 10^6/uL (3.85-5.65); Red Cell Distribution Width 14.6 % (12.1-15.1); White Blood Count 7.98 10^3/uL (3.29-11.43)
--- NOTE | 2023-09-25 19:38 | W.ED.CHESTPA ---
HPI - Chest Pain General: Chief Complaint: Chest Pain Stated Complaint: chest pains sob Time Seen by Provider: 09/25/23 19:26 History of Present Illness: Patient presents to the ER with complaints of left chest pain off and on times last 3 days. Patient also complains of some mild dyspnea and wheezing. Patient states pain does not radiate and he has no edema. Patient says he has history of heart attack several months ago. Patient is on Lasix 40 mg daily. Patient denies any nausea vomiting diaphoresis fevers chills. Review of Systems General: Reports: 10 or more systems reviewed and unremarkable except in HPI and below PFSH ED PFSH: Medical History Coronary artery disease Angiogram: March 2023: Moderate left main stenosis. Worsening angina CKD (chronic kidney disease) stage 3, GFR 30-59 ml/min Tobacco use Osteoarthritis of right shoulder COPD (chronic obstructive pulmonary disease) Chest pain Migraine Hypertension Stenosis, spinal, lumbar Surgical History Post-operative state Hx of tonsillectomy H/O shoulder surgery H/O skin graft S/P lumbar laminectomy (05/25/19) Dr Hinojosa bilateral L3-4 laminotomy/foraminotomy. Family History Mother CAD (coronary artery disease) Father Diabetes Social History Smoking and tobacco/nicotine status: current every day tobacco/nicotine user Alcohol intake: current Alcohol intake frequency: few times a month Substance/Drug Use: never Lives independently: Yes Household members: spouse Marital status: Current occupational status: disabled Physical Exam Const: COMMON NORMALS: no acute distress, average body habitus, patient oriented x3, no limitations, healthy appearing, alert and well nourished HENMT: COMMON NORMALS: normocephalic, atraumatic, hearing grossly normal bilaterally, external ears normal, Normal external nose present, moist oral mucous membranes and oropharynx normal HEAD & SCALP: normocephalic and atraumatic NOSE: Normal external nose present EXTERNAL EAR: Yes external ears normal Neck/C-Spine: COMMON NORMALS: no JVD Chest: COMMONS NORMALS: normal inspection of the chest and normal palpation of entire chest wall Resp: COMMON NORMALS: normal respiratory effort, No retractions, No use of accessory muscles and clear to auscultation bilaterally AUSCULTATION: clear to auscultation bilaterally Cardio: COMMON NORMALS: no JVD, regular rate, regular rhythm, S1 normal heart sound present, S2 normal heart sound present, No gallops present (Cardio), No clicks present (Cardio), No murmurs present (Cardio) and No rub (Cardio) RATE: regular rate RHYTHM: regular rhythm HEART SOUNDS: S1 normal heart sound present and S2 normal heart sound present GI: COMMON NORMALS: Normal to inspection, nondistended, normoactive bowel sounds present, Soft to palpation, non-tender, No hepatosplenomegaly present and no masses PALPATION: Yes Soft to palpation and Yes No hepatosplenomegaly present Neuro: COMMON NORMALS: patient oriented x3 SENSORIUM/ORIENTATION: Yes alert Course Vital Signs: Vital signs: Vital Signs Temperature 97.9 F 09/25/23 18:51 Pulse Rate 67 09/25/23 22:25 Respiratory Rate 18 09/25/23 22:51 Blood Pressure 131/85 09/25/23 22:25 Pulse Oximetry 97 09/25/23 21:55 Oxygen Delivery Me thod Room Air 09/25/23 20:59 MDM - Chest Pain Medical Decision Making Patient presents to the ER with chest pain. Patient was worked up in normal chest pain fashion which included serial EKGs, serial lab work and x-ray, all of which was essentially negative for acute causes of chest pain. However patient's urine drug screen did test positive for amphetamines. Patient be discharged home to follow-up with his PCP. Differential Diagnosis Unlikely acute massive pulmonary embolism, acute respiratory failure, acute myocardial infarction, cardiac arrest or sudden cardiac Medical Records I reviewed the patient's medical records. Lab Data I reviewed the patient's lab results. 09/25/23 19:13 09/25/23 19:13 Radiology Impressions Chest X-Ray 09/25/23 18:55 IMPRESSION: Cardiomegaly, negative for infiltrate. Laboratory Results WBC 7.98 10^3/uL (3.29-11.43) 09/25/23 19:13 RBC 4.51 10^6/uL (3.85-5.65) 09/25/23 19:13 Hgb 13.00 g/dL (11.27-16.99) 09/25/23 19:13 Hct 41.7 % (37-53) 09/25/23 19:13 MCV 92.5 fl (82-101) 09/25/23 19:13 MCH 28.8 pg (27-33) 09/25/23 19:13 MCHC 31.2 g/dL (30-55) 09/25/23 19:13 RDW 14.6 % (12.1-15.1) 09/25/23 19:13 Plt Count 270 10^3/cmm (157-399) 09/25/23 19:13 MPV 10.5 fL (7.4-10.4) H 09/25/23 19:13 Neut % (Auto) 67.3 % 09/25/23 19:13 Lymph % (Auto) 17.9 % 09/25/23 19:13 [place] % (Auto) 7.5 % 09/25/23 19:13 Eos % (Auto) 6.1 % 09/25/23 19:13 Baso % (Auto) 0.9 % 09/25/23 19:13 Neut # (Auto) 5.37 10^3/uL (1.8-7.7) 09/25/23 19:13 Lymph # (Auto) 1.4 10^3/uL (0.8-4.8) 09/25/23 19:13 [place] # (Auto) 0.6 10^3/uL (0.2-0.9) 09/25/23 19:13 Eos # (Auto) 0.5 10^3/uL (0.0-0.8) 09/25/23 19:13 Baso # (Auto) 0.1 10^3/uL (0.0-0.1) 09/25/23 19:13 Nucleated RBC % (auto) 0 % 09/25/23 19:13 Nucleated RBCs # 0.0 /100WBC 09/25/23 19:13 Sodium 138 mmol/L (136-145) 09/25/23 19:13 Potassium 4.8 mmol/L (3.5-5.1) 09/25/23 19:13 Chloride 105 mmol/L (98-107) 09/25/23 19:13 Carbon Dioxide 26 mmol/L (22-29) 09/25/23 19:13 Anion Gap 11.8 (5-19) 09/25/23 19:13 BUN 19 mg/dL (6-20) 09/25/23 19:13 Creatinine 1.1 mg/dL (0.7-1.2) 09/25/23 19:13 GFR Calculation 68.5 mL/min (90-130) L 09/25/23 19:13 Glucose 94 mg/dL (65-115) 09/25/23 19:13 Calculated Osmolality 288 mOsm/kg (285-295) 09/25/23 19:13 Calcium 8.5 mg/dL (8.5-10.5) 09/25/23 19:13 Total Bilirubin 0.4 mg/dL (0.15-1.2) 09/25/23 19:13 AST 28 U/L (0-40) 09/25/23 19:13 ALT 25 U/L (0-41) 09/25/23 19:13 Alkaline Phosphatase 98 U/L (40-130) 09/25/23 19:13 Troponin T Baseline 24 ng/L (0-15) H 09/25/23 19:13 Troponin T 120 Minute 23.32 ng/L (0-15) H 09/25/23 21:48 Delta Troponin T -0.68 ABS# (0-10) L 09/25/23 21:48 Total Protein 6.3 g/dL (6.6-8.7) L 09/25/23 19:13 Albumin 3.8 g/dL (3.5-5.2) 09/25/23 19:13 Globulin 2.5 g/dL (1.3-4.6) 09/25/23 19:13 Urine Color Yellow (Yellow) 09/25/23 21:48 Urine Appearance Clear (CLEAR) 09/25/23 21:48 Urine pH 6 (5-7) 09/25/23 21:48 Ur Specific [place] 1.010 (1.005-1.030) 09/25/23 21:48 Urine Protein Neg (Negative) 09/25/23 21:48 Urine Glucose (UA) Norm (Normal) 09/25/23 21:48 Urine Ketones Negative (Negative) 09/25/23 21:48 Urine Blood Neg (Negative) 09/25/23 21:48 Urine Nitrate Negative (Negative) 09/25/23 21:48 Urine Bilirubin Neg (Negative) 09/25/23 21:48 Urine Urobilinogen Norm mg/dL (Negative) 09/25/23 21:48 Ur Leukocyte Esterase Negative (Negative) 09/25/23 21:48 Urine Opiates Screen Negative ng/mL (Negative) 09/25/23 21:48 Ur Barbiturates Screen Negative ng/mL (Negative) 09/25/23 21:48 Ur Phencyclidine Scrn Negative ng/mL (Negative) 09/25/23 21:48 Ur Amphetamines Screen Positive ng/mL (Negative) H 09/25/23 21:48 U Benzodiazepines Scrn Negative ng/mL (Negative) 09/25/23 21:48 Urine Cocaine Screen Negative ng/mL (Negative) 09/25/23 21:48 U Marijuana (THC) Screen Negative ng/mL (Negative) 09/25/23 21:48 All radiology interpretation(s) finalized by discharge EKG Data EKG 1: I personally reviewed and interpreted this EKG as follows: EKG interpretation date: 09/25/23 EKG interpretation time: 18:50 Prior EKG tracings: not available for review Interpretation: Right 71 beats minute, SD interval 148, QRS 84, QTc of 517, sinus rhythm with sinus arrhythmia, EKG 2: I personally reviewed and interpreted this EKG as follows: EKG interpretation date: 09/25/23 EKG interpretation time: 21:48 Prior EKG tracings: available for review Interpretation: Ventricular rate 68 bpm, SD interval 143, QRS 85, QTc of 480, sinus rhythm, Discharge Plan Discharge Patient Disposition: Home Clinical Impression: Chest pain, non-cardiac, Amphetamine abuse Condition: Stable Prescriptions: No Action prednisone 50 mg tablet 50 mg PO DAILY Qty: 5 0RF doxycycline hyclate 100 mg tablet 100 mg PO BID nitroglycerin 0.4 mg tablet, sublingual 0.4 mg sublingual Q5M PRN (Reason: chest pain) Qty: 30 0RF Rx Instructions: do not exceed 3 doses per episode Lasix 40 mg tablet 40 mg PO DAILY Qty: 30 0RF albuterol sulfate 90 mcg/actuation HFA aerosol inhaler 2 inh INHALATION Q6H PRN (Reason: shortness of breath or wheezing) Qty: 8 0RF Discharge Orders: Discharge ED (Routine); Ordered 09/25/23 Ordered By: Toney Pina Referrals: Nano Cohen DO [Primary Care Provider] - 1 week Patient Instructions: Chest Pain - Noncardiac, Methamphetamine Use Disorder (ED) Activity Restrictions/Additional Instructions: Your workup in ER did not reveal an acute cardiac cause of your chest pain. It is felt to be noncardiac in nature. Your urine drug screen did test positive for amphetamines. This can be a cause of chest pain. Please do not use amphetamines in the future. Please follow-up with your family practice physician within the next 7 to 10 days for further eval evaluation and treatment. Coding Level of Care Code ED Director Learning And Development for Zoë Arce
[2023-09-25 19:45] LABS: Alanine Aminotransferase 25 U/L (0-41); Albumin Level 3.8 g/dL (3.5-5.2); Alkaline Phosphatase 98 U/L (40-130); Anion Gap 11.8 (5-19); Aspartate Amino Transferase 28 U/L (0-40); Blood Urea Nitrogen 19 mg/dL (6-20); Calcium 8.5 mg/dL (8.5-10.5); Carbon Dioxide 26 mmol/L (22-29); Chloride 105 mmol/L (98-107); Globulin 2.5 g/dL (1.3-4.6); Glomerular Filtration Rate 68.5 mL/min (90-130); Glucose 94 mg/dL (65-115); Osmolality Calculated 288 mOsm/kg (285-295); Potassium 4.8 mmol/L (3.5-5.1); Sodium 138 mmol/L (136-145); Total Bilirubin 0.4 mg/dL (0.15-1.2); Total Protein 6.3 g/dL (6.6-8.7); Troponin(5th) Baseline 24 ng/L (0-15)
[2023-09-25] MEDS: ketorolac 30 mg/mL INJ IVP (19:47)
[2023-09-25] MEDS: nitroglycerin 0.4 mg sublingual Tablet SUBLINGUAL (20:56)
[2023-09-25] MEDS: lidocaine 2% viscous 15 ML, aluminum-mag hydrox-simethicon 30 ML, sucralfate oral liq 1 GM PO (20:56)
[2023-09-25 22:04] LABS: Add Urine Microscopic? NO; Charge for UA Resulting for Rev
[2023-09-25 22:07] LABS: Bilirubin Urine Neg (Negative); Blood Urine Neg (Negative); Glucose Urine UA Norm (Normal); Ketones Urine Negative (Negative); Leukocyte Esterase Urine Negative (Negative); Nitrate Urine Negative (Negative); Protein Urine Neg (Negative); Urine Appearance Clear (CLEAR); Urine Color Yellow (Yellow); Urobilinogen Urine Norm (Negative); pH Urine 6 (5-7)
[2023-09-25 22:15] LABS: Amphetamines Screen Urine Positive (Negative); Barbiturates Screen Urine Negative (Negative); Benzodiazepines Screen Urine Negative (Negative); Cocaine Screen Urine Negative (Negative); Opiate Screen Urine Negative (Negative); PCP Screen Urine Negative (Negative); THC Screen Urine Negative (Negative)
[2023-09-25 22:27] LABS: Troponin 5 2HR 23.32 ng/L (0-15)
[2023-09-25 22:28] LABS: Troponin 5 2HR Delta -0.68 ABS# (0-10)
== END 2023-09-25 22:51 | disposition home or self-care (01) ==
PROVIDERS: Emergency Medicine; Emergency Provider Internal Medicine; PCP Family Medicine
DX: R07.89 Other chest pain (principal); F15.10 Other stimulant abuse, uncomplicated; Z72.0 Tobacco use; I25.10 Atherosclerotic heart disease of native coronary artery without angina pectoris; I12.9 Hypertensive chronic kidney disease with stage 1 through stage 4 chronic kidney disease, or unspecified chronic kidney disease; N18.30 Chronic kidney disease, stage 3 unspecified; J44.9 Chronic obstructive pulmonary disease, unspecified
CPT/HCPCS: 36415; 71045; 80053; 80306; 81003; 84484; 85025; 93005; 96374; 99285; J1885

== ENCOUNTER 2023-11-12 17:27 | Emergency (ER) | payer MEDICARE, SELFPAY ==
--- NOTE | 2023-11-12 17:28 | XRR_ITS ---
PROCEDURE INFORMATION: Exam: XR Chest Exam date and time: 11/12/2023 5:46 PM Age: 58 years old Clinical indication: Pain; Chest pressure; Additional info: Cp TECHNIQUE: Imaging protocol: Radiologic exam of the chest. Views: 1 view. COMPARISON: CR XR chest 1V portable [id number] 09/25/2023 7:37 PM FINDINGS: Lungs: Unremarkable. No consolidation. Stable calcified granulomata. Pleural spaces: Unremarkable. No pleural effusion. No pneumothorax. Heart/Mediastinum: Unremarkable. No cardiomegaly. Bones/joints: Unremarkable. XR/XR chest 1V portable [id number] IMPRESSION: Stable radiographic appearance of the chest compared to 09/25/2023 and without evidence of acute cardiopulmonary disease.
[2023-11-12 17:35] VITALS: BP 166/114; PULSE 87; RESP 26; TEMP 36.7; O2SAT 92; BMI 35.2
--- NOTE | 2023-11-12 17:45 | ED_ITS ---
HPI - Chest Pain 2 General: Chief Complaint: Chest Pain Stated Complaint: sob, chest pains Time Seen by Provider: 11/12/23 17:36 Source: patient Mode of arrival: ambulatory Limitations: no limitations History of Present Illness: 58-year-old male [facility] for [facility] pains he states he been having chest pains over the last 2 days states pains sharp in nature and also has some back pain as well. He is hypertensive very states he has not been taking his blood pressure meds and he is out. Denies any fever denies any cough. Associated symptoms: Deny abdominal pain, dyspnea, fever(s), nausea or vomiting Review of Systems 2 Const: Denies: fever(s), chills, body aches or change in appetite ENMT: Denies: throat pain or dental pain Card: Reports: chest pain Resp: Denies: dyspnea GI: Denies: abdominal pain, nausea, vomiting or diarrhea : Denies: dysuria Musc: Denies: neck pain or back pain Skin/Breast: Denies: rash Neuro: Denies: headache(s) PFSH ED 2 PFSH: Medical History Coronary artery disease Angiogram: March 2023: Moderate left main stenosis. Worsening angina CKD (chronic kidney disease) stage 3, GFR 30-59 ml/min Tobacco use Osteoarthritis of right shoulder COPD (chronic obstructive pulmonary disease) Chest pain Migraine Hypertension Stenosis, spinal, lumbar Surgical History Post-operative state Hx of tonsillectomy H/O shoulder surgery H/O skin graft S/P lumbar laminectomy (05/25/19) Dr Hinojosa bilateral L3-4 laminotomy/foraminotomy. Family History Mother CAD (coronary artery disease) Father Diabetes Social History Smoking and tobacco/nicotine status: current every day tobacco/nicotine user Alcohol intake: current Alcohol intake frequency: few times a month Substance/Drug Use: never Lives independently: Yes Household members: spouse Marital status: Current occupational status: disabled Physical Exam 2 Const: COMMON NORMALS: no acute distress, patient oriented x3 and healthy appearing HENMT: COMMON NORMALS: normocephalic and atraumatic HEAD & SCALP: n ormocephalic and atraumatic Eye: COMMON NORMALS: Equal, round and reactive pupils present and EOMs intact bilaterally PUPIL: Yes Equal, round and reactive pupils present Neck/C-Spine: COMMON NORMALS: full ROM and supple Chest: COMMONS NORMALS: normal inspection of the chest and normal palpation of entire chest wall Resp: COMMON NORMALS: normal respiratory effort, No retractions, No use of accessory muscles and clear to auscultation bilaterally AUSCULTATION: clear to auscultation bilaterally Cardio: COMMON NORMALS: regular rate, regular rhythm and No murmurs present (Cardio) RATE: regular rate RHYTHM: regular rhythm Extremity: COMMON NORMALS: normal to inspection and full ROM Neuro: COMMON NORMALS: patient oriented x3, moves all extremities and no focal motor deficits Psych: COMMON NORMALS: mental status grossly normal, Normal thought process present and cooperative THOUGHT PROCESS: Normal thought process present Skin: COMMON NORMALS: no rashes or lesions noted and no wounds GENERAL SKIN EXAM: no rashes or lesions noted Course 2 Vital Signs: Vital signs: Vital Signs Temperature 98.0 F 11/12/23 17:35 Pulse Rate 90 11/12/23 19:40 Respiratory Rate 19 H 11/12/23 19:40 Blood Pressure 118/64 11/12/23 19:40 Pulse Oximetry 97 11/12/23 19:40 Oxygen Delivery Me thod Room Air 11/12/23 17:35 MDM - Chest Pain Medical Decision Making Patient presents here with chest pain 2-hour troponins negative he feels improved here he is stable for discharge he is follow-up with PCP and return if worsening. Medical Records I reviewed the patient's medical records. Lab Data I reviewed the patient's lab results. 11/12/23 17:44 11/12/23 17:44 Radiology Impressions Chest X-Ray 11/12/23 17:28 IMPRESSION: Stable radiographic appearance of the chest compared to 09/25/2023 and without evidence of acute cardiopulmonary disease. Laboratory Results WBC 7.31 10^3/uL (3.29-11.43) 11/12/23 17:44 RBC 4.79 10^6/uL (3.85-5.65) 11/12/23 17:44 Hgb 13.90 g/dL (11.27-16.99) 11/12/23 17:44 Hct 42.4 % (37-53) 11/12/23 17:44 MCV 88.5 fl (82-101) 11/12/23 17:44 MCH 29.0 pg (27-33) 11/12/23 17:44 MCHC 32.8 g/dL (30-55) 11/12/23 17:44 RDW 14.1 % (12.1-15.1) 11/12/23 17:44 Plt Count 327 10^3/cmm (157-399) 11/12/23 17:44 MPV 9.9 fL (7.4-10.4) 11/12/23 17:44 Neut % (Auto) 84.0 % 11/12/23 17:44 Lymph % (Auto) 7.8 % 11/12/23 17:44 [place] % (Auto) 7.5 % 11/12/23 17:44 Eos % (Auto) 0.0 % 11/12/23 17:44 Baso % (Auto) 0.4 % 11/12/23 17:44 Neut # (Auto) 6.14 10^3/uL (1.8-7.7) 11/12/23 17:44 Lymph # (Auto) 0.6 10^3/uL (0.8-4.8) L 11/12/23 17:44 [place] # (Auto) 0.6 10^3/uL (0.2-0.9) 11/12/23 17:44 Eos # (Auto) 0.0 10^3/uL (0.0-0.8) 11/12/23 17:44 Baso # (Auto) 0.0 10^3/uL (0.0-0.1) 11/12/23 17:44 Nucleated RBC % (auto) 0 % 11/12/23 17:44 Nucleated RBCs # 0.0 /100WBC 11/12/23 17:44 Sodium 139 mmol/L (136-145) 11/12/23 17:44 Potassium 4.2 mmol/L (3.5-5.1) 11/12/23 17:44 Chloride 101 mmol/L (98-107) 11/12/23 17:44 Carbon Dioxide 26 mmol/L (22-29) 11/12/23 17:44 Anion Gap 16.2 (5-19) 11/12/23 17:44 BUN 18 mg/dL (6-20) 11/12/23 17:44 Creatinine 1.4 mg/dL (0.7-1.2) H 11/12/23 17:44 GFR Calculation 51.9 mL/min (90-130) L 11/12/23 17:44 Glucose 86 mg/dL (65-115) 11/12/23 17:44 Calculated Osmolality 289 mOsm/kg (285-295) 11/12/23 17:44 Calcium 8.7 mg/dL (8.5-10.5) 11/12/23 17:44 Total Bilirubin 0.2 mg/dL (0.15-1.2) 11/12/23 17:44 AST 24 U/L (0-40) 11/12/23 17:44 ALT 16 U/L (0-41) 11/12/23 17:44 Alkaline Phosphatase 89 U/L (40-130) 11/12/23 17:44 Troponin T Baseline 32 ng/L (0-15) H 11/12/23 17:44 Troponin T 120 Minute 27.42 ng/L (0-15) H 11/12/23 19:38 Delta Troponin T -4.58 ABS# (0-10) L 11/12/23 19:38 NT-Pro-B Natriuret Pep 7706 pg/mL (0-125) H 11/12/23 17:44 Total Protein 7.0 g/dL (6.6-8.7) 11/12/23 17:44 Albumin 4.2 g/dL (3.5-5.2) 11/12/23 17:44 Globulin 2.8 g/dL (1.3-4.6) 11/12/23 17:44 All radiology interpretation(s) finalized by discharge EKG Data EKG 1: I personally reviewed and interpreted this EKG as follows: EKG interpretation date: 11/12/23 EKG interpretation time: 17:32 Interpretation: nsr hr [address] or t wave abnormalities qrs 80 qtc 430 EKG 2: I personally reviewed and interpreted this EKG as follows: EKG interpretation date: 11/12/23 EKG interpretation time: 19:35 Interpretation: nsr hr [address] or t wave abnormalities qrs 84 qtc 440 Discharge Plan Discharge Patient Disposition: Home Clinical Impression: Chest pain Qualifiers: Chest pain type: unspecified Qualified Code(s): R07.9 - Chest pain, unspecified Condition: Stable Prescriptions: No Action prednisone 50 mg tablet 50 mg PO DAILY Qty: 5 0RF doxycycline hyclate 100 mg tablet 100 mg PO BID nitroglycerin 0.4 mg tablet, sublingual 0.4 mg sublingual Q5M PRN (Reason: chest pain) Qty: 30 0RF Rx Instructions: do not exceed 3 doses per episode Lasix 40 mg tablet 40 mg PO DAILY Qty: 30 0RF albuterol sulfate 90 mcg/actuation HFA aerosol inhaler 2 inh INHALATION Q6H PRN (Reason: shortness of breath or wheezing) Qty: 8 0RF Discharge Orders: Discharge ED (Routine); Ordered 11/12/23 Ordered By: Paco Nice Referrals: Nano Cohen DO [Primary Care Provider] - 4-7 days Discharge Diet: Advance as tolerated Discharge Activity: Resume usual activity Patient Instructions: Chest Pain (ED) Coding Level of Care Code ED Communication Specialist for Zoë Arce
[2023-11-12 17:54] VITALS: RESP 24; O2SAT 94
[2023-11-12] MEDS: HYDROmorphone 1 mg/mL INJ 1 mL IVP (17:54)
[2023-11-12] MEDS: ondansetron 2 mg/ML SDV 2 mL 4 MG IVP (17:54)
[2023-11-12 17:55] LABS: Basophils % 0.4 %; Hematocrit 42.4 % (37-53); Lymphocytes # 0.6 10^3/uL (0.8-4.8); Lymphocytes % 7.8 %; Mean Corpuscular HGB Conc 32.8 g/dL (30-55); Mean Corpuscular Volume 88.5 fl (82-101); Mean Platelet Volume 9.9 fL (7.4-10.4); Monocytes # 0.6 10^3/uL (0.2-0.9); Monocytes % 7.5 %; Neutrophils # 6.14 10^3/uL (1.8-7.7); Nucleated Red Blood Cells % 0 %; Platelet Count 327 10^3/cmm (157-399); Red Blood Count 4.79 10^6/uL (3.85-5.65); Red Cell Distribution Width 14.1 % (12.1-15.1); White Blood Count 7.31 10^3/uL (3.29-11.43)
[2023-11-12 18:16] LABS: Troponin(5th) Baseline 32 ng/L (0-15)
[2023-11-12 18:25] LABS: Alanine Aminotransferase 16 U/L (0-41); Albumin Level 4.2 g/dL (3.5-5.2); Alkaline Phosphatase 89 U/L (40-130); Anion Gap 16.2 (5-19); Aspartate Amino Transferase 24 U/L (0-40); Blood Urea Nitrogen 18 mg/dL (6-20); Calcium 8.7 mg/dL (8.5-10.5); Carbon Dioxide 26 mmol/L (22-29); Chloride 101 mmol/L (98-107); Globulin 2.8 g/dL (1.3-4.6); Glomerular Filtration Rate 51.9 mL/min (90-130); Glucose 86 mg/dL (65-115); NT Pro B Type Natriuretic Pept 7706 pg/mL (0-125); Osmolality Calculated 289 mOsm/kg (285-295); Potassium 4.2 mmol/L (3.5-5.1); Sodium 139 mmol/L (136-145); Total Bilirubin 0.2 mg/dL (0.15-1.2)
[2023-11-12] MEDS: hyDRALAzine 20 mg/mL INJ 1 mL 10 MG IVP (18:57)
[2023-11-12 19:07] VITALS: BP 140/86; PULSE 86; RESP 18; O2SAT 98
--- NOTE | 2023-11-12 19:28 | ECG_ITS ---
[facility] Test Date: 2023-11-12 Pat Name: Christian Sparks Department: Room: Gender: Male Language Pathologist: EVELIO: 1965 Requested By: Paco Nice Order Number: [id number] Jesús MD: Gatito Del Toro M.D. Measurements Intervals [place] Rate: 85 P: 138 GA: 147 QRS: 109 QRSD: 84 T: 166 QT: 397 QTc: 474 Interpretive Statements SINUS RHYTHM WITH OCCASIONAL VENTRICULAR PREMATURE COMPLEXES Compared to ECG 09/25/2023 18:50:55 Ventricular premature complex(es) now present Sinus arrhythmia no longer present Myocardial infarct finding no longer present Electronically Signed On 11-13-2023 9:18:18 CDT by Gatito Del Toro M.D. [id number]
[2023-11-12 19:40] VITALS: BP 118/64; PULSE 90; RESP 19; O2SAT 97
[2023-11-12 20:17] LABS: Troponin 5 2HR 27.42 ng/L (0-15)
[2023-11-12 20:18] LABS: Troponin 5 2HR Delta -4.58 ABS# (0-10)
[2023-11-12] MEDS: HYDROcodone-acetaminophen 5-325 mg Tablet 1 TAB PO (20:28)
[2023-11-12 20:33] VITALS: BP 122/92; RESP 18
== END 2023-11-12 20:34 | disposition home or self-care (01) ==
PROVIDERS: Emergency Provider Emergency Medicine; PCP Family Medicine
DX: R07.9 Chest pain, unspecified (principal); Z72.0 Tobacco use; I25.10 Atherosclerotic heart disease of native coronary artery without angina pectoris; I12.9 Hypertensive chronic kidney disease with stage 1 through stage 4 chronic kidney disease, or unspecified chronic kidney disease; N18.30 Chronic kidney disease, stage 3 unspecified; J44.9 Chronic obstructive pulmonary disease, unspecified
CPT/HCPCS: 36415; 71045; 80053; 83880; 84484; 85025; 93005; 96374; 96375; 99285; J0360; J1170; J2405

== ENCOUNTER 2024-01-04 15:27 | Emergency (ER) | payer MEDICARE, SELFPAY ==
--- NOTE | 2024-01-04 15:28 | XRR_ITS ---
PROCEDURE INFORMATION: Exam: XR Chest Exam date and time: 01/04/2024 5:05 PM Age: 58 years old Clinical indication: Pain; Chest pressure; Additional info: Cp TECHNIQUE: Imaging protocol: Radiologic exam of the chest. Views: 1 view. COMPARISON: CR XR chest 1V portable [id number] 11/12/2023 5:46 PM FINDINGS: Airway: The airways are patent. Lungs: Lung hyperexpansion. Lung hyperlucency. There are multiple punctate pulmonary parenchymal calcifications, consistent with remote granulomatous organism exposure. No acute interstitial or airspace disease. Pleural spaces: No pleural effusions or pneumothorax. Heart/Mediastinum: The heart demonstrates mild diffuse enlargement. The mediastinal contour is normal. Bones/joints: There are mild degenerative changes of the right acromioclavicular joint. There are mild degenerative changes of the left acromioclavicular joint. Moderate osteoarthritis of the left glenohumeral joint, as manifested predominantly by decreased joint space, marginal osteophyte formation, and subchondral sclerosis. Stable fixation screw in the left glenoid. No acute fracture, dislocation, or aggressive osseous lesion. XR/XR chest 1V portable [id number] IMPRESSION: 1. No acute thoracic pathology. 2. Suggested COPD. 3. Suggested emphysema.
--- NOTE | 2024-01-04 15:32 | ECG_ITS ---
[facility] Test Date: 2024-01-04 Pat Name: Christian Sparks Department: Room: Gender: Male Assistant Professor Of Sociology: EVELIO: 1965 Requested By: Paco Nice Order Number: [id number] Jesús MD: Elham Johnson M.D. Measurements Intervals [place] Rate: 78 P: 60 [place]: 136 QRS: 77 QRSD: 90 T: 74 QT: 400 QTc: 456 Interpretive Statements SINUS RHYTHM WITH OCCASIONAL ECTOPIC PREMATURE COMPLEXES VOLTAGE CRITERIA FOR LVH [MEETS CRITERIA IN ONE OF: R(aVL), S(V1), R(V5), R(V5/V6)+S(V1)] Poor R wave progression NONSPECIFIC T-WAVE ABNORMALITY Compared to ECG 11/12/2023 19:35:01 Left ventricular hypertrophy now present T-wave abnormality now present Ventricular premature complex(es) no longer present Electronically Signed On 01-04-2024 20:24:07 CDT by Elham Johnson M.D. [id number]
[2024-01-04 15:37] VITALS: BP 158/80; PULSE 76; RESP 17; TEMP 36.6; O2SAT 95; BMI 25.8
--- NOTE | 2024-01-04 16:23 | ED_ITS ---
HPI - Chest Pain General: Chief Complaint: Chest Pain Stated Complaint: CP SOB Time Seen by Provider: 01/04/24 16:21 Source: patient Mode of arrival: ambulatory Limitations: no limitations History of Present Illness: Associated symptoms: Reports dyspnea; Deny abdominal pain, fever(s), nausea or vomiting Review of Systems Const: Denies: fever(s), chills, body aches or change in appetite ENMT: Denies: throat pain or dental pain Card: Reports: chest pain Resp: Reports: dyspnea GI: Denies: abdominal pain, nausea, vomiting or diarrhea Musc: Denies: neck pain or back pain Skin/Breast: Denies: rash Neuro: Denies: headache(s) PFSH ED PFSH: Medical History Coronary artery disease Angiogram: March 2023: Moderate left main stenosis. Worsening angina CKD (chronic kidney disease) stage 3, GFR 30-59 ml/min Tobacco use Osteoarthritis of right shoulder COPD (chronic obstructive pulmonary disease) Chest pain Migraine Hypertension Stenosis, spinal, lumbar Surgical History Post-operative state Hx of tonsillectomy H/O shoulder surgery H/O skin graft S/P lumbar laminectomy (05/25/19) Dr Hinojosa bilateral L3-4 laminotomy/foraminotomy. Family History Mother CAD (coronary artery disease) Father Diabetes Social History Smoking and tobacco/nicotine status: current every day tobacco/nicotine user Alcohol intake: current Alcohol intake frequency: few times a month Substance/Drug Use: never Lives independently: Yes Household members: spouse Marital status: Current occupational status: disabled Physical Exam Const: COMMON NORMALS: no acute distress, patient oriented x3 and healthy appearing HENMT: COMMON NORMALS: normocephalic and atraumatic HEAD & SCALP: normocephalic and atraumatic Eye: COMMON NORMALS: conjunctivae normal CONJUNCTIVA: Yes conjunctivae normal Neck/C-Spine: COMMON NORMALS: full ROM and supple Chest: COMMONS NORMALS: normal inspection of the chest and normal palpation of entire chest wall Resp: COMMON NORMALS: normal respiratory effort, No retractions, No use of accessory muscles and clear to auscultation bilaterally AUSCULTATION: clear to auscultation bilaterally Cardio: COMMON NORMALS: regular rate, regular rhythm and No murmurs present (Cardio) RATE: regular rate RHYTHM: regular rhythm GI: COMMON NORMALS: Normal to inspection, nondistended, normoactive bowel sounds present, Soft to palpation, non-tender and no masses PALPATION: Yes Soft to palpation Extremity: COMMON NORMALS: normal to inspection and full ROM Neuro: COMMON NORMALS: patient oriented x3, moves all extremities and no focal motor deficits Psych: COMMON NORMALS: mental status grossly normal, Normal thought process present and cooperative THOUGHT PROCESS: Normal thought process present Skin: COMMON NORMALS: no rashes or lesions noted and no wounds GENERAL SKIN EXAM: no rashes or lesions noted Course Vital Signs: Vital signs: Vital Signs Temperature 97.8 F 01/04/24 15:37 Pulse Rate 76 01/04/24 15:37 Respiratory Rate 17 01/04/24 15:37 Blood Pressure 158/80 01/04/24 15:37 Pulse Oximetry 95 01/04/24 15:37 Oxygen Delivery Me thod Room Air 01/04/24 15:37 MDM - Chest Pain Medical Records I reviewed the patient's medical records. Lab Data I reviewed the patient's lab results. All radiology interpretation(s) finalized by discharge EKG Data EKG 1: I personally reviewed and interpreted this EKG as follows: EKG interpretation date: 01/04/24 EKG interpretation time: 15:32 Interpretation: nsr hr [address] elevation qrs 90 qtc 433 unchanged from 11/12/23 Discharge Plan Discharge Condition: Stable Prescriptions: No Action prednisone 50 mg tablet 50 mg PO DAILY Qty: 5 0RF doxycycline hyclate 100 mg tablet 100 mg PO BID nitroglycerin 0.4 mg tablet, sublingual 0.4 mg sublingual Q5M PRN (Reason: chest pain) Qty: 30 0RF Rx Instructions: do not exceed 3 doses per episode Lasix 40 mg tablet 40 mg PO DAILY Qty: 30 0RF albuterol sulfate 90 mcg/actuation HFA aerosol inhaler 2 inh INHALATION Q6H PRN (Reason: shortness of breath or wheezing) Qty: 8 0RF Referrals: Nano Cohen DO [Primary Care Provider] - Coding Level of Care Code ED [employer] for Zoë Arce
[2024-01-04 17:20] LABS: Basophils # 0.1 10^3/uL (0.0-0.1); Basophils % 0.6 %; Eosinophils # 0.2 10^3/uL (0.0-0.8); Eosinophils % 2.1 %; Lymphocytes # 1.7 10^3/uL (0.8-4.8); Lymphocytes % 21.2 %; Mean Corpuscular HGB Conc 32.7 g/dL (30-55); Mean Corpuscular Volume 88.7 fl (82-101); Mean Platelet Volume 10.6 fL (7.4-10.4); Monocytes # 0.6 10^3/uL (0.2-0.9); Monocytes % 7.8 %; Neutrophils % 67.9 %; Nucleated Red Blood Cells % 0 %; Platelet Count 285 10^3/cmm (157-399); Red Blood Count 4.62 10^6/uL (3.85-5.65); Red Cell Distribution Width 15.9 % (12.1-15.1); White Blood Count 7.96 10^3/uL (3.29-11.43)
--- NOTE | 2024-01-04 17:26 | ED_ITS ---
HPI - Chest Pain 2 General: Chief Complaint: Chest Pain Stated Complaint: CP SOB Time Seen by Provider: 01/04/24 16:21 Source: patient Mode of arrival: ambulatory Limitations: no limitations History of Present Illness: Patient comes in for chest pain. Dyspnea with exertion. Has history of methamphetamine use and noncompliance. Patient had to wait in the lobby initially and then was offered a room but patient cannot be found that he was found outside on a smoke break and patient cannot be talked into coming in till he finishes cigarette in his [employer]eps[employer]. After he did that about a hour delay from when he should have been roomed that was called by the patient. Patient reports severe chest pain going on for over a month just increasing shortness of breath as well. He is emphasizing the pain requesting narcotics but it appears that his main reason and changes recently have been his increase shortness of breath. Denies methamphetamine use at this time. Review of Systems 2 General: Reports: 10 or more systems reviewed and unremarkable except in HPI and below PFSH ED 2 PFSH: Medical History Coronary artery disease Angiogram: March 2023: Moderate left main stenosis. Worsening angina CKD (chronic kidney disease) stage 3, GFR 30-59 ml/min Tobacco use Osteoarthritis of right shoulder COPD (chronic obstructive pulmonary disease) Chest pain Migraine Hypertension Stenosis, spinal, lumbar Surgical History Post-operative state Hx of tonsillectomy H/O shoulder surgery H/O skin graft S/P lumbar laminectomy (05/25/19) Dr Hinojosa bilateral L3-4 laminotomy/foraminotomy. Family History Mother CAD (coronary artery disease) Father Diabetes Social History Smoking and tobacco/nicotine status: current every day tobacco/nicotine user Alcohol intake: current Alcohol intake frequency: few times a month Substance/Drug Use: never Lives independently: Yes Household members: spouse Marital status: Current occupational status: disabled Physical Exam 2 Const: COMMON NORMALS: no acute distress, average body habitus, patient oriented x3, healthy appearing, alert and well nourished GENERAL APPEARANCE: well kempt and well developed HENMT: COMMON NORMALS: normocephalic, atraumatic, external ears normal and moist oral mucous membranes HEAD & SCALP: normocephalic and atraumatic E XTERNAL EAR: Yes external ears normal Eye: COMMON NORMALS: Equal, round and reactive pupils present, EOMs intact bilaterally and conjunctivae normal CONJUNCTIVA: Yes conjunctivae normal P UPIL: Yes Equal, round and reactive pupils present Neck/C-Spine: COMMON NORMALS: full ROM, no lymphadenopathy and supple Chest: CHEST: Yes Symmetrical chest wall rise and No Surgical scars present (Chest) Resp: COMMON NORMALS: normal respiratory effort, No retractions, No use of accessory muscles and clear to auscultation bilaterally AUSCULTATION: clear to auscultation bilaterally Cardio: COMMON NORMALS: regular rate, regular rhythm, S1 normal heart sound present, S2 normal heart sound present, No gallops present (Cardio), No clicks present (Cardio), No murmurs present (Cardio) and No rub (Cardio) RATE: r egular rate RHYTHM: regular rhythm HEART SOUNDS: S1 normal heart sound present, S2 normal heart sound present and no murmurs PERIPHERAL PULSES: o ther (Radial pulses 2+ and symmetric) GI: COMMON NORMALS: Soft to palpation, non-tender and no masses INSPECTION: No abdominal distension PALPATION: Yes Soft to palpation, No Guarding due to palpation present (GI) and No Rebound tenderness present : COMMON NORMALS: Yes no CVA tenderness BLADDER/KIDNEY EXAM: Yes no CVA tenderness Back/Pelvis: COMMON NORMALS: no CVA tenderness Extremity: COMMON NORMALS: normal to inspection, full ROM, capillary refill normal and no clubbing, cyanosis or edema Neuro: COMMON NORMALS: patient oriented x3 SENSORIUM/ORIENTATION: Yes alert Psych: APPEARANCE: Yes well kempt Skin: COMMON NORMALS: no rashes or lesions noted, no wounds, turgor normal and no jaundice GENERAL SKIN EXAM: no rashes or lesions noted and turgor normal Course 2 Vital Signs: Vital signs: Vital Signs Temperature 97.8 F 01/04/24 15:37 Pulse Rate 78 01/04/24 18:00 Respiratory Rate 24 H 01/04/24 18:00 Blood Pressure 138/90 01/04/24 18:00 Pulse Oximetry 98 01/04/24 18:00 Oxygen Delivery Me thod Room Air 01/04/24 15:37 MDM - Chest Pain Medical Decision Making Patient is in for chest pain. Does have a history of heart failure exacerbated by methamphetamine use. Patient is been out of his medications for a month. He comes in requesting narcotics for pain. Reports he has not used methamphetamine recently. Does still smoke cigarettes and marijuana. Labs reviewed and so far are unremarkable. Still awaiting the second troponin at this time. Does have a slight elevation of his creatinine compared to his baseline but still at CKD 3. Patient is a service once his life or he will not be staying here in the hospital. Is requesting discharge at this time. At the moment he has agreed to wait for the second troponin to result and it has been sent to lab. Medical Records I reviewed the patient's medical records. Lab Data I reviewed the patient's lab results. 01/04/24 17:14 01/04/24 17:14 Radiology Impressions Chest X-Ray 01/04/24 15:28 IMPRESSION: 1. No acute thoracic pathology. 2. Suggested COPD. 3. Suggested emphysema. Laboratory Results WBC 7.96 10^3/uL (3.29-11.43) 01/04/24 17:14 RBC 4.62 10^6/uL (3.85-5.65) 01/04/24 17:14 Hgb 13.40 g/dL (11.27-16.99) 01/04/24 17:14 Hct 41.0 % (37-53) 01/04/24 17:14 MCV 88.7 fl (82-101) 01/04/24 17:14 MCH 29.0 pg (27-33) 01/04/24 17:14 MCHC 32.7 g/dL (30-55) 01/04/24 17:14 RDW 15.9 % (12.1-15.1) H 01/04/24 17:14 Plt Count 285 10^3/cmm (157-399) 01/04/24 17:14 MPV 10.6 fL (7.4-10.4) H 01/04/24 17:14 Neut % (Auto) 67.9 % 01/04/24 17:14 Lymph % (Auto) 21.2 % 01/04/24 17:14 [place] % (Auto) 7.8 % 01/04/24 17:14 Eos % (Auto) 2.1 % 01/04/24 17:14 Baso % (Auto) 0.6 % 01/04/24 17:14 Neut # (Auto) 5.40 10^3/uL (1.8-7.7) 01/04/24 17:14 Lymph # (Auto) 1.7 10^3/uL (0.8-4.8) 01/04/24 17:14 [place] # (Auto) 0.6 10^3/uL (0.2-0.9) 01/04/24 17:14 Eos # (Auto) 0.2 10^3/uL (0.0-0.8) 01/04/24 17:14 Baso # (Auto) 0.1 10^3/uL (0.0-0.1) 01/04/24 17:14 Nucleated RBC % (auto) 0 % 01/04/24 17:14 Nucleated RBCs # 0.0 /100WBC 01/04/24 17:14 PT 14.30 SECONDS (12.1-14.9) 01/04/24 17:14 INR 1.08 (0.8-1.2) 01/04/24 17:14 Sodium 139 mmol/L (136-145) 01/04/24 17:14 Potassium 4.5 mmol/L (3.5-5.1) 01/04/24 17:14 Chloride 106 mmol/L (98-107) 01/04/24 17:14 Carbon Dioxide 22 mmol/L (22-29) 01/04/24 17:14 Anion Gap 15.5 (5-19) 01/04/24 17:14 BUN 28 mg/dL (6-20) H 01/04/24 17:14 Creatinine 1.9 mg/dL (0.7-1.2) H 01/04/24 17:14 GFR Calculation 36.5 mL/min (90-130) L 01/04/24 17:14 Glucose 125 mg/dL (65-115) H 01/04/24 17:14 Calculated Osmolality 295 mOsm/kg (285-295) 01/04/24 17:14 Calcium 8.6 mg/dL (8.5-10.5) 01/04/24 17:14 Total Bilirubin 0.5 mg/dL (0.15-1.2) 01/04/24 17:14 AST 32 U/L (0-40) 01/04/24 17:14 ALT 26 U/L (0-41) 01/04/24 17:14 Alkaline Phosphatase 112 U/L (40-130) 01/04/24 17:14 Troponin T Baseline 36 ng/L (0-15) H 01/04/24 17:14 NT-Pro-B Natriuret Pep 80239 pg/mL (0-125) H 01/04/24 17:14 Total Protein 7.2 g/dL (6.6-8.7) 01/04/24 17:14 Albumin 4.3 g/dL (3.5-5.2) 01/04/24 17:14 Globulin 2.9 g/dL (1.3-4.6) 01/04/24 17:14 Lipase 30 U/L (13-60) 01/04/24 17:14 All radiology interpretation(s) finalized by discharge ED provider radiology interpretation(s): X-ray of the chest unremarkable. EKG Data EKG 1: I personally reviewed and interpreted this EKG as follows: EKG interpretation date: 01/04/24 EKG interpretation time: 15:38 Prior EKG tracings: not available for review Interpretation: Sinus rate of 78, no ST elevation no prolonged intervals. Positive for LVH. EKG 2: I personally reviewed and interpreted this EKG as follows: EKG interpretation date: 01/04/24 EKG interpretation time: 17:25 Prior EKG tracings: available for review Interpretation: Sinus rate 78, no ST elevation or depression. Much less artifact than initial EKG. There are some signs of LVH. No prolonged intervals. Computer technically called 453 a prolonged QT. Discharge Plan Discharge Patient Disposition: Home Clinical Impression: Acute exacerbation of CHF (congestive heart failure) Qualifiers: Heart failure type: unspecified Qualified Code(s): I50.9 - Heart failure, unspecified Chest pain Qualifiers: Chest pain type: unspecified Qualified Code(s): R07.9 - Chest pain, unspecified Condition: Stable Prescriptions: New Lasix 40 mg tablet 40 mg PO DAILY Qty: 30 0RF Rx Instructions: Further refills need to come from primary care. Continued nitroglycerin 0.4 mg tablet, sublingual 0.4 mg sublingual Q5M PRN (Reason: chest pain) Qty: 30 0RF Rx Instructions: do not exceed 3 doses per episode albuterol sulfate 90 mcg/actuation HFA aerosol inhaler 2 inh INHALATION Q6H PRN (Reason: shortness of breath or wheezing) Qty: 8 0RF Discontinued doxycycline hyclate 100 mg tablet 100 mg PO BID No Action prednisone 50 mg tablet 50 mg PO DAILY Qty: 5 0RF Lasix 40 mg tablet 40 mg PO DAILY Qty: 30 0RF Discharge Orders: Discharge ED (Routine); Ordered 01/04/24 Ordered By: Fausto Rodriguez Referrals: Nano Cohen DO [Primary Care Provider] - Discharge Diet: Cardiac Discharge Activity: Resume usual activity Patient Instructions: DASH Eating Plan (ED) Coding Level of Care Code ED Charge Master Analyst for Zoë Arce
--- NOTE | 2024-01-04 17:28 | ECG_ITS ---
[facility] Test Date: 2024-01-04 Pat Name: Christian Sparks Department: Room: Gender: Male Hoseman: : 1965 Requested By: Paco Nice Order Number: [id number] Jesús MD: Elham Johnson M.D. Measurements Intervals [place] Rate: 78 P: -1 DE: 138 QRS: 67 QRSD: 90 T: 59 QT: 453 QTc: 516 Interpretive Statements SINUS RHYTHM MINIMAL VOLTAGE CRITERIA FOR LVH, CONSIDER NORMAL VARIANT [MEETS CRITERIA IN ONE OF: R(aVL), S(V1), R(V5), R(V5/V6)+S(V1)] NONSPECIFIC T-WAVE ABNORMALITY PROLONGED QT INTERVAL Compared to ECG 01/04/2024 15:32:19 Prolonged QT interval now present T-wave abnormality still present Electronically Signed On 01-04-2024 20:27:22 CDT by Elham Johnson M.D. [email or web address] [facility] of sm[facility] countyNerdiesholmes [facility].[employer]/store/OM/[id number]/[id number]
[2024-01-04 17:34] LABS: INR 1.08 (0.8-1.2)
[2024-01-04 17:38] LABS: Alanine Aminotransferase 26 U/L (0-41); Albumin Level 4.3 g/dL (3.5-5.2); Alkaline Phosphatase 112 U/L (40-130); Aspartate Amino Transferase 32 U/L (0-40); Blood Urea Nitrogen 28 mg/dL (6-20); Calcium 8.6 mg/dL (8.5-10.5); Carbon Dioxide 22 mmol/L (22-29); Chloride 106 mmol/L (98-107); Globulin 2.9 g/dL (1.3-4.6); Glomerular Filtration Rate 36.5 mL/min (90-130); Glucose 125 mg/dL (65-115); Lipase 30 U/L (13-60); Osmolality Calculated 295 mOsm/kg (285-295); Sodium 139 mmol/L (136-145); Total Bilirubin 0.5 mg/dL (0.15-1.2); Total Protein 7.2 g/dL (6.6-8.7)
[2024-01-04 17:40] VITALS: BP 138/90; PULSE 73; RESP 29; O2SAT 92
[2024-01-04 17:40] LABS: Anion Gap 15.5 (5-19); Creatinine Clr Calc Pharmacy 39.8546; Potassium 4.5 mmol/L (3.5-5.1)
[2024-01-04 17:41] LABS: Troponin(5th) Baseline 36 ng/L (0-15)
[2024-01-04 17:52] LABS: NT Pro B Type Natriuretic Pept 19858 pg/mL (0-125)
[2024-01-04 18:00] VITALS: BP 138/90; PULSE 78; RESP 24; O2SAT 98
[2024-01-04] MEDS: ketorolac 30 mg/mL INJ 15 MG IVP (18:22)
[2024-01-04] MEDS: FUROsemide 10 mg/mL SDV 4mL 40 MG IVP (18:22)
[2024-01-04] MEDS: nitroglycerin 0.4 mg sublingual Tablet 0.400000000000000022 MG SUBLINGUAL ×2 (18:24→18:46)
[2024-01-04 19:25] VITALS: BP 133/84; PULSE 82; RESP 24; O2SAT 95
[2024-01-04 19:42] LABS: Troponin 5 2HR 29.29 ng/L (0-15)
[2024-01-04 19:45] LABS: Troponin 5 2HR Delta -6.71 ABS# (0-10)
== END 2024-01-04 20:14 | disposition home or self-care (01) ==
PROVIDERS: Emergency Medicine; Emergency Provider Emergency Medicine; PCP Family Medicine
DX: I13.0 Hypertensive heart and chronic kidney disease with heart failure and stage 1 through stage 4 chronic kidney disease, or unspecified chronic kidney disease (principal); N18.30 Chronic kidney disease, stage 3 unspecified; I50.9 Heart failure, unspecified; R07.9 Chest pain, unspecified; I25.10 Atherosclerotic heart disease of native coronary artery without angina pectoris; J44.9 Chronic obstructive pulmonary disease, unspecified; Z72.0 Tobacco use
CPT/HCPCS: 71045; 80053; 83690; 83880; 84484; 85025; 85610; 93005; 96374; 96375; 99285; J1885; J1940

== ENCOUNTER 2024-02-10 04:16 | Inpatient (IN) | payer MEDICARE, SELFPAY ==
[2024-02-10] VITALS (18 sets, daily range): BP systolic 131–156; BP diastolic 71–120; PULSE 69–91; RESP 14–23; TEMP 36.4–37.1; O2SAT 91–100; BMI 27.4; BMI 23.1
--- NOTE | 2024-02-10 04:16 | ECG_ITS ---
[facility] Test Date: 2024-02-10 Pat Name: Christian Sparks Department: Room: 251 Gender: Male [employer] Consultant: EVELIO: 1965 Requested By: Paco Nice Order Number: [id number] Jesús MD: Elham Johnson M.D. Measurements Intervals [place] Rate: 81 P: 74 AL: 139 QRS: 54 QRSD: 89 T: 70 QT: 430 QTc: 501 Interpretive Statements SINUS RHYTHM WITH OCCASIONAL VENTRICULAR PREMATURE COMPLEXES WITH OCCASIONAL SUPRAVENTRICULAR PREMATURE COMPLEXES POSSIBLE LEFT ATRIAL ENLARGEMENT [-0.1mV P-WAVE IN V1/V2] POSSIBLE LEFT VENTRICULAR HYPERTROPHY [VOLTAGE CRITERIA PLUS LAE OR QRS WIDENING] NONSPECIFIC T-WAVE ABNORMALITY PROLONGED QT INTERVAL Compared to ECG 01/04/2024 17:23:47 Ventricular premature complex(es) now present T-wave abnormality still present Electronically Signed On 02-11-2024 21:47:13 CDT by Elham Johnson M.D. [email or web address].[employer]/store/NU/[id number] f
--- NOTE | 2024-02-10 04:27 | ED_ITS ---
HPI - SOB/Dyspnea 2 General: Chief Complaint: Shortness of Breath/Dyspnea Stated Complaint: SoB,CP Time Seen by Provider: 02/10/24 04:19 Source: patient Mode of arrival: ambulatory Limitations: no limitations History of Present Illness: HPI Narrative: 58-year-old male who has a history of co ngestive heart failure he states that he ran out of his Lasix 3 days ago and has not been taking his Lasix he has been having progressively worsening shortness of breath especially with laying flat he states it worsened tonight 2. States been having chest pain over the last 2 to 3 days as well states the pain is mild in nature denies any severe pain he denies any cough or fever. Associated symptoms: Reports chest pain; Deny abdominal pain, fever(s), nausea or vomiting Review of Systems 2 Const: Denies: fever(s), chills, body aches or change in appetite ENMT: Denies: throat pain or dental pain Card: Reports: chest pain Resp: Reports: dyspnea GI: Denies: abdominal pain, nausea, vomiting or diarrhea : Denies: dysuria Musc: Denies: neck pain or back pain Skin/Breast: Denies: rash Neuro: Denies: headache(s) PFSH ED 2 PFSH: Medical History Coronary artery disease Angiogram: March 2023: Moderate left main stenosis. Worsening angina CKD (chronic kidney disease) stage 3, GFR 30-59 ml/min Tobacco use Osteoarthritis of right shoulder COPD (chronic obstructive pulmonary disease) Chest pain Migraine Hypertension Stenosis, spinal, lumbar Surgical History Post-operative state Hx of tonsillectomy H/O shoulder surgery H/O skin graft S/P lumbar laminectomy (05/25/19) Dr Hinojosa bilateral L3-4 laminotomy/foraminotomy. Family History Mother CAD (coronary artery disease) Father Diabetes Social History Smoking and tobacco/nicotine status: current every day tobacco/nicotine user Alcohol intake: current Alcohol intake frequency: few times a month Substance/Drug Use: never Lives independently: Yes Household members: spouse Marital status: Current occupational status: disabled Physical Exam 2 Const: COMMON NORMALS: patient oriented x3 HENMT: COMMON NORMALS: normocephalic and atraumatic HEAD & SCALP: n ormocephalic and atraumatic Neck/C-Spine: COMMON NORMALS: full ROM and supple Chest: COMMONS NORMALS: normal inspection of the chest Resp: COMMON NORMALS: No retractions EFFORT & INSPECTION: Yes respiratory distress Cardio: COMMON NORMALS: regular rate, regular rhythm and No murmurs present (Cardio) RATE: regular rate RHYTHM: regular rhythm GI: COMMON NORMALS: Normal to inspection, nondistended, normoactive bowel sounds present, Soft to palpation, non-tender and no masses PALPATION: Yes Soft to palpation Extremity: COMMON NORMALS: full ROM NARRATIVE EXTREMITY EXAM: 1+ edema to le Neuro: COMMON NORMALS: patient oriented x3, moves all extremities and no focal motor deficits Psych: COMMON NORMALS: mental status grossly normal, Normal thought process present and cooperative THOUGHT PROCESS: Normal thought process present Skin: COMMON NORMALS: no rashes or lesions noted and no wounds GENERAL SKIN EXAM: no rashes or lesions noted Course 2 Vital Signs: Vital signs: Vital Signs Temperature 97.8 F 02/10/24 04:19 Pulse Rate 82 02/10/24 04:26 Respiratory Rate 23 H 02/10/24 04:45 Blood Pressure 144/120 02/10/24 04:26 Pulse Oximetry 94 02/10/24 04:45 Oxygen Delivery Me thod Room Air 02/10/24 04:26 MDM - SOB/Dyspnea Medical Decision Making Patient presents here with shortness of breath he does have some lower extremity edema he is requiring 2 L oxygen as he is desaturating into the 80s. X-ray shows pulmonary edema he has not been taking his Lasix will admit for observation to diuresis troponin here is at his baseline EKG shows no acute findings no signs of acute ACS. Medical Records I reviewed the patient's medical records. Lab Data I reviewed the patient's lab results. 02/10/24 04:20 02/10/24 04:20 Labs/Radiology: Laboratory Results WBC 9.80 10^3/uL (3.29-11.43) 02/10/24 04:20 RBC 4.73 10^6/uL (3.85-5.65) 02/10/24 04:20 Hgb 13.70 g/dL (11.27-16.99) 02/10/24 04:20 Hct 42.9 % (37-53) 02/10/24 04:20 MCV 90.7 fl (82-101) 02/10/24 04:20 MCH 29.0 pg (27-33) 02/10/24 04:20 MCHC 31.9 g/dL (30-55) 02/10/24 04:20 RDW 15.5 % (12.1-15.1) H 02/10/24 04:20 Plt Count 281 10^3/cmm (157-399) 02/10/24 04:20 MPV 10.2 fL (7.4-10.4) 02/10/24 04:20 Neut % (Auto) 68.3 % 02/10/24 04:20 Lymph % (Auto) 20.6 % 02/10/24 04:20 [place] % (Auto) 6.6 % 02/10/24 04:20 Eos % (Auto) 3.3 % 02/10/24 04:20 Baso % (Auto) 0.8 % 02/10/24 04:20 Neut # (Auto) 6.69 10^3/uL (1.8-7.7) 02/10/24 04:20 Lymph # (Auto) 2.0 10^3/uL (0.8-4.8) 02/10/24 04:20 [place] # (Auto) 0.7 10^3/uL (0.2-0.9) 02/10/24 04:20 Eos # (Auto) 0.3 10^3/uL (0.0-0.8) 02/10/24 04:20 Baso # (Auto) 0.1 10^3/uL (0.0-0.1) 02/10/24 04:20 Nucleated RBC % (auto) 0 % 02/10/24 04:20 Nucleated RBCs # 0.0 /100WBC 02/10/24 04:20 Sodium 138 mmol/L (136-145) 02/10/24 04:20 Potassium 3.5 mmol/L (3.5-5.1) 02/10/24 04:20 Chloride 100 mmol/L (98-107) 02/10/24 04:20 Carbon Dioxide 27 mmol/L (22-29) 02/10/24 04:20 Anion Gap 14.5 (5-19) 02/10/24 04:20 BUN 28 mg/dL (6-20) H 02/10/24 04:20 Creatinine 1.6 mg/dL (0.7-1.2) H 02/10/24 04:20 GFR Calculation 44.5 mL/min (90-130) L 02/10/24 04:20 Glucose 94 mg/dL (65-115) 02/10/24 04:20 Calculated Osmolality 291 mOsm/kg (285-295) 02/10/24 04:20 Calcium 8.9 mg/dL (8.5-10.5) 02/10/24 04:20 Total Bilirubin 0.6 mg/dL (0.15-1.2) 02/10/24 04:20 AST 34 U/L (0-40) 02/10/24 04:20 ALT 26 U/L (0-41) 02/10/24 04:20 Alkaline Phosphatase 111 U/L (40-130) 02/10/24 04:20 Troponin T Baseline 39 ng/L (0-15) H 02/10/24 04:20 NT-Pro-B Natriuret Pep 64782 pg/mL (0-125) H 02/10/24 04:20 Total Protein 7.7 g/dL (6.6-8.7) 02/10/24 04:20 Albumin 4.3 g/dL (3.5-5.2) 02/10/24 04:20 Globulin 3.4 g/dL (1.3-4.6) 02/10/24 04:20 Lipase 36 U/L (13-60) 02/10/24 04:20 All radiology interpretation(s) finalized by discharge EKG Data EKG 1: I personally reviewed and interpreted this EKG as follows: EKG Interpretation Date: 02/10/24 EKG interpretation time: 04:16 Interpretation: nsr no st elevation nonspecific t wave abnormalities unchanged from ekg 01/03 Discharge Plan Discharge Condition: Stable Prescriptions: No Action prednisone 50 mg tablet 50 mg PO DAILY Qty: 5 0RF Lasix 40 mg tablet 40 mg PO DAILY Qty: 30 0RF Rx Instructions: Further refills need to come from primary care. nitroglycerin 0.4 mg tablet, sublingual 0.4 mg sublingual Q5M PRN (Reason: chest pain) Qty: 30 0RF Rx Instructions: do not exceed 3 doses per episode Lasix 40 mg tablet 40 mg PO DAILY Qty: 30 0RF albuterol sulfate 90 mcg/actuation HFA aerosol inhaler 2 inh INHALATION Q6H PRN (Reason: shortness of breath or wheezing) Qty: 8 0RF Referrals: Nano Cohen DO [Primary Care Provider] - Coding Level of Care Code ED Clothing Supervisor for Chg Yazmin
[2024-02-10 04:30] LABS: Basophils # 0.1 10^3/uL (0.0-0.1); Basophils % 0.8 %; Eosinophils # 0.3 10^3/uL (0.0-0.8); Eosinophils % 3.3 %; Hematocrit 42.9 % (37-53); Lymphocytes % 20.6 %; Mean Corpuscular HGB Conc 31.9 g/dL (30-55); Mean Corpuscular Volume 90.7 fl (82-101); Mean Platelet Volume 10.2 fL (7.4-10.4); Monocytes # 0.7 10^3/uL (0.2-0.9); Monocytes % 6.6 %; Neutrophils # 6.69 10^3/uL (1.8-7.7); Neutrophils % 68.3 %; Nucleated Red Blood Cells % 0 %; Platelet Count 281 10^3/cmm (157-399); Red Blood Count 4.73 10^6/uL (3.85-5.65); Red Cell Distribution Width 15.5 % (12.1-15.1)
[2024-02-10] MEDS: aspirin 81 mg Chew Tablet 324 MG PO (04:42)
[2024-02-10] MEDS: ondansetron 2 mg/ML SDV 2 mL 4 MG IVP (04:43)
[2024-02-10] MEDS: morphine 4 mg/mL SDV 1 mL IVP (04:45)
[2024-02-10] MEDS: FUROsemide 10 mg/mL SDV 10mL 80 MG IVP (04:47)
--- NOTE | 2024-02-10 04:50 | ECG_ITS ---
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 Measurements Intervals [place] Rate: 88 P: 73 [place]: 137 QRS: 50 QRSD: 89 T: 86 QT: 446 QTc: 540 Interpretive Statements SINUS RHYTHM WITH FREQUENT VENTRICULAR PREMATURE COMPLEXES NONSPECIFIC T-WAVE ABNORMALITY PROLONGED QT INTERVAL Compared to ECG 01/04/2024 17:23:47 Ventricular premature complex(es) now present T-wave abnormality still present Electronically Signed On 02-11-2024 22:04:50 CDT by Elham Johnson M.D. [email or web address]/store/OM/[id number]
[2024-02-10 04:53] LABS: Troponin(5th) Baseline 39 ng/L (0-15)
--- NOTE | 2024-02-10 04:59 | XRR_ITS ---
PROCEDURE INFORMATION: Exam: XR Chest Exam date and time: 02/10/2024 5:10 AM Age: 58 years old Clinical indication: Shortness of breath; Chest pressure; Patient HX: C/O chest pain with SOB. TECHNIQUE: Imaging protocol: Radiologic exam of the chest. Views: 1 view. COMPARISON: CR (CHEST, ) 01/04/2024 5:05 PM FINDINGS: Lungs: Unremarkable. No consolidation. Pleural spaces: Unremarkable. No pleural effusion. No pneumothorax. Heart/Mediastinum: Unremarkable. No cardiomegaly. Bones/joints: Unremarkable. XR/XR chest 1V portable [id number] IMPRESSION: No acute findings.
[2024-02-10 05:00] LABS: Alanine Aminotransferase 26 U/L (0-41); Albumin Level 4.3 g/dL (3.5-5.2); Alkaline Phosphatase 111 U/L (40-130); Anion Gap 14.5 (5-19); Aspartate Amino Transferase 34 U/L (0-40); Blood Urea Nitrogen 28 mg/dL (6-20); Calcium 8.9 mg/dL (8.5-10.5); Carbon Dioxide 27 mmol/L (22-29); Chloride 100 mmol/L (98-107); Creatinine Clr Calc Pharmacy 48.6031; Globulin 3.4 g/dL (1.3-4.6); Glomerular Filtration Rate 44.5 mL/min (90-130); Glucose 94 mg/dL (65-115); Lipase 36 U/L (13-60); NT Pro B Type Natriuretic Pept 13967 pg/mL (0-125); Osmolality Calculated 291 mOsm/kg (285-295); Potassium 3.5 mmol/L (3.5-5.1); Sodium 138 mmol/L (136-145); Total Bilirubin 0.6 mg/dL (0.15-1.2); Total Protein 7.7 g/dL (6.6-8.7)
[2024-02-10 05:17] LABS: Magnesium 2.3 mg/dL (1.7-2.3)
[2024-02-10 05:40] LABS: Amphetamines Screen Urine Positive (Negative); Barbiturates Screen Urine Negative (Negative); Benzodiazepines Screen Urine Negative (Negative); Cocaine Screen Urine Negative (Negative); Opiate Screen Urine Positive (Negative); PCP Screen Urine Negative (Negative); THC Screen Urine Negative (Negative)
--- NOTE | 2024-02-10 06:51 | P.HP_ITS ---
Providers/Chief Complaint 2 Admitting Physician: Carolyn Bach MD Primary Care Provider: Nano Cohen DO Chief Complaint: SoB,CP History of Present Illness Christian Sparks is a 58 year old male with history of CHF, nonobstructive CAD with left main stenosis on prior coronary angiography, nonischemic cardiomyopathy with last known EF of 40 to 45%. He presents to the emergency room today with increasing shortness of breath over the past few weeks. Patient states he has not been able to perform even his usual activities such as walking within the house to the bathroom and back. He has been out of Lasix prescription for several days and has not taken the medication in at least the past 1 week. He also complains of chest pain, worsened over the last 3 days. Worse with exertion. No apparent relieving factors. He does not currently have a primary care physician and has been out of several prescriptions including those for metoprolol and Lasix. In reviewing his past notes from admission in July 2023, patient was on amiodarone metoprolol and statins together with aspirin, however it does not appear he is on any of these medications at this time. Patient states that he has been intermittently using his family members oxygen at home when he subjectively feels dyspneic. He has not checked oxygen saturation at home recently. Review of Systems 2 General: Reports: 10 or more systems reviewed and unremarkable except in HPI and below Const: Denies: fever(s), chills or body aches Eyes: Denies: change in vision, blurry vision or photophobia ENMT: Reports: hoarseness; Denies: throat pain, enlarged tonsils, odynophagia or nasal congestion Card: Denies: chest pain, palpitations, irregular heart rhythm, edema, swelling of feet/ankles, lightheadedness, pre-syncope, dyspnea on exertion or orthopnea Resp: Denies: dyspnea, productive cough, non-productive cough, wheezing, stridor, pain on inspiration, change in phlegm color, hemoptysis or chest congestion GI: Denies: abdominal pain, nausea, vomiting, hematemesis, coffee ground emesis, dysphagia, heartburn, diarrhea, constipation, GI cramping, change in stool character, hematochezia or melena : Denies: flank pain, dysuria, urinary frequency, urinary urgency, urinary hesitancy or hematuria Musc: Denies: neck pain, back pain, extremity pain, joint swelling, joint warmth or deformity Neuro: Denies: headache(s), numbness in extremities, weakness in extremities, sensory changes, difficulty walking, frequent falls, dizziness, vertigo, behavioral changes, Slurred speech present or seizure-like activity Psych: Denies: anxiety, depression, suicidal ideation or homicidal ideation Endo: Denies: polyuria, polydipsia, tired all the time, cold intolerance or hot flashes Jeffy/Lymph: Denies: easy bruising or easy bleeding Medications/Allergies Home Medications Medication Instructions Recorded Confirmed Last Taken Type prednisone 50 mg tablet 50 mg PO DAILY #5 tabs 07/08/23 07/31/23 2 Days Ago Rx ~07/26/23 see pharmacy comment albuterol sulfate 90 mcg/actuation 2 inh inhalation Q6H PRN shortness 08/22/23 Unknown Rx aerosol inhaler of breath or wheezing #8 grams furosemide 40 mg tablet (Lasix) 40 mg PO DAILY #30 tabs 08/22/23 Unknown Rx nitroglycerin 0.4 mg sublingual 0.4 mg sublingual Q5M PRN chest 08/22/23 Unknown Rx tablet pain #30 tabs furosemide 40 mg tablet (Lasix) 40 mg PO DAILY #30 tabs 01/04/24 Unknown Rx Allergies Allergy/AdvReac Type Severity Reaction Status Date / Time gabapentin Allergy Intermediate nausea/vomi Verified 01/04/24 15:41 ting PFSH Acute 2 PFSH: Medical History Coronary artery disease Angiogram: March 2023: Moderate left main stenosis. Worsening angina CKD (chronic kidney disease) stage 3, GFR 30-59 ml/min Tobacco use Osteoarthritis of right shoulder COPD (chronic obstructive pulmonary disease) Chest pain Migraine Hypertension Stenosis, spinal, lumbar Surgical History Post-operative state Hx of tonsillectomy H/O shoulder surgery H/O skin graft S/P lumbar laminectomy (05/25/19) Dr Hinojosa bilateral L3-4 laminotomy/foraminotomy. Family History Mother CAD (coronary artery disease) Father Diabetes Social History Smoking and tobacco/nicotine status: current every day tobacco/nicotine user Alcohol intake: current Alcohol intake frequency: few times a month Substance/Drug Use: never Lives independently: Yes Household members: spouse Marital status: Current occupational status: disabled Vitals/I&O/Wt Last Vital Signs Temp 97.8 F 02/10/24 04:19 Pulse 91 02/10/24 05:25 Resp 17 02/10/24 05:25 BP 156/97 02/10/24 05:25 Pulse Ox 91 02/10/24 05:25 O2 Del Method Nasal Cannula 02/10/24 06:29 O2 Flow Rate 2 02/10/24 05:25 Weight last 48 hrs Weight 66.996 kg Weight 77.111 kg Physical Exam 2 Narrative: General: No acute distress, AO x3 HEENT: PERRLA, pupils bilaterally equal and reactive, pallors not present Chest: crackles on exam B/L CVS: S1-S2 regular, no murmurs, no tachycardia, no gallops, no rubs Abdomen: Soft, nontender, no organomegaly, bowel sounds present Neuro: No focal deficits, no facial deformity, AO x3, power 5/5 in all limbs . Data 02/10/24 04:20 02/10/24 04:20 Other data: Radiology Impressions Chest X-Ray 02/10/24 04:59 IMPRESSION: No acute findings. Laboratory Results WBC 9.80 10^3/uL (3.29-11.43) 02/10/24 04:20 RBC 4.73 10^6/uL (3.85-5.65) 02/10/24 04:20 Hgb 13.70 g/dL (11.27-16.99) 02/10/24 04:20 Hct 42.9 % (37-53) 02/10/24 04:20 MCV 90.7 fl (82-101) 02/10/24 04:20 MCH 29.0 pg (27-33) 02/10/24 04:20 MCHC 31.9 g/dL (30-55) 02/10/24 04:20 RDW 15.5 % (12.1-15.1) H 02/10/24 04:20 Plt Count 281 10^3/cmm (157-399) 02/10/24 04:20 MPV 10.2 fL (7.4-10.4) 02/10/24 04:20 Neut % (Auto) 68.3 % 02/10/24 04:20 Lymph % (Auto) 20.6 % 02/10/24 04:20 Hamlin % (Auto) 6.6 % 02/10/24 04:20 Eos % (Auto) 3.3 % 02/10/24 04:20 Baso % (Auto) 0.8 % 02/10/24 04:20 Neut # (Auto) 6.69 10^3/uL (1.8-7.7) 02/10/24 04:20 Lymph # (Auto) 2.0 10^3/uL (0.8-4.8) 02/10/24 04:20 [place]lin # (Auto) 0.7 10^3/uL (0.2-0.9) 02/10/24 04:20 Eos # (Auto) 0.3 10^3/uL (0.0-0.8) 02/10/24 04:20 Baso # (Auto) 0.1 10^3/uL (0.0-0.1) 02/10/24 04:20 Nucleated RBC % (auto) 0 % 02/10/24 04:20 Nucleated RBCs # 0.0 /100WBC 02/10/24 04:20 Sodium 138 mmol/L (136-145) 02/10/24 04:20 Potassium 3.5 mmol/L (3.5-5.1) 02/10/24 04:20 Chloride 100 mmol/L (98-107) 02/10/24 04:20 Carbon Dioxide 27 mmol/L (22-29) 02/10/24 04:20 Anion Gap 14.5 (5-19) 02/10/24 04:20 BUN 28 mg/dL (6-20) H 02/10/24 04:20 Creatinine 1.6 mg/dL (0.7-1.2) H 02/10/24 04:20 GFR Calculation 44.5 mL/min (90-130) L 02/10/24 04:20 Glucose 94 mg/dL (65-115) 02/10/24 04:20 Calculated Osmolality 291 mOsm/kg (285-295) 02/10/24 04:20 Calcium 8.9 mg/dL (8.5-10.5) 02/10/24 04:20 Magnesium 2.3 mg/dL (1.7-2.3) 02/10/24 04:20 Total Bilirubin 0.6 mg/dL (0.15-1.2) 02/10/24 04:20 AST 34 U/L (0-40) 02/10/24 04:20 ALT 26 U/L (0-41) 02/10/24 04:20 Alkaline Phosphatase 111 U/L (40-130) 02/10/24 04:20 Troponin T Baseline 39 ng/L (0-15) H 02/10/24 04:20 Troponin T 120 Minute 37.03 ng/L (0-15) H 02/10/24 06:22 Delta Troponin T -1.97 ABS# (0-10) L 02/10/24 06:22 NT-Pro-B Natriuret Pep 70060 pg/mL (0-125) H 02/10/24 04:20 Total Protein 7.7 g/dL (6.6-8.7) 02/10/24 04:20 Albumin 4.3 g/dL (3.5-5.2) 02/10/24 04:20 Globulin 3.4 g/dL (1.3-4.6) 02/10/24 04:20 Lipase 36 U/L (13-60) 02/10/24 04:20 Urine Opiates Screen Positive ng/mL (Negative) H 02/10/24 05:20 Ur Barbiturates Screen Negative ng/mL (Negative) 02/10/24 05:20 Ur Phencyclidine Scrn Negative ng/mL (Negative) 02/10/24 05:20 Ur Amphetamines Screen Positive ng/mL (Negative) H 02/10/24 05:20 U Benzodiazepines Scrn Negative ng/mL (Negative) 02/10/24 05:20 Urine Cocaine Screen Negative ng/mL (Negative) 02/10/24 05:20 U Marijuana (THC) Screen Negative ng/mL (Negative) 02/10/24 05:20 A&P Assessment and plan (1) Amphetamine abuse: (2) Acute exacerbation of CHF (congestive heart failure): Qualifiers: Heart failure type: unspecified Qualified Code(s): I50.9 - Heart failure, unspecified (3) COPD (chronic obstructive pulmonary disease): Plan 58-year-old male with a past medical history of nonischemic cardiomyopathy thought to be related to amphetamine abuse in the past. Noncompliant with medications. Presenting to the hospital today with worsening dyspnea and chest pain over the course of past 3 weeks. Has a new oxygen requirement, however uncertain if this is truly a new oxygen requirement since patient states he has been using his family supplemental O2 at home intermittently. Also has been diagnosed with COPD, he continues to smoke. EKG today showing sinus rhythm with VPCs, QT interval at 501. No obvious offending medication noted on his medication list. Monitor with serial EKGs. Potassium within range. Check magnesium Baseline troponin at 39, 2-hour at 37 downtrending. Elevated BNP at 13,000, crackles on exam, clinical picture consistent with acute on chronic CHF exacerbation. He has received Lasix 80 mg IV in the emergency room. Continue with Lasix 40 mg IV daily. Closely monitor LEE's, patient does not want Rajput catheter at this time. No current signs of COPD exacerbation. Screening D dimer for PE Last echocardiogram from July 2023 with LVEF of 40 to 45%. Mild global hypokinesia. Stress test from July 2023 with prior infarct in the LAD territory and areas of prior infarct. Estimated LVEF on stress test at 27%. Dvt ppx: lovenox full code Attestations 2 Medical Necessity Statement*: > 2 midnight admission anticipated Coding Level of Care Code Acute Code for Chg Fwd Moderate MDM includes number and complexity of problems actively addressed during encounter, amount and/or complexity of data reviewed/ordered and described risk of complication, morbidity or mortality of management as documented Diagnoses Amphetamine abuse F15.10 Acute exacerbation of CHF (congestive heart failure) I50.9 Heart failure type: unspecified COPD (chronic obstructive pulmonary disease) J44.9
[2024-02-10 07:08] LABS: Troponin 5 2HR 37.03 ng/L (0-15)
[2024-02-10 07:13] LABS: Troponin 5 2HR Delta -1.97 ABS# (0-10)
[2024-02-10] MEDS: pantoprazole DR 40 mg Tablet PO (07:50)
[2024-02-10] MEDS: FUROsemide 10 mg/mL SDV 4mL 40 MG IVP (07:50)
[2024-02-10] MEDS: heparin 5,000 unit/mL INJ 1 mL 5000 UNIT SUBCUT ×3 (07:50→22:31)
[2024-02-10] MEDS: morphine 4 mg/mL SDV 1 mL 2 MG IVP ×4 (07:59→22:33)
[2024-02-10] MEDS: aspirin 81 mg EC Tablet PO (08:55)
--- NOTE | 2024-02-10 08:55 | USCV_ITS ---
Christian Sparks Age: 58 Gender: M : 1965 Exam Date: 02/10/2024 14:24 Ordering Phys: Roberto Hdz MD Technologist: [place] [facility] [place]: new chf hx of cad BP: 132 / 76 HR: 238 Rhythm: Sinus Technical Quality: Adequate MEASUREMENTS (Male / Female) Normal Values 2D ECHO LV Diastolic Diameter PLAX 5.5 cm 4.2 - 5.9 / 3.9 - 5.3 cm IVS Diastolic Thickness 0.9 cm 0.6 - 1.0 / 0.6 - 0.9 cm IVS Systolic Thickness 1.1 cm LVPW Diastolic Thickness 1.2 cm 0.6 - 1.0 / 0.6 - 0.9 cm LVPW Systolic Thickness 1.5 cm LVOT Diameter 1.8 cm LV Ejection Fraction 2D Teich 29.0 % LV Ejection Fraction MOD 2C 30.7 % LV Ejection Fraction 2C AL 32.4 % LA Diameter 4.2 cm RA Systolic Volume 4C AL 54.6 ml RA Systolic Volume 4C MOD 52.0 ml Aorta at Sinotubular Diameter 3.0 cm M-MODE LA Ao Ratio MM 1.2 AV Cusp Separation MM 2.0 cm DOPPLER AV Peak Velocity 136.0 cm/s LVOT Peak Velocity 57.0 cm/s AV Area Cont Eq vti 1.3 cm squared AV Area Cont Eq pk 1.0 cm squared MV Peak Velocity 113.0 cm/s MV Area PHT 4.5 cm squared Mitral E to A Ratio 3.4 TR Peak Velocity 387.0 cm/s TR Peak Gradient 59.9 mmHg TV Peak E Velocity 54.0 cm/s Right Atrial Pressure 3.0 mmHg Pulmonary Artery Systolic Pressu 62.9 mmHg PV Peak Velocity 88.0 cm/s FINDINGS Left Ventricle Diffuse hypokinesia of the left ventricular ejection fraction of 32%. Right Ventricle The right ventricle is normal in size and function. Right Atrium Mildly dilated Left Atrium Mildly dilated Mitral Valve No gross abnormalities noted. Mild mitral valve regurgitation. Aortic Valve No gross abnormalities noted Tricuspid Valve No gross abnormalities noted.trace tricuspid valve regurgitation. Pulmonic Valve No gross abnormalities noted Pericardium Normal pericardium without effusion. Aorta Normal ascending aorta dimension. IVC The inferior vena cava appears normal. CONCLUSIONS Diffuse hypokinesia of the left ventricule with an ejection fraction of 32%. Trace of mitral regurgitation. Mild biatrial enlargement. No intracardiac masses or any pericardial effusion Dr Elham Johnson MD FACC (Electronically Signed) Final Date: 11 February 2024 01:00 S
--- NOTE | 2024-02-10 10:17 | ECG_ITS ---
[facility] Test Date: 2024-02-10 Pat Name: Christian Sparks Department: Room: 251 Gender: Male Big Data Developer: EVELIO: 1965 Requested By: Paco Nice Order Number: [id number] Jesús MD: Elham Johnson M.D. Measurements Intervals [place] Rate: 85 P: 77 NH: 145 QRS: 60 QRSD: 88 T: 60 QT: 386 QTc: 460 Interpretive Statements SINUS RHYTHM WITH FREQUENT ECTOPIC PREMATURE COMPLEXES POSSIBLE LEFT VENTRICULAR HYPERTROPHY [VOLTAGE CRITERIA PLUS LAE OR QRS WIDENING] NONSPECIFIC T-WAVE ABNORMALITY Compared to ECG 02/10/2024 04:50:14 Ventricular premature complex(es) no longer present Prolonged QT interval no longer present T-wave abnormality still present Electronically Signed On 02-11-2024 22:05:51 CDT by Elham Johnson M.D. [email or web address] [email or web address] [email or web address] memorial [email or web address] [email or web address] [facility] [email or web address].[employer]/store/OM/[id number]
[2024-02-10] MEDS: doxycycline 100 mg Tablet PO ×2 (10:48→17:14)
[2024-02-10 10:55] LABS: Troponin 5 6HR 35.38 ng/L (0-15)
[2024-02-10 10:57] LABS: Troponin 5 6HR Delta -3.62 ng/L (0-12)
[2024-02-10] MEDS: cyclobenzaprine 10 mg Tablet 5 MG PO ×2 (13:37→22:32)
[2024-02-10] MEDS: potassium chloride ER 20 mEq Tablet 40 MEQ PO (13:37)
--- NOTE | 2024-02-10 13:51 | P.PN_ITS ---
Subjective 2 Subjective: Patient was seen this morning, currently on 2 L, he tells me that his breathing has improved, does report intermittent chest discomfort at times, no fevers, no chills, does report several tick bites, Vitals/I&O/Wt Last Vital Signs Temp 97.7 F 02/10/24 12:00 Pulse 69 02/10/24 12:00 Resp 20 H 02/10/24 12:05 BP 131/88 02/10/24 12:00 Pulse Ox 94 02/10/24 12:00 O2 Del Method Nasal Cannula 02/10/24 12:00 O2 Flow Rate 2 02/10/24 10:00 02/09/24 02/10/24 02/10/24 22:59 06:59 14:59 Intake Total 365 / 365 Output Total 2024 Balance -1660 / -1660 Weight last 48 hrs Weight 66.996 kg Weight 77.111 kg Physical Exam 2 Const: COMMON NORMALS: no acute distress and patient oriented x3 Resp: COMMON NORMALS: normal respiratory effort, No retractions and No use of accessory muscles AUSCULTATION: crackles Cardio: COMMON NORMALS: regular rate, regular rhythm, S1 normal heart sound present and S2 normal heart sound present RATE: regular rate RHYTHM: r egular rhythm HEART SOUNDS: S1 normal heart sound present and S2 normal heart sound present GI: COMMON NORMALS: Normal to inspection, nondistended, normoactive bowel sounds present and non-tender Extremity: COMMON NORMALS: no pedal edema Neuro: COMMON NORMALS: patient oriented x3 Psych: COMMON NORMALS: mental status grossly normal Data 02/10/24 04:20 02/10/24 04:20 A&P Assessment and plan (1) Amphetamine abuse: (2) Acute exacerbation of CHF (congestive heart failure): Qualifiers: Heart failure type: unspecified Qualified Code(s): I50.9 - Heart failure, unspecified (3) COPD (chronic obstructive pulmonary disease): (4) Acute exacerbation of chronic obstructive pulmonary disease (COPD): (5) Tick bite: (6) NSTEMI (non-ST elevated myocardial infarction): (7) JOO (acute kidney injury): (8) Acute hypoxic respiratory failure: Plan 58-year-old male with a past medical history of nonischemic cardiomyopathy thought to be related to amphetamine abuse in the past. Noncompliant with medications. Presenting to the hospital today with worsening dyspnea and chest pain over the course of past 3 weeks. Acute hypoxic respiratory failure ? Secondary to systolic and diastolic CHF exacerbation ? Secondary to CHF exacerbation ? Plan ? Continue Lasix 40 mg IV every 24 hours, monitor creatinine 1.6, monitor potassium, magnesium ? Solu-Medrol ? DuoNeb ? Budesonide ? Monitor respiratory status closely Systolic and diastolic CHF exacerbation ? Cardiac echo ? As above COPD exacerbation As above NSTEMI ? Does report intermittent chest discomfort ? Continue aspirin ? Continue statin ? Cardiac echo Last echocardiogram from July 2023 with LVEF of 40 to 45%. Mild global hypokinesia. Stress test from July 2023 with prior infarct in the LAD territory and areas of prior infarct. Estimated LVEF on stress test at 27%. JOO on CKD ? Likely component of cardiorenal syndrome Current smoker QT prolongation, 501, monitor, magnesium level Tick bite ? Continue doxycycline Amphetamine abuse Dvt ppx: lovenox full code Plan for today, DuoNeb, budesonide, Solu-Medrol, Lasix therapy, cardiac echo, monitor respiratory status closely Attestations 2 Medical Necessity Statement*: Patient requires hospitalization for acute hypoxic respiratory failure secondary to CHF, COPD, NSTEMI, JOO, Diagnoses Amphetamine abuse F15.10 Acute exacerbation of CHF (congestive heart failure) I50.9 Heart failure type: unspecified COPD (chronic obstructive pulmonary disease) J44.9 Acute exacerbation of chronic obstructive pulmonary disease (COPD) J44.1 Tick bite W57.XXXA NSTEMI (non-ST elevated myocardial infarction) I21.4 JOO (acute kidney injury) N17.9 Acute hypoxic respiratory failure J96.01
[2024-02-10] MEDS: methylPREDNISolone sod succ 125 mg/2 mL INJ IVP (14:30)
--- NOTE | 2024-02-10 20:06 | PC.NURSE ---
Pt was educated on the importance of following the ordered fluid restriction. Pt verbalized understanding and continues to ask for more fluids to drink and family is also brining in drinks.
[2024-02-10] MEDS: atorvastatin 40 mg Tablet PO (20:08)
[2024-02-10] MEDS: budesonide 0.5 mg/2 mL Neb INHALATION (20:25)
[2024-02-11] VITALS (11 sets, daily range): BP systolic 124–144; BP diastolic 70–88; PULSE 77–91; RESP 16–19; TEMP 36.7–37.1; O2SAT 91–98
[2024-02-11 05:28] LABS: Basophils % 0.1 %; Hematocrit 48.5 % (37-53); Lymphocytes # 0.5 10^3/uL (0.8-4.8); Lymphocytes % 3.7 %; Mean Corpuscular Hemoglobin 28.9 pg (27-33); Mean Corpuscular Volume 90.5 fl (82-101); Mean Platelet Volume 10.8 fL (7.4-10.4); Monocytes # 0.2 10^3/uL (0.2-0.9); Monocytes % 1.2 %; Neutrophils # 12.69 10^3/uL (1.8-7.7); Neutrophils % 94.5 %; Nucleated Red Blood Cells % 0 %; Platelet Count 383 10^3/cmm (157-399); Red Blood Count 5.36 10^6/uL (3.85-5.65); Red Cell Distribution Width 15.4 % (12.1-15.1); White Blood Count 13.42 10^3/uL (3.29-11.43)
[2024-02-11 05:58] LABS: Alanine Aminotransferase 25 U/L (0-41); Albumin Level 4.3 g/dL (3.5-5.2); Alkaline Phosphatase 114 U/L (40-130); Anion Gap 17.7 (5-19); Aspartate Amino Transferase 27 U/L (0-40); Blood Urea Nitrogen 29 mg/dL (6-20); Calcium 9.2 mg/dL (8.5-10.5); Carbon Dioxide 25 mmol/L (22-29); Chloride 103 mmol/L (98-107); Globulin 3.7 g/dL (1.3-4.6); Glomerular Filtration Rate 51.9 mL/min (90-130); Glucose 118 mg/dL (65-115); Osmolality Calculated 299 mOsm/kg (285-295); Potassium 4.7 mmol/L (3.5-5.1); Sodium 141 mmol/L (136-145); Total Bilirubin 0.6 mg/dL (0.15-1.2)
[2024-02-11 05:59] LABS: Creatinine Clr Calc Pharmacy 55.0514
[2024-02-11 06:03] LABS: NT Pro B Type Natriuretic Pept 10927 pg/mL (0-125)
[2024-02-11] MEDS: heparin 5,000 unit/mL INJ 1 mL 5000 UNIT SUBCUT ×3 (06:17→23:03)
[2024-02-11] MEDS: budesonide 0.5 mg/2 mL Neb INHALATION ×2 (08:14→20:07)
[2024-02-11] MEDS: ipratropium-albuterol 3 mL Neb INHALATION (08:14)
[2024-02-11] MEDS: doxycycline 100 mg Tablet PO ×2 (08:44→17:01)
[2024-02-11] MEDS: pantoprazole DR 40 mg Tablet PO (08:44)
[2024-02-11] MEDS: morphine 4 mg/mL SDV 1 mL 2 MG IVP ×2 (08:45→17:00)
[2024-02-11] MEDS: aspirin 81 mg EC Tablet PO (08:45)
[2024-02-11] MEDS: FUROsemide 10 mg/mL SDV 4mL 40 MG IVP (08:45)
--- NOTE | 2024-02-11 09:01 | PC.CHAP ---
Pastoral Care Encounter/Spiritual Assessment Type of Contact [] Declined measurer visit [] Patient/Family/Request visit [] Outpatient visit [] Follow-up visit [] Physician referral [] Code/Alert [x] Routine visit [] Staff referral [] Actively dying [] Patient sleeping [] Family support [] [] Out of room [] Palliative care [] [] Receiving care in room [] Pre-surgical visit [] Trauma [] Long length of stay [] ICU visit [] Other: Relational/Emotional Strength [x] Patient feels connected with others/family/visitors/staff [] Distress [] Loneliness/isolation [] Abandonment Spirituality of Patient [x] Person of Andree [] Attends Evangelical of their Andree [x] Believes in Prayer [] Reads Bible or Mu-Ism materials [] There are Spiritual issues to be addressed Quality Manager Interventions [x] Prayer [x] Active listening [] Non-anxious presence [x] Spiritual/emotional support [] Crisis/trauma care [] Spiritual counseling [] Bereavement support [] Provided bereavement packet [] Provided Bible/devotional materials [] Provided toy/stuffed animal, coloring book to patient or family member [] Provided Communion [] Anointing/[facility] [] Salvation [x] Completed spiritual assessment [] Other: Impact on Illness or Injury [] Angry [] Fearful [] Anxious [] Often cries [] Exhaustion [] Unable to work [] Unable to attend holiness [] Unable to walk/stand [] Unable to read [] Unable to drive [] Unable to eat/drink [] Unable to sleep [] Unable to be with family [] Patient intubated [] Other: Summary Time spent with patient 5 min
[2024-02-11] MEDS: cyclobenzaprine 10 mg Tablet 5 MG PO (11:17)
[2024-02-11] MEDS: nicotine 14 mg Patch 1 PATCH TRANSDERMA (11:17)
--- NOTE | 2024-02-11 13:49 | P.PN_ITS ---
Subjective 2 Subjective: Patient was seen this morning, he tells me he feels significantly better, his shortness of breath is improving, no episodes of chest pain this morning, no nausea, no vomiting, he is on room air, we discussed his echocardiogram findings his EF down to 32% he does admit to using methamphetamines, we discussed his prior angiogram roughly a year ago which showed left main disease, certainly that could be an etiology in addition to the methamphetamines, he needs to abstain from smoking, he needs to abstain from methamphetamine use, he voiced understanding, all questions answered, discussed talking with cardiology, spoke to cardiology about patient's history, present hospitalization, recommended medical management, afterload reducing agents abstaining from drug use, and following up with cardiology as outpatient Vitals/I&O/Wt Last Vital Signs Temp 98.3 F 02/11/24 12:00 Pulse 82 02/11/24 12:00 Resp 17 02/11/24 12:00 BP 124/70 02/11/24 12:00 Pulse Ox 91 02/11/24 12:00 O2 Del Method Room Air 02/11/24 12:00 O2 Flow Rate 2 02/10/24 20:45 02/10/24 02/11/24 02/11/24 22:59 06:59 14:59 Intake Total 300 / 665 120 / 785 600 / 600 Output Total 200 / 2225 650 / 2875 800 / 800 Balance 100 / -1560 -530 / -2090 -200 / -200 Weight last 48 hrs Weight 72.121 kg Weight 66.996 kg Weight 77.111 kg Physical Exam 2 Const: COMMON NORMALS: no acute distress and patient oriented x3 Resp: COMMON NORMALS: normal respiratory effort, No retractions, No use of accessory muscles and clear to auscultation bilaterally AUSCULTATION: clear to auscultation bilaterally Cardio: COMMON NORMALS: regular rate, regular rhythm, S1 normal heart sound present and S2 normal heart sound present RATE: regular rate RHYTHM: r egular rhythm HEART SOUNDS: S1 normal heart sound present and S2 normal heart sound present GI: COMMON NORMALS: Normal to inspection, nondistended, normoactive bowel sounds present and non-tender Extremity: COMMON NORMALS: no pedal edema Neuro: COMMON NORMALS: patient oriented x3 Psych: COMMON NORMALS: mental status grossly normal Data 02/11/24 04:39 02/11/24 04:39 A&P Assessment and plan (1) Amphetamine abuse: (2) Acute exacerbation of CHF (congestive heart failure): Qualifiers: Heart failure type: unspecified Qualified Code(s): I50.9 - Heart failure, unspecified (3) COPD (chronic obstructive pulmonary disease): (4) Acute exacerbation of chronic obstructive pulmonary disease (COPD): (5) Tick bite: (6) NSTEMI (non-ST elevated myocardial infarction): (7) JOO (acute kidney injury): (8) Acute hypoxic respiratory failure: Plan 58-year-old male with a past medical history of nonischemic cardiomyopathy thought to be related to amphetamine abuse in the past. Noncompliant with medications. Presenting to the hospital today with worsening dyspnea and chest pain over the course of past 3 weeks. Acute hypoxic respiratory failure ? Secondary to systolic and diastolic CHF exacerbation ? Secondary to CHF exacerbation ? Plan ? Continue Lasix 40 mg IV every 24 hours, monitor creatinine 1.4, monitor potassium, magnesium ? Solu-Medrol ? DuoNeb ? Budesonide ? Monitor respiratory status closely Systolic and diastolic CHF exacerbation ? Cardiac echo, EF 32%, left ventricular hypokinesia ? As above COPD exacerbation As above NSTEMI ? Does report intermittent chest discomfort, none currently ? Continue aspirin ? Continue statin ? Cardiac echo Last echocardiogram from July 2023 with LVEF of 40 to 45%. Mild global hypokinesia. Stress test from July 2023 with prior infarct in the LAD territory and areas of prior infarct. Estimated LVEF on stress test at 27%. ? Current echocardiogram shows EF of 32%, diffuse left ventricular hypokinesia ? Cath in 2022 showed left main disease at 30 to 40% stenosis, EF was 35% -- Discussed with cardiology, plan on medical management, abstain from drug use, afterload reducing agents, follow-up cardiology as outpatient JOO on CKD ? Likely component of cardiorenal syndrome Current smoker QT prolongation, 501, monitor, magnesium level Tick bite ? Continue doxycycline Amphetamine abuse Dvt ppx: lovenox full code Plan for today, DuoNeb, budesonide, Lasix therapy, Attestations 2 Medical Necessity Statement*: Patient requires hospitalization for systolic CHF exacerbation, NSTEMI, EF of 32% Diagnoses Amphetamine abuse F15.10 Acute exacerbation of CHF (congestive heart failure) I50.9 Heart failure type: unspecified COPD (chronic obstructive pulmonary disease) J44.9 Acute exacerbation of chronic obstructive pulmonary disease (COPD) J44.1 Tick bite W57.XXXA NSTEMI (non-ST elevated myocardial infarction) I21.4 JOO (acute kidney injury) N17.9 Acute hypoxic respiratory failure J96.01
[2024-02-11] MEDS: lisinopril 5 mg Tablet PO (14:12)
[2024-02-11] MEDS: atorvastatin 40 mg Tablet PO (21:03)
[2024-02-12 04:17] VITALS: BP 125/76; PULSE 80; RESP 16; TEMP 36.7; O2SAT 92
[2024-02-12 05:19] LABS: Basophils # 0.1 10^3/uL (0.0-0.1); Basophils % 0.7 %; Eosinophils # 0.4 10^3/uL (0.0-0.8); Eosinophils % 3.3 %; Hematocrit 44.8 % (37-53); Lymphocytes # 2.2 10^3/uL (0.8-4.8); Lymphocytes % 19.5 %; Mean Corpuscular HGB Conc 31.7 g/dL (30-55); Mean Corpuscular Volume 91.4 fl (82-101); Mean Platelet Volume 10.9 fL (7.4-10.4); Monocytes # 0.8 10^3/uL (0.2-0.9); Monocytes % 7.3 %; Neutrophils # 7.86 10^3/uL (1.8-7.7); Neutrophils % 68.6 %; Nucleated Red Blood Cells % 0 %; Platelet Count 341 10^3/cmm (157-399); Red Cell Distribution Width 15.6 % (12.1-15.1); White Blood Count 11.46 10^3/uL (3.29-11.43)
[2024-02-12 05:44] LABS: Anion Gap 13.8 (5-19); Blood Urea Nitrogen 33 mg/dL (6-20); Calcium 8.4 mg/dL (8.5-10.5); Carbon Dioxide 25 mmol/L (22-29); Chloride 105 mmol/L (98-107); Glomerular Filtration Rate 56.5 mL/min (90-130); Glucose 91 mg/dL (65-115); NT Pro B Type Natriuretic Pept 4763 pg/mL (0-125); Osmolality Calculated 297 mOsm/kg (285-295); Potassium 3.8 mmol/L (3.5-5.1); Sodium 140 mmol/L (136-145)
[2024-02-12 05:58] LABS: Creatinine Clr Calc Pharmacy 59.2861
[2024-02-12] MEDS: heparin 5,000 unit/mL INJ 1 mL 5000 UNIT SUBCUT (06:08)
[2024-02-12 07:47] VITALS: BP 145/81; PULSE 75; RESP 15; TEMP 36.8; O2SAT 97
[2024-02-12 07:57] VITALS: RESP 16
[2024-02-12] MEDS: morphine 4 mg/mL SDV 1 mL 2 MG IVP (07:57)
[2024-02-12] MEDS: FUROsemide 10 mg/mL SDV 4mL 40 MG IVP (07:59)
[2024-02-12] MEDS: pantoprazole DR 40 mg Tablet PO (08:01)
[2024-02-12] MEDS: doxycycline 100 mg Tablet PO (08:01)
[2024-02-12] MEDS: aspirin 81 mg EC Tablet PO (08:01)
[2024-02-12] MEDS: lisinopril 5 mg Tablet PO (08:01)
[2024-02-12] MEDS: nicotine 14 mg Patch 1 PATCH TRANSDERMA (08:01)
[2024-02-12] MEDS: budesonide 0.5 mg/2 mL Neb INHALATION (09:03)
[2024-02-12 09:04] VITALS: PULSE 82; RESP 18; O2SAT 98
[2024-02-12] MEDS: carvedilol 3.125 mg Tablet PO (09:46)
--- NOTE | 2024-02-12 09:52 | PC.SOCIAL ---
IMM Update pg 2 of IMM updated and reviewed w/ patients . Copy provided and copy dated, initialed and placed in chart.
[2024-02-12 11:17] VITALS: BP 116/73; PULSE 103; RESP 18; TEMP 36.9; O2SAT 94
--- NOTE | 2024-02-12 11:39 | PM.DCS ---
Discharge Providers Date of Admission: 02/10/24 08:30 Date of Discharge: February 12, 2024 Attending Provider at Admission: Carolyn Bach MD Attending Provider at Discharge: Roberto Hdz MD Primary Care Provider: Nano Cohen DO Diagnoses at Discharge Discharge Diagnosis (1) Amphetamine abuse: Status: Acute (2) Acute exacerbation of CHF (congestive heart failure): Status: Acute Qualifiers: Heart failure type: unspecified Qualified Code(s): I50.9 - Heart failure, unspecified (3) COPD (chronic obstructive pulmonary disease): Status: Acute (4) Acute exacerbation of chronic obstructive pulmonary disease (COPD): Status: Acute (5) Tick bite: Status: Acute (6) NSTEMI (non-ST elevated myocardial infarction): Status: Acute (7) JOO (acute kidney injury): Status: Acute (8) Acute hypoxic respiratory failure: Status: Acute Reason for Visit Reason for Visit: SoB,CP Hospital Course Hospital Course Christian Sparks is a 58 year old male with history of CHF, nonobstructive CAD with left main stenosis on prior coronary angiography, nonischemic cardiomyopathy with last known EF of 40 to 45%. He presents to the emergency room today with increasing shortness of breath over the past few weeks. Patient states he has not been able to perform even his usual activities such as walking within the house to the bathroom and back. He has been out of Lasix prescription for several days and has not taken the medication in at least the past 1 week. He also complains of chest pain, worsened over the last 3 days. Worse with exertion. No apparent relieving factors. He does not currently have a primary care physician and has been out of several prescriptions including those for metoprolol and Lasix. In reviewing his past notes from admission in July 2023, patient was on amiodarone metoprolol and statins together with aspirin, however it does not appear he is on any of these medications at this time. Patient states that he has been intermittently using his family members oxygen at home when he subjectively feels dyspneic. He has not checked oxygen saturation at home recently. Patient was admitted to [facility] for acute hypoxic respiratory failure, secondary to systolic and diastolic CHF exacerbation, received inpatient diuresis, overall clinically improved, discharged on Lasix therapy with potassium replacement therapy with close follow-up with primary care provider as outpatient to recheck potassium and creatinine, discharged also on fluid restriction as of 1 to 1.5 L of fluid a day During his hospitalization there was concerns for tick bite, discharged on doxycycline During his hospitalization, there was concerns for JOO on CKD, likely cardiorenal syndrome given his EF of 30 to 35%, his creatinine improved with diuresis, monitor creatinine as outpatient During his hospitalization he had complaints of chest pain, found to have NSTEMI, echocardiogram showed a EF of 32% with left ventricular hypokinesia Last echocardiogram from July 2023 with LVEF of 40 to 45%. Mild global hypokinesia. Stress test from July 2023 with prior infarct in the LAD territory and areas of prior infarct. Estimated LVEF on stress test at 27%. ? Current echocardiogram shows EF of 32%, diffuse left ventricular hypokinesia ? Cath in 2022 showed left main disease at 30 to 40% stenosis, EF was 35% -- Discussed with cardiology, plan on medical management, abstain from drug use, afterload reducing agents, follow-up cardiology as outpatient -He was managed medically as inpatient ? Tolerating medical therapy well, no complaints of chest pain ? On discharge I had a lengthy discussion with him with his family members at bedside about abstaining from methamphetamine use, morbidity and mortality associated with methamphetamine use, he voiced understanding, all questions answered Discharged on aspirin, statin, lisinopril, Coreg ? Close follow-up with cardiology as outpatient ? Patient was advised if he were to have any chest pain to use knee nitro as needed, and please immediately call [phone] or go to the emergency room ? He voiced understanding, all questions answered On discharge I also had a very lengthy discussion with him about the morbidity and mortality associate with his smoking, risk of worsening of this ejection fraction, worsening of his COPD, bradycardia and mortality associated, risk of lung cancer, I have discharged him on nicotine patches, he voiced understanding, all questions answered Physical Exam Const: COMMON NORMALS: no acute distress and patient oriented x3 Resp: COMMON NORMALS: normal respiratory effort, No retractions, No use of accessory muscles and clear to auscultation bilaterally AUSCULTATION: clear to auscultation bilaterally Cardio: COMMON NORMALS: regular rate, regular rhythm, S1 normal heart sound present and S2 normal heart sound present RATE: regular rate RHYTHM: regular rhythm HEART SOUNDS: S1 normal heart sound present and S2 normal heart sound present GI: COMMON NORMALS: Normal to inspection, nondistended, normoactive bowel sounds present and non-tender Extremity: COMMON NORMALS: no pedal edema Neuro: COMMON NORMALS: patient oriented x3 Psych: COMMON NORMALS: mental status grossly normal Discharge Data Studies Completed and Pending Completed Studies During Hospitalization Category Date Time Status CXRP [XR chest 1V portable [id number]] Stat Exams 02/10/24 04:59 Completed CV. echo complete* [id number] Routine Ultrasound 02/10/24 08:55 Completed Pending at discharge Category Date Time Status Basic Metabolic Panel AM LABS Lab 02/13/24 04:00 Ordered Basic Metabolic Panel AM LABS Lab 02/14/24 04:00 Ordered Complete Blood Count w/Auto AM LABS Lab 02/13/24 04:00 Ordered Complete Blood Count w/Auto AM LABS Lab 02/14/24 04:00 Ordered NT Pro B Type Natriuretic Pept QAM Lab 02/13/24 06:00 Ordered Radiology Impressions Chest X-Ray 02/10/24 04:59 IMPRESSION: No acute findings. Laboratory Results WBC 11.46 10^3/uL (3.29-11.43) H 02/12/24 04:20 RBC 4.90 10^6/uL (3.85-5.65) 02/12/24 04:20 Hgb 14.20 g/dL (11.27-16.99) 02/12/24 04:20 Hct 44.8 % (37-53) 02/12/24 04:20 MCV 91.4 fl (82-101) 02/12/24 04:20 MCH 29.0 pg (27-33) 02/12/24 04:20 MCHC 31.7 g/dL (30-55) 02/12/24 04:20 RDW 15.6 % (12.1-15.1) H 02/12/24 04:20 Plt Count 341 10^3/cmm (157-399) 02/12/24 04:20 MPV 10.9 fL (7.4-10.4) H 02/12/24 04:20 Neut % (Auto) 68.6 % 02/12/24 04:20 Lymph % (Auto) 19.5 % 02/12/24 04:20 [place] % (Auto) 7.3 % 02/12/24 04:20 Eos % (Auto) 3.3 % 02/12/24 04:20 Baso % (Auto) 0.7 % 02/12/24 04:20 Neut # (Auto) 7.86 10^3/uL (1.8-7.7) H 02/12/24 04:20 Lymph # (Auto) 2.2 10^3/uL (0.8-4.8) 02/12/24 04:20 [place] # (Auto) 0.8 10^3/uL (0.2-0.9) 02/12/24 04:20 Eos # (Auto) 0.4 10^3/uL (0.0-0.8) 02/12/24 04:20 Baso # (Auto) 0.1 10^3/uL (0.0-0.1) 02/12/24 04:20 Nucleated RBC % (auto) 0 % 02/12/24 04:20 Nucleated RBCs # 0.0 /100WBC 02/12/24 04:20 D-Dimer 0.80 ug/mLFEU (0-0.59) H 02/10/24 04:20 Sodium 140 mmol/L (136-145) 02/12/24 04:20 Potassium 3.8 mmol/L (3.5-5.1) 02/12/24 04:20 Chloride 105 mmol/L (98-107) 02/12/24 04:20 Carbon Dioxide 25 mmol/L (22-29) 02/12/24 04:20 Anion Gap 13.8 (5-19) 02/12/24 04:20 BUN 33 mg/dL (6-20) H 02/12/24 04:20 Creatinine 1.3 mg/dL (0.7-1.2) H 02/12/24 04:20 GFR Calculation 56.5 mL/min (90-130) L 02/12/24 04:20 Glucose 91 mg/dL (65-115) 02/12/24 04:20 Calculated Osmolality 297 mOsm/kg (285-295) H 02/12/24 04:20 Calcium 8.4 mg/dL (8.5-10.5) L 02/12/24 04:20 Magnesium 2.3 mg/dL (1.7-2.3) 02/10/24 04:20 Total Bilirubin 0.6 mg/dL (0.15-1.2) 02/11/24 04:39 AST 27 U/L (0-40) 02/11/24 04:39 ALT 25 U/L (0-41) 02/11/24 04:39 Alkaline Phosphatase 114 U/L (40-130) 02/11/24 04:39 Troponin T Baseline 39 ng/L (0-15) H 02/10/24 04:20 Troponin T 120 Minute 37.03 ng/L (0-15) H 02/10/24 06:22 Delta Troponin T -1.97 ABS# (0-10) L 02/10/24 06:22 Troponin T Hi Sens 6Hr 35.38 ng/L (0-15) H 02/10/24 10:27 Troponin T Hi Sens 6Hr Delta -3.62 ng/L (0-12) L 02/10/24 10:27 NT-Pro-B Natriuret Pep 4763 pg/mL (0-125) H 02/12/24 04:20 Total Protein 8.0 g/dL (6.6-8.7) 02/11/24 04:39 Albumin 4.3 g/dL (3.5-5.2) 02/11/24 04:39 Globulin 3.7 g/dL (1.3-4.6) 02/11/24 04:39 Lipase 36 U/L (13-60) 02/10/24 04:20 Urine Opiates Screen Positive ng/mL (Negative) H 02/10/24 05:20 Ur Barbiturates Screen Negative ng/mL (Negative) 02/10/24 05:20 Ur Phencyclidine Scrn Negative ng/mL (Negative) 02/10/24 05:20 Ur Amphetamines Screen Positive ng/mL (Negative) H 02/10/24 05:20 U Benzodiazepines Scrn Negative ng/mL (Negative) 02/10/24 05:20 Urine Cocaine Screen Negative ng/mL (Negative) 02/10/24 05:20 U Marijuana (THC) Screen Negative ng/mL (Negative) 02/10/24 05:20 Vitals Last Vital Signs Temp 98.3 F 02/12/24 07:47 Pulse 82 02/12/24 09:04 Resp 18 02/12/24 09:04 BP 145/81 02/12/24 07:47 Pulse Ox 98 02/12/24 09:04 O2 Del Method Room Air 02/12/24 09:04 O2 Flow Rate 2 02/10/24 20:45 Discharge Plan Discharge Patient Disposition: Home Condition: Stable Prescriptions: New atorvastatin 40 mg Tablet 40 mg PO BEDTIME 30 Days Qty: 30 0RF nicotine 14 mg/24 hr Patch 24 Hour 1 patch transdermal DAILY 28 Days Qty: 28 0RF aspirin 81 mg Tablet,Delayed Release (Dr/Ec) 81 mg PO DAILY 30 Days Qty: 30 0RF doxycycline monohydrate 100 mg Tablet 100 mg PO BID 8 Days Qty: 16 0RF carvedilol 3.125 mg Tablet 3.125 mg PO BID 30 Days Qty: 60 0RF lisinopril 5 mg Tablet 5 mg PO DAILY 30 Days Qty: 30 0RF albuterol sulfate 90 mcg/actuation aero powdr breath act w/sensor 1 inh inhalation Q6H PRN (Reason: shortness of breath or wheezing) Qty: 1 0RF Advair Diskus 100-50 mcg/dose blister with device 1 inh inhalation BID 30 Days Qty: 60 0RF Klor-Con M20 20 mEq tablet,ER particles/crystals 20 meq PO DAILY 30 Days Qty: 30 0RF Continued Lasix 40 mg tablet 40 mg PO DAILY 30 Days Qty: 30 0RF Rx Instructions: Further refills need to come from primary care. nitroglycerin 0.4 mg tablet, sublingual 0.4 mg sublingual Q5M PRN (Reason: chest pain) 30 Days Qty: 30 0RF Rx Instructions: do not exceed 3 doses per episode Discharge Orders: Discharge Order (Routine); Ordered 02/12/24 Ordered By: Roberto Hdz Referrals: Elham Johnson MD [Physician] - 1-3 days [Registered Nurse] - 02/17/24 9:00 am (Please arrive 15 minutes prior to appointment, Bring med list, and insurance card. Beware dr alexander/catherine no prescribe ADD or control meds but will refer if necessary. ) Brian Hutchinson MD [Physician] - 1-3 days Discharge Diet: Cardiac Discharge Activity: Resume usual activity Patient Instructions: How to Stop Smoking (DC), Cigarette Smoking and Your Health (GEN), Methamphetamine Use Disorder (GEN), Opioid Safety Activity Restrictions/Additional Instructions: - Please abstain from smoking ? Please abstain from methamphetamine use ? Please take Lasix 40 mg daily, with potassium replacement therapy ? Please follow-up with primary care provider your kidney function needs to be rechecked Saturday next week ? Please limit your fluid intake between 1 to 1.5 L of fluid a day ? If you develop chest pain, shortness of breath, swelling please go to emergency room ? Please take blood pressure medication as prescribed ? Please follow-up with cardiology due to your heart function being 35% ? If you have any chest discomfort please go to the emergency room Discharge Attestations Time Spent in Discharge Care*: greater than 30 min Time Spent in Smoking Cessation: more than 10 minutes As above Quality Metrics Clinical Quality Measures [ No reported AMI, CVA or VTE this stay] Coding Level of Care Code 79613 Total time (in minutes) for Discharge: 45 Diagnoses Amphetamine abuse F15.10 Acute exacerbation of CHF (congestive heart failure) I50.9 Heart failure type: unspecified COPD (chronic obstructive pulmonary disease) J44.9 Acute exacerbation of chronic obstructive pulmonary disease (COPD) J44.1 Tick bite W57.XXXA NSTEMI (non-ST elevated myocardial infarction) I21.4 JOO (acute kidney injury) N17.9 Acute hypoxic respiratory failure J96.01
[2024-02-12 12:46] VITALS: BP 116/73; PULSE 103; RESP 18; TEMP 36.9; O2SAT 94
== END 2024-02-12 12:46 | disposition home or self-care (01) | DRG 280 ==
LOC: ER 04:30 → MEDSURG 05:29
PROVIDERS: Admitting Provider Student in an Organized Health Care Education/Training Program; Emergency Provider Emergency Medicine; PCP Family Medicine; Visit Provider Family Medicine
DX: I13.0 Hypertensive heart and chronic kidney disease with heart failure and stage 1 through stage 4 chronic kidney disease, or unspecified chronic kidney disease (principal); I50.43 Acute on chronic combined systolic (congestive) and diastolic (congestive) heart failure; I21.4 Non-ST elevation (NSTEMI) myocardial infarction; J96.01 Acute respiratory failure with hypoxia; J44.1 Chronic obstructive pulmonary disease with (acute) exacerbation; N17.9 Acute kidney failure, unspecified; N18.30 Chronic kidney disease, stage 3 unspecified; I25.10 Atherosclerotic heart disease of native coronary artery without angina pectoris; I42.8 Other cardiomyopathies; Z91.128 Patient's intentional underdosing of medication regimen for other reason; M19.011 Primary osteoarthritis, right shoulder; F17.210 Nicotine dependence, cigarettes, uncomplicated; F15.10 Other stimulant abuse, uncomplicated; R94.31 Abnormal electrocardiogram [ECG] [EKG]; T14.8XXA Other injury of unspecified body region, initial encounter
CPT/HCPCS: 36415; 71045; 80048; 80053; 80306; 83690; 83735; 83880; 84484; 85025; 85378; 93005; 93306; 94640; 96372; 96374; 96375; 99285; G0378; J1644; J1940; J2270; J2405; J2919; J7626

== ENCOUNTER 2024-04-15 21:44 | Emergency (ER) | payer MEDICARE, SELFPAY ==
[2024-04-15 21:45] VITALS: BP 115/81; PULSE 127; RESP 18; TEMP 36.8; O2SAT 95; BMI 25.8
--- NOTE | 2024-04-15 21:49 | XRR_ITS ---
PROCEDURE INFORMATION: Exam: XR Chest Exam date and time: 04/15/2024 9:53 PM Age: 58 years old Clinical indication: Pain; Chest pressure; Additional info: Chest pain TECHNIQUE: Imaging protocol: Radiologic exam of the chest. Views: 1 view. COMPARISON: CR XR chest 1V portable [id number] 02/10/2024 5:10 AM FINDINGS: Lungs: Bilateral apical fibrotic changes. Calcified granulomas in the left lower lung zone.. No consolidation. Pleural spaces: Unremarkable. No pleural effusion. No pneumothorax. Heart/Mediastinum: Unremarkable. No cardiomegaly. Bones/joints: Moderate degenerative disease of bilateral acromioclavicular joints and moderate to severe degenerative of the glenohumeral joints, more pronounced on the left side. Joint bodies at the inferior aspect of the left glenohumeral joint and left glenoid screw. XR/XR chest 1V portable [id number] IMPRESSION: No acute cardiopulmonary process.
--- NOTE | 2024-04-15 21:50 | ECG_ITS ---
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 Measurements Intervals [place] Rate: 127 P: 0 MD: 0 QRS: 53 QRSD: 82 T: 93 QT: 363 QTc: 529 Interpretive Statements ATRIAL FIBRILLATION WITH RAPID VENTRICULAR RESPONSE VOLTAGE CRITERIA FOR LVH [MEETS CRITERIA IN ONE OF: R(aVL), S(V1), R(V5), R(V5/V6)+S(V1)] NONSPECIFIC ST & T-WAVE ABNORMALITY Compared to ECG 02/10/2024 10:11:43 Sinus rhythm no longer present T-wave abnormality still present Electronically Signed On 04-16-2024 14:57:02 CDT by Gatito Del Toro M.D. [id number]
[2024-04-15 21:52] VITALS: BP 120/80; PULSE 76; RESP 18; O2SAT 93
[2024-04-15 21:54] LABS: Basophils # 0.1 10^3/uL (0.0-0.1); Basophils % 0.8 %; Eosinophils # 0.2 10^3/uL (0.0-0.8); Eosinophils % 2.6 %; Hematocrit 39.4 % (37-53); Lymphocytes % 22.7 %; Mean Corpuscular HGB Conc 33.5 g/dL (30-55); Mean Corpuscular Hemoglobin 28.6 pg (27-33); Mean Corpuscular Volume 85.3 fl (82-101); Mean Platelet Volume 10.6 fL (7.4-10.4); Monocytes # 0.8 10^3/uL (0.2-0.9); Monocytes % 8.7 %; Neutrophils # 5.84 10^3/uL (1.8-7.7); Neutrophils % 64.9 %; Nucleated Red Blood Cells % 0 %; Platelet Count 296 10^3/cmm (157-399); Red Blood Count 4.62 10^6/uL (3.85-5.65); Red Cell Distribution Width 14.6 % (12.1-15.1); White Blood Count 8.99 10^3/uL (3.29-11.43)
[2024-04-15] MEDS: metoprolol tartrate 1 mg/1 mL SDV 5 mL 5 MG IVP (22:02)
[2024-04-15] MEDS: dilTIAZem 5 mg/mL SDV 5 mL 20 MG IVP (22:03)
[2024-04-15 22:19] LABS: Troponin(5th) Baseline 32 ng/L (0-15)
--- NOTE | 2024-04-15 22:19 | W.ED.CHESTPA ---
HPI - Chest Pain General: Chief Complaint: Chest Pain Stated Complaint: CP Time Seen by Provider: 04/15/24 21:45 History of Present Illness: Presents to the ER with chest pain and fast heart rate. He comes in from the skilled nursing. He says been out of all of his medicine for the last 3 days. He says he has had a heart attack but does not have any stents does not receive routine care follow-up. He has been having chest pressure for about the last 3 days but this time at night it was worse and woke him up with a fast heart rate. Upon arrival patient's heart rate was 127 bpm. EMS did give him 18 mg of Cardizem 324 mg aspirin and 2 nitro. This took the pain down from an 8.5 to a 6. Patient does have a history of hypertension, atrial fibrillation, and chronic kidney disease stage III. Related Data Previous Rx's Medication Instructions Recorded albuterol sulfate 90 mcg/actuation 1 inh inhalation Q6H PRN shortness 02/12/24 breath activated powder of breath or wheezing #1 ea inhaler,sensor furosemide 40 mg tablet (Lasix) 40 mg PO DAILY 30 days #30 tabs 02/12/24 nitroglycerin 0.4 mg sublingual 0.4 mg sublingual Q5M PRN chest 02/12/24 tablet pain 30 days #30 tabs apixaban 5 mg tablet (Eliquis) 5 mg PO BID #60 tabs 04/16/24 carvedilol 3.125 mg tablet 3.125 mg PO BID #60 tabs 04/16/24 lisinopril 5 mg tablet 5 mg PO DAILY #30 tabs 04/16/24 Allergies Allergy/AdvReac Type Severity Reaction Status Date / Time gabapentin Allergy Intermediate nausea/vomi Verified 01/04/24 15:41 ting Review of Systems General: Reports: 10 or more systems reviewed and unremarkable except in HPI and below PFSH ED PFSH: Medical History JOO (acute kidney injury) Coronary artery disease Angiogram: March 2023: Moderate left main stenosis. Worsening angina CKD (chronic kidney disease) stage 3, GFR 30-59 ml/min Tobacco use Osteoarthritis of right shoulder COPD (chronic obstructive pulmonary disease) Chest pain Migraine Hypertension Stenosis, spinal, lumbar Surgical History Post-operative state Hx of tonsillectomy H/O shoulder surgery H/O skin graft S/P lumbar laminectomy (05/25/19) Dr Hinojosa bilateral L3-4 laminotomy/foraminotomy. Family History Mother CAD (coronary artery disease) Father Diabetes Social History Smoking and tobacco/nicotine status: current every day tobacco/nicotine user Alcohol intake: current Alcohol intake frequency: few times a month Substance/Drug Use: never Lives independently: Yes Household members: spouse Marital status: Current occupational status: disabled Physical Exam Const: COMMON NORMALS: no acute distress, average body habitus, patient oriented x3, no limitations, healthy appearing, alert and well nourished HENMT: COMMON NORMALS: normocephalic, atraumatic, hearing grossly normal bilaterally, external ears normal, Normal external nose present and moist oral mucous membranes HEAD & SCALP: normocephalic and atraumatic NOSE: Normal external nose present EXTERNAL EAR: Yes external ears normal Neck/C-Spine: COMMON NORMALS: no JVD Chest: COMMONS NORMALS: normal inspection of the chest and normal palpation of entire chest wall Resp: COMMON NORMALS: normal respiratory effort, No retractions, No use of accessory muscles and clear to auscultation bilaterally AUSCULTATION: clear to auscultation bilaterally Cardio: COMMON NORMALS: no JVD, regular rate, regular rhythm, S1 normal heart sound present, S2 normal heart sound present, No gallops present (Cardio), No clicks present (Cardio), No murmurs present (Cardio) and No rub (Cardio) RATE: regular rate RHYTHM: regular rhythm HEART SOUNDS: S1 normal heart sound present and S2 normal heart sound present GI: COMMON NORMALS: Normal to inspection, nondistended, normoactive bowel sounds present, Soft to palpation, non-tender, No hepatosplenomegaly present and no masses PALPATION: Yes Soft to palpation and Yes No hepatosplenomegaly present Neuro: COMMON NORMALS: patient oriented x3 SENSORIUM/ORIENTATION: Yes alert Course Vital Signs: Vital signs: Vital Signs Temperature 98.3 F 04/15/24 21:45 Pulse Rate 61 04/16/24 01:30 Respiratory Rate 15 04/16/24 01:30 Blood Pressure 120/77 04/16/24 01:30 Pulse Oximetry 95 04/16/24 01:30 Oxygen Delivery Me thod Room Air 04/16/24 01:30 MDM - Chest Pain Medical Decision Making Upon arrival patient's heart rate was 127 beats a minute with an A-fib with RVR, he was given additional 20 mg Cardizem 5 mg Lopressor IV and this converted him back to sinus rhythm with a heart rate in the 60s. Lab work was obtained which was essentially unremarkable patient stayed in normal sinus rhythm or sinus bradycardia until discharge. Patient will be discharged back to the skilled nursing and we will refill his heart medicines as he says he is out. Differential Diagnosis Unlikely acute massive pulmonary embolism, acute respiratory failure, acute myocardial infarction, cardiac arrest or sudden cardiac Medical Records I reviewed the patient's medical records. Lab Data I reviewed the patient's lab results. 04/15/24 21:25 04/15/24 21:25 Radiology Impressions Chest X-Ray 04/15/24 21:49 IMPRESSION: No acute cardiopulmonary process. Laboratory Results WBC 8.99 10^3/uL (3.29-11.43) 04/15/24 21:25 RBC 4.62 10^6/uL (3.85-5.65) 04/15/24 21:25 Hgb 13.20 g/dL (11.27-16.99) 04/15/24 21:25 Hct 39.4 % (37-53) 04/15/24 21:25 MCV 85.3 fl (82-101) 04/15/24 21:25 MCH 28.6 pg (27-33) 04/15/24 21:25 MCHC 33.5 g/dL (30-55) 04/15/24 21:25 RDW 14.6 % (12.1-15.1) 04/15/24 21:25 Plt Count 296 10^3/cmm (157-399) 04/15/24 21:25 MPV 10.6 fL (7.4-10.4) H 04/15/24 21:25 Neut % (Auto) 64.9 % 04/15/24 21:25 Lymph % (Auto) 22.7 % 04/15/24 21:25 [place] % (Auto) 8.7 % 04/15/24 21:25 Eos % (Auto) 2.6 % 04/15/24 21:25 Baso % (Auto) 0.8 % 04/15/24 21:25 Neut # (Auto) 5.84 10^3/uL (1.8-7.7) 04/15/24 21:25 Lymph # (Auto) 2.0 10^3/uL (0.8-4.8) 04/15/24 21:25 [place] # (Auto) 0.8 10^3/uL (0.2-0.9) 04/15/24 21:25 Eos # (Auto) 0.2 10^3/uL (0.0-0.8) 04/15/24 21: Baso # (Auto) 0.1 10^3/uL (0.0-0.1) 04/15/24 21: Nucleated RBC % (auto) 0 % 04/15/24 21: Nucleated RBCs # 0.0 /100WBC 04/15/24 21:25 Sodium 139 mmol/L (136-145) 04/15/24 21:25 Potassium 4.1 mmol/L (3.5-5.1) 04/15/24 21: Chloride 105 mmol/L (98-107) 04/15/24 21: Carbon Dioxide 23 mmol/L (22-29) 04/15/24 21:25 Anion Gap 15.1 (5-19) 04/15/24 21:25 BUN 23 mg/dL (6-20) H 04/15/24 21:25 Creatinine 1.4 mg/dL (0.7-1.2) H 04/15/24 21:25 GFR Calculation 51.9 mL/min (90-130) L 04/15/24 21:25 Glucose 104 mg/dL (65-115) 04/15/24 21:25 Calculated Osmolality 292 mOsm/kg (285-295) 04/15/24 21:25 Calcium 8.9 mg/dL (8.5-10.5) 04/15/24 21:25 Total Bilirubin 0.8 mg/dL (0.15-1.2) 04/15/24 21:25 AST 25 U/L (0-40) 04/15/24 21:25 ALT 19 U/L (0-41) 04/15/24 21:25 Alkaline Phosphatase 99 U/L (40-130) 04/15/24 21:25 Troponin T Baseline 32 ng/L (0-15) H 04/15/24 21:25 Troponin T 120 Minute 31.64 ng/L (0-15) H 04/15/24 23:25 Delta Troponin T -0.36 ABS# (0-10) L 04/15/24 23:25 NT-Pro-B Natriuret Pep 94252 pg/mL (0-125) H 04/15/24 21:25 Total Protein 6.7 g/dL (6.6-8.7) 04/15/24 21: Albumin 4.1 g/dL (3.5-5.2) 04/15/24 21:25 Globulin 2.6 g/dL (1.3-4.6) 04/15/24 21:25 All radiology interpretation(s) finalized by discharge Critical Care Time Critical Care Time: Critical Care Time: Yes Total Critical Care Time: 30 Attestation: The patient was emergently evaluated this patient's presentation and case had a high probability of a clinically significant, sudden, or life-threatening deterioration of the patient's initial critical presentation or condition which required my full and direct attention, intervention and personal management. Discharge Plan Discharge Patient Disposition: Home Clinical Impression: Atrial fibrillation with rapid ventricular response Condition: Stable Prescriptions: New carvedilol 3.125 mg tablet 3.125 mg PO BID Qty: 60 0RF Rx Instructions: must administer with a meal/food lisinopril 5 mg tablet 5 mg PO DAILY Qty: 30 0RF Eliquis 5 mg tablet 5 mg PO BID Qty: 60 0RF No Action albuterol sulfate 90 mcg/actuation aero powdr breath act w/sensor 1 inh inhalation Q6H PRN (Reason: shortness of breath or wheezing) Qty: 1 0RF Lasix 40 mg tablet 40 mg PO DAILY 30 Days Qty: 30 0RF Rx Instructions: Further refills need to come from primary care. nitroglycerin 0.4 mg tablet, sublingual 0.4 mg sublingual Q5M PRN (Reason: chest pain) 30 Days Qty: 30 0RF Rx Instructions: do not exceed 3 doses per episode Discharge Orders: Discharge ED (Routine); Ordered 04/16/24 Ordered By: Toney Pina Referrals: Brian Hutchinson MD [Primary Care Provider] - 1 week Patient Instructions: Atrial Fibrillation Activity Restrictions/Additional Instructions: He arrived in the ER he was in atrial fibrillation with a fast irregular heartbeat. You are given medication which converted him back to a sinus normal rhythm. We have refilled your lisinopril and carvedilol as well as started you on Eliquis for blood clot prevention. Please take these medicines as directed and please follow-up with your primary care practitioner and/or welding estimator for further evaluation and treatment. Coding Level of Care Code ED Logistics Account Manager for Zoë Arce
[2024-04-15 22:22] VITALS: BP 134/88; PULSE 74; RESP 18; O2SAT 95
[2024-04-15 22:22] LABS: Alanine Aminotransferase 19 U/L (0-41); Albumin Level 4.1 g/dL (3.5-5.2); Alkaline Phosphatase 99 U/L (40-130); Anion Gap 15.1 (5-19); Aspartate Amino Transferase 25 U/L (0-40); Blood Urea Nitrogen 23 mg/dL (6-20); Calcium 8.9 mg/dL (8.5-10.5); Carbon Dioxide 23 mmol/L (22-29); Chloride 105 mmol/L (98-107); Creatinine Clr Calc Pharmacy 55.9263; Globulin 2.6 g/dL (1.3-4.6); Glomerular Filtration Rate 51.9 mL/min (90-130); Glucose 104 mg/dL (65-115); Osmolality Calculated 292 mOsm/kg (285-295); Potassium 4.1 mmol/L (3.5-5.1); Sodium 139 mmol/L (136-145); Total Bilirubin 0.8 mg/dL (0.15-1.2); Total Protein 6.7 g/dL (6.6-8.7)
[2024-04-15 22:29] LABS: NT Pro B Type Natriuretic Pept 20708 pg/mL (0-125)
[2024-04-15 22:45] VITALS: BP 109/81; PULSE 85; RESP 14; O2SAT 93
[2024-04-15] MEDS: ketorolac 30 mg/mL INJ IVP (23:45)
[2024-04-15 23:52] VITALS: BP 115/82; PULSE 112; RESP 18; O2SAT 97
[2024-04-16] VITALS: BP 140/107; PULSE 118; RESP 18; O2SAT 95
[2024-04-16 00:23] LABS: Troponin 5 2HR 31.64 ng/L (0-15); Troponin 5 2HR Delta -0.36 ABS# (0-10)
[2024-04-16] MEDS: dilTIAZem 30 mg Tablet PO (00:30)
[2024-04-16 01:00] VITALS: BP 125/83; PULSE 106; RESP 18; O2SAT 98
[2024-04-16 01:15] VITALS: BP 139/74; PULSE 60; RESP 16; O2SAT 96
[2024-04-16 01:30] VITALS: BP 120/77; PULSE 61; RESP 15; O2SAT 95
[2024-04-16 01:49] VITALS: BP 117/82; PULSE 69; O2SAT 95
--- NOTE | 2024-04-16 03:49 | ECG_ITS ---
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 Measurements Intervals [place] Rate: 57 P: -4 AK: 138 QRS: 59 QRSD: 93 T: 0 QT: 428 QTc: 420 Interpretive Statements SINUS BRADYCARDIA NONSPECIFIC ST & T-WAVE ABNORMALITY Compared to ECG 04/15/2024 21:50:37 Atrial fibrillation no longer present Left ventricular hypertrophy no longer present T-wave abnormality still present Electronically Signed On 04-16-2024 14:56:16 CDT by Gatito Del Toro M.D. [id number]
== END 2024-04-16 01:51 | disposition home or self-care (01) ==
PROVIDERS: Emergency Provider Emergency Medicine; PCP Family Medicine
DX: I48.20 Chronic atrial fibrillation, unspecified (principal); Z72.0 Tobacco use; I25.10 Atherosclerotic heart disease of native coronary artery without angina pectoris; I12.9 Hypertensive chronic kidney disease with stage 1 through stage 4 chronic kidney disease, or unspecified chronic kidney disease; N18.30 Chronic kidney disease, stage 3 unspecified; J44.9 Chronic obstructive pulmonary disease, unspecified
CPT/HCPCS: 36415; 71045; 80053; 83880; 84484; 85025; 93005; 96374; 96375; 99285; J1885; J3490

== ENCOUNTER 2024-04-27 02:11 | Emergency (ER) | payer MEDICARE, SELFPAY ==
[2024-04-27 02:12] VITALS: BP 167/99; PULSE 55; RESP 16; TEMP 36.7; O2SAT 98; BMI 26.6
--- NOTE | 2024-04-27 02:14 | ECG_ITS ---
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 Measurements Intervals [place] Rate: 54 P: 71 [place]: 155 QRS: 66 QRSD: 86 T: 0 QT: 432 QTc: 410 Interpretive Statements SINUS BRADYCARDIA NONSPECIFIC ST & T-WAVE ABNORMALITY Compared to ECG 04/16/2024 01:22:40 No significant changes Electronically Signed On 04-27-2024 16:07:22 CDT by Gatito Del Toro M.D. [id number] f
[2024-04-27 02:17] VITALS: BP 167/99; PULSE 56; RESP 19; TEMP 36.4; O2SAT 95
--- NOTE | 2024-04-27 02:29 | XRR_ITS ---
PROCEDURE INFORMATION: Exam: XR Chest Exam date and time: 04/27/2024 2:32 AM Age: 58 years old Clinical indication: Chest Pain; Shortness of breath; Chest pressure; Patient HX: C/O cp with SOB. ; Additional info: Cp SOB TECHNIQUE: Imaging protocol: Radiologic exam of the chest. Views: 1 view. COMPARISON: CR (CHEST, ) 04/15/2024 9:53 PM FINDINGS: Lungs: No focal consolidation identified. Small calcified granulomas at the left lung base and right infrahilar region. Extraneous artifacts project over right inferolateral lung zone. Pleural spaces: No significant pleural fluid. No pneumothorax detected. Heart/Mediastinum: Cardiomegaly without pulmonary vascular congestion. Bones/joints: No reported history of trauma, but there is slight irregularity of the right 7th and 8th ribs laterally and equivocal chest wall emphysema, the latter finding possibly a spurious finding. When feasible, standard upright PA view of the chest with more optimal positioning of the patient's arms away from the body is recommended for more optimal assessment. Also, please correlate with clinical exam. XR/XR chest 1V portable [id number] IMPRESSION: 1. No obvious acute cardiopulmonary abnormality. 2. Equivocal findings involving the right lateral chest wall and ribs; please see above comments and correlate with clinical exam.
[2024-04-27] MEDS: nitroglycerin 1 gm/inch oint Pkt 1 INCH TOPICAL (02:36)
[2024-04-27 02:37] VITALS: RESP 19
[2024-04-27] MEDS: ondansetron 2 mg/ML SDV 2 mL 4 MG IVP (02:37)
[2024-04-27] MEDS: morphine 4 mg/mL SDV 1 mL IVP (02:37)
--- NOTE | 2024-04-27 02:39 | ED_ITS ---
HPI - Chest Pain 2 General: Chief Complaint: Chest Pain Stated Complaint: CHEST PAIN Time Seen by Provider: 04/27/24 02:15 History of Present Illness: 58-year-old male with a history of systo lic heart failure, atrial fibrillation. He woke around 45 minutes prior to arrival with significant chest pain. Chest pain is mainly left-sided. He initially felt a fluttering in his chest like he does when he is in rapid A-fib, but then began develop a sharp left-sided pain. Somewhat worse with respirations. He is mildly short of breath. He was given nitroglycerin and aspirin in the ambulance with some improvement, but is still rating his pain at the 7. He tells me he has had a heart attack before, but has no stents. His EF is listed as 27% on a prior myocardial perfusion scan. Related Data Previous Rx's Medication Instructions Recorded albuterol sulfate 90 mcg/actuation 1 inh inhalation Q6H PRN shortness 02/12/24 breath activated powder of breath or wheezing #1 ea inhaler,sensor furosemide 40 mg tablet (Lasix) 40 mg PO DAILY 30 days #30 tabs 02/12/24 apixaban 5 mg tablet (Eliquis) 5 mg PO BID #60 tabs 04/27/24 carvedilol 3.125 mg tablet 3.125 mg PO BID #60 tabs 04/27/24 lisinopril 5 mg tablet 5 mg PO DAILY #30 tabs 04/27/24 nitroglycerin 0.4 mg sublingual 0.4 mg sublingual Q5M PRN chest 04/27/24 tablet pain 30 days #30 tabs Allergies Allergy/AdvReac Type Severity Reaction Status Date / Time gabapentin Allergy Intermediate nausea/vomi Verified 04/27/24 02:17 ting [facility] ED 2 PFS: Medical History JOO (acute kidney injury) Coronary artery disease Angiogram: March 2023: Moderate left main stenosis. Worsening angina CKD (chronic kidney disease) stage 3, GFR 30-59 ml/min Tobacco use Osteoarthritis of right shoulder COPD (chronic obstructive pulmonary disease) Chest pain Migraine Hypertension Stenosis, spinal, lumbar Surgical History Post-operative state Hx of tonsillectomy H/O shoulder surgery H/O skin graft S/P lumbar laminectomy (05/25/19) Dr Hinojosa bilateral L3-4 laminotomy/foraminotomy. Family History Mother CAD (coronary artery disease) Father Diabetes Social History Smoking and tobacco/nicotine status: current every day tobacco/nicotine user Alcohol intake: current Alcohol intake frequency: few times a month Substance/Drug Use: never Lives independently: Yes Household members: spouse Marital status: Current occupational status: disabled Physical Exam 2 Const: COMMON NORMALS: no acute distress GENERAL APPEARANCE: cooperative and ill appearing (Mildly); not frail appearing HENMT: COMMON NORMALS: normocephalic, atraumatic and Normal external nose present HEAD & SCALP: normocephalic and atraumatic FACE & SINUS: normal facial exam and face symmetric NOSE: Normal external nose present Eye: COMMON NORMALS: Equal, round and reactive pupils present and EOMs intact bilaterally PUPIL: Yes Equal, round and reactive pupils present Neck/C-Spine: GENERAL: Yes trachea midline Chest: CHEST: Yes Symmetrical chest wall rise Resp: COMMON NORMALS: normal respiratory effort, No retractions, No use of accessory muscles and clear to auscultation bilaterally AUSCULTATION: clear to auscultation bilaterally Cardio: COMMON NORMALS: regular rhythm RATE: bradycardic RHYTHM: regular rhythm GI: COMMON NORMALS: Normal to inspection, nondistended, normoactive bowel sounds present Extremity: COMMON NORMALS: no pedal edema Neuro: ELIS COMA SCALE: document GCS findings [place] coma scale eye opening: Spontaneous Elis coma scale verbal response: Orientated [place] coma scale motor response: Obey commands [place] coma scale total score: 15 S ENSORY EXAM: Yes extremities (intact) Psych: COMMON NORMALS: speech normal SPEECH: Yes normal speech Skin: COMMON NORMALS: no rashes or lesions noted GENERAL SKIN EXAM: no rashes or lesions noted Course 2 Vital Signs: Vital signs: Vital Signs Temperature 97.6 F 04/27/24 02:17 Pulse Rate 63 04/27/24 04:34 Respiratory Rate 19 H 04/27/24 02:37 Blood Pressure 164/100 04/27/24 04:34 Pulse Oximetry 99 04/27/24 04:34 Oxygen Delivery Me thod Room Air 04/27/24 02:17 MDM - Chest Pain Medical Decision Making Spoke with cardiology on the patient's arrival after EKG showed minimal ST segment elevation anteriorly, less than 1 mm, but with a coved appearance. Otherwise with sinus bradycardia with a rate of 60. Patient continue to plan plaint of pain. Nitropaste was placed, patient was given morphine. Some improvement in pain. He is quite hypertensive, blood pressure 170s systolic. Cardiology recommendations are to repeat EKG in 30 minutes. Await troponin. Treat medically. Repeat EKG shows no changes at 3 AM. First troponin is his baseline at 27. The patient's second troponin is stable. Delta is -1.3. Chest x-ray is nonacute. He remains in sinus rhythm. Blood pressure is much better, 154/84. Medications will be reordered, as they evidently did not get filled. Discussed imperative nature of taking medication with history of atrial fibrillation coronary disease. Lab Data 04/27/24 02:00 04/27/24 02:00 Radiology Impressions Chest X-Ray 04/27/24 02:29 IMPRESSION: 1. No obvious acute cardiopulmonary abnormality. 2. Equivocal findings involving the right lateral chest wall and ribs; please see above comments and correlate with clinical exam. Laboratory Results WBC 8.13 10^3/uL (3.29-11.43) 04/27/24 02:00 RBC 4.96 10^6/uL (3.85-5.65) 04/27/24 02:00 Hgb 14.10 g/dL (11.27-16.99) 04/27/24 02:00 Hct 43.2 % (37-53) 04/27/24 02:00 MCV 87.1 fl (82-101) 04/27/24 02:00 MCH 28.4 pg (27-33) 04/27/24 02:00 MCHC 32.6 g/dL (30-55) 04/27/24 02:00 RDW 14.3 % (12.1-15.1) 04/27/24 02:00 Plt Count 307 10^3/cmm (157-399) 04/27/24 02:00 MPV 11.1 fL (7.4-10.4) H 04/27/24 02:00 Neut % (Auto) 56.9 % 04/27/24 02:00 Lymph % (Auto) 30.4 % 04/27/24 02:00 [place] % (Auto) 8.1 % 04/27/24 02:00 Eos % (Auto) 3.3 % 04/27/24 02:00 Baso % (Auto) 0.9 % 04/27/24 02:00 Neut # (Auto) 4.63 10^3/uL (1.8-7.7) 04/27/24 02:00 Lymph # (Auto) 2.5 10^3/uL (0.8-4.8) 04/27/24 02:00 [place] # (Auto) 0.7 10^3/uL (0.2-0.9) 04/27/24 02:00 Eos # (Auto) 0.3 10^3/uL (0.0-0.8) 04/27/24 02:00 Baso # (Auto) 0.1 10^3/uL (0.0-0.1) 04/27/24 02:00 Nucleated RBC % (auto) 0 % 04/27/24 02:00 Nucleated RBCs # 0.0 /100WBC 04/27/24 02:00 Sodium 137 mmol/L (136-145) 04/27/24 02:00 Potassium 4.5 mmol/L (3.5-5.1) 04/27/24 02:00 Chloride 102 mmol/L (98-107) 04/27/24 02:00 Carbon Dioxide 27 mmol/L (22-29) 04/27/24 02:00 Anion Gap 12.5 (5-19) 04/27/24 02:00 BUN 22 mg/dL (6-20) H 04/27/24 02:00 Creatinine 1.2 mg/dL (0.7-1.2) 04/27/24 02:00 GFR Calculation 62.0 mL/min (90-130) L 04/27/24 02:00 Glucose 74 mg/dL (65-115) 04/27/24 02:00 Calculated Osmolality 286 mOsm/kg (285-295) 04/27/24 02:00 Calcium 9.1 mg/dL (8.5-10.5) 04/27/24 02:00 Total Bilirubin 0.4 mg/dL (0.15-1.2) 04/27/24 02:00 AST 20 U/L (0-40) 04/27/24 02:00 ALT 17 U/L (0-41) 04/27/24 02:00 Alkaline Phosphatase 104 U/L (40-130) 04/27/24 02:00 Troponin T Baseline 27 ng/L (0-15) H 04/27/24 02:00 Troponin T 120 Minute 25.72 ng/L (0-15) H 04/27/24 03:30 Delta Troponin T -1.28 ABS# (0-10) L 04/27/24 03:30 NT-Pro-B Natriuret Pep 3296 pg/mL (0-125) H 04/27/24 02:00 Total Protein 6.8 g/dL (6.6-8.7) 04/27/24 02:00 Albumin 4.4 g/dL (3.5-5.2) 04/27/24 02:00 Globulin 2.4 g/dL (1.3-4.6) 04/27/24 02:00 Urine Color Yellow (Yellow) 04/27/24 02:57 Urine Appearance Clear (CLEAR) 04/27/24 02:57 Urine pH 7 (5-7) 04/27/24 02:57 Ur Specific [place] 1.005 (1.005-1.030) 04/27/24 02:57 Urine Protein Neg (Negative) 04/27/24 02:57 Urine Glucose (UA) Norm (Normal) 04/27/24 02:57 Urine Ketones Negative (Negative) 04/27/24 02:57 Urine Blood Neg (Negative) 04/27/24 02:57 Urine Nitrate Negative (Negative) 04/27/24 02:57 Urine Bilirubin Neg (Negative) 04/27/24 02:57 Urine Urobilinogen Norm mg/dL (Negative) 04/27/24 02:57 Ur Leukocyte Esterase Negative (Negative) 04/27/24 02:57 Amorphous Sediment Not Reportable 04/27/24 02:57 Urine Opiates Screen Negative ng/mL (Negative) 04/27/24 02:57 Ur Barbiturates Screen Negative ng/mL (Negative) 04/27/24 02:57 Ur Phencyclidine Scrn Negative ng/mL (Negative) 04/27/24 02:57 Ur Amphetamines Screen Negative ng/mL (Negative) 04/27/24 02:57 U Benzodiazepines Scrn Negative ng/mL (Negative) 04/27/24 02:57 Urine Cocaine Screen Negative ng/mL (Negative) 04/27/24 02:57 U Marijuana (THC) Screen Negative ng/mL (Negative) 04/27/24 02:57 All radiology interpretation(s) finalized by discharge Discharge Plan Discharge Patient Disposition: Home Clinical Impression: Atypical chest pain Chest pain Qualifiers: Chest pain type: unspecified Qualified Code(s): R07.9 - Chest pain, unspecified Condition: Stable Prescriptions: Continued carvedilol 3.125 mg tablet 3.125 mg PO BID Qty: 60 0RF Rx Instructions: must administer with a meal/food nitroglycerin 0.4 mg tablet, sublingual 0.4 mg sublingual Q5M PRN (Reason: chest pain) 30 Days Qty: 30 0RF Rx Instructions: do not exceed 3 doses per episode lisinopril 5 mg tablet 5 mg PO DAILY Qty: 30 0RF Eliquis 5 mg tablet 5 mg PO BID Qty: 60 0RF No Action albuterol sulfate 90 mcg/actuation aero powdr breath act w/sensor 1 inh inhalation Q6H PRN (Reason: shortness of breath or wheezing) Qty: 1 0RF Lasix 40 mg tablet 40 mg PO DAILY 30 Days Qty: 30 0RF Rx Instructions: Further refills need to come from primary care. Discharge Orders: Discharge ED (Routine); Ordered 04/27/24 Ordered By: Lionel Camacho Referrals: Brian Hutchinson MD [Primary Care Provider] - 1-3 days Patient Instructions: Chest Pain (ED), Opioid Safety, Pain Management Activity Restrictions/Additional Instructions: In his room. Medications refilled and taken appropriately. There is no evidence of acute heart attack on your laboratory and EKG workup this morning. Return for worsening pain, worsening shortness of breath, other concerning symptoms. Coding Level of Care Code ED Adult Basic Education Teacher for Zoë Arce
[2024-04-27 02:48] LABS: Basophils # 0.1 10^3/uL (0.0-0.1); Basophils % 0.9 %; Eosinophils # 0.3 10^3/uL (0.0-0.8); Eosinophils % 3.3 %; Hematocrit 43.2 % (37-53); Lymphocytes # 2.5 10^3/uL (0.8-4.8); Lymphocytes % 30.4 %; Mean Corpuscular HGB Conc 32.6 g/dL (30-55); Mean Corpuscular Hemoglobin 28.4 pg (27-33); Mean Corpuscular Volume 87.1 fl (82-101); Mean Platelet Volume 11.1 fL (7.4-10.4); Monocytes # 0.7 10^3/uL (0.2-0.9); Monocytes % 8.1 %; Neutrophils # 4.63 10^3/uL (1.8-7.7); Neutrophils % 56.9 %; Nucleated Red Blood Cells % 0 %; Platelet Count 307 10^3/cmm (157-399); Red Blood Count 4.96 10^6/uL (3.85-5.65); Red Cell Distribution Width 14.3 % (12.1-15.1); White Blood Count 8.13 10^3/uL (3.29-11.43)
--- NOTE | 2024-04-27 02:49 | PC.NURSE ---
The nathalie in the pts room told the nurse that she would not be able to give the pt morphine because he was not allowed to have narcotics This nurse went to the room and explained to the chef manager that the pt would receive the meds the ed physician ordered.
[2024-04-27 03:02] LABS: Troponin(5th) Baseline 27 ng/L (0-15)
[2024-04-27 03:09] LABS: Alanine Aminotransferase 17 U/L (0-41); Albumin Level 4.4 g/dL (3.5-5.2); Alkaline Phosphatase 104 U/L (40-130); Anion Gap 12.5 (5-19); Aspartate Amino Transferase 20 U/L (0-40); Blood Urea Nitrogen 22 mg/dL (6-20); Calcium 9.1 mg/dL (8.5-10.5); Carbon Dioxide 27 mmol/L (22-29); Chloride 102 mmol/L (98-107); Creatinine Clr Calc Pharmacy 66.0979; Globulin 2.4 g/dL (1.3-4.6); Glucose 74 mg/dL (65-115); NT Pro B Type Natriuretic Pept 3296 pg/mL (0-125); Osmolality Calculated 286 mOsm/kg (285-295); Potassium 4.5 mmol/L (3.5-5.1); Sodium 137 mmol/L (136-145); Total Bilirubin 0.4 mg/dL (0.15-1.2); Total Protein 6.8 g/dL (6.6-8.7)
[2024-04-27] MEDS: enalaprilat 2.5 mg/2 mL SDV 1.25 MG IVP (03:12)
[2024-04-27 04:00] LABS: Troponin 5 2HR 25.72 ng/L (0-15)
[2024-04-27 04:09] LABS: Troponin 5 2HR Delta -1.28 ABS# (0-10)
[2024-04-27 04:34] VITALS: BP 164/100; PULSE 63; O2SAT 99
[2024-04-27 05:01] LABS: Add Urine Microscopic? NO
[2024-04-27 05:02] LABS: Bilirubin Urine Neg (Negative); Blood Urine Neg (Negative); Charge for UA Resulting for Rev; Glucose Urine UA Norm (Normal); Ketones Urine Negative (Negative); Leukocyte Esterase Urine Negative (Negative); Nitrate Urine Negative (Negative); Protein Urine Neg (Negative); Specific Gravity, Urine 1.005 (1.005-1.030); Urine Appearance Clear (CLEAR); Urine Color Yellow (Yellow); Urobilinogen Urine Norm (Negative); pH Urine 7 (5-7)
[2024-04-27 05:11] LABS: Amphetamines Screen Urine Negative (Negative); Barbiturates Screen Urine Negative (Negative); Benzodiazepines Screen Urine Negative (Negative); Cocaine Screen Urine Negative (Negative); Opiate Screen Urine Negative (Negative); PCP Screen Urine Negative (Negative); THC Screen Urine Negative (Negative)
== END 2024-04-27 04:43 | disposition home or self-care (01) ==
PROVIDERS: Emergency Provider Emergency Medicine; PCP Family Medicine
DX: R07.89 Other chest pain (principal); Z79.01 Long term (current) use of anticoagulants; Z72.0 Tobacco use; I25.10 Atherosclerotic heart disease of native coronary artery without angina pectoris; I12.9 Hypertensive chronic kidney disease with stage 1 through stage 4 chronic kidney disease, or unspecified chronic kidney disease; N18.30 Chronic kidney disease, stage 3 unspecified; J44.9 Chronic obstructive pulmonary disease, unspecified
CPT/HCPCS: 71045; 80053; 80306; 81003; 83880; 84484; 85025; 93005; 96374; 96375; 99285; J2270; J2405

== ENCOUNTER 2024-07-11 02:24 | Emergency (ER) | payer MEDICARE, SELFPAY ==
--- NOTE | 2024-07-11 02:32 | XRR_ITS ---
PROCEDURE INFORMATION: Exam: XR Chest Exam date and time: 07/11/2024 2:38 AM Age: 59 years old Clinical indication: Pain; Shortness of breath; Chest pressure; Patient HX: C/O cp with SOB; Additional info: Chest pain TECHNIQUE: Imaging protocol: Radiologic exam of the chest. Views: 1 view. COMPARISON: CR XR chest 1V portable [id number] 04/27/2024 2:32 AM FINDINGS: Lungs: No infiltrate. Benign granulomas noted Pleural spaces: Unremarkable. No pleural effusion. No pneumothorax. Heart/Mediastinum: There is mild cardiomegaly with vascular congestion. Bones/joints: Unremarkable. XR/XR chest 1V portable [id number] IMPRESSION: Mild cardiomegaly with vascular congestion.
--- NOTE | 2024-07-11 02:32 | ECG_ITS ---
[facility] 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 Measurements Intervals [place] Rate: 84 P: 78 [place]: 137 QRS: 62 QRSD: 86 T: 86 QT: 419 QTc: 495 Interpretive Statements SINUS RHYTHM WITH MARKED SINUS ARRHYTHMIA POSSIBLE LEFT ATRIAL ENLARGEMENT [-0.1mV P-WAVE IN V1/V2] POSSIBLE LEFT VENTRICULAR HYPERTROPHY [VOLTAGE CRITERIA PLUS LAE OR QRS WIDENING] NONSPECIFIC ST & T-WAVE ABNORMALITY Compared to ECG 04/27/2024 02:14:22 Sinus bradycardia no longer present T-wave abnormality still present Electronically Signed On 07-11-2024 10:23:40 [employer] by Gatito Del Toro M.D. [id number]
[2024-07-11 02:47] VITALS: BP 162/101; PULSE 89; RESP 20; O2SAT 94; BMI 29.0
[2024-07-11 02:49] LABS: Basophils # 0.1 10^3/uL (0.0-0.1); Basophils % 0.8 %; Eosinophils # 0.5 10^3/uL (0.0-0.8); Eosinophils % 4.7 %; Hematocrit 40.8 % (37-53); Lymphocytes # 1.6 10^3/uL (0.8-4.8); Lymphocytes % 15.4 %; Mean Corpuscular HGB Conc 32.6 g/dL (30-55); Mean Corpuscular Hemoglobin 29.4 pg (27-33); Mean Corpuscular Volume 90.3 fl (82-101); Mean Platelet Volume 10.6 fL (7.4-10.4); Monocytes # 0.6 10^3/uL (0.2-0.9); Neutrophils # 7.61 10^3/uL (1.8-7.7); Neutrophils % 72.7 %; Nucleated Red Blood Cells % 0 %; Platelet Count 280 10^3/cmm (157-399); Red Blood Count 4.52 10^6/uL (3.85-5.65); Red Cell Distribution Width 13.9 % (12.1-15.1); White Blood Count 10.46 10^3/uL (3.29-11.43)
[2024-07-11 03:11] LABS: Troponin(5th) Baseline 38 ng/L (0-15)
[2024-07-11] MEDS: ondansetron 2 mg/ML SDV 2 mL 4 MG IVP (03:19)
[2024-07-11 03:20] LABS: Alanine Aminotransferase 32 U/L (0-41); Albumin Level 3.9 g/dL (3.5-5.2); Alkaline Phosphatase 123 U/L (40-130); Anion Gap 16.9 (5-19); Aspartate Amino Transferase 34 U/L (0-40); Blood Urea Nitrogen 41 mg/dL (8-23); Calcium 8.6 mg/dL (8.5-10.5); Carbon Dioxide 21 mmol/L (22-29); Chloride 104 mmol/L (98-107); Creatinine Clr Calc Pharmacy 35.8277; Globulin 2.9 g/dL (1.3-4.6); Glomerular Filtration Rate 30.7 mL/min (90-130); Glucose 154 mg/dL (65-115); NT Pro B Type Natriuretic Pept 12135 pg/mL (0-125); Osmolality Calculated 299 mOsm/kg (285-295); Potassium 3.9 mmol/L (3.5-5.1); Sodium 138 mmol/L (136-145); Total Bilirubin 0.3 mg/dL (0.15-1.2); Total Protein 6.8 g/dL (6.6-8.7)
[2024-07-11] MEDS: morphine 4 mg/mL SDV 1 mL IVP (03:20)
[2024-07-11] MEDS: FUROsemide 10 mg/mL SDV 4mL 40 MG IVP (03:21)
[2024-07-11 03:30] VITALS: BP 120/80; PULSE 89; RESP 21; O2SAT 92
[2024-07-11 04:58] LABS: Troponin 5 2HR 36.97 ng/L (0-15)
[2024-07-11 05:00] LABS: Troponin 5 2HR Delta -1.03 ABS# (0-10)
--- NOTE | 2024-07-11 05:17 | ED_ITS ---
HPI - Chest Pain 2 General: Chief Complaint: Chest Pain Stated Complaint: SOB CP not had heart meds recently Time Seen by Provider: 07/11/24 02:54 History of Present Illness: 59-year-old male with a history of cardi omyopathy presenting with shortness of breath, chest discomfort, worsening over several days. He has been out of his medications, which she believes is part of the problem. Related Data Previous Rx's Medication Instructions Recorded albuterol sulfate 90 mcg/actuation 1 inh inhalation Q6H PRN shortness 02/12/24 breath activated powder of breath or wheezing #1 ea inhaler,sensor nitroglycerin 0.4 mg sublingual 0.4 mg sublingual Q5M PRN chest 04/27/24 tablet pain 30 days #30 tabs apixaban 5 mg tablet (Eliquis) 5 mg PO BID #60 tabs 07/11/24 carvedilol 3.125 mg tablet 3.125 mg PO BID #60 tabs 07/11/24 furosemide 40 mg tablet 40 mg PO DAILY 30 days #30 tabs 07/11/24 lisinopril 5 mg tablet 5 mg PO DAILY #30 tabs 07/11/24 Allergies Allergy/AdvReac Type Severity Reaction Status Date / Time gabapentin Allergy Intermediate nausea/vomi Verified 04/27/24 02:17 ting [facility] ED 2 PFS: Medical History JOO (acute kidney injury) Coronary artery disease Angiogram: March 2023: Moderate left main stenosis. Worsening angina CKD (chronic kidney disease) stage 3, GFR 30-59 ml/min Tobacco use Osteoarthritis of right shoulder COPD (chronic obstructive pulmonary disease) Chest pain Migraine Hypertension Stenosis, spinal, lumbar Surgical History Post-operative state Hx of tonsillectomy H/O shoulder surgery H/O skin graft S/P lumbar laminectomy (05/25/19) Dr Hinojosa bilateral L3-4 laminotomy/foraminotomy. Family History Mother CAD (coronary artery disease) Father Diabetes Social History Smoking and tobacco/nicotine status: current every day tobacco/nicotine user Alcohol intake: current Alcohol intake frequency: few times a month Substance/Drug Use: never Lives independently: Yes Household members: spouse Marital status: Current occupational status: disabled Physical Exam 2 Const: COMMON NORMALS: no acute distress GENERAL APPEARANCE: cooperative; not ill appearing and not frail appearing HENMT: COMMON NORMALS: normocephalic, atraumatic and Normal external nose present HEAD & SCALP: normocephalic and atraumatic FACE & SINUS: normal facial exam and face symmetric NOSE: Normal external nose present Eye: COMMON NORMALS: Equal, round and reactive pupils present and EOMs intact bilaterally PUPIL: Yes Equal, round and reactive pupils present Neck/C-Spine: GENERAL: Yes trachea midline Chest: CHEST: Yes Symmetrical chest wall rise Resp: COMMON NORMALS: normal respiratory effort, No retractions, No use of accessory muscles and clear to auscultation bilaterally AUSCULTATION: clear to auscultation bilaterally Cardio: COMMON NORMALS: regular rate and regular rhythm RATE: regular rate RHYTHM: regular rhythm GI: COMMON NORMALS: Normal to inspection, nondistended, normoactive bowel sounds present Extremity: COMMON NORMALS: no pedal edema Neuro: ELIS COMA SCALE: document GCS findings El[place] coma scale eye opening: Spontaneous Elis coma scale verbal response: Orientated [place] coma scale motor response: Obey commands [place] coma scale total score: 15 S ENSORY EXAM: Yes extremities (intact) Psych: COMMON NORMALS: speech normal SPEECH: Yes normal speech Skin: COMMON NORMALS: no rashes or lesions noted GENERAL SKIN EXAM: no rashes or lesions noted Course 2 Vital Signs: Vital signs: Vital Signs Pulse Rate 89 07/11/24 03:30 Respiratory Rate 21 H 07/11/24 03:30 Blood Pressure 120/80 07/11/24 03:30 Pulse Oximetry 92 07/11/24 03:30 Oxygen Delivery Me thod Room Air 07/11/24 03:30 MDM - Chest Pain Medical Decision Making Pain, blood pressure, and symptoms are improved after medication here. His chest X-ray shows cardiomegaly with mild vascular congestion, likely the cause of his symptoms. He is given intravenous lasix here. His creatinine is 2.2. CBC is normal period just troponin did not go up at 2 hours. His BNP is chronically elevated, but is 12,000. His medications will be restarted and filled for him. He is to resume these. Return for any worsening symptoms. He is to see his doctor next week. Lab Data 07/11/24 02:45 07/11/24 02:45 Radiology Impressions Chest X-Ray 07/11/24 02:32 IMPRESSION: Mild cardiomegaly with vascular congestion. Laboratory Results WBC 10.46 10^3/uL (3.29-11.43) 07/11/24 02:45 RBC 4.52 10^6/uL (3.85-5.65) 07/11/24 02:45 Hgb 13.30 g/dL (11.27-16.99) 07/11/24 02:45 Hct 40.8 % (37-53) 07/11/24 02:45 MCV 90.3 fl (82-101) 07/11/24 02:45 MCH 29.4 pg (27-33) 07/11/24 02:45 MCHC 32.6 g/dL (30-55) 07/11/24 02:45 RDW 13.9 % (12.1-15.1) 07/11/24 02:45 Plt Count 280 10^3/cmm (157-399) 07/11/24 02:45 MPV 10.6 fL (7.4-10.4) H 07/11/24 02:45 Neut % (Auto) 72.7 % 07/11/24 02:45 Lymph % (Auto) 15.4 % 07/11/24 02:45 [place] % (Auto) 6.0 % 07/11/24 02:45 Eos % (Auto) 4.7 % 07/11/24 02:45 Baso % (Auto) 0.8 % 07/11/24 02:45 Neut # (Auto) 7.61 10^3/uL (1.8-7.7) 07/11/24 02:45 Lymph # (Auto) 1.6 10^3/uL (0.8-4.8) 07/11/24 02:45 [place] # (Auto) 0.6 10^3/uL (0.2-0.9) 07/11/24 02:45 Eos # (Auto) 0.5 10^3/uL (0.0-0.8) 07/11/24 02:45 Baso # (Auto) 0.1 10^3/uL (0.0-0.1) 07/11/24 02:45 Nucleated RBC % (auto) 0 % 07/11/24 02:45 Nucleated RBCs # 0.0 /100WBC 07/11/24 02:45 Sodium 138 mmol/L (136-145) 07/11/24 02:45 Potassium 3.9 mmol/L (3.5-5.1) 07/11/24 02:45 Chloride 104 mmol/L (98-107) 07/11/24 02:45 Carbon Dioxide 21 mmol/L (22-29) L 07/11/24 02:45 Anion Gap 16.9 (5-19) 07/11/24 02:45 BUN 41 mg/dL (8-23) H 07/11/24 02:45 Creatinine 2.2 mg/dL (0.7-1.2) H 07/11/24 02:45 GFR Calculation 30.7 mL/min (90-130) L 07/11/24 02:45 Glucose 154 mg/dL (65-115) H 07/11/24 02:45 Calculated Osmolality 299 mOsm/kg (285-295) H 07/11/24 02:45 Calcium 8.6 mg/dL (8.5-10.5) 07/11/24 02:45 Total Bilirubin 0.3 mg/dL (0.15-1.2) 07/11/24 02:45 AST 34 U/L (0-40) 07/11/24 02:45 ALT 32 U/L (0-41) 07/11/24 02:45 Alkaline Phosphatase 123 U/L (40-130) 07/11/24 02:45 Troponin T Baseline 38 ng/L (0-15) H 07/11/24 02:45 Troponin T 120 Minute 36.97 ng/L (0-15) H 07/11/24 04:30 Delta Troponin T -1.03 ABS# (0-10) L 07/11/24 04:30 NT-Pro-B Natriuret Pep 92760 pg/mL (0-125) H 07/11/24 02:45 Total Protein 6.8 g/dL (6.6-8.7) 07/11/24 02:45 Albumin 3.9 g/dL (3.5-5.2) 07/11/24 02:45 Globulin 2.9 g/dL (1.3-4.6) 07/11/24 02:45 All radiology interpretation(s) finalized by discharge Discharge Plan Discharge Patient Disposition: Home Clinical Impression: HFrEF (heart failure with reduced ejection fraction) Chest pain Qualifiers: Chest pain type: unspecified Qualified Code(s): R07.9 - Chest pain, unspecified Condition: Stable Prescriptions: Continued furosemide 40 mg tablet 40 mg PO DAILY 30 Days Qty: 30 0RF Rx Instructions: Further refills need to come from primary care. carvedilol 3.125 mg tablet 3.125 mg PO BID Qty: 60 0RF Rx Instructions: must administer with a meal/food lisinopril 5 mg tablet 5 mg PO DAILY Qty: 30 0RF Eliquis 5 mg tablet 5 mg PO BID Qty: 60 0RF No Action albuterol sulfate 90 mcg/actuation aero powdr breath act w/sensor 1 inh inhalation Q6H PRN (Reason: shortness of breath or wheezing) Qty: 1 0RF nitroglycerin 0.4 mg tablet, sublingual 0.4 mg sublingual Q5M PRN (Reason: chest pain) 30 Days Qty: 30 0RF Rx Instructions: do not exceed 3 doses per episode Discharge Orders: Discharge ED (Routine); Ordered 07/11/24 Ordered By: Lionel Camacho Referrals: Brian Hutchinson MD [Primary Care Provider] - 4-7 days Patient Instructions: Heart Failure (ED), Chest Pain (ED), Opioid Safety, Pain Management Activity Restrictions/Additional Instructions: Your medications have been refilled at your pharmacy. Restart medications. Call your doctor on Saturday for a follow-up appointment. Return for worsening symptoms. Coding Level of Care Code ED Veteran Appeals Reviewer for Zoë Arce
== END 2024-07-11 06:20 | disposition home or self-care (01) ==
PROVIDERS: Emergency Provider Emergency Medicine; PCP Family Medicine
DX: I13.0 Hypertensive heart and chronic kidney disease with heart failure and stage 1 through stage 4 chronic kidney disease, or unspecified chronic kidney disease (principal); N18.30 Chronic kidney disease, stage 3 unspecified; I50.20 Unspecified systolic (congestive) heart failure; Z72.0 Tobacco use; J44.9 Chronic obstructive pulmonary disease, unspecified; I25.10 Atherosclerotic heart disease of native coronary artery without angina pectoris
CPT/HCPCS: 71045; 80053; 83880; 84484; 85025; 93005; 96374; 96375; 99285; J1940; J2270; J2405

== ENCOUNTER 2024-10-02 11:58 | Emergency (ER) | payer MEDICARE, SELFPAY ==
[2024-10-02 12:02] VITALS: BP 160/70; PULSE 83; RESP 18; TEMP 36.4; O2SAT 99; BMI 27.4
--- NOTE | 2024-10-02 12:36 | XR_ITS ---
WS: [id number] Exam: XR shoulder RT min 2V* [id number] Date/Time of Exam: 10/02/2024 12:37 PM Reason For Exam: injury No acute fracture. Slight DJD of the acromion. The glenohumeral joint is intact. Normal soft tissues. IMPRESSION1. Slight degenerative change of the acromion. No other significant finding.
--- NOTE | 2024-10-02 13:49 | W.ED.GENADLT ---
HPI - General Adult General: Chief complaint: Extremity Injury, Upper Stated complaint: rt shoulder inj Time Seen by Provider: 10/02/24 13:38 Source: patient Mode of arrival: ambulatory Limitations: no limitations History of Present Illness: Patient is a 59-year-old male who presents to ED today with three completely separate complaints. His first complaint is his right shoulder. Patient states he accidentally slipped and fell on the ice/snow yesterday and fell directly onto the right shoulder. Pain is localized to the right shoulder. He denies striking his head or LOC. No neck or back pain. He has limited motion of the shoulder due to discomfort. No numbness, tingling, loss of sensation, or color/temperature changes to the arm. Patient's second complaint is an infection/developing abscess near his chin. He states he has had this before from using a dirty razor to shave. He has not noticed any drainage from the area but states it is swollen and tender. Patient's third complaint is he would like a refill on his medications. He states he ran out 4 to 5 days ago. He states he takes eliquis, carvedilol, furosemide, and lisinopril. 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 Looking through previous documentation, he has not seen cardiology since 2022. States he normally just comes here and they refill his medications. Onset (ago): unknown (Varying chronicity based on his complaints) Location: face and upper extremity Pain Consistency: constant (R shoulder) Exacerbating factors: movement (R shoulder) Associated symptoms: Deny chest pain, dyspnea, headache(s), malaise, nausea, palpitations, syncope or vomiting Treatments prior to arrival: none Related Data Previous Rx's ?Medication ?Instructions ?Recorded albuterol sulfate 90 mcg/actuation 1 inh inhalation Q6H PRN shortness 02/12/24 breath activated powder of breath or wheezing #1 ea inhaler,sensor nitroglycerin 0.4 mg sublingual 0.4 mg sublingual Q5M PRN chest 04/27/24 tablet pain 30 days #30 tabs apixaban 5 mg tablet (Eliquis) 5 mg PO BID #60 tabs 10/02/24 carvedilol 3.125 mg tablet 3.125 mg PO BID #60 tabs 10/02/24 furosemide 40 mg tablet 40 mg PO DAILY 30 days #30 tabs 10/02/24 lisinopril 5 mg tablet 5 mg PO DAILY #30 tabs 10/02/24 sulfamethoxazole 800 1 tab PO BID 7 days #14 tabs 10/02/24 mg-trimethoprim 160 mg tablet (Bactrim DS) Allergies Allergy/AdvReac Type Severity Reaction Status Date / Time gabapentin Allergy Intermediate nausea/vomi Verified 04/27/24 02:17 ting Review of Systems Const: Denies: fever(s), chills, body aches, fatigue or malaise Eyes: Denies: change in vision, blurry vision, floaters or seeing flashes ENMT: Reports: other (chin sore/lesion); Denies: mouth pain, swelling of lips/tongue or dental pain Card: Denies: chest pain, palpitations, irregular heart rhythm, edema, syncope or pre-syncope Resp: Denies: dyspnea GI: Denies: abdominal pain, nausea or vomiting Musc: Reports: joint pain (R shoulder); Denies: neck pain or back pain Skin/Breast: Reports: other (lesion to chin) Neuro: Denies: headache(s), numbness in extremities, weakness in extremities, sensory changes or dizziness PFSH ED PFSH: Medical History JOO (acute kidney injury) Coronary artery disease Angiogram: March 2023: Moderate left main stenosis. Worsening angina CKD (chronic kidney disease) stage 3, GFR 30-59 ml/min Tobacco use Osteoarthritis of right shoulder COPD (chronic obstructive pulmonary disease) Chest pain Migraine Hypertension Stenosis, spinal, lumbar Surgical History Post-operative state Hx of tonsillectomy H/O shoulder surgery H/O skin graft S/P lumbar laminectomy (05/25/19) Dr Hinojosa bilateral L3-4 laminotomy/foraminotomy. Family History Mother CAD (coronary artery disease) Father Diabetes Social History Smoking and tobacco/nicotine status: current every day tobacco/nicotine user Alcohol intake: current Alcohol intake frequency: few times a month Substance/Drug Use: never Lives independently: Yes Household members: spouse Marital status: Current occupational status: disabled Physical Exam Const: COMMON NORMALS: no acute distress, average body habitus, patient oriented x3, no limitations, healthy appearing, alert and well nourished GENERAL APPEARANCE: cooperative ORIENTATION/CONSCIOUSNESS: Yes awake, Yes oriented to person, Yes oriented to place and Yes oriented to time HENMT: COMMON NORMALS: normocephalic, atraumatic and Normal external nose present HEAD & SCALP: normal to inspection, normocephalic and atraumatic FACE & SINUS IMAGES:  1. edematous area with shaved hair surrounded by course anderson hair; raw appearing skin; no fluctuance or drainage noted NOSE: Normal external nose present MOUTH: Normal oral and palatal mucosa present, lip normal, tongue normal and Normal salivary glands and ducts present THROAT: posterior oropharynx normal and tonsils normal Neck/C-Spine: COMMON NORMALS: full ROM, no lymphadenopathy, supple and no meningeal signs GENERAL: No anterior neck swelling and No submandibular swelling Chest: COMMONS NORMALS: normal inspection of the chest Resp: COMMON NORMALS: normal respiratory effort and clear to auscultation bilaterally AUSCULTATION: clear to auscultation bilaterally Cardio: COMMON NORMALS: regular rate and regular rhythm RATE: regular rate RHYTHM: regular rhythm GI: COMMON NORMALS: Normal to inspection, nondistended, normoactive bowel sounds present, Soft to palpation, non-tender, No hepatosplenomegaly present and no masses PALPATION: Yes Soft to palpation and Yes No hepatosplenomegaly present : COMMON NORMALS: Yes no CVA tenderness BLADDER/KIDNEY EXAM: Yes no CVA tenderness Back/Pelvis: COMMON NORMALS: no CVA tenderness and thoracic and lumbar spine normal to inspection Extremity: COMMON NORMALS: normal to inspection GENERAL: Yes normal exam except as noted RIGHT UPPER EXTREMITY: Yes shoulder joint (TTP anterior R shoulder joint) Right shoulder: Yes Right shoulder joint inspection exam (normal gross inspection), Yes Right shoulder joint ROM exam (limited due to pain) and Yes Right shoulder joint neurovascular exam (normal) Neuro: COMMON NORMALS: patient oriented x3, moves all extremities, no focal motor deficits, no sensory deficits noted and gait normal SENSORIUM/ORIENTATION: Yes alert, Yes oriented to person, Yes oriented to place and Yes oriented to time MENINGEAL SIGNS: Yes no meningeal signs Skin: COMMON NORMALS: no rashes or lesions noted GENERAL SKIN EXAM: no rashes or lesions noted Course Vital Signs: Vital signs: Vital Signs Temperature 97.6 F 10/02/24 12:02 Pulse Rate 83 10/02/24 12:02 Respiratory Rate 18 10/02/24 12:02 Blood Pressure 160/70 10/02/24 12:02 Pulse Oximetry 99 10/02/24 12:02 Oxygen Delivery Me thod Room Air 10/02/24 12:02 MDM - General Adult Medical Decision Making Patient here with three separate complaints: 1) Injury to right shoulder after a slip and fall yesterday. XR of the right shoulder is unremarkable. Patient will be placed in a sling for comfort. Recommend passive ROM. Will forego anti-inflammatories given his history of kidney disease. Recommend ice/heat. Follow-up with primary care in 1 to 2 weeks if symptoms are not improving. 2) Skin lesion to chin. Shaving with dirty razor. Will place on Bactrim to cover for staph/MRSA. No drainable abscess at this time. Recommend follow up with PCP if not improving on antibiotics. 3) Refills of medications. Has not seen cardiology since 2022 so case management referral was made for this. He can also follow up with PCP. Needs to stop coming to ED for refills of these medications. Medical Records I reviewed the patient's medical records. All radiology interpretation(s) finalized by discharge Discharge Plan Discharge Patient Disposition: Home Clinical Impression: Injury of right shoulder, Medication refill, Abscess or cellulitis of chin Condition: Stable Prescriptions: New sulfamethoxazole-trimethoprim [Bactrim DS] 800-160 mg tablet 1 tab PO BID 7 Days Qty: 14 0RF Continued furosemide 40 mg tablet 40 mg PO DAILY 30 Days Qty: 30 0RF Rx Instructions: Further refills need to come from primary care. carvedilol 3.125 mg tablet 3.125 mg PO BID Qty: 60 0RF Rx Instructions: must administer with a meal/food lisinopril 5 mg tablet 5 mg PO DAILY Qty: 30 0RF Eliquis 5 mg tablet 5 mg PO BID Qty: 60 0RF No Action albuterol sulfate 90 mcg/actuation aero powdr breath act w/sensor 1 inh inhalation Q6H PRN (Reason: shortness of breath or wheezing) Qty: 1 0RF nitroglycerin 0.4 mg tablet, sublingual 0.4 mg sublingual Q5M PRN (Reason: chest pain) 30 Days Qty: 30 0RF Rx Instructions: do not exceed 3 doses per episode Discharge Orders: Discharge ED (Routine); Ordered 10/02/24 Ordered By: Dorinda Perez Referrals: Nano Cohen DO [Primary Care Provider] - Activity Restrictions/Additional Instructions: He was seen for several medical complaints today. 1) Your x-ray of the right shoulder was unremarkable. You were placed in a sling for comfort but I want you doing passive range of motions with the shoulder. Will forego anti-inflammatories given your history of kidney disease. Recommend ice/heat. Follow-up with primary care in 1 to 2 weeks if symptoms are not improving. 2) Skin lesion to chin. Stop using dirty/used razors to shave. Will place on Bactrim/antibiotic. Recommend follow up with PCP if not improving on antibiotics. 3) Refills of medications. You have not seen cardiology since 2022 so case management referral was made for this. YOU NEED TO FOLLOW UP OUTPATIENT WITH CARDIOLOGY AND PRIMARY CARE. Print Language: Spanish Coding Level of Care Code ED Pilot Safety Inspector for Zoë Arce
--- NOTE | 2024-10-05 07:53 | DCPLANNER ---
messaged heart care for er f/u
== END 2024-10-02 14:17 | disposition home or self-care (01) ==
PROVIDERS: Emergency Provider Physician Assistant; PCP Family Medicine
DX: S49.91XA Unspecified injury of right shoulder and upper arm, initial encounter (principal); L02.01 Cutaneous abscess of face; Z76.0 Encounter for issue of repeat prescription; Z79.01 Long term (current) use of anticoagulants; Z72.0 Tobacco use; J44.9 Chronic obstructive pulmonary disease, unspecified; I12.9 Hypertensive chronic kidney disease with stage 1 through stage 4 chronic kidney disease, or unspecified chronic kidney disease; N18.9 Chronic kidney disease, unspecified; I25.10 Atherosclerotic heart disease of native coronary artery without angina pectoris; W00.0XXA Fall on same level due to ice and snow, initial encounter
CPT/HCPCS: 73030; 99283

== ENCOUNTER 2024-12-01 12:32 | Emergency (ER) | payer MEDICARE, SELFPAY ==
--- NOTE | 2024-12-01 12:35 | ECG_ITS ---
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 Measurements Intervals [place] Rate: 85 P: 62 IA: 127 QRS: 63 QRSD: 80 T: 60 QT: 392 QTc: 468 Interpretive Statements SINUS RHYTHM NONSPECIFIC T-WAVE ABNORMALITY Compared to ECG 07/11/2024 02:34:59 Sinus arrhythmia no longer present T-wave abnormality still present Electronically Signed On 12-01-2024 21:20:07 CDT by Elham Johnson M.D. [email or web address]
[2024-12-01 12:43] VITALS: BP 160/100; PULSE 86; RESP 18; TEMP 36.7; O2SAT 97
--- NOTE | 2024-12-01 13:27 | PC.PHAR ---
PATIENT CONFIRMED MEDS BUT STATES ITS BEEN A REALLY LONG TIME SINCE HES HAD ANY OF THEM. HES NOT HAD ANY REFILLS
--- NOTE | 2024-12-01 13:34 | W.ED.CHESTPA ---
Documented by User: Davis Quick DO 12/03/24 06:10 HPI - Chest Pain General: Chief Complaint: Chest Pain Stated Complaint: out of meds,sob, chest pressure Time Seen by Provider: 12/01/24 13:14 History of Present Illness: 59-year-old male presents to the emergency room with complaints of shortness of breath. He is having some intermittent chest pain he has been out of his medications for some time he has a history of chronic kidney disease and heart failure he also has a history of coronary artery disease. Does not take any of his medications for all nearly a week. He denies any fever sweats or chills has a known history of atrial fibrillation with rapid ventricular response Associated symptoms: Reports dyspnea; Deny abdominal pain or fever(s) Related Data Previous Rx's ?Medication ?Instructions ?Recorded albuterol sulfate 90 mcg/actuation 1 inh inhalation Q6H PRN shortness 12/01/24 breath activated powder of breath or wheezing #1 ea inhaler,sensor apixaban 5 mg tablet (Eliquis) 5 mg PO BID #60 tabs 12/01/24 carvedilol 3.125 mg tablet 3.125 mg PO BID #60 tabs 12/01/24 furosemide 40 mg tablet 40 mg PO DAILY 30 days #30 tabs 12/01/24 lisinopril 5 mg tablet 5 mg PO DAILY #30 tabs 12/01/24 nitroglycerin 0.4 mg sublingual 0.4 mg sublingual Q5M PRN chest 12/01/24 tablet pain 30 days #30 tabs Allergies Allergy/AdvReac Type Severity Reaction Status Date / Time gabapentin Allergy Intermediate nausea/vomi Verified 04/27/24 02:17 ting Review of Systems Const: Denies: fever(s) or chills Card: Reports: chest pain Resp: Reports: dyspnea GI: Denies: abdominal pain : Denies: dysuria, urinary frequency or urinary urgency Musc: Denies: neck pain or back pain Skin/Breast: Denies: rash PFSH ED PFSH: Medical History JOO (acute kidney injury) Coronary artery disease Angiogram: March 2023: Moderate left main stenosis. Worsening angina CKD (chronic kidney disease) stage 3, GFR 30-59 ml/min Tobacco use Osteoarthritis of right shoulder COPD (chronic obstructive pulmonary disease) Chest pain Migraine Hypertension Stenosis, spinal, lumbar Surgical History Post-operative state Hx of tonsillectomy H/O shoulder surgery H/O skin graft S/P lumbar laminectomy (05/25/19) Dr Hinojosa bilateral L3-4 laminotomy/foraminotomy. Family History Mother CAD (coronary artery disease) Father Diabetes Social History Smoking and tobacco/nicotine status: current every day tobacco/nicotine user Alcohol intake: current Alcohol intake frequency: few times a month Substance/Drug Use: never Lives independently: Yes Household members: spouse Marital status: Current occupational status: disabled Physical Exam Const: GENERAL APPEARANCE: cooperative ORIENTATION/CONSCIOUSNESS: Yes awake, Yes oriented to person, Yes oriented to place and Yes oriented to time HENMT: COMMON NORMALS: normocephalic, atraumatic and hearing grossly normal bilaterally HEAD & SCALP: normocephalic and atraumatic Resp: COMMON NORMALS: normal respiratory effort, No retractions, No use of accessory muscles and clear to auscultation bilaterally AUSCULTATION: clear to auscultation bilaterally Cardio: COMMON NORMALS: regular rate, regular rhythm and No murmurs present (Cardio) RATE: regular rate RHYTHM: regular rhythm GI: COMMON NORMALS: Soft to palpation and No hepatosplenomegaly present AUSCULTATION: Yes normoactive bowel sounds PALPATION: Yes Soft to palpation, No Tenderness to palpation present (GI), No Guarding due to palpation present (GI) and Yes No hepatosplenomegaly present Extremity: COMMON NORMALS: normal to inspection, capillary refill normal, no clubbing, cyanosis or edema, no calf tenderness and no pedal edema Neuro: SENSORIUM/ORIENTATION: Yes oriented to person, Yes oriented to place and Yes oriented to time Skin: COMMON NORMALS: no rashes or lesions noted GENERAL SKIN EXAM: no rashes or lesions noted Course Vital Signs: Vital signs: Vital Signs Temperature 98.1 F 12/01/24 12:43 Pulse Rate 67 12/01/24 17:00 Respiratory Rate 19 H 12/01/24 15:10 Blood Pressure 157/91 12/01/24 17:00 Pulse Oximetry 99 12/01/24 17:00 Oxygen Delivery Me thod Room Air 12/01/24 16:00 MDM - Chest Pain Medical Decision Making Care signed out to Dr. Nice at change of shift. See final notes for diagnosis and disposition. Patient presents here chest pain is atypical in nature 2-hour troponins negative he is mainly here for medication refill we will discharge and refill his meds he is follow-up PCP return if worsening Lab Data 12/01/24 13:58 12/01/24 13:58 Radiology Impressions Chest X-Ray 12/01/24 13:35 IMPRESSION: 1. No acute cardiopulmonary finding. Laboratory Results WBC 6.89 10^3/uL (3.29-11.43) 12/01/24 13:58 RBC 4.78 10^6/uL (3.85-5.65) 12/01/24 13:58 Hgb 14.20 g/dL (11.27-16.99) 12/01/24 13:58 Hct 42.8 % (37-53) 12/01/24 13:58 MCV 89.5 fl (82-101) 12/01/24 13:58 MCH 29.7 pg (27-33) 12/01/24 13:58 MCHC 33.2 g/dL (30-55) 12/01/24 13:58 RDW 13.9 % (12.1-15.1) 12/01/24 13:58 Plt Count 272 10^3/cmm (157-399) 12/01/24 13:58 MPV 10.0 fL (7.4-10.4) 12/01/24 13:58 Neut % (Auto) 59.4 % 12/01/24 13:58 Lymph % (Auto) 24.7 % 12/01/24 13:58 [place] % (Auto) 7.8 % 12/01/24 13:58 Eos % (Auto) 6.8 % 12/01/24 13:58 Baso % (Auto) 1.0 % 12/01/24 13:58 Neut # (Auto) 4.09 10^3/uL (1.8-7.7) 12/01/24 13:58 Lymph # (Auto) 1.7 10^3/uL (0.8-4.8) 12/01/24 13:58 [place] # (Auto) 0.5 10^3/uL (0.2-0.9) 12/01/24 13:58 Eos # (Auto) 0.5 10^3/uL (0.0-0.8) 12/01/24 13:58 Baso # (Auto) 0.1 10^3/uL (0.0-0.1) 12/01/24 13:58 Nucleated RBC % (auto) 0 % 12/01/24 13:58 Nucleated RBCs # 0.0 /100WBC 12/01/24 13:58 Sodium 139 mmol/L (136-145) 12/01/24 13:58 Potassium 4.3 mmol/L (3.5-5.1) 12/01/24 13:58 Chloride 104 mmol/L (98-107) 12/01/24 13:58 Carbon Dioxide 24 mmol/L (22-29) 12/01/24 13:58 Anion Gap 15.3 (5-19) 12/01/24 13:58 BUN 16 mg/dL (8-23) 12/01/24 13:58 Creatinine 1.4 mg/dL (0.7-1.2) H 12/01/24 13:58 GFR Calculation 51.7 mL/min (90-130) L 12/01/24 13:58 Glucose 72 mg/dL (65-115) 12/01/24 13:58 Calculated Osmolality 288 mOsm/kg (285-295) 12/01/24 13:58 Calcium 8.7 mg/dL (8.5-10.5) 12/01/24 13:58 Total Bilirubin 0.4 mg/dL (0.15-1.2) 12/01/24 13:58 AST 20 U/L (0-40) 12/01/24 13:58 ALT 14 U/L (0-41) 12/01/24 13:58 Alkaline Phosphatase 100 U/L (40-130) 12/01/24 13:58 Troponin T Baseline 28 ng/L (0-15) H 12/01/24 13:58 Troponin T 120 Minute 24.52 ng/L (0-15) H 12/01/24 15:53 Delta Troponin T -3.48 ABS# (0-10) L 12/01/24 15:53 NT-Pro-B Natriuret Pep 3992 pg/mL (0-125) H 12/01/24 13:58 Total Protein 6.8 g/dL (6.6-8.7) 12/01/24 13:58 Albumin 4.1 g/dL (3.5-5.2) 12/01/24 13:58 Globulin 2.7 g/dL (1.3-4.6) 12/01/24 13:58 Discharge Plan Discharge Patient Disposition: Home Clinical Impression: Medication refill Chest pain Qualifiers: Chest pain type: unspecified Qualified Code(s): R07.9 - Chest pain, unspecified Condition: Stable Prescriptions: Continued furosemide 40 mg tablet 40 mg PO DAILY 30 Days Qty: 30 0RF Rx Instructions: Further refills need to come from primary care. carvedilol 3.125 mg tablet 3.125 mg PO BID Qty: 60 0RF Rx Instructions: must administer with a meal/food nitroglycerin 0.4 mg tablet, sublingual 0.4 mg sublingual Q5M PRN (Reason: chest pain) 30 Days Qty: 30 0RF Rx Instructions: do not exceed 3 doses per episode lisinopril 5 mg tablet 5 mg PO DAILY Qty: 30 0RF Eliquis 5 mg tablet 5 mg PO BID Qty: 60 0RF albuterol sulfate 90 mcg/actuation aero powdr breath act w/sensor 1 inh inhalation Q6H PRN (Reason: shortness of breath or wheezing) Qty: 1 0RF Discharge Orders: Discharge ED (Routine); Ordered 12/01/24 Ordered By: Paco Nice Referrals: Nano Cohen DO [Primary Care Provider] - 4-7 days Discharge Diet: Advance as tolerated Discharge Activity: Resume usual activity Patient Instructions: Chest Pain (ED) Print Language: Portuguese Coding Level of Care Code ED Traffic Investigator for Zoë Fwd Documented by User: Paco Nice MD 12/01/24 16:58 HPI - Chest Pain General: Chief Complaint: Chest Pain Stated Complaint: out of meds,sob, chest pressure Time Seen by Provider: 12/01/24 13:14 Related Data Previous Rx's ?Medication ?Instructions ?Recorded albuterol sulfate 90 mcg/actuation 1 inh inhalation Q6H PRN shortness 12/01/24 breath activated powder of breath or wheezing #1 ea inhaler,sensor apixaban 5 mg tablet (Eliquis) 5 mg PO BID #60 tabs 12/01/24 carvedilol 3.125 mg tablet 3.125 mg PO BID #60 tabs 12/01/24 furosemide 40 mg tablet 40 mg PO DAILY 30 days #30 tabs 12/01/24 lisinopril 5 mg tablet 5 mg PO DAILY #30 tabs 12/01/24 nitroglycerin 0.4 mg sublingual 0.4 mg sublingual Q5M PRN chest 12/01/24 tablet pain 30 days #30 tabs Allergies Allergy/AdvReac Type Severity Reaction Status Date / Time gabapentin Allergy Intermediate nausea/vomi Verified 04/27/24 02:17 ting [facility] ED PFSH: Medical History JOO (acute kidney injury) Coronary artery disease Angiogram: March 2023: Moderate left main stenosis. Worsening angina CKD (chronic kidney disease) stage 3, GFR 30-59 ml/min Tobacco use Osteoarthritis of right shoulder COPD (chronic obstructive pulmonary disease) Chest pain Migraine Hypertension Stenosis, spinal, lumbar Surgical History Post-operative state Hx of tonsillectomy H/O shoulder surgery H/O skin graft S/P lumbar laminectomy (05/25/19) Dr Hinojosa bilateral L3-4 laminotomy/foraminotomy. Family History Mother CAD (coronary artery disease) Father Diabetes Social History Smoking and tobacco/nicotine status: current every day tobacco/nicotine user Alcohol intake: current Alcohol intake frequency: few times a month Substance/Drug Use: never Lives independently: Yes Household members: spouse Marital status: Current occupational status: disabled Course Vital Signs: Vital signs: Vital Signs Temperature 98.1 F 12/01/24 12:43 Pulse Rate 67 12/01/24 17:00 Respiratory Rate 19 H 12/01/24 15:10 Blood Pressure 157/91 12/01/24 17:00 Pulse Oximetry 99 12/01/24 17:00 Oxygen Delivery Me thod Room Air 12/01/24 16:00 MDM - Chest Pain Medical Decision Making Patient presents here chest pain is atypical in nature 2-hour troponins negative he is mainly here for medication refill we will discharge and refill his meds he is follow-up PCP return if worsening Medical Records I reviewed the patient's medical records. Lab Data I reviewed the patient's lab results. 12/01/24 13:58 12/01/24 13:58 Radiology Impressions Chest X-Ray 12/01/24 13:35 IMPRESSION: 1. No acute cardiopulmonary finding. Laboratory Results WBC 6.89 10^3/uL (3.29-11.43) 12/01/24 13:58 RBC 4.78 10^6/uL (3.85-5.65) 12/01/24 13:58 Hgb 14.20 g/dL (11.27-16.99) 12/01/24 13:58 Hct 42.8 % (37-53) 12/01/24 13:58 MCV 89.5 fl (82-101) 12/01/24 13:58 MCH 29.7 pg (27-33) 12/01/24 13:58 MCHC 33.2 g/dL (30-55) 12/01/24 13:58 RDW 13.9 % (12.1-15.1) 12/01/24 13:58 Plt Count 272 10^3/cmm (157-399) 12/01/24 13:58 MPV 10.0 fL (7.4-10.4) 12/01/24 13:58 Neut % (Auto) 59.4 % 12/01/24 13:58 Lymph % (Auto) 24.7 % 12/01/24 13:58 [place] % (Auto) 7.8 % 12/01/24 13:58 Eos % (Auto) 6.8 % 12/01/24 13:58 Baso % (Auto) 1.0 % 12/01/24 13:58 Neut # (Auto) 4.09 10^3/uL (1.8-7.7) 12/01/24 13:58 Lymph # (Auto) 1.7 10^3/uL (0.8-4.8) 12/01/24 13:58 [place] # (Auto) 0.5 10^3/uL (0.2-0.9) 12/01/24 13:58 Eos # (Auto) 0.5 10^3/uL (0.0-0.8) 12/01/24 13:58 Baso # (Auto) 0.1 10^3/uL (0.0-0.1) 12/01/24 13:58 Nucleated RBC % (auto) 0 % 12/01/24 13:58 Nucleated RBCs # 0.0 /100WBC 12/01/24 13:58 Sodium 139 mmol/L (136-145) 12/01/24 13:58 Potassium 4.3 mmol/L (3.5-5.1) 12/01/24 13:58 Chloride 104 mmol/L (98-107) 12/01/24 13:58 Carbon Dioxide 24 mmol/L (22-29) 12/01/24 13:58 Anion Gap 15.3 (5-19) 12/01/24 13:58 BUN 16 mg/dL (8-23) 12/01/24 13:58 Creatinine 1.4 mg/dL (0.7-1.2) H 12/01/24 13:58 GFR Calculation 51.7 mL/min (90-130) L 12/01/24 13:58 Glucose 72 mg/dL (65-115) 12/01/24 13:58 Calculated Osmolality 288 mOsm/kg (285-295) 12/01/24 13:58 Calcium 8.7 mg/dL (8.5-10.5) 12/01/24 13:58 Total Bilirubin 0.4 mg/dL (0.15-1.2) 12/01/24 13:58 AST 20 U/L (0-40) 12/01/24 13:58 ALT 14 U/L (0-41) 12/01/24 13:58 Alkaline Phosphatase 100 U/L (40-130) 12/01/24 13:58 Troponin T Baseline 28 ng/L (0-15) H 12/01/24 13:58 Troponin T 120 Minute 24.52 ng/L (0-15) H 12/01/24 15:53 Delta Troponin T -3.48 ABS# (0-10) L 12/01/24 15:53 NT-Pro-B Natriuret Pep 3992 pg/mL (0-125) H 12/01/24 13:58 Total Protein 6.8 g/dL (6.6-8.7) 12/01/24 13:58 Albumin 4.1 g/dL (3.5-5.2) 12/01/24 13:58 Globulin 2.7 g/dL (1.3-4.6) 12/01/24 13:58 All radiology interpretation(s) finalized by discharge Discharge Plan Discharge Patient Disposition: Home Clinical Impression: Medication refill Chest pain Qualifiers: Chest pain type: unspecified Qualified Code(s): R07.9 - Chest pain, unspecified Condition: Stable Prescriptions: Continued furosemide 40 mg tablet 40 mg PO DAILY 30 Days Qty: 30 0RF Rx Instructions: Further refills need to come from primary care. carvedilol 3.125 mg tablet 3.125 mg PO BID Qty: 60 0RF Rx Instructions: must administer with a meal/food nitroglycerin 0.4 mg tablet, sublingual 0.4 mg sublingual Q5M PRN (Reason: chest pain) 30 Days Qty: 30 0RF Rx Instructions: do not exceed 3 doses per episode lisinopril 5 mg tablet 5 mg PO DAILY Qty: 30 0RF Eliquis 5 mg tablet 5 mg PO BID Qty: 60 0RF albuterol sulfate 90 mcg/actuation aero powdr breath act w/sensor 1 inh inhalation Q6H PRN (Reason: shortness of breath or wheezing) Qty: 1 0RF Discharge Orders: Discharge ED (Routine); Ordered 12/01/24 Ordered By: Paco Nice Referrals: Nano Cohen DO [Primary Care Provider] - 4-7 days Discharge Diet: Advance as tolerated Discharge Activity: Resume usual activity Patient Instructions: Chest Pain (ED) Print Language: Portuguese Coding Level of Care Code ED Traffic Investigator for Chg Fwd
--- NOTE | 2024-12-01 13:35 | XR_ITS ---
WS: [id number] Exam: XR chest 1V portable [id number] Date/Time of Exam: 12/01/2024 1:35 PM Reason For Exam: chest pain Comparison 07/11/2024. The lungs are fully expanded and clear. Normal cardiomediastinal silhouette. Calcified perihilar granulomas. No pleural effusions. Bony structures are intact. Advanced DJD of the LEFT glenohumeral joint. A single screw noted in the LEFT glenoid. Old fracture deformity of the LEFT glenoid and LEFT humeral head.. XR/XR chest 1V portable [id number] IMPRESSION: 1. No acute cardiopulmonary finding.
[2024-12-01] MEDS: apixaban 5 mg Tablet PO (13:47)
[2024-12-01] MEDS: lisinopril 5 mg Tablet PO (13:47)
[2024-12-01] MEDS: FUROsemide 40 mg Tablet PO (13:47)
[2024-12-01] MEDS: aspirin 81 mg Chew Tablet 324 MG PO (13:47)
[2024-12-01] MEDS: carvedilol 3.125 mg Tablet PO (13:47)
[2024-12-01 14:00] VITALS: BP 162/103; PULSE 69; O2SAT 99
[2024-12-01 14:14] LABS: Basophils # 0.1 10^3/uL (0.0-0.1); Eosinophils # 0.5 10^3/uL (0.0-0.8); Eosinophils % 6.8 %; Hematocrit 42.8 % (37-53); Lymphocytes # 1.7 10^3/uL (0.8-4.8); Lymphocytes % 24.7 %; Mean Corpuscular HGB Conc 33.2 g/dL (30-55); Mean Corpuscular Hemoglobin 29.7 pg (27-33); Mean Corpuscular Volume 89.5 fl (82-101); Monocytes # 0.5 10^3/uL (0.2-0.9); Monocytes % 7.8 %; Neutrophils # 4.09 10^3/uL (1.8-7.7); Neutrophils % 59.4 %; Nucleated Red Blood Cells % 0 %; Platelet Count 272 10^3/cmm (157-399); Red Blood Count 4.78 10^6/uL (3.85-5.65); Red Cell Distribution Width 13.9 % (12.1-15.1); White Blood Count 6.89 10^3/uL (3.29-11.43)
[2024-12-01 14:33] LABS: Troponin(5th) Baseline 28 ng/L (0-15)
[2024-12-01 14:42] LABS: Alanine Aminotransferase 14 U/L (0-41); Albumin Level 4.1 g/dL (3.5-5.2); Alkaline Phosphatase 100 U/L (40-130); Anion Gap 15.3 (5-19); Aspartate Amino Transferase 20 U/L (0-40); Blood Urea Nitrogen 16 mg/dL (8-23); Calcium 8.7 mg/dL (8.5-10.5); Carbon Dioxide 24 mmol/L (22-29); Chloride 104 mmol/L (98-107); Creatinine Clr Calc Pharmacy 54.1406; Globulin 2.7 g/dL (1.3-4.6); Glomerular Filtration Rate 51.7 mL/min (90-130); Glucose 72 mg/dL (65-115); NT Pro B Type Natriuretic Pept 3992 pg/mL (0-125); Osmolality Calculated 288 mOsm/kg (285-295); Potassium 4.3 mmol/L (3.5-5.1); Sodium 139 mmol/L (136-145); Total Bilirubin 0.4 mg/dL (0.15-1.2); Total Protein 6.8 g/dL (6.6-8.7)
[2024-12-01] MEDS: ipratropium-albuterol 3 mL Neb INHALATION (15:07)
[2024-12-01 15:10] VITALS: PULSE 68; RESP 19; O2SAT 99
[2024-12-01 15:16] VITALS: PULSE 65
--- NOTE | 2024-12-01 15:35 | ECG_ITS ---
[facility]: 2024-12-01 Pat Name: Christian Sparks Department: Room: Gender: Male Patent Drafter: EVELIO: 1965 Requested By: Davis Zarate Order Number: [id number] Jesús MD: Elham Johnson M.D. Measurements Intervals [place] Rate: 64 P: 66 MI: 165 QRS: 55 QRSD: 82 T: 26 QT: 512 QTc: 529 Interpretive Statements SINUS RHYTHM NONSPECIFIC ST & T-WAVE ABNORMALITY PROLONGED QT INTERVAL CRITICAL TEST RESULT Compared to ECG 12/01/2024 12:39:28 Prolonged QT interval now present T-wave abnormality still present Electronically Signed On 12-02-2024 08:43:57 CDT by Elham Johnson M.D. [email or web address]
[2024-12-01 16:00] VITALS: BP 159/102; PULSE 70; O2SAT 93
[2024-12-01 16:46] LABS: Troponin 5 2HR 24.52 ng/L (0-15)
[2024-12-01 16:49] LABS: Troponin 5 2HR Delta -3.48 ABS# (0-10)
[2024-12-01 17:00] VITALS: BP 157/91; PULSE 67; O2SAT 99
== END 2024-12-01 17:01 | disposition home or self-care (01) ==
PROVIDERS: Family Medicine; Emergency Provider Emergency Medicine; PCP Family Medicine
DX: Z76.0 Encounter for issue of repeat prescription (principal); R07.9 Chest pain, unspecified; Z79.01 Long term (current) use of anticoagulants; Z72.0 Tobacco use; J44.9 Chronic obstructive pulmonary disease, unspecified; I25.10 Atherosclerotic heart disease of native coronary artery without angina pectoris; I12.9 Hypertensive chronic kidney disease with stage 1 through stage 4 chronic kidney disease, or unspecified chronic kidney disease; N18.30 Chronic kidney disease, stage 3 unspecified
CPT/HCPCS: 36415; 71045; 80053; 83880; 84484; 85025; 93005; 94640; 99285; J9999

== ENCOUNTER 2025-03-11 13:55 | Emergency (ER) | payer MEDICARE, SELFPAY ==
[2025-03-11] VITALS (8 sets, daily range): BP systolic 133–186; BP diastolic 68–98; PULSE 69–88; RESP 16–18; TEMP 36.3; O2SAT 95–98; BMI 26.6
[2025-03-11 14:25] LABS: Hematocrit 47.7 % (37-53); Hemoglobin 16.20 g/dL (11.27-16.99); Mean Corpuscular HGB Conc 34.0 g/dL (30-55); Mean Corpuscular Hemoglobin 30.1 pg (27-33); Mean Corpuscular Volume 88.5 fl (82-101); Nucleated Red Blood Cells % 0 %; Platelet Count 310 10^3/cmm (157-399); Red Blood Count 5.39 10^6/uL (3.85-5.65); White Blood Count 9.32 10^3/uL (3.29-11.43)
--- NOTE | 2025-03-11 14:31 | CT_ITS ---
WS: [id number] CT ABDOMEN PELVIS TECHNIQUE: Noncontrast CT of the abdomen and pelvis with coronal and sagittal reformatted images. CLINICAL INFORMATION: abdominal pain COMPARISON: None. DLP: 520.[address] scans at [facility] use at least one of these dose optimization techniques: automated exposure control; mA and/or kV adjustment per patient size (includes targeted exams where dose is matched to clinical indication); or iterative reconstruction. FINDINGS: Calcified granulomas LEFT lower lobe. Lung bases are well aerated. Normal noncontrast liver. Normal noncontrast spleen. Air-fluid level in the stomach. Tiny esophageal hiatal hernia. Adrenal glands are normal. No hydronephrosis in either kidney. No obstructing renal or ureteral calculi. Calcified prostate. Sigmoid diverticulosis. Normal appendix in the RIGHT lower quadrant. No evidence of acute appendicitis. Moderate constipation involving the RIGHT colon and transverse colon. Fat-containing umbilical hernia. RIGHT inguinal hernia with multiple herniated loops of bowel extending into the scrotum. No evidence of high-grade obstruction. Correlation with RIGHT groin pain and reducibility. Small amount of mesenteric induration and venous congestion in the hernia sac. No free fluid or free air. Hernia mouth measures approximately 3.[address]/CT abdomen pelvis wo con [id number] IMPRESSION: 1. Gallbladder is normal in appearance. No evidence of acute pancreatitis. 2. Fluid distended stomach with air-fluid level. No evidence of obstruction. 3. No hydronephrosis in either kidney. 4. Normal appendix. 5. Sigmoid diverticulosis with trace amount of edema in the pelvis although no definite evidence of acute diverticulitis. Recommend correlation for lower GI tract symptoms. 6. Large RIGHT inguinal hernia with multiple normal caliber small bowel loops extending into the scrotum. No free fluid. Small amount of venous congestion in the mesentery. No evidence of high-grade obstruction. This is reportedly easil y reducible. Recommend follow-up surgical consultation for repair 7. Moderate constipation RIGHT colon and transverse colon Notified Juan A Duckworth MD at 03/11/2025 3:21 PM.
[2025-03-11] MEDS: ondansetron 2 mg/ML SDV 2 mL 4 MG IVP (14:37)
[2025-03-11] MEDS: morphine 4 mg/mL SDV 1 mL IVP (14:37)
[2025-03-11 14:38] LABS: Alanine Aminotransferase 13 U/L (0-41); Albumin Level 4.1 g/dL (3.5-5.2); Alkaline Phosphatase 116 U/L (40-130); Anion Gap 15.9 (5-19); Aspartate Amino Transferase 17 U/L (0-40); Blood Urea Nitrogen 20 mg/dL (8-23); Calcium 9.2 mg/dL (8.5-10.5); Carbon Dioxide 23 mmol/L (22-29); Chloride 102 mmol/L (98-107); Creatinine Clr Calc Pharmacy 44.5864; Globulin 3.4 g/dL (1.3-4.6); Glucose 119 mg/dL (65-115); Lipase 29 U/L (13-60); Osmolality Calculated 288 mOsm/kg (285-295); Potassium 3.9 mmol/L (3.5-5.1); Sodium 137 mmol/L (136-145); Total Protein 7.5 g/dL (6.6-8.7)
--- NOTE | 2025-03-11 15:07 | PC.PHAR ---
Pt states he hasnt' taken meds lately due to being out of all of them except his NTG.
[2025-03-11 16:31] LABS: Glucose Urine UA Negative (Normal); Nitrate Urine Negative (Negative); Specific Gravity, Urine 1.018 (1.005-1.030)
[2025-03-11 16:33] LABS: Add Urine Microscopic? YES; Universal Test for UA Present (0)
[2025-03-11 16:49] LABS: UA Slide Review UA Slide Review Perf
[2025-03-11] MEDS: diphenhydrAMINE 50 mg/mL SDV 1mL 25 MG IVP (17:40)
[2025-03-11] MEDS: tetracaine 0.5% Op Soln 4 mL Btl 1 DROP EYE-RIGHT (17:41)
--- NOTE | 2025-03-11 17:57 | W.ED.ABDPA2 ---
HPI - Abdominal Pain General: Chief Complaint: Abdominal Pain Stated Complaint: ABD pain Time Seen by Provider: 03/11/25 14:11 History of Present Illness: Patient is a 59-year-old male who presents to the ED with complaints of abdominal pain for the past two days. The pain is described as diffuse but primarily located in the epigastric region. The patient states the pain started suddenly and is unlike any pain he has experienced before. He denies nausea, vomiting, or diarrhea. The patient reports decreased urinary output over the past 2-3 days. During the examination, the patient also mentioned a right inguinal hernia, which was easily reduced during the physical exam. Additionally, the patient complained of right eye irritation, stating that he woke up with his eye matted together. He denies any trauma to the eye, grinding, or working in an environment that could have caused eye irritation. He denies wearing glasses and reports being able to see normally. Related Data Previous Rx's ?Medication ?Instructions ?Recorded albuterol sulfate 90 mcg/actuation 1 inh inhalation Q6H PRN shortness 12/01/24 breath activated powder of breath or wheezing #1 ea inhaler,sensor apixaban 5 mg tablet (Eliquis) 5 mg PO BID #60 tabs 12/01/24 carvedilol 3.125 mg tablet 3.125 mg PO BID #60 tabs 12/01/24 furosemide 40 mg tablet 40 mg PO DAILY 30 days #30 tabs 12/01/24 lisinopril 5 mg tablet 5 mg PO DAILY #30 tabs 12/01/24 nitroglycerin 0.4 mg sublingual 0.4 mg sublingual Q5M PRN chest 12/01/24 tablet pain 30 days #30 tabs dicyclomine 10 mg capsule 10 mg PO TID #20 caps 03/11/25 Allergies Allergy/AdvReac Type Severity Reaction Status Date / Time gabapentin Allergy Intermediate nausea/vomi Verified 04/27/24 02:17 [facility]: Medical History (Updated 03/11/25 @ 18:01 by Juan A Duckworth MD) JOO (acute kidney injury) Coronary artery disease Angiogram: March 2023: Moderate left main stenosis. Worsening angina CKD (chronic kidney disease) stage 3, GFR 30-59 ml/min Tobacco use Osteoarthritis of right shoulder COPD (chronic obstructive pulmonary disease) Chest pain Migraine Hypertension Stenosis, spinal, lumbar Surgical History Post-operative state Hx of tonsillectomy H/O shoulder surgery H/O skin graft S/P lumbar laminectomy (05/25/19) Dr Hinojosa bilateral L3-4 laminotomy/foraminotomy. Family History Mother CAD (coronary artery disease) Father Diabetes Social History Smoking and tobacco/nicotine status: current every day tobacco/nicotine user Alcohol intake: current Alcohol intake frequency: few times a month Substance/Drug Use: never Lives independently: Yes Household members: spouse Marital status: Current occupational status: disabled Physical Exam Const: COMMON NORMALS: no acute distress, average body habitus, alert and well nourished GENERAL APPEARANCE: cooperative ORIENTATION/CONSCIOUSNESS: Yes awake HENMT: COMMON NORMALS: normocephalic and atraumatic HEAD & SCALP: normocephalic and atraumatic Eye: COMMON NORMALS: Equal, round and reactive pupils present and EOMs intact bilaterally PUPIL: Yes Equal, round and reactive pupils present OTHER: Mild right conjunctival injection, no foreign bodies noted in the right eye no fluorescein uptake with Heredia lamp evaluation. Neck/C-Spine: GENERAL: Yes normal visual inspection Resp: COMMON NORMALS: normal respiratory effort, No retractions and No use of accessory muscles Cardio: COMMON NORMALS: regular rhythm and Peripheral pulses 2+ throughout RHYTHM: regular rhythm PERIPHERAL PULSES: Peripheral pulses 2+ throughout GI: COMMON NORMALS: Soft to palpation PALPATION: Yes Soft to palpation and Yes Tenderness to palpation present (GI) OTHER: Abdomen is soft and nondistended is some mild diffuse abdominal tenderness, no guarding or rebound, uncircumcised, large right inguinal hernia that was easily reduced at bedside without difficulty. Extremity: COMMON NORMALS: full ROM and no pedal edema Neuro: COMMON NORMALS: no focal motor deficits SENSORIUM/ORIENTATION: Yes alert Skin: COMMON NORMALS: no rashes or lesions noted GENERAL SKIN EXAM: no rashes or lesions noted Course Vital Signs: Vital signs: Vital Signs Temperature 97.4 F L 03/11/25 14:05 Pulse Rate 88 03/11/25 14:05 Respiratory Rate 18 07/31/25 14:37 Blood Pressure 186/98 03/11/25 17:03 Pulse Oximetry 98 03/11/25 17:03 Oxygen Delivery Me thod Room Air 03/11/25 14:05 MDM - Abdominal Pain Medical Decision Making ROS: Constitutional: Denies fever, chills, or weight changes. HEENT: Reports right eye irritation with matting. Denies vision changes. Cardiovascular: Reports history of heart issues requiring medication. Respiratory: Denies shortness of breath or cough. Gastrointestinal: Reports diffuse abdominal pain, primarily in the epigastric region. Denies nausea, vomiting, or diarrhea. Genitourinary: Reports decreased urinary output over the past 2-3 days. Reports stage 3 kidney failure. Musculoskeletal: Denies joint pain or swelling. Skin: Denies rashes or lesions. Neurological: Denies headache, dizziness, or focal weakness. MEDICATIONS AND ALLERGIES: Meds: Heart medication (unspecified), Lasix (furosemide) - patient reports being out of this medication for the past few days Allergies: No known drug allergies reported PAST HISTORICAL DATA: PMH: Stage 3 kidney failure, heart condition requiring medication, fluid retention ( water in blood ) PSH: No prior surgeries reported Social History: Former smoker, denies current alcohol use, reports past drug use but states it has been months since last use, denies ever using IV drugs INITIAL IMPRESSION AND PLAN: Given the history and presentation, the primary working diagnosis is abdominal pain of uncertain etiology with a reducible right inguinal hernia. Additional considerations include gallbladder disease, pancreatitis, appendicitis, and complications related to the patient's kidney disease. Based on this initial impression I will order basic laboratory studies including CBC, CMP, urinalysis, and a CT scan of the abdomen and pelvis to evaluate for potential causes of the abdominal pain. Will also evaluate the patient's eye complaint with fluorescein staining to rule out corneal abrasion. TEST INTERPRETATIONS: CT Abdomen/Pelvis: Ordered but results not verbalized in the printer machine Urinalysis: Unremarkable Eye Examination: Fluorescein staining performed, no corneal abrasion or foreign body identified PROCEDURES: Hernia Reduction: Right inguinal hernia was manually reduced at bedside without difficulty. Eye Examination: Proparacaine (topical anesthetic) was administered to the right eye followed by fluorescein staining to evaluate for corneal abrasion. No abrasion or foreign body was identified. CONSIDERED BUT NOT PERFORMED: OTC medications/interventions recommended included: Artificial tears for eye irritation, MiraLAX (one capful with 12 ounces of water once or twice daily) to ensure regular bowel movements, and cool compresses for eye irritation. FINAL IMPRESSION: Based on all the above, my clinical impression is most compatible with reducible right inguinal hernia, abdominal pain of uncertain etiology, and right eye irritation without corneal abrasion. The clinical picture is not currently suggestive of acute appendicitis, bowel obstruction, or acute kidney injury requiring immediate intervention. Although other conditions were also considered, they were deemed unlikely based on the clinical information available. CLINICAL DISPOSITION: The patient's current condition is stable in my estimation and the most appropriate and indicated disposition at this time is discharge home with outpatient follow-up. The patient is safe for discharge as his abdominal pain is not severe, his hernia is reducible, and there are no signs of acute surgical abdomen. His eye irritation shows no evidence of corneal abrasion or foreign body. The patient demonstrates understanding of discharge instructions and when to return to the ED. A referral to general surgery for evaluation of the inguinal hernia has been placed, and the patient has been advised on symptomatic management of his conditions. RISK STRATIFICATION AND CLINICAL DECISION RULES APPLIED: No formal clinical decision rules were applied during this encounter. CASE SUMMARY: 59-year-old male with stage 3 kidney disease presented with two days of diffuse abdominal pain, primarily in the epigastric region, along with a reducible right inguinal hernia and right eye irritation. Patient denied nausea, vomiting, or diarrhea but reported decreased urinary output over the past 2-3 days. Physical examination revealed diffuse abdominal tenderness and a large right inguinal hernia that was easily reduced. Eye examination showed mild irritation without evidence of corneal abrasion or foreign body. Diagnostic workup included urinalysis, which was unremarkable, and fluorescein staining of the eye, which showed no corneal abrasion. The patient was discharged home with instructions for symptomatic management of his abdominal pain and eye irritation. A referral to general surgery was placed for evaluation of the inguinal hernia. The patient was advised to take MiraLAX for constipation and to use artificial tears for eye irritation. Clear return precautions were provided. Lab Data I reviewed the patient's lab results. 03/11/25 14:14 03/11/25 14:14 Labs/Radiology: Radiology Impressions Abdomen/Pelvis CT 03/11/25 14:31 IMPRESSION: 1. Gallbladder is normal in appearance. No evidence of acute pancreatitis. 2. Fluid distended stomach with air-fluid level. No evidence of obstruction. 3. No hydronephrosis in either kidney. 4. Normal appendix. 5. Sigmoid diverticulosis with trace amount of edema in the pelvis although no definite evidence of acute diverticulitis. Recommend correlation for lower GI tract symptoms. 6. Large RIGHT inguinal hernia with multiple normal caliber small bowel loops extending into the scrotum. No free fluid. Small amount of venous congestion in the mesentery. No evidence of high-grade obstruction. This is reportedly easily reducible. Recommend follow-up surgical consultation for repair 7. Moderate constipation RIGHT colon and transverse colon Notified Juan A Duckworth MD at 03/11/2025 3:21 PM. Laboratory Results WBC 9.32 10^3/uL (3.29-11.43) 03/11/25 14:14 RBC 5.39 10^6/uL (3.85-5.65) 03/11/25 14:14 Hgb 16.20 g/dL (11.27-16.99) 03/11/25 14:14 Hct 47.7 % (37-53) 03/11/25 14:14 MCV 88.5 fl (82-101) 03/11/25 14:14 MCH 30.1 pg (27-33) 03/11/25 14:14 MCHC 34.0 g/dL (30-55) 03/11/25 14:14 RDW 12.8 % (12.1-15.1) 03/11/25 14:14 Plt Count 310 10^3/cmm (157-399) 03/11/25 14:14 MPV 10.0 fL (7.4-10.4) 03/11/25 14:14 Neut % (Auto) 70.7 % 03/11/25 14:14 Lymph % (Auto) 18.0 % 03/11/25 14:14 [place] % (Auto) 5.7 % 03/11/25 14:14 Eos % (Auto) 4.5 % 03/11/25 14:14 Baso % (Auto) 0.8 % 03/11/25 14:14 Neut # (Auto) 6.59 10^3/uL (1.8-7.7) 03/11/25 14:14 Lymph # (Auto) 1.7 10^3/uL (0.8-4.8) 03/11/25 14:14 [place] # (Auto) 0.5 10^3/uL (0.2-0.9) 03/11/25 14:14 Eos # (Auto) 0.4 10^3/uL (0.0-0.8) 03/11/25 14:14 Baso # (Auto) 0.1 10^3/uL (0.0-0.1) 03/11/25 14:14 Nucleated RBC % (auto) 0 % 03/11/25 14:14 Nucleated RBCs # 0.0 /100WBC 03/11/25 14:14 Sodium 137 mmol/L (136-145) 03/11/25 14:14 Potassium 3.9 mmol/L (3.5-5.1) 03/11/25 14:14 Chloride 102 mmol/L (98-107) 03/11/25 14:14 Carbon Dioxide 23 mmol/L (22-29) 03/11/25 14:14 Anion Gap 15.9 (5-19) 03/11/25 14:14 BUN 20 mg/dL (8-23) 03/11/25 14:14 Creatinine 1.7 mg/dL (0.7-1.2) H 03/11/25 14:14 GFR Calculation 41.3 mL/min (90-130) L 03/11/25 14:14 Glucose 119 mg/dL (65-115) H 03/11/25 14:14 Calculated Osmolality 288 mOsm/kg (285-295) 03/11/25 14:14 Calcium 9.2 mg/dL (8.5-10.5) 03/11/25 14:14 Total Bilirubin 0.6 mg/dL (0.15-1.2) 03/11/25 14:14 AST 17 U/L (0-40) 03/11/25 14:14 ALT 13 U/L (0-41) 03/11/25 14:14 Alkaline Phosphatase 116 U/L (40-130) 03/11/25 14:14 Total Protein 7.5 g/dL (6.6-8.7) 03/11/25 14:14 Albumin 4.1 g/dL (3.5-5.2) 03/11/25 14:14 Globulin 3.4 g/dL (1.3-4.6) 03/11/25 14:14 Lipase 29 U/L (13-60) 03/11/25 14:14 Urine Color Yellow (Yellow) 03/11/25 16:22 Urine Appearance Clear (CLEAR) 03/11/25 16:22 Urine pH 6.5 (5-7) 03/11/25 16:22 Ur Specific [place] 1.018 (1.005-1.030) 03/11/25 16:22 Urine Protein 1+ (Negative) A 03/11/25 16:22 Urine Glucose (UA) Negative (Normal) 03/11/25 16:22 Urine Ketones Trace (Negative) 03/11/25 16:22 Urine Blood Negative (Negative) 03/11/25 16:22 Urine Nitrate Negative (Negative) 03/11/25 16:22 Urine Bilirubin Negative (Negative) 03/11/25 16:22 Urine Urobilinogen 1.0 mg/dL (Negative) 03/11/25 16:22 Ur Leukocyte Esterase Negative (Negative) 03/11/25 16:22 Urine RBC 0-2 /hpf (0-2) 03/11/25 16:22 Urine WBC 0-5 /hpf (0-5) 03/11/25 16:22 Ur Squamous Epith Cells 0-5 /hpf (0-5) 03/11/25 16:22 Amorphous Sediment Not Reportable 03/11/25 16:22 Urine Bacteria None seen /hpf (NONE) 03/11/25 16:22 Hyaline Casts 11.16 /lpf 03/11/25 16:22 All radiology interpretation(s) finalized by discharge Discharge Plan Discharge Patient Disposition: Home Clinical Impression: Abdominal pain, Conjunctivitis, Inguinal hernia Condition: Stable Prescriptions: New dicyclomine 10 mg capsule 10 mg PO TID Qty: 20 0RF No Action furosemide 40 mg tablet 40 mg PO DAILY 30 Days Qty: 30 0RF Rx Instructions: Further refills need to come from primary care. carvedilol 3.125 mg tablet 3.125 mg PO BID Qty: 60 0RF Rx Instructions: must administer with a meal/food nitroglycerin 0.4 mg tablet, sublingual 0.4 mg sublingual Q5M PRN (Reason: chest pain) 30 Days Qty: 30 0RF Rx Instructions: do not exceed 3 doses per episode lisinopril 5 mg tablet 5 mg PO DAILY Qty: 30 0RF Eliquis 5 mg tablet 5 mg PO BID Qty: 60 0RF albuterol sulfate 90 mcg/actuation aero powdr breath act w/sensor 1 inh inhalation Q6H PRN (Reason: shortness of breath or wheezing) Qty: 1 0RF Discharge Orders: Discharge ED (Routine); Ordered 03/11/25 Ordered By: Juan A Duckworth Referrals: John Nelson MD [Physician, General Surgery] - 2 weeks Nano Cohen DO [Primary Care Provider, Family Practice] Patient Instructions: Abdominal Pain (ED), Opioid Safety, Pain Management, Patient Portal & Kwame Instructions Activity Restrictions/Additional Instructions: Instructions: 1. Follow up with general surgery for evaluation of your right inguinal hernia. A referral has been placed. 2. Take MiraLAX as directed - one capful with 12 ounces of water once or twice daily to ensure regular bowel movements. 3. For eye irritation: - Use artificial tears as needed for comfort - Apply cool compresses to the eye if irritated - Avoid rubbing or scratching the eye 4. Resume your regular medications, including your heart medication and Lasix 5. Maintain adequate hydration Return to the Emergency Department immediately if you experience: - Severe or worsening abdominal pain - Inability to reduce your hernia (if it becomes hard, painful, or discolored) - Persistent vomiting - Inability to have a bowel movement or pass gas - Worsening eye pain, vision changes, or increased redness - Fever greater than 101?F - Any other concerning symptoms Print Language: Senegalese Coding Level of Care Code ED [place] Pilot for Zoë Arce
--- OUTSIDE RECORDS SUMMARY | 2025-03-12 06:20 | XMS_ITS | Clinical Summary ---
Author Organization [facility] Address [address] [place] [address] Phone Care Team Providers Care Call Worker Person Name Role Phone Unavailable Primary Care Provider Unavailabl e Allergies Active Allergy Reactions Criticality Noted Date Comments Gabapentin Nausea and Vomiting Low 05/13/2019 Medications lisinopriL (PRINIVIL) 10 mg tabletIndications :Essential hypertension Take 1 Tablet (10 mg) by mouth daily. 30 Tablet 1 9 Active ibuprofen (MOTRIN) 800 mg tabletIndications :Spinal stenosis of lumbar region, unspecified whether neurogenic claudication present,LLQ abdominal pain,Lumbar nerve root impingement Take 1 Tablet (800 mg) by mouth every 6 hours as needed for Pain, Moderate. 60 Tablet 1 9 Active traZODone (DESYREL) 50 mg tabletIndications :Insomnia, unspecified type Take 1-2 Tablets (50-100 mg) by mouth daily at bedtime. 60 Tablet 1 9 Active lidocaine 1.8 % Adhesive Patch, MedicatedIndicati ons:Acute bilateral low back pain with bilateral sciatica Apply 1 Patch to affected area daily. 2 Patch 0 9 Active ondansetron (ZOFRAN ODT) 4 mg Tablet, Rapid DissolveIndicatio ns:Intractable vomiting with nausea, unspecified vomiting type Take 1 Tablet (4 mg) by mouth every 8 hours as needed for Nausea Dissolve tablet on top of tongue, then swallow with saliva.. 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 10/01/2018 Bulging lumbar disc: L5-S1 mild with mild stenos is 10/01/2018 Protrusion of thoracic intervertebral disc: T11- 12 10/01/2018 Protruded lumbar disc: Broad L4-5 10/01/2018 Protruded cervical disc: c6-7 with mild stenosis 10/01/2018 Thoracic stenosis: mild 10/01/2018 Spinal stenosis of lumbar region 10/01/2018 Lumbar nerve root impingementS S1 with S1 lumbar ized 10/01/2018 Osteoarthritis of left shoulder 05/05/2018 Social History Tobacco Use Types Packs/Day Years Used Date Smoking Tobacco: Every Day Smokeless Tobacco: Never Sex and Gender Information Value Date Recorded Sex Assigned at Not on file 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 Gender Identity Not on file Sexual Orientation Not on file Last Filed Vital Signs Vital Sign Reading Time Taken Comments Blood Pressure 147/82 05/13/2019 11:26 AM CDT Pulse 101 05/13/2019 11:26 AM CDT Temperature 36.3 C (97.3 F) 05/13/2019 11:26 AM CDT Respiratory Rate 18 02/18/2019 12:21 PM CDT Oxygen Saturation - - Inhaled Oxygen Concentration - - Weight 79.4 kg (175 lb) 05/13/2019 11:26 AM CDT Height 170.2 cm (5' 7 ) 05/13/2019 11:26 AM CDT Body Mass Index 27.41 05/13/2019 11:26 AM CDT Plan of Treatment Health Maintenance Due Date Last Done Comments DTAP/TDAP/TD VACCINES (1 - Tdap) 1983 COLORECTAL SCREENING 2009 Colorectal Cancer Screening 2009 FIT-DNA Q 3 years 2009 FIT/FOBT Q 1 year 2009 Flex Sig/CT Colonography Q 5 years 2009 ZOSTER VACCINE (1 of 2) 2014 INFLUENZA VACCINE (#1) 2025 05/13/2019 RSV VACCINE (60+ or ) (1 - 1-dose 75+ series) 2039 HEPATITIS B VACCINES Aged Out No long er eligible based on patient's age to complete this topic
--- OUTSIDE RECORDS SUMMARY | 2025-03-12 06:20 | XMS_ITS | Encounter Summary ---
Author Organization [facility] Address [address] [place] [address] Care Team Providers Care Lidding Machine Operator Name Role Phone Nano Cohen Primary Care Provider Encounter Details Date Type Department Care Team (Late st Contact Info) Description 05/05/2018 Ancillary Orders [facility] Orthopedics - Orthopedic [facility] [address] [place] [address] [facility], External Provider [address] [place], [place] [id number] Pain Social History Tobacco Use Types Packs/Day Years Used Date Smoking Tobacco: Every Day Smokeless Tobacco: Never Sex and Gender Information Value Date Recorded Sex Assigned at Not on file Legal Sex Male 1:03 PM CDT Gender Identity Not on file Sexual Orientation Not on file documented as of this encounter Plan of Treatment Not on file documented as of this encounter Results * XR PRIOR STUDY (02/25/2018 1:15 PM CDT) Narrative 05/05/2018 12:00 PM CDT This exam was auto finalized to allow images to be scanned to PACS. External Provider [facility] DIAGNOSTIC IMAGING ORDERAB LES Final Result * MRI PRIOR STUDY (02/25/2018 1:00 PM CDT) Narrative 05/05/2018 12:01 PM CDT This exam was auto finalized to allow images to be scanned to PACS. External Provider [facility] MR ORDERABLES Final Resu lt * XR PRIOR STUDY (02/06/2018 11:10 AM CDT) Narrative 05/05/2018 12:01 PM CDT This exam was auto finalized to allow images to be scanned to PACS. External Provider [facility] DIAGNOSTIC IMAGING ORDERAB LES Final Result documented in this encounter Visit Diagnoses Diagnosis Pain Generalized pain Pain Generalized pain Pain Generalized pain Pain Generalized pain documented in this encounter Care Teams Lidding Machine Operator Relationship Specialty Start Date End Date Nano Cohen DO [address] [place] [id number] PCP - General Family Practice 09/23/18 documented as of this encounter
--- OUTSIDE RECORDS SUMMARY | 2025-03-12 06:20 | XMS_ITS | Clinical Summary ---
Author Organization [facility] Address [address] [place] [address] Phone Care Team Providers Care Folder Seamer Automatic Name Role Phone Nano Cohen Primary Care Provider [phone] Allergies Active Allergy Reactions Criticality Noted Date Comments Gabapentin Nausea and Vomiting Low 05/13/2019 Medications lidocaine (ZTLIDO) 1.8 % Adhesive Patch, MedicatedIndicati ons:Acute bilateral low back pain with bilateral sciatica Apply 1 Patch to affected area daily. 2 Patch 9 Active lisinopril (PRINIVIL) 10 mg tabletIndications :Essential hypertension Take 1 Tablet (10 mg) by mouth daily. 30 Tablet 1 9 Active ondansetron (ZOFRAN ODT) 4 mg Tablet, Rapid DissolveIndicatio ns:Intractable vomiting with nausea, unspecified vomiting type Take 1 Tablet (4 mg) by mouth every 8 hours as needed for Nausea Dissolve tablet on top of tongue, then swallow with saliva.. 12 Tablet 9 Active ibuprofen (MOTRIN) 800 mg tabletIndications [...] at bedtime. 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 10/01/2018 Protrusion of thoracic intervertebral disc: T11- 12 10/01/2018 Thoracic stenosis: mild 10/01/2018 Bulging lumbar disc: L3-4 10/01/2018 Protruded lumbar disc: Broad L4-5 10/01/2018 Spinal stenosis of lumbar region 10/01/2018 Lumbar nerve root impingemen t: subarticular recess bilateral L4-5 10/01/2018 Lumbar nerve root impingement: L5 10/01/2018 Bulging lumbar disc: L5-S1 mild with mild stenos is 10/01/2018 Lumbar nerve root impingementS S1 with S1 lumbar ized 10/01/2018 Protruded cervical disc: c6-7 with mild stenosis 10/01/2018 Osteoarthritis of left shoulder 05/05/2018 Social History Tobacco Use Types Packs/Day Years Used Date Smoking Tobacco: Every Day Smokeless Tobacco: Never Tobacco Cessation:Ready to Q uit: No Sex and Gender Information Value Date Recorded [...] 18 02/18/2019 12:21 PM CDT Oxygen Saturation 95% 05/13/2019 11:26 AM CDT Inhaled Oxygen Concentration - - Weight 79.4 kg (175 lb) 05/13/2019 11:26 AM CDT Height 170.2 cm (5' 7 ) 05/13/2019 11:26 AM CDT Body Mass Index 27.41 05/13/2019 11:26 AM CDT Plan of Treatment Health Maintenance Due Date Last Done Comments Pre-Diabetes and Diabetes Screening 1964 DTAP/TDAP/TD VACCINES (1 - Tdap) 1983 Preventative Visit-Managed Medicaid 1983 COLORECTAL SCREENING 2009 Colorectal Cancer Screening 2009 FIT-DNA Q 3 years 2009 FIT/FOBT Q 1 year 2009 Flex Sig/CT Colonography Q 5 years 2009 ZOSTER VACCINE (1 of 2) 2014 RSV VACCINE (60+ or ) (1 - Risk 60-74 years 1-dose series) 2024 INFLUENZA VACCINE (#1) 2025 05/13/2019 HEPATITIS B VACCINES Aged Out No long er eligible based on patient's age to complete this topic Insurance MEDICAID [place] Care Teams Folder Seamer Automatic Relationship Specialty Start Date End Date Nano Cohen DO [address] [place] [address] PCP - General Family Practice 09/23/18
--- NOTE | 2025-03-12 09:42 | PC.NURSE ---
general surgery referral sent.
== END 2025-03-11 18:16 | disposition home or self-care (01) ==
PROVIDERS: Family Medicine; Emergency Provider Student in an Organized Health Care Education/Training Program; PCP Family Medicine
DX: R10.9 Unspecified abdominal pain (principal); H10.9 Unspecified conjunctivitis; K40.90 Unilateral inguinal hernia, without obstruction or gangrene, not specified as recurrent; Z79.01 Long term (current) use of anticoagulants; Z72.0 Tobacco use; I25.10 Atherosclerotic heart disease of native coronary artery without angina pectoris; J44.9 Chronic obstructive pulmonary disease, unspecified; I12.9 Hypertensive chronic kidney disease with stage 1 through stage 4 chronic kidney disease, or unspecified chronic kidney disease; N18.30 Chronic kidney disease, stage 3 unspecified
CPT/HCPCS: 36415; 74176; 80053; 81001; 83690; 85025; 96374; 96375; 99285; J0780; J1200; J2270; J2405; J7030; J9999

== ENCOUNTER 2025-07-09 20:41 | Inpatient (IN) | payer MEDICARE, SELFPAY ==
[2025-07-09 20:43] VITALS: BP 171/114; PULSE 94; RESP 22; TEMP 36.6; O2SAT 97; BMI 26.6
--- NOTE | 2025-07-09 20:48 | XRR_ITS ---
PROCEDURE INFORMATION: Exam: XR Chest Exam date and time: 07/09/2025 8:51 PM Age: 60 years old Clinical indication: Chest pressure; C/O chest pain TECHNIQUE: Imaging protocol: Radiologic exam of the chest. Views: 1 view. COMPARISON: CR XR chest 1V portable [id number] 12/01/2024 1:38 PM FINDINGS: Lungs: Unremarkable. No consolidation. Pleural spaces: Unremarkable. No pleural effusion. No pneumothorax. Heart/Mediastinum: Calcified hilar granulomas. No cardiomegaly. Bones/joints: Single screw noted in left glenoid. Old fracture deformity of the left glenoid and left humeral head, partially visualized XR/XR chest 1V portable [id number] IMPRESSION: No acute findings.
--- NOTE | 2025-07-09 20:49 | ECG_ITS ---
[facility] Test Date: 2025-07-09 Pat Name: Christian Sparks Department: Room: Gender: Male Composite Technician: : 1965 Requested By: Yolande Gray Order Number: [id number] Jesús MD: Ayaz Willett M.D. Measurements Intervals [place] Rate: 99 P: 89 ME: 135 QRS: 69 QRSD: 85 T: 89 QT: 400 QTc: 515 Interpretive Statements SINUS RHYTHM WITH FREQUENT SUPRAVENTRICULAR PREMATURE COMPLEXES MINIMAL VOLTAGE CRITERIA FOR LVH, CONSIDER NORMAL VARIANT [MEETS CRITERIA IN ONE OF: R(aVL), S(V1), R(V5), R(V5/V6)+S(V1)] NONSPECIFIC ST & T-WAVE ABNORMALITY ABNORMAL RHYTHM ECG Compared to ECG 12/01/2024 15:23:56 Prolonged QT interval no longer present T-wave abnormality still present Electronically Signed On 07-10-2025 15:37:44 DIESEL POWER SHOVEL OPERATOR by Ayaz Willett M.D. [email or web address]
[2025-07-09 20:55] LABS: Hematocrit 53.5 % (37-53); Hemoglobin 17.40 g/dL (11.27-16.99); Mean Corpuscular HGB Conc 32.5 g/dL (30-55); Mean Corpuscular Hemoglobin 29.6 pg (27-33); Mean Corpuscular Volume 91.0 fl (82-101); Nucleated Red Blood Cells % 0 %; Platelet Count 342 10^3/cmm (157-399); Red Blood Count 5.88 10^6/uL (3.85-5.65); White Blood Count 8.52 10^3/uL (3.29-11.43)
--- NOTE | 2025-07-09 20:57 | ED_ITS ---
Documented by User: ABENA Mo 07/09/25 22:48 HPI - Chest Pain 2 General: Chief Complaint: Chest Pain Stated Complaint: CP sob headache Time Seen by Provider: 07/09/25 20:43 History of Present Illness: Patient is a pleasant 60-year-old gentleman with ischemic cardiomyopathy, EF 32%, noncompliance to medications, that presents to the emergency room with shortness of breath, chest discomfort. Patient states this is central chest discomfort, associated with shortness of breath, without nausea, without diaphoresis. Patient states this has been occurring the last 3-4 days. He ran out of his medications 2 months ago. He has not followed up with low altitude air defense gunner. Associated symptoms: Reports dyspnea; Deny abdominal pain, fever(s), nausea, palpitations or vomiting Related Data Previous Rx's ?Medication ?Instructions ?Recorded albuterol sulfate 90 mcg/actuation 1 inh inhalation Q6 H PRN shortness 12/01/24 breath activated powder of breath or wheezing #1 ea inhaler,sensor apixaban 5 mg tablet (Eliquis) 5 mg PO BID #60 tabs carvedilol 3.125 mg tablet 3.125 mg PO BID #60 tabs furosemide 40 mg tablet 40 mg PO DAILY 30 days #30 t abs 12/01/24 lisinopril 5 mg tablet 5 mg PO DAILY #30 tabs 12/01 nitroglycerin 0.4 mg sublingual 0.4 mg sublingual Q5M PRN chest 12/01/24 tablet pain 30 days #30 tabs Allergies Allergy/AdvReac Type Severity Reaction Status Date / Time gabapentin Allergy Intermediate nausea/vomi Verified 04/27/24 02:17 ting Review of Systems 2 General: Reports: 10 or more systems reviewed and unremarkable except in HPI and below Const: Denies: fever(s) or chills Card: Reports: chest pain; Denies: palpitations, irregular heart rhythm, edema or swelling of feet/ankles Resp: Reports: dyspnea and non-productive cough GI: Denies: abdominal pain, nausea or vomiting : Denies: dysuria, urinary frequency or urinary urgency Musc: Denies: neck pain or back pain Skin/Breast: Denies: rash Neuro: Denies: headache(s) or numbness in extremities Psych: Denies: anxiety or depression [facility] ED 2 PFSH: Medical History (Updated 07/09/25 @ 23:07 by Talib Herbert MD) JOO (acute kidney injury) Coronary artery disease involving lytton heart, unspecified vessel or lesion type, unspecified whether angina present Angiogram: March 2023: Moderate left main stenosis. Worsening angina Stage 3 chronic kidney disease, unspecified whether stage 3a or 3b CKD Tobacco use Osteoarthritis of right shoulder Chronic obstructive pulmonary disease, unspecified COPD type Chest pain Migraine Hypertension Stenosis, spinal, lumbar Surgical History Post-operative state Hx of tonsillectomy H/O shoulder surgery H/O skin graft S/P lumbar laminectomy (05/25/19) Dr Hinojosa bilateral L3-4 laminotomy/foraminotomy. Family History Mother CAD (coronary artery disease) Father Diabetes Social History Smoking and tobacco/nicotine status: current every day tobacco/nicotine user Alcohol intake: current Alcohol intake frequency: few times a month Substance/Drug Use: never Lives independently: Yes Household members: spouse Marital status: Current occupational status: disabled Physical Exam 2 Const: COMMON NORMALS: no acute distress, average body habitus, alert and well nourished GENERAL APPEARANCE: cooperative ORIENTATION/CONSCIOUSNESS: Yes awake HENMT: COMMON NORMALS: normocephalic and atraumatic HEAD & SCALP: n ormocephalic and atraumatic Eye: COMMON NORMALS: Equal, round and reactive pupils present and EOMs intact bilaterally PUPIL: Yes Equal, round and reactive pupils present Neck/C-Spine: GENERAL: Yes normal visual inspection Resp: COMMON NORMALS: normal respiratory effort, No retractions and No use of accessory muscles EFFORT & INSPECTION: Yes able to speak in complete sentences AUSCULTATION: wheezes expiratory wheezes and scattered wheezes Cardio: COMMON NORMALS: regular rhythm and Peripheral pulses 2+ throughout RHYTHM: regular rhythm PERIPHERAL PULSES: Peripheral pulses 2+ throughout GI: COMMON NORMALS: Soft to palpation PALPATION: Yes Soft to palpation and Yes Tenderness to palpation present (GI) Extremity: COMMON NORMALS: full ROM and no pedal edema Neuro: COMMON NORMALS: no focal motor deficits SENSORIUM/ORIENTATION: Yes alert Skin: COMMON NORMALS: no rashes or lesions noted GENERAL SKIN EXAM: no rashes or lesions noted Course 2 Reevaluation(s): Reevaluation #1: Chest pain has improved. Consultations: Consultation #1: Discussed with Dr. Briones that stated he was only called concrete panel installer for STEMI and to call his colleague. Consultation #2: Discussed with Dr. Willett that will consult in AM. Consultation #3: Discussed with Dr. Herbert, whom has accepted admission for observation. Vital Signs: Vital signs: Vital Signs Temperature 97.9 F 07/10/25 00:27 Pulse Rate 95 07/10/25 00:34 Respiratory Rate 22 H 07/10/25 00:44 Blood Pressure 139/97 07/10/25 00:34 Pulse Oximetry 95 07/10/25 00:44 Oxygen Delivery Me thod Room Air 07/10/25 00:27 MDM - Chest Pain Medical Decision Making Patient is a 60-year-old male with CAD, last MRI was 1 year ago, patient noted, and leaving the hospital early. He has a history of CKD 3B renal function, history of methamphetamine use, and history of noncompliance. He has been lost to follow-up as well. He has not followed up with cardiology or primary care. He has been out of his medications for 2 months. He admits to ongoing shortness of breath, and chest pain for the last 3-4 days, worse with exertion. Will obtain routine labs, for further decision-making. Initial EKG does not show ST segment elevation RI. Medical Records I reviewed the patient's medical records. Lab Data I reviewed the patient's lab results. 07/09/25 20:49 07/09/25 20:49 Radiology Impressions Chest X-Ray 07/09/25 20:48 IMPRESSION: No acute findings. Laboratory Results WBC 8.52 10^3/uL (3.29-11.43) 07/09/25 20:49 RBC 5.88 10^6/uL (3.85-5.65) H 07/09/25 20:49 Hgb 17.40 g/dL (11.27-16.99) H 07/09/25 20:49 Hct 53.5 % (37-53) H 07/09/25 20:49 MCV 91.0 fl (82-101) 07/09/25 20:49 MCH 29.6 pg (27-33) 07/09/25 20:49 MCHC 32.5 g/dL (30-55) 07/09/25 20:49 RDW 13.2 % (12.1-15.1) 07/09/25 20:49 Plt Count 342 10^3/cmm (157-399) 07/09/25 20:49 MPV 10.4 fL (7.4-10.4) 07/09/25 20:49 Neut % (Auto) 64.5 % 07/09/25 20:49 Lymph % (Auto) 22.5 % 07/09/25 20:49 [place] % (Auto) 7.7 % 07/09/25 20:49 Eos % (Auto) 4.1 % 07/09/25 20:49 Baso % (Auto) 0.8 % 07/09/25 20:49 Neut # (Auto) 5.49 10^3/uL (1.8-7.7) 07/09/25 20:49 Lymph # (Auto) 1.9 10^3/uL (0.8-4.8) 07/09/25 20:49 [place] # (Auto) 0.7 10^3/uL (0.2-0.9) 07/09/25 20:49 Eos # (Auto) 0.4 10^3/uL (0.0-0.8) 07/09/25 20:49 Baso # (Auto) 0.1 10^3/uL (0.0-0.1) 07/09/25 20:49 Nucleated RBC % (auto) 0 % 07/09/25 20:49 Nucleated RBCs # 0.0 /100WBC 07/09/25 20:49 Sodium 139 mmol/L (136-145) 07/09/25 20:49 Potassium 3.9 mmol/L (3.5-5.1) 07/09/25 20:49 Chloride 98 mmol/L (98-107) 07/09/25 20:49 Carbon Dioxide 30 mmol/L (22-29) H 07/09/25 20:49 Anion Gap 14.9 (5-19) 07/09/25 20:49 BUN 20 mg/dL (8-23) 07/09/25 20:49 Creatinine 1.5 mg/dL (0.7-1.2) H 07/09/25 20:49 GFR Calculation 47.6 mL/min (90-130) L 07/09/25 20:49 Glucose 66 mg/dL (65-115) 07/09/25 20:49 Calculated Osmolality 289 mOsm/kg (285-295) 07/09/25 20:49 Calcium 9.7 mg/dL (8.5-10.5) 07/09/25 20:49 Magnesium 2.1 mg/dL (1.7-2.3) 07/09/25 20:49 Total Bilirubin 0.2 mg/dL (0.15-1.2) 07/09/25 20:49 AST 20 U/L (0-40) 07/09/25 20:49 ALT 17 U/L (0-41) 07/09/25 20:49 Alkaline Phosphatase 108 U/L (40-130) 07/09/25 20:49 Troponin T Baseline 37 ng/L (0-15) H 07/09/25 20:49 NT-Pro-B Natriuret Pep 89430 pg/mL (0-125) H 07/09/25 20:49 Total Protein 7.7 g/dL (6.6-8.7) 07/09/25 20:49 Albumin 4.5 g/dL (3.5-5.2) 07/09/25 20:49 Globulin 3.2 g/dL (1.3-4.6) 07/09/25 20:49 Influenza A (PCR) Negative (Negative) 07/09/25 20:56 Influenza Type B (PCR) Negative (Negative) 07/09/25 20:56 RSV (PCR) Negative (Negative) 07/09/25 20:56 SARS-CoV-2 (PCR) Negative (Negative) 07/09/25 20:56 All radiology interpretation(s) finalized by discharge ED provider radiology interpretation(s): No acute changes EKG Data EKG 1: Interpretation: Sinus rhythm with nonspecific ST segment changes without elevation, couplet PVCs, LVH EKG 2: Interpretation: Nonspecific ST segment changes without ST elevation, normal axis, LVH Discharge Plan Discharge Patient Disposition: Placed in Observation Admit Provider: Oloye,Talib A Clinical Impression: ACS (acute coronary syndrome) Discharge Diet: Usual diet Discharge Activity: Resume usual activity Coding Level of Care Code ED Children'S Choir Director for Chg Fwd Heart Score HEART Score Components History: Moderately Suspicious EKG: Non-specific Changes Age: 45-64 yrs Risk Factors: >/=3 Risk Factors Troponin: Baseline Trop 16-45 ng/L HEART Score RESULT HEART Score: 6 Documented by User: Lionel Camacho DO 07/10/25 03:11 HPI - Chest Pain 2 General: Chief Complaint: Chest Pain Stated Complaint: CP sob headache Time Seen by Provider: 07/09/25 20:43 Related Data Previous Rx's ?Medication ?Instructions ?Recorded albuterol sulfate 90 mcg/actuation 1 inh inhalation Q6 H PRN shortness 12/01/24 breath activated powder of breath or wheezing #1 ea inhaler,sensor apixaban 5 mg tablet (Eliquis) 5 mg PO BID #60 tabs carvedilol 3.125 mg tablet 3.125 mg PO BID #60 tabs furosemide 40 mg tablet 40 mg PO DAILY 30 days #30 t abs 12/01/24 lisinopril 5 mg tablet 5 mg PO DAILY #30 tabs 12/01 nitroglycerin 0.4 mg sublingual 0.4 mg sublingual Q5M PRN chest 12/01/24 tablet pain 30 days #30 tabs Allergies Allergy/AdvReac Type Severity Reaction Status Date / Time gabapentin Allergy Intermediate nausea/vomi Verified 04/27/24 02:17 ting PFS ED 2 PFSH: Medical History (Updated 07/09/25 @ 23:07 by Talib Herbert MD) JOO (acute kidney injury) Coronary artery disease involving lytton heart, unspecified vessel or lesion type, unspecified whether angina present Angiogram: March 2023: Moderate left main stenosis. Worsening angina Stage 3 chronic kidney disease, unspecified whether stage 3a or 3b CKD Tobacco use Osteoarthritis of right shoulder Chronic obstructive pulmonary disease, unspecified COPD type Chest pain Migraine Hypertension Stenosis, spinal, lumbar Surgical History Post-operative state Hx of tonsillectomy H/O shoulder surgery H/O skin graft S/P lumbar laminectomy (05/25/19) Dr Hinojosa bilateral L3-4 laminotomy/foraminotomy. Family History Mother CAD (coronary artery disease) Father Diabetes Social History Smoking and tobacco/nicotine status: current every day tobacco/nicotine user Alcohol intake: current Alcohol intake frequency: few times a month Substance/Drug Use: never Lives independently: Yes Household members: spouse Marital status: Current occupational status: disabled Course 2 Vital Signs: Vital signs: Vital Signs Temperature 97.9 F 07/10/25 00:27 Pulse Rate 95 07/10/25 00:34 Respiratory Rate 22 H 07/10/25 00:44 Blood Pressure 139/97 07/10/25 00:34 Pulse Oximetry 95 07/10/25 00:44 Oxygen Delivery Me thod Room Air 07/10/25 00:27 MDM - Chest Pain Medical Decision Making Patient is a 60-year-old male with CAD, last MRI was 1 year ago, patient noted, and leaving the hospital early. He has a history of CKD 3B renal function, history of methamphetamine use, and history of noncompliance. He has been lost to follow-up as well. He has not followed up with cardiology or primary care. He has been out of his medications for 2 months. He admits to ongoing shortness of breath, and chest pain for the last 3-4 days, worse with exertion. Will obtain routine labs, for further decision-making. Initial EKG does not show ST segment elevation RI. Patient was originally seen by Ms. Marina PA-C. I agree with her history, evaluation, and management. Heart score is 6. Hospitalist agrees to observation. orders are written. Lab Data 07/09/25 20:49 07/09/25 20:49 Radiology Impressions Chest X-Ray 07/09/25 20:48 IMPRESSION: No acute findings. Laboratory Results WBC 8.52 10^3/uL (3.29-11.43) 07/09/25 20:49 RBC 5.88 10^6/uL (3.85-5.65) H 07/09/25 20:49 Hgb 17.40 g/dL (11.27-16.99) H 07/09/25 20:49 Hct 53.5 % (37-53) H 07/09/25 20:49 MCV 91.0 fl (82-101) 07/09/25 20:49 MCH 29.6 pg (27-33) 07/09/25 20:49 MCHC 32.5 g/dL (30-55) 07/09/25 20:49 RDW 13.2 % (12.1-15.1) 07/09/25 20:49 Plt Count 342 10^3/cmm (157-399) 07/09/25 20:49 MPV 10.4 fL (7.4-10.4) 07/09/25 20:49 Neut % (Auto) 64.5 % 07/09/25 20:49 Lymph % (Auto) 22.5 % 07/09/25 20:49 [place] % (Auto) 7.7 % 07/09/25 20:49 Eos % (Auto) 4.1 % 07/09/25 20:49 Baso % (Auto) 0.8 % 07/09/25 20:49 Neut # (Auto) 5.49 10^3/uL (1.8-7.7) 07/09/25 20:49 Lymph # (Auto) 1.9 10^3/uL (0.8-4.8) 07/09/25 20:49 [place] # (Auto) 0.7 10^3/uL (0.2-0.9) 07/09/25 20:49 Eos # (Auto) 0.4 10^3/uL (0.0-0.8) 07/09/25 20:49 Baso # (Auto) 0.1 10^3/uL (0.0-0.1) 07/09/25 20:49 Nucleated RBC % (auto) 0 % 07/09/25 20:49 Nucleated RBCs # 0.0 /100WBC 07/09/25 20:49 Sodium 139 mmol/L (136-145) 07/09/25 20:49 Potassium 3.9 mmol/L (3.5-5.1) 07/09/25 20:49 Chloride 98 mmol/L (98-107) 07/09/25 20:49 Carbon Dioxide 30 mmol/L (22-29) H 07/09/25 20:49 Anion Gap 14.9 (5-19) 07/09/25 20:49 BUN 20 mg/dL (8-23) 07/09/25 20:49 Creatinine 1.5 mg/dL (0.7-1.2) H 07/09/25 20:49 GFR Calculation 47.6 mL/min (90-130) L 07/09/25 20:49 Glucose 66 mg/dL (65-115) 07/09/25 20:49 Calculated Osmolality 289 mOsm/kg (285-295) 07/09/25 20:49 Calcium 9.7 mg/dL (8.5-10.5) 07/09/25 20:49 Magnesium 2.1 mg/dL (1.7-2.3) 07/09/25 20:49 Total Bilirubin 0.2 mg/dL (0.15-1.2) 07/09/25 20:49 AST 20 U/L (0-40) 07/09/25 20:49 ALT 17 U/L (0-41) 07/09/25 20:49 Alkaline Phosphatase 108 U/L (40-130) 07/09/25 20:49 Troponin T Baseline 37 ng/L (0-15) H 07/09/25 20:49 NT-Pro-B Natriuret Pep 85423 pg/mL (0-125) H 07/09/25 20:49 Total Protein 7.7 g/dL (6.6-8.7) 07/09/25 20:49 Albumin 4.5 g/dL (3.5-5.2) 07/09/25 20:49 Globulin 3.2 g/dL (1.3-4.6) 07/09/25 20:49 Influenza A (PCR) Negative (Negative) 07/09/25 20:56 Influenza Type B (PCR) Negative (Negative) 07/09/25 20:56 RSV (PCR) Negative (Negative) 07/09/25 20:56 SARS-CoV-2 (PCR) Negative (Negative) 07/09/25 20:56 Discharge Plan Discharge Patient Disposition: Placed in Observation Admit Provider: Talib Herbert Clinical Impression: ACS (acute coronary syndrome) Discharge Diet: Usual diet Discharge Activity: Resume usual activity Coding Level of Care Code ED Children'S Choir Director for Zoë Arce Heart Score HEART Score RESULT HEART Score: 6
--- OUTSIDE RECORDS SUMMARY | 2025-07-09 20:57 | XMS_ITS | Encounter Summary ---
Author Organization [facility] Address [address] [place] [address] Care Team Providers Care Machinist Set Up Name Role Phone Nano Cohen Primary Care Provider Encounter Details Date Type Department Care Team (Late st Contact Info) Description 05/05/2018 Ancillary Orders [facility] Orthopedics - Orthopedic [facility] [address] [place] [address] [facility], External Provider [address] [place], [place] [id number] Pain Social History Tobacco Use Types Packs/Day [...] be scanned to PACS. External Provider [facility] DIAGNOSTIC IMAGING ORDERAB LES Final Result * MRI PRIOR STUDY (02/25/2018 1:00 PM CDT) Narrative 05/05/2018 12:01 PM CDT This exam was auto finalized to allow images to be scanned to PACS. External Provider [facility] MR ORDERABLES Final Resu lt * XR PRIOR STUDY (02/06/2018 11:10 AM CDT) Narrative 05/05/2018 12:01 PM CDT This exam was auto finalized to allow images to be scanned to PACS. External Provider [facility] DIAGNOSTIC IMAGING ORDERAB LES Final Result documented in this encounter Visit Diagnoses Diagnosis Pain Generalized pain Pain Generalized pain Pain Generalized pain Pain Generalized pain documented in this encounter Care Teams Machinist Set Up Relationship Specialty Start Date End Date Nano Cohen DO [address] [place] [id number] PCP - General Family Practice 09/23/18 documented as of this encounter
--- OUTSIDE RECORDS SUMMARY | 2025-07-09 20:57 | XMS_ITS | Clinical Summary ---
Author Organization [facility] Address [address] [place] [address] Phone Care Team Providers Care Strapping Machine Operator Name Role Phone Nano Cohen Primary Care Provider Allergies Active Allergy Reactions Criticality Noted Date [...] Flex Sig/CT Colonography Q 5 years 2009 RSV VACCINE (60+ or ) (1 - Risk 50-74 years 1-dose series) 2014 ZOSTER VACCINE (1 of 2) 2014 INFLUENZA VACCINE (#1) 2025 Insurance MEDICAID [place] Care Teams Strapping Machine Operator Relationship Specialty Start Date End Date Nano Cohen DO [address] [place] [address] PCP - General Family Practice 09/23/18
--- OUTSIDE RECORDS SUMMARY | 2025-07-09 20:57 | XMS_ITS | Clinical Summary ---
Author Organization 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
[2025-07-09 21:00] VITALS: PULSE 83; RESP 88; O2SAT 93
[2025-07-09] MEDS: methylPREDNISolone sod succ 125 mg/2 mL INJ 80 MG IVP (21:06)
[2025-07-09 21:12] LABS: Troponin(5th) Baseline 37 ng/L (0-15)
[2025-07-09 21:21] LABS: Alanine Aminotransferase 17 U/L (0-41); Albumin Level 4.5 g/dL (3.5-5.2); Alkaline Phosphatase 108 U/L (40-130); Anion Gap 14.9 (5-19); Aspartate Amino Transferase 20 U/L (0-40); Blood Urea Nitrogen 20 mg/dL (8-23); Calcium 9.7 mg/dL (8.5-10.5); Carbon Dioxide 30 mmol/L (22-29); Chloride 98 mmol/L (98-107); Globulin 3.2 g/dL (1.3-4.6); Glucose 66 mg/dL (65-115); Magnesium 2.1 mg/dL (1.7-2.3); NT Pro B Type Natriuretic Pept 10037 pg/mL (0-125); Osmolality Calculated 289 mOsm/kg (285-295); Potassium 3.9 mmol/L (3.5-5.1); Sodium 139 mmol/L (136-145); Total Protein 7.7 g/dL (6.6-8.7)
[2025-07-09 21:36] LABS: Respiratory Syncytial Virus Ce NEGATIVE (Negative); SARS-CoV-2 PCR NEGATIVE (Negative)
[2025-07-09 21:41] VITALS: BP 169/114; PULSE 92; RESP 21; O2SAT 95
[2025-07-09 21:47] VITALS: BP 94/70; PULSE 95; O2SAT 94
--- NOTE | 2025-07-09 22:25 | ECG_ITS ---
[facility] Test Date: 2025-07-09 Pat Name: Christian Sparks Department: Room: Gender: Male Vest Presser: : 1965 Requested By: Yolande Gray Order Number: [id number] Jesús MD: Ayaz Willett M.D. Measurements Intervals [place] Rate: 89 P: 82 RI: 145 QRS: 59 QRSD: 86 T: 218 QT: 429 QTc: 525 Interpretive Statements SINUS RHYTHM POSSIBLE RIGHT ATRIAL ENLARGEMENT [0.25mV P-WAVE] POSSIBLE LEFT ATRIAL ENLARGEMENT [-0.1mV P-WAVE IN V1/V2] VERY MILD ST DEVIATION AND T-WAVE ABNORMALITY, CONSIDER INFERIOR ISCHEMIA [-0.1+ mV T-WAVE IN II/aVF] Compared to ECG 07/09/2025 20:50:29 FREQUENT SUPRAVENTRICULAR PREMATURE COMPLEXES NO LONGER PRESENT Electronically Signed On 07-10-2025 17:28:35 DIVISION CHAIR by Ayaz Willett M.D. [email or web address]
[2025-07-09] MEDS: heparin 5,000 unit/mL INJ 1 mL IVP (22:34)
[2025-07-09] MEDS: heparin drip 25,000 UNIT/500 ML PREMIX 17.96 UNIT IV (22:35)
[2025-07-09] MEDS: FUROsemide 10 mg/mL SDV 4mL 40 MG IVP (22:39)
--- NOTE | 2025-07-09 22:44 | PM.HP ---
Providers/Chief Complaint Primary Care Provider: Nano Cohen DO Chief Complaint: CP sob headache History of Present Illness Christian Sparks is a 60 year old male with a history significant for methamphetamine use, CAD, HFrEF(EF 32% 02/2024), and COPD, who presents with complaints of chest pain, shortness of breath, and headaches. He states the issues began 2-3 day prior to presentation when he was shopping and preparing for Thanksgiving with family. He describes a pressure-like sensation to the central chest which is constant. He also mentions he has trouble laying flat, telling me he feels as if he is drowning when doing so. He has tried theraflu and mucinex which helped his symptoms somewhat. He feels like cold weather makes his symptoms worse. Of note, in the ED, he says SL nitroglycerin helped. There is radiation of the chest pain to the neck he tells me. He endorses subjective fevers and cough. No recent weight changes or swelling. He is a current methamphetamine user with his last use about 1 week ago. He uses about once per week. He also endorses palpitations. It should also be noted he has not used any of his prescribed medications over the past month because he ran out and has not be able to get refills. Medications/Allergies Home Medications ?Medication ?Instructions ?Recorded ?Confirmed ?Last Taken ?Type albuterol sulfate 90 mcg/actuation 1 inh inhalation Q6H PRN shortness 12/01/24 03/11/25 Unknown Rx breath activated powder of breath or wheezing #1 ea inhaler,sensor apixaban 5 mg tablet (Eliquis) 5 mg PO BID #60 tabs 12/01/24 03/11/25 Unknown Rx carvedilol 3.125 mg tablet 3.125 mg PO BID #60 tabs 12/01/24 03/11/25 Unknown Rx furosemide 40 mg tablet 40 mg PO DAILY 30 days #30 tabs 12/01/24 03/11/25 Unknown Rx lisinopril 5 mg tablet 5 mg PO DAILY #30 tabs 12/01/24 03/11/25 Unknown Rx nitroglycerin 0.4 mg sublingual 0.4 mg sublingual Q5M PRN chest 12/01/24 03/11/25 Unknown Rx tablet pain 30 days #30 tabs dicyclomine 10 mg capsule 10 mg PO TID #20 caps 03/11/25 Unknown Rx Allergies Allergy/AdvReac Type Severity Reaction Status Date / Time gabapentin Allergy Intermediate nausea/vomi Verified 04/27/24 02:17 ting PFSH Acute PFSH: Medical History (Updated 07/09/25 @ 23:07 by Talib Herbert MD) JOO (acute kidney injury) Coronary artery disease involving [place] heart, unspecified vessel or lesion type, unspecified whether angina present Angiogram: March 2023: Moderate left main stenosis. Worsening angina Stage 3 chronic kidney disease, unspecified whether stage 3a or 3b CKD Tobacco use Osteoarthritis of right shoulder Chronic obstructive pulmonary disease, unspecified COPD type Chest pain Migraine Hypertension Stenosis, spinal, lumbar Surgical History Post-operative state Hx of tonsillectomy H/O shoulder surgery H/O skin graft S/P lumbar laminectomy (05/25/19) Dr Hinojosa bilateral L3-4 laminotomy/foraminotomy. Family History Mother CAD (coronary artery disease) Father Diabetes Social History Smoking and tobacco/nicotine status: current every day tobacco/nicotine user Alcohol intake: current Alcohol intake frequency: few times a month Substance/Drug Use: never Lives independently: Yes Household members: spouse Marital status: Current occupational status: disabled Vitals/I&O/Wt Last Vital Signs Temp 97.9 F 07/09/25 20:43 Pulse 95 07/09/25 21:47 Resp 21 H 07/09/25 21:41 BP 94/70 07/09/25 21:47 Pulse Ox 94 07/09/25 21:47 O2 Del Method Room Air 07/09/25 20:43 Weight last 48 hrs Weight 74.843 kg Physical Exam Const: COMMON NORMALS: no acute distress and patient oriented x3 Resp: COMMON NORMALS: normal respiratory effort, No retractions and No use of accessory muscles OTHER: Diminshed breath sounds bilaterally Cardio: COMMON NORMALS: regular rate, regular rhythm, S1 normal heart sound present and S2 normal heart sound present RATE: regular rate RHYTHM: regular rhythm HEART SOUNDS: S1 normal heart sound present and S2 normal heart sound present GI: COMMON NORMALS: Normal to inspection, nondistended, normoactive bowel sounds present and non-tender Extremity: COMMON NORMALS: no pedal edema Neuro: COMMON NORMALS: patient oriented x3 Psych: COMMON NORMALS: mental status grossly normal Data 07/09/25 20:49 07/09/25 20:49 A&P Assessment and plan 1. ACS (acute coronary syndrome): - High risk patient with existing CAD, HFrEF, medication non-adherence, and ongoing methamphetamine use possibly causing coronary vasospasm - Heparin gtt has been initiated. Continue - Will consult cardiology in the AM for further guidance 2. Noncompliance: - Need to insure continuity of care on discharge. If possible, have medications delivered to the bedside on discharge 3. Coronary artery disease involving [place] heart, unspecified vessel or lesion type, unspecified whether angina present: - Resume home lisinopril and coreg 4. HFrEF (heart failure with reduced ejection fraction): - [place] to be in acute exacerbation - CXR reassuing but BNP is over 10k - Provide 40mg IV lasix now and daily - Otherwise plan as above 5. Stage 3 chronic kidney disease, unspecified whether stage 3a or 3b CKD: - Appears to be at baseline - Plan as above 6. Chronic obstructive pulmonary disease, unspecified COPD type: - Not felt to be in acute exacerbation - PHILLIPN maria ines 7. Tobacco use: - Provide nicotine patch while hospitalized - Encourgae cessation 8. Methamphetamine abuse: - Encourage cessation PDMP PDMP Reviewed: Not Reviewed Attestations Medical Necessity Statement*: Patient is anticipated to require less than two midnights of inpatient medical care to evaluate and treat possible ACS Time Spent in Patient Care: Greater than 35 minutes Coding Level of Care Code Acute Code for [facility] Fwd Diagnoses ACS (acute coronary syndrome) I24.9 Noncompliance Z91.199 Coronary artery disease involving [place] heart, unspecified vessel or lesion type, unspecified whether angina present I25.10 Coronary Disease-Associated Artery/Lesion type: unspecified vessel or lesion type [place] vs. transplanted heart: [place] heart Associated angina: unspecified whether angina present HFrEF (heart failure with reduced ejection fraction) I50.20 Stage 3 chronic kidney disease, unspecified whether stage 3a or 3b CKD N18.30 Chronic kidney disease stage 3 subtype: unspecified whether 3a or 3b Chronic obstructive pulmonary disease, unspecified COPD type J44.9 COPD type: unspecified COPD Tobacco use Z72.0 Methamphetamine abuse F15.10
[2025-07-09 22:45] VITALS: BP 172/113; PULSE 86; RESP 31; O2SAT 95
[2025-07-09 23:00] LABS: Troponin 5 2HR 35.75 ng/L (0-15)
[2025-07-09 23:05] LABS: Troponin 5 2HR Delta -1.25 ABS# (0-10)
[2025-07-09 23:10] VITALS: BP 196/139; PULSE 89; RESP 34; O2SAT 94
[2025-07-10] VITALS (11 sets, daily range): BP systolic 106–162; BP diastolic 71–103; PULSE 71–106; RESP 17–32; TEMP 36.6–36.7; O2SAT 90–98
--- NOTE | 2025-07-10 00:19 | PC.NURSE ---
Report was called to Alicia MATHUR in [facility]. All questions and concerns were addressed at time of report.
[2025-07-10] MEDS: morphine 4 mg/mL SDV 1 mL 2 MG IVP ×5 (00:44→23:57)
[2025-07-10 03:41] LABS: Hematocrit 50.7 % (37-53); Hemoglobin 17.00 g/dL (11.27-16.99); Mean Corpuscular HGB Conc 33.5 g/dL (30-55); Mean Corpuscular Hemoglobin 30.0 pg (27-33); Mean Corpuscular Volume 89.6 fl (82-101); Nucleated Red Blood Cells % 0 %; Platelet Count 311 10^3/cmm (157-399); Red Blood Count 5.66 10^6/uL (3.85-5.65); White Blood Count 6.26 10^3/uL (3.29-11.43)
[2025-07-10 03:58] LABS: Troponin 5 6HR 24.69 ng/L (0-15)
[2025-07-10 04:10] LABS: Partial Thromboplastin Time 91.2 SECONDS (23.9-36.7)
[2025-07-10 04:15] LABS: Anion Gap 17.0 (5-19); Blood Urea Nitrogen 24 mg/dL (8-23); Calcium 9.3 mg/dL (8.5-10.5); Carbon Dioxide 27 mmol/L (22-29); Chloride 94 mmol/L (98-107); Cholesterol 177 mg/dL (0-200); Glucose 138 mg/dL (65-115); HDL Cholesterol 52 mg/dL (60-100); Osmolality Calculated 284 mOsm/kg (285-295); Potassium 4.0 mmol/L (3.5-5.1); Sodium 134 mmol/L (136-145); Triglycerides 79 mg/dL (0-150)
--- NOTE | 2025-07-10 04:55 | ECG_ITS ---
[facility] Date: 2025-07-10 Pat Name: Christian Sparks Department: Room: 102 Gender: Male Neuro Psych Sales Specialist: : 1965 Requested By: Yolande Gray Order Number: [id number] Jesús MD: Ayaz Willett M.D. Measurements Intervals [place] Rate: 82 P: 45 ME: 155 QRS: 22 QRSD: 90 T: 212 QT: 445 QTc: 521 Interpretive Statements SINUS RHYTHM WITH OCCASIONAL ECTOPIC PREMATURE SUPRAVENTRICULAR BEATS WITH ABBERANCY LEFT VENTRICULAR HYPERTROPHY AND ST-T CHANGE [VOLTAGE CRITERIA PLUS ST/T ABNORMALITY] Compared to ECG 07/09/2025 22:25:35 NO SIGNIFICANT CHANGE Electronically Signed On 07-10-2025 17:24:34 FITNESS INSTRUCTOR by Ayaz Willett M.D. [id number]
[2025-07-10 11:10] LABS: Partial Thromboplastin Time 48.3 SECONDS (23.9-36.7)
--- NOTE | 2025-07-10 11:19 | PM.CONSULT ---
Providers/Reason For Consult Consulting Physician/Specialty*: Ayaz Willett MD Reason for Consult*: Chest pain Requesting Physician: Rosey Rivera MD Attending Physician: Rosey Rivera MD Primary Care Provider: Nano Cohen DO History of Present Illness History of Present Illness Christian Sparks is a 60 year old male with history of methamphetamine use, still using once a week to help with pain and functionallity states patient uses it to get things done that he has a hard time doing due to low back pain, medical noncompliance, CAD with mod LM stenosis on cath in 03/2023, chronic HFrEF with last EF approx. 35%, PAF prescrived Eliquis in the past, who has not been taking his medication, who presents with chest pain and SOB. People with him stated he was very SOB. He states he has been short of breath with a mildly productive cough for the last few days. Cough worse with laying back. No swelling [facility] 04/10/2023: 1. Moderate left main stenosis. IVUS is non-significant. Medical therapy. 2. Non-ischemic cardiomyopathy. 3. Moderate left ventricular systolic dysfunction. Ejection fraction of 35%. Echo 02/2024: Diffuse hypokinesia of the left ventricule with an ejection fraction of 32%. Trace of mitral regurgitation. Mild biatrial enlargement. No intracardiac masses or any pericardial effusion 3 EKGs have been performed since admission which I personally interpreted: Normal sinus rhythm occasional PACs, chronic nonspecific T wave flattening, unchanged from EKG from 12/01/2024 Repeat EKG performed for CP while I was in the room that showed some new T wave inversions in the lateral precordial leads. Data personally reviewed from this admission Chest x-ray ?no pleural effusion, pulmonary edema or infiltrates NT proBNP 10,037 Troponins initially 37 then 35 then 34 LDL 109 triglycerides 79 HDL 52 Medications/Allergies Home Medications ?Medication ?Instructions ?Recorded ?Confirmed ?Last Taken ?Type albuterol sulfate 90 mcg/actuation 1 inh inhalation Q6H PRN shortness 12/01/24 07/10/25 Unknown Rx breath activated powder of breath or wheezing #1 ea inhaler,sensor apixaban 5 mg tablet (Eliquis) 5 mg PO BID #60 tabs 12/01/24 07/10/25 1 Day Ago Rx ~07/09/25 carvedilol 3.125 mg tablet 3.125 mg PO BID #60 tabs 12/01/24 07/10/25 1 Month Ago Rx ~06/09/25 furosemide 40 mg tablet 40 mg PO DAILY 30 days #30 tabs 12/01/24 07/10/25 1 Month Ago Rx ~06/09/25 lisinopril 5 mg tablet 5 mg PO DAILY #30 tabs 12/01/24 07/10/25 Unknown Rx nitroglycerin 0.4 mg sublingual 0.4 mg sublingual Q5M PRN chest 12/01/24 07/10/25 1 Day Ago Rx tablet pain 30 days #30 tabs ~07/09/25 Allergies Allergy/AdvReac Type Severity Reaction Status Date / Time gabapentin Allergy Intermediate nausea/vomi Verified 04/27/24 02:17 ting Current Medications Generic Name Dose Route Start Last Admin Trade Name Freq PRN Reason Stop Dose Admin Carvedilol 3.125 mg 07/10/25 05:00 07/10/25 04:55 Carvedilol 3.125 Mg Tablet PO 3.125 mg BID ELIZABETH Administration Heparin Sodium/Sodium Chloride 25,000 unit in 500 mls @ 17.962 mls/hr 07/09/25 22:15 07/10/25 04:21 Heparin Drip IV 10 unit/kg/hr CONT ELIZABETH 14.97 mls/hr Protocol Titration 12 UNIT/KG/HR Lisinopril 5 mg 07/10/25 05:00 07/10/25 04:55 Lisinopril 5 Mg Tablet PO 5 mg DAILY ELIZABETH Administration Morphine Sulfate 2 mg 07/10/25 00:27 07/10/25 00:44 Morphine 4 Mg/Ml Sdv 1 Ml IVP 2 mg Q4H PRN Administration SEVERE PAIN Nitroglycerin 0.4 mg 07/09/25 21:32 07/09/25 23:41 Nitroglycerin 0.4 Mg Sublingual Tablet SUBLINGUAL 0.4 mg Q5M PRN Administration CHEST PAIN PFSH Acute PFSH: Medical History (Updated 07/10/25 @ 11:32 by Ayaz Willett MD) JOO (acute kidney injury) Coronary artery disease involving [place] heart, unspecified vessel or lesion type, unspecified whether angina present Angiogram: March 2023: Moderate left main stenosis. Worsening angina Stage 3 chronic kidney disease, unspecified whether stage 3a or 3b CKD Tobacco use Osteoarthritis of right shoulder Chronic obstructive pulmonary disease, unspecified COPD type Chest pain Migraine Hypertension Stenosis, spinal, lumbar Surgical History Post-operative state Hx of tonsillectomy H/O shoulder surgery H/O skin graft S/P lumbar laminectomy (05/25/19) Dr Hinojosa bilateral L3-4 laminotomy/foraminotomy. Family History Mother CAD (coronary artery disease) Father Diabetes Social History Smoking and tobacco/nicotine status: current every day tobacco/nicotine user Alcohol intake: current Alcohol intake frequency: few times a month Substance/Drug Use: never Lives independently: Yes Household members: spouse Marital status: Current occupational status: disabled Vitals/I&O/Wt Last Vital Signs Temp 97.8 F 07/10/25 07:29 Pulse 71 07/10/25 08:27 Resp 18 07/10/25 08:27 BP 151/94 07/10/25 07:29 Pulse Ox 91 07/10/25 08:27 O2 Del Method Room Air 07/10/25 08:27 07/09/25 07/10/25 07/10/25 22:59 06:59 14:59 Intake Total 103.569 / 103.569 Output Total 200 / 200 400 / 400 Balance -96.431 / -96.431 -400 / -400 Weight last 48 hrs Weight 161 lb 6.054 oz Weight 161 lb 6.054 oz Weight 165 lb Physical Exam Narrative: General: In no acute distress Neck: No jugular venous distention or carotid bruits Heart: Normal S1 and S2 with a regular rate and rhythm, no cardiac murmurs Lungs: Normal respiratory effort with no use of intercostal muscles, clear lungs sounds to auscultation Extremities: No lower extremity edema Neuro: Alert and oriented x 3 Data 07/10/25 03:30 07/10/25 03:30 A&P Assessment and plan 1. Methamphetamine abuse: 2. Chest pain: 3. HFrEF (heart failure with reduced ejection fraction): 4. Coronary artery disease involving [place] heart, unspecified vessel or lesion type, unspecified whether angina present: 5. Noncompliance: 6. Elevated troponin: Plan: - Possible unstable angina - chronically mild elevation of high sensitive troponin. Doubt patient had acute NSTEMI but with some new T wave inversions just demonstrated with get another troponin series - Has cough and SOB with laying back possibly from increased LVEDP from heart failure though no rales on exam or edema on CXR - CP improving with morphine - not giving nitro yet due to patient having headache - Lasix 40mg IV x 1 now - echo - lovenox 1mg /kg SC bid - continue home lsinopril and carvedilol - will need ischemic work up - cath versus lexiscan to be determined - can eat today - keep npo after midnight - asprinin 81mg daily - clopidogrel 75 mg daily - atorvastatin 80mg daily - had a long discussion with patient and his about medicine compliance and quiting meth use. They state willingness in these regards. PDMP PDMP Reviewed: Not Reviewed Coding Level of Care Code 17529 Diagnoses Methamphetamine abuse F15.10 Chest pain R07.9 HFrEF (heart failure with reduced ejection fraction) I50.20 Coronary artery disease involving [place] heart, unspecified vessel or lesion type, unspecified whether angina present I25.10 Associated angina: unspecified whether angina present Coronary Disease-Associated Artery/Lesion type: unspecified vessel or lesion type [place] vs. transplanted heart: [place] heart Noncompliance Z91.199 Elevated troponin R79.89
--- NOTE | 2025-07-10 11:38 | ECG_ITS ---
[facility] Test Date: 2025-07-10 Pat Name: Christian Sparks Department: Room: 102 Gender: Male Truck Jumper: : 1965 Requested By: Ayaz Willett Order Number: [id number] Jesús MD: Ayaz Willett M.D. Measurements Intervals [place] Rate: 82 P: 68 NC: 144 QRS: 47 QRSD: 86 T: 237 QT: 391 QTc: 459 Interpretive Statements SINUS RHYTHM WITH MARKED SINUS ARRHYTHMIA LEFT VENTRICULAR HYPERTROPHY AND ST-T CHANGE [VOLTAGE CRITERIA PLUS ST/T ABNORMALITY] MILD ST DEPRESSION AND T WAVE INVERSIONS, POSSIBLE ISCHEMIA Compared to ECG 07/10/2025 04:55:36 ST - T WAVE CHANGES ARE NEW Electronically Signed On 07-10-2025 14:24:11 DIAGNOSTIC ASSISTANT by Ayaz Willett M.D. [id number] [id number]
--- NOTE | 2025-07-10 12:05 | ECG_ITS ---
[employer] Test Date: 2025-07-10 Pat Name: Christian Sparks Department: Room: 102 Gender: Male Collateral Analyst: : 1965 Requested By: Ayaz Willett Order Number: [id number] Jesús MD: Ayaz Willett M.D. Measurements Intervals [place] Rate: 81 P: -37 CO: 129 QRS: 40 QRSD: 86 T: 237 QT: 419 QTc: 489 Interpretive Statements SINUS RHYTHM LEFT VENTRICULAR HYPERTROPHY AND ST-T CHANGE [VOLTAGE CRITERIA PLUS ST/T ABNORMALITY] ABNORMAL T WAVES, INFERIOR ND LATERAL LEADS, POSSIBLE ISCHEMIA Compared to ECG 07/10/2025 11:41:43 Sinus arrhythmia no longer present ST (T wave) deviation still present Electronically Signed On 07-10-2025 14:23:03 CURING MACHINE OPERATOR by Ayaz Willett M.D. [id number]
[2025-07-10 12:30] LABS: Troponin(5th) Baseline 25 ng/L (0-15)
[2025-07-10] MEDS: FUROsemide 10 mg/mL SDV 4mL 40 MG IVP (12:31)
--- NOTE | 2025-07-10 12:31 | USCV_ITS ---
Bridger Christian Age: 60 Gender: M : 1965 Exam Date: 07/10/2025 14:35 Ordering Phys: Ayaz Willett MD ([email or web address]) Technologist: Rah Francois Exam Location: [facility] [place] [facility] [place] Indication: cad BP: 118 / 71 HR: 81 Rhythm: Sinus Technical Quality: Adequate MEASUREMENTS (Male / Female) Normal Values 2D ECHO LV Diastolic Diameter PLAX 5.0 cm 4.2 - 5.9 / 3.9 - 5.3 cm IVS Diastolic Thickness 1.1 cm 0.6 - 1.0 / 0.6 - 0.9 cm IVS Systolic Thickness 0.8 cm LVPW Diastolic Thickness 1.1 cm 0.6 - 1.0 / 0.6 - 0.9 cm LVPW Systolic Thickness 1.5 cm LVOT Diameter 2.0 cm LV Ejection Fraction 2D Teich 46.2 % LV Ejection Fraction MOD 4C 49.2 % LV Ejection Fraction MOD 2C 45.3 % LV Ejection Fraction 2C AL 46.0 % LA Diameter 3.0 cm RA Systolic Volume 4C AL 33.4 ml RA Systolic Volume 4C MOD 33.1 ml LA Sys Volume AL 30.2 cm cubed LA Sys Volume Index AL 16.3 cm cubed/m squared Aorta at Sinotubular Diameter 2.2 cm IVC Diameter 1.3 cm M-MODE LA Ao Ratio MM 1.1 AV Cusp Separation MM 1.9 cm DOPPLER AV Peak Velocity 175.7 cm/s LVOT Peak Velocity 94.0 cm/s AV Area Cont Eq vti 2.1 cm squared AV Area Cont Eq pk 1.7 cm squared MV Peak Velocity 63.0 cm/s MV Area PHT 4.3 cm squared Mitral E to A Ratio 0.7 TR Peak Velocity 260.0 cm/s TR Peak Gradient 27.0 mmHg TR Mean Velocity 218.0 cm/s TR Mean Gradient 19.7 mmHg TR Velocity Time Integral 52.4 cm PV Peak Velocity 127.0 cm/s RV Ejection Time 0.2 s FINDINGS Left Ventricle Normal left ventricular cavity size. Moderately decreased left ventricular systolic function. Global hypokinesis most prominent in the mid and basal inferoseptal, inferior and anterior thayer. Left ventricular ejection fraction is estimated at 40-45%. Indeterminate left ventricular diastolic function due to lack of parameters but E/e' ratio mildly elevated conistent with increased LVEDP. Mild left ventricular hypertrophy. Right Ventricle Normal right ventricular size and systolic function. RVSP could not be calculated due to incomplete tricuspid regurgitation velocity profile. Right Atrium Normal right atrial size. Left Atrium Normal left atrial size. IA Septum Normal appearance of the interatrial septum. Mitral Valve Normal mitral valve structure. No mitral valve stenosis or regurgitation. Aortic Valve Normal aortic valve structure. No aortic valve stenosis or regurgitation. Tricuspid Valve Normal tricuspid valve structure and function. Pulmonic Valve Normal pulmonic valve structure. No pulmonic valve stenosis or regurgitation. Pericardium No pericardial effusion. Aorta Normal diameter of the aortic root and ascending thoracic aorta. IVC Normal IVC diameter. CONCLUSIONS Normal left ventricular cavity size. Moderately decreased left ventricular systolic function. Global hypokinesis most prominent in the mid and basal inferoseptal, inferior and anterior thayer. Left ventricular ejection fraction is estimated at 40-45%. Mild left ventricular hypertrophy. Indeterminate left ventricular diastolic function due to lack of parameters, but E/e' ratio mildly elevated conistent with increased LVEDP. Normal right ventricular size and systolic function. No significant valvular abnormalities. Ayaz Willett MD, FACC (Electronically Signed) Final Date: 10 July 2025 18:18 S
[2025-07-10 12:53] LABS: Troponin 5 2HR 25.50 ng/L (0-15)
[2025-07-10 12:55] LABS: Troponin 5 2HR Delta 0.50 ABS# (0-10)
--- NOTE | 2025-07-10 14:02 | ECG_ITS ---
[employer] Test Date: 2025-07-10 Pat Name: Christian Sparks Department: Room: 102 Gender: Male Ski Patrol Officer: EVELIO: 1965 Requested By: Ayaz Willett Order Number: [id number] Jesús MD: Ayaz Willett M.D. Measurements Intervals [place] Rate: 87 P: 75 SC: 144 QRS: 45 QRSD: 81 T: 214 QT: 398 QTc: 479 Interpretive Statements SINUS RHYTHM WITH FREQUENT SUPRAVENTRICULAR PREMATURE COMPLEXES WITH OCCASIONAL ABBERANCY LEFT VENTRICULAR HYPERTROPHY AND ST-T CHANGE [VOLTAGE CRITERIA PLUS ST/T ABNORMALITY] POSSIBLE INFEROLATERAL ISCHEMIA Compared to ECG 07/10/2025 12:06:30 ABBERANT BEATS ARE NEW SUPRAVENTRICULAR ECTOPIC BEATS STILL PRESENT Electronically Signed On 07-10-2025 17:06:20 FOOD AND BEVERAGE ANALYST by Ayaz Willett M.D. [id number]
--- NOTE | 2025-07-10 15:51 | P.PN_ITS ---
Subjective 2 Subjective: the patient was seen in the morning, and reported that he was having URTI like symptoms before the admission and then started having chest pain. he was also mild sob which was worsening on lying flat, and seems like drowning associated with cough. Patient was reporting mild chest pain, and when EKG was repeated during conversation with the patient, there were some new T wave inversion in the lateral leads. Vitals/I&O/Wt Last Vital Signs Temp 97.9 F 07/10/25 11:17 Pulse 80 07/10/25 15:20 Resp 23 H 07/10/25 15:20 BP 106/72 07/10/25 15:20 Pulse Ox 92 07/10/25 15:20 O2 Del Method Room Air 07/10/25 15:20 07/10/25 07/10/25 07/10/25 06:59 14:59 22:59 Intake Total 103.569 / 103.569 468.034 / 468.034 Output Total 200 / 200 400 / 400 Balance -96.431 / -96.431 68.034 / 68.034 Weight last 48 hrs Weight 73.2 kg Weight 73.2 kg Weight 74.843 kg Physical Exam 2 Narrative: General: Alert and oriented, was able to sit, however when he was lying on his back and was having active cough, mild productive of clear phlegm HEENT: Normocephalic, atraumatic, grossly unremarkable exam Cardio: normal rate rhythm, normal S1-S2 without any murmurs, rubs, or gallops and JVD normal Respiratory: normal vascular breathing on auscultation without any wheezes, stridor, rhonchi GI: Abdomen soft, nontender, nondistended, normoactive bowel sounds present all 4 quadrants, Neuro: intact cranial nerves motor and sensory and cerebellar/coordination function without any focal neurological deficit Behavior: Appropriate and cooperative Extremities: Adequate palpable pulses, pitting edema bilaterally Data 07/10/25 03:30 07/10/25 03:30 A&P Assessment and plan 1. ACS (acute coronary syndrome): - cardiology consulted and to follow the recommendations - - Has cough and SOB with laying back possibly from increased LVEDP from heart failure though no rales on exam or edema on CXR - CP improving with morphine - not giving nitro yet due to patient having headache - Lasix 40mg IV x 1 now - echo - lovenox 1mg /kg SC bid - continue home lsinopril and carvedilol - will need ischemic work up - cath versus lexiscan to be determined. - keep npo after midnight - asprinin 81mg daily - clopidogrel 75 mg daily - atorvastatin 80mg daily - telemetry - monitor hemodynamics 2. Coronary artery disease involving [place] heart, unspecified vessel or lesion type, unspecified whether angina present: - patient had h/o CAD: [facility] 04/10/2023: 1. Moderate left main stenosis. IVUS is non-significant. Medical therapy. 2. Non-ischemic cardiomyopathy. 3. Moderate left ventricular systolic dysfunction. Ejection fraction of 35%. - Rest of the plan as mentioned above and to continue on DAPT along with lovenox full dose anticoagulation 3. HFrEF (heart failure with reduced ejection fraction): Fu echo lasix 40mg iv daily hold if the BP is less than 100 systolic or MAP is less than 65mmhg 4. S/P lumbar laminectomy: adequate analgesia based on pain scale 5. Chronic obstructive pulmonary disease, unspecified COPD type: Cont duoneb as scheduled Resp viral patient monitor pulse O2 6. Methamphetamine abuse: adequate emphasis provided for drug abuse abstinence and future complications involving his heart including [place], cardiac arrest and 7. Tobacco use: Nicotine patch 40 mg daily Adequate counseling provided for abstinence from smoking To follow-up with the primary care physician at the time of discharge 8. Hypertension: Patient blood pressure more or less in the normal range, continue home lisinopril 5 mg daily and carvedilol 3.125 mg twice daily 9. Migraine: Analgesics as per the pain scale Avoid nitrates to aggravate migraine attacks If the patient headache resolved then consider as needed nitrates for chest pain 10. Stage 3 chronic kidney disease, unspecified whether stage 3a or 3b CKD: Patient kidney functions at baseline at the moment, to continue to monitor daily Monitoring and correction of electrolytes accordingly PDMP PDMP Reviewed: Not Reviewed Attestations 2 Medical Necessity Statement*: the patient will stay more than 2 midnights for the management of his ACS and optimization Time Spent in Patient Care: 16 - 35 minutes (>than 50% of time sp ent in counselling and/or direct pt care on unit) . Other Attestations: Patient condition has been discussed at length with the patient/family, I have independently reviewed the chart labs imaging/diagnostics/EKG. the goals of care and code status with the patient/family/NOK/legal unit support representative, and documented accordingly. The management has been done according to the current clinical condition with respect to patient goals of care and based on recommendations/guidelines. The patient/family has been informed about the current condition and further plan of care. Agreed with the plan of care and understood without any language barrier. Every effort was made to ensure accuracy of wafer fab technician. Any obvious errors or omissions should be clarified with the author of the document. Coding Level of Care Code 12328 Diagnoses ACS (acute coronary syndrome) I24.9 Coronary artery disease involving [place] heart, unspecified vessel or lesion type, unspecified whether angina present I25.10 Associated angina: unspecified whether angina present Coronary Disease-Associated Artery/Lesion type: unspecified vessel or lesion type [place] vs. transplanted heart: lovelock heart HFrEF (heart failure with reduced ejection fraction) I50.20 S/P lumbar laminectomy Z98.890 Chronic obstructive pulmonary disease, unspecified COPD type J44.9 COPD type: unspecified COPD Methamphetamine abuse F15.10 Tobacco use Z72.0 Hypertension I10 Migraine G43.909 Stage 3 chronic kidney disease, unspecified whether stage 3a or 3b CKD N18.30 Chronic kidney disease stage 3 subtype: unspecified whether 3a or 3b
[2025-07-10 16:28] LABS: Thyroid Stimulating Hormone 1.13 uIU/mL (0.27-4.20)
[2025-07-10 16:37] LABS: Troponin 5 6HR 32.01 ng/L (0-15); Troponin 5 6HR Delta 7.01 ng/L (0-12)
[2025-07-10 16:54] LABS: Estmated Average Glucose 111; Hemoglobin A1C 5.5 % (4.0-6.0)
--- NOTE | 2025-07-10 18:18 | ECG_ITS ---
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 Measurements Intervals [place] Rate: 84 P: 71 LA: 150 QRS: 50 QRSD: 84 T: 238 QT: 412 QTc: 490 Interpretive Statements SINUS RHYTHM LEFT VENTRICULAR HYPERTROPHY ST DEVIATION AND MODERATE T-WAVE ABNORMALITY, CONSIDER ANTEROLATERAL ISCHEMIA [-0.1+ mV T-WAVE IN I/aVL/V5/V6] Compared to ECG 07/10/2025 14:02:46 Possible ischemia still present Electronically Signed On 07-11-2025 12:08:30 NEEDLE SETTER by Ayaz Willett M.D. [email or web address]
--- NOTE | 2025-07-10 18:46 | PC.NURSE ---
Physician orders: Stop lovenox pending angiogram
[2025-07-10] MEDS: alum-mag-hydroxide-sime 30 mL UDC PO (23:57)
[2025-07-11] VITALS (47 sets, daily range): BP systolic 95–153; BP diastolic 74–101; PULSE 63–89; RESP 14–23; TEMP 36.3–36.8; O2SAT 91–97
[2025-07-11 02:31] LABS: Hematocrit 46.6 % (37-53); Hemoglobin 15.50 g/dL (11.27-16.99); Mean Corpuscular HGB Conc 33.3 g/dL (30-55); Mean Corpuscular Hemoglobin 29.9 pg (27-33); Mean Corpuscular Volume 89.8 fl (82-101); Nucleated Red Blood Cells % 0 %; Platelet Count 314 10^3/cmm (157-399); Red Blood Count 5.19 10^6/uL (3.85-5.65); White Blood Count 11.93 10^3/uL (3.29-11.43)
[2025-07-11 02:53] LABS: Alanine Aminotransferase 15 U/L (0-41); Albumin Level 3.8 g/dL (3.5-5.2); Alkaline Phosphatase 104 U/L (40-130); Anion Gap 15.4 (5-19); Aspartate Amino Transferase 14 U/L (0-40); Blood Urea Nitrogen 38 mg/dL (8-23); Calcium 8.3 mg/dL (8.5-10.5); Carbon Dioxide 30 mmol/L (22-29); Chloride 96 mmol/L (98-107); Globulin 2.7 g/dL (1.3-4.6); Glucose 165 mg/dL (65-115); Magnesium 2.0 mg/dL (1.7-2.3); Osmolality Calculated 299 mOsm/kg (285-295); Potassium 3.4 mmol/L (3.5-5.1); Sodium 138 mmol/L (136-145); Total Protein 6.5 g/dL (6.6-8.7)
[2025-07-11] MEDS: morphine 4 mg/mL SDV 1 mL 2 MG IVP ×2 (05:59→16:23)
--- NOTE | 2025-07-11 07:38 | W.PM.OPSUD ---
Surgery/Procedure H&P Update DATE OF PROCEDURE: July 11, 2025 DATE H&P PERFORMED: 07/10/25 H&P UPDATE INFORMATION: I have reviewed H&P completed within last 30 days, I have examined patient prior to procedure and No changes to prior documentation PREOP DIAGNOSIS: Worsening angina PRIMARY INDICATION FOR PROCEDURE: Worsening angina PLANNED PROCEDURE: Left heart cath with possible percutaneous coronary intervention PATIENT REASSESSED PRIOR TO SEDATION, WITH NO CHANGE NOTED: Yes PHYSICAL EXAM: alert, oriented x 3, clear to auscultation bilaterally and regular rate & rhythm AIRWAY EVAL/ANESTHESIA PLAN: normal airway, ASA III, Local Anesthesia, Risks, benefits & alternatives of sedation and/or procedure discussed and Patient agrees to continue as planned ADDITIONAL INFORMATION: Moderate sedation
--- NOTE | 2025-07-11 07:49 | PC.NURSE ---
2320- Patient c/o indigestion and requesting another nicotine patch. Dr. Herbert notified and MD to place orders.
--- NOTE | 2025-07-11 07:56 | PM.PROC ---
Procedure Note: Date of procedure: 07/11/25 Pre-procedure diagnosis: Worsening angina Post-procedure diagnosis: other (Non-obstructive coronary artery disease) Procedure: Left main artery has mild 20 to 30% disease. Left anterior descending artery, left circumflex artery and RCA are patent with mild luminal irregularities. Aggressive medical therapy Performing Provider: Gatito Del Toro Complications: None Condition: stable Disposition: floor Coding Level of Care Code Acute Code for Zoë Fwbrannon
[2025-07-11 08:06] LABS: Coronavirus 229E,HKU1,NL63,OC4 Not Detected (NOT DETECT); Parainfluenza Virus Type 1 Not Detected (NOT DETECT); Parainfluenza Virus Type 2 Not Detected (NOT DETECT); Parainfluenza Virus Type 3 Not Detected (NOT DETECT); Parainfluenza Virus Type 4 Not Detected (NOT DETECT); SARS-COV-2 Not Detected (NOT DETECT)
--- NOTE | 2025-07-11 08:17 | PC.NURSE ---
patient arrived back on the floor at 0805 from clinical lab scientist. TR band in place with 13ml of air in place. patient resting comfortably.
--- NOTE | 2025-07-11 13:19 | P.PN_ITS ---
Subjective 2 Subjective: the patient was seen in the morning, status post cath and no significant chronic artery stenosis requiring stenting, patient had left main with 20 to 30% occlusion suggestive of mild disease Enterovirus positive on labs review Mild hypokalemia correction given Patient had mild JOO likely post contrast? And on fluids Vitals/I&O/Wt Last Vital Signs Temp 97.6 F 07/11/25 11:03 Pulse 69 07/11/25 11:03 Resp 18 07/11/25 11:03 BP 153/93 07/11/25 11:03 Pulse Ox 95 07/11/25 11:03 O2 Del Method Room Air 07/11/25 11:03 07/10/25 07/11/25 07/11/25 22:59 06:59 14:59 Intake Total 480 / 948.034 360 / 1308.034 480 / 480 Output Total 200 / 600 200 / 800 Balance 280 / 348.034 160 / 508.034 480 / 480 Weight last 48 hrs Weight 73.391 kg Weight 73.255 kg Weight 73.2 kg Weight 73.2 kg Weight 74.843 kg Physical Exam 2 Narrative: General: Alert and oriented, patient was sleeping post cath, TR band on the right wrist status post cath. No hematoma seen, patient breathing comfortably. HEENT: Normocephalic, atraumatic, grossly unremarkable exam Cardio: normal rate rhythm, normal S1-S2 without any murmurs, rubs, or gallops and JVD normal Respiratory: normal vascular breathing with equal air entry and mild diffuse wheezes without any stridor or rhonchi GI: Abdomen soft, nontender, nondistended, normoactive bowel sounds present all 4 quadrants, Neuro: intact cranial nerves motor and sensory and cerebellar/coordination function without any focal neurological deficit Behavior: Appropriate and cooperative Extremities: Adequate palpable pulses, pitting edema bilaterally Data 07/11/25 02:18 07/11/25 02:18 A&P Assessment and plan 1. ACS (acute coronary syndrome): - cardiology consulted and recommendation appreciated - S/p cath, did not show significant chronic artery disease requiring stenting and for aggressive medical therapy - Echo showed ejection fraction of 40 to 45%, for detailed report refer to the echo - lovenox 1mg /kg SC bid - continue home lsinopril and carvedilol. - asprinin 81mg daily - clopidogrel 75 mg daily - atorvastatin 80mg daily - telemetry - monitor hemodynamics 2. Enteroviral infection: Start the patient on ceftriaxone and azithromycin for possible superimposed atypical pneumonia Continue DuoNebs Monitor continuous pulse ox Monitor hemodynamics 3. History of atrial fibrillation: Patient has been on Eliquis 5 mg twice daily with a past medical history of atrial fibrillation To reconcile the medication at the time of discharge with Eliquis 5 mg twice daily along with Plavix to continue Cardiology follow-up at the time of discharge 4. Acute kidney injury superimposed on CKD: Possible underlying contrast exposure leading to mild JOO on the top of CKD Continue hydration with fluids Adequate intake and output monitoring Avoid nephrotoxic medications and Lasix for the meantime Follow-up renal functions tomorrow along with electrolytes 5. Stage 3 chronic kidney disease, unspecified whether stage 3a or 3b CKD: Patient kidney functions at baseline at the moment, to continue to monitor daily Monitoring and correction of electrolytes accordingly 6. Chronic obstructive pulmonary disease, unspecified COPD type: Cont duoneb as scheduled Resp viral panel showed enteroviral infection monitor pulse O2 7. Coronary artery disease involving [place] heart, unspecified vessel or lesion type, unspecified whether angina present: - patient had h/o CAD: [facility] 04/10/2023: 1. Moderate left main stenosis. IVUS is non-significant. Medical therapy. 2. Non-ischemic cardiomyopathy. 3. Moderate left ventricular systolic dysfunction. Ejection fraction of 35%. - Rest of the plan as mentioned above and to continue on DAPT along with lovenox full dose anticoagulation 8. HFrEF (heart failure with reduced ejection fraction): Echo showed ejection fraction of 40 to 45% Hold Lasix considering JOO hold if the BP is less than 100 systolic or MAP is less than 65mmhg 9. S/P lumbar laminectomy: adequate analgesia based on pain scale 10. Methamphetamine abuse: adequate emphasis provided for drug abuse abstinence and future complications involving his heart including [place], cardiac arrest and 11. Tobacco use: Nicotine patch 40 mg daily Adequate counseling provided for abstinence from smoking To follow-up with the primary care physician at the time of discharge 12. Hypertension: Patient blood pressure more or less in the normal range, continue home lisinopril 5 mg daily and carvedilol 3.125 mg twice daily 13. Migraine: Analgesics as per the pain scale Avoid nitrates to aggravate migraine attacks If the patient headache resolved then consider as needed nitrates for chest pain PDMP PDMP Reviewed: Not Reviewed Attestations 2 Medical Necessity Statement*: Patient will stay overnight for management of ACS, JOO on CKD and enteroviral infection Time Spent in Patient Care: 16 - 35 minutes (>than 50% of time sp ent in counselling and/or direct pt care on unit) . Other Attestations: Patient condition has been discussed at length with the patient/family, I have independently reviewed the chart labs imaging/diagnostics/EKG. the goals of care and code status with the patient/family/NOK/legal collections representative, and documented accordingly. The management has been done according to the current clinical condition with respect to patient goals of care and based on recommendations/guidelines. The patient/family has been informed about the current condition and further plan of care. Agreed with the plan of care and understood without any language barrier. Every effort was made to ensure accuracy of wax pourer. Any obvious errors or omissions should be clarified with the author of the document. Coding Level of Care Code Acute Code for g Fwd Diagnoses ACS (acute coronary syndrome) I24.9 Enteroviral infection B34.1 History of atrial fibrillation Z86.79 Acute kidney injury superimposed on CKD N17.9; N18.9 Stage 3 chronic kidney disease, unspecified whether stage 3a or 3b CKD N18.30 Chronic kidney disease stage 3 subtype: unspecified whether 3a or 3b Chronic obstructive pulmonary disease, unspecified COPD type J44.9 COPD type: unspecified COPD Coronary artery disease involving [place] heart, unspecified vessel or lesion type, unspecified whether angina present I25.10 Coronary Disease-Associated Artery/Lesion type: unspecified vessel or lesion type [place] vs. transplanted heart: [place] heart Associated angina: unspecified whether angina present HFrEF (heart failure with reduced ejection fraction) I50.20 S/P lumbar laminectomy Z98.890 Methamphetamine abuse F15.10 Tobacco use Z72.0 Hypertension I10 Migraine G43.909
[2025-07-11] MEDS: cefTRIAXone 1,000 mg SDV 1000 MG IVP (15:08)
--- NOTE | 2025-07-11 20:51 | PC.NURSE ---
Physician Notification Per dayshift hospitalist, pt is cleared to be transferred to [facility].
--- NOTE | 2025-07-11 22:50 | XRR_ITS ---
PROCEDURE INFORMATION: Exam: XR Chest Exam date and time: 07/11/2025 11:56 PM Age: 60 years old Clinical indication: Cough and wheezing; Cough with wheezing TECHNIQUE: Imaging protocol: Radiologic exam of the chest. Views: 1 view. COMPARISON: CR (CHEST, ) 07/09/2025 8:51 PM FINDINGS: Lungs: No focal consolidation or other acute appearing pulmonary opacity. Calcified granulomas within the lung cruz. Pleural spaces: No pleural effusion or pneumothorax noted. Heart/Mediastinum: There is no cardiomegaly. Bones/joints: No acute osseous abnormality. Postop changes in the left shoulder. Intraperitoneal space: There is no free intraperitoneal gas. XR/XR chest 1V portable [id number] IMPRESSION: No acute findings.
--- NOTE | 2025-07-11 23:03 | PC.NURSE ---
Report called to Calvin MATHUR on [facility]. All patients belongings gathered and sent with patient. at bedside and SERVICENOW ADMINISTRATOR DEVELOPER to transport patient upstairs. Also notified Dr. Herbert regarding wheezing and SOB during assessment. Discussed labs, lasix admin, and other assessment findings. MD to place orders and RN to notified when CXR is taken.
[2025-07-12] VITALS (7 sets, daily range): BP systolic 124–127; BP diastolic 79–84; PULSE 65–98; RESP 15–18; TEMP 36.6–36.9; O2SAT 90–96
[2025-07-12] MEDS: morphine 4 mg/mL SDV 1 mL 2 MG IVP (00:16)
[2025-07-12 04:59] LABS: Hematocrit 47.7 % (37-53); Hemoglobin 15.40 g/dL (11.27-16.99); Mean Corpuscular HGB Conc 32.3 g/dL (30-55); Mean Corpuscular Hemoglobin 29.9 pg (27-33); Mean Corpuscular Volume 92.6 fl (82-101); Nucleated Red Blood Cells % 0 %; Platelet Count 281 10^3/cmm (157-399); Red Blood Count 5.15 10^6/uL (3.85-5.65); White Blood Count 7.97 10^3/uL (3.29-11.43)
[2025-07-12 05:22] LABS: Alanine Aminotransferase 14 U/L (0-41); Albumin Level 3.6 g/dL (3.5-5.2); Alkaline Phosphatase 89 U/L (40-130); Anion Gap 11.2 (5-19); Aspartate Amino Transferase 13 U/L (0-40); Blood Urea Nitrogen 27 mg/dL (8-23); Calcium 8.4 mg/dL (8.5-10.5); Carbon Dioxide 28 mmol/L (22-29); Chloride 105 mmol/L (98-107); Globulin 2.6 g/dL (1.3-4.6); Glucose 88 mg/dL (65-115); Osmolality Calculated 293 mOsm/kg (285-295); Potassium 5.2 mmol/L (3.5-5.1); Sodium 139 mmol/L (136-145); Total Protein 6.2 g/dL (6.6-8.7)
--- NOTE | 2025-07-12 10:00 | PC.CHAP ---
Pastoral Care Encounter/Spiritual Assessment Type of Contact [] Declined supervisor joiners visit [] Patient/Family/Request visit [] Outpatient visit [] Follow-up visit [] Physician referral [] Code/Alert [x] Routine visit [] Staff referral [] Actively dying [] Patient sleeping [] Family support [] [] Out of room [] Palliative care [] [] Receiving care in room [] Pre-surgical visit [] Trauma [] Long length of stay [] ICU visit [] Other: Relational/Emotional Strength [] Patient feels connected with others/family/visitors/staff [] Distress [] Loneliness/isolation [] Abandonment Spirituality of Patient [] Person of [place] [] Attends Religious of their [place] [] Believes in Prayer [] Reads Bible or Mormon materials [] There are Spiritual issues to be addressed Preforms Laminator Interventions [x] Prayer [] Active listening [] Non-anxious presence [] Spiritual/emotional support [] Crisis/trauma care [] Spiritual counseling [] Bereavement support [] Provided bereavement packet [] Provided Bible/devotional materials [] Provided toy/stuffed animal, coloring book to patient or family member [] Provided Communion [] Anointing/[place] [] Salvation [] Completed spiritual assessment [] Other: Impact on Illness or Injury [] Angry [] Fearful [] Anxious [] Often cries [] Exhaustion [] Unable to work [] Unable to attend orthodox [] Unable to walk/stand [] Unable to read [] Unable to drive [] Unable to eat/drink [] Unable to sleep [] Unable to be with family [] Patient intubated [] Other: Summary precaution Time spent with patient
--- NOTE | 2025-07-12 10:01 | PC.SOCIAL ---
IMM Updated Updated pt on IMM. No questions voiced. Provided pt a copy. Initialed, dated, & timed a copy & placed in chart.
--- NOTE | 2025-07-12 15:01 | P.DS_ITS ---
Discharge Providers Date of Admission: 07/10/25 16:32 Date of Discharge: July 12, 2025 Attending Provider at Admission: Talib Herbert MD Attending Provider at Discharge: Rosey Rivera MD Primary Care Provider: Nano Cohen DO Diagnoses at Discharge Discharge Diagnosis 1. ACS (acute coronary syndrome): 2. Enteroviral infection: 3. History of atrial fibrillation: 4. Acute kidney injury superimposed on CKD: 5. Stage 3 chronic kidney disease, unspecified whether stage 3a or 3b CKD: 6. Chronic obstructive pulmonary disease, unspecified COPD type: 7. Coronary artery disease involving [place] heart, unspecified vessel or lesion type, unspecified whether angina present: 8. HFrEF (heart failure with reduced ejection fraction): 9. S/P lumbar laminectomy: 10. Methamphetamine abuse: 11. Tobacco use: 12. Hypertension: 13. Migraine: Reason for Visit Reason for Visit: CP sob headache Brief History: As per the admitting physician and the previous retrospective notes: Christian Sparks is a 60 year old male with a history significant for methamphetamine use, CAD, HFrEF(EF 32% 02/2024), and COPD, who presents with complaints of chest pain, shortness of breath, and headaches. He states the issues began 2-3 day prior to presentation when he was shopping and preparing for Thanksgiving with family. He describes a pressure-like sensation to the central chest which is constant. He also mentions he has trouble laying flat, telling me he feels as if he is drowning when doing so. He has tried theraflu and mucinex which helped his symptoms somewhat. He feels like cold weather makes his symptoms worse. Of note, in the ED, he says SL nitroglycerin helped. There is radiation of the chest pain to the neck he tells me. He endorses subjective fevers and cough. No recent weight changes or swelling. He is a current methamphetamine user with his last use about 1 week ago. He uses about once per week. He also endorses palpitations. It should also be noted he has not used any of his prescribed medications over the past month because he ran out and has not be able to get refills. Hospital Course Hospital Course During patient hospital course cardiology was consulted. The patient underwent cath and there was no concerning coronary artery disease lesion that required stenting. The patient was also found to have enteroviral infection based on his history of upper respiratory tract infection like symptoms. The patient was having mild wheezing and shortness of breath and is known to have COPD who ran out of his inhalers from last 1 to 2 months and could not get refills because of his insurance issues. He was started on nebulization and broad-spectrum antibiotics to cover for any COPD exacerbation or atypical pneumonia. Pre-cath the patient was kept on initially enoxaparin twice daily and aspirin and Plavix. Post cath based on the patient history of atrial fibrillation in the past, it was reasonable to keep him on Eliquis 5 mg twice daily and Plavix to continue with follow-up with the cardiology as outpatient. High-dose statins were also prescribed. He was also counseled to abstain from methamphetamine use. Also counseled about smoking cessation and nicotine patch was provided as inpatient. He also had mild migraine that also resolved with analgesics as inpatient further medications for GDMT were added. Echo was done and it showed ejection fraction of 40 to 45%. He also had mild JOO which was related to mild exposure to contrast and resolved later on. Postdischarge adequate referrals were provided. Appropriate medications were provided for his comorbidities. Medication were reconciled after confirmation. Patient stability was established and was proceeded with discharge accordingly. Patient condition has been discussed at length with the patient/family, I have independently reviewed the chart labs imaging/diagnostics/EKG. the goals of care and code status with the patient/family/NOK/legal software support representative, and documented accordingly. The management has been done according to the current clinical condition with respect to patient goals of care and based on recommendations/guidelines. The patient/family has been informed about the current condition and further plan of care. Agreed with the plan of care and understood without any language barrier. Every effort was made to ensure accuracy of government instructor. Any obvious errors or omissions should be clarified with the author of the document. Physical Exam Narrative: General: Alert and oriented, lying without discomfort and at room air no hematoma seen at the right wrist of cath approach, patient breathing comfortably. HEENT: Normocephalic, atraumatic, grossly unremarkable exam Cardio: normal rate rhythm, normal S1-S2 without any murmurs, rubs, or gallops and JVD normal Respiratory: normal vascular breathing with equal air entry and mild diffuse wheezes without any stridor or rhonchi but is much better and patient at room air GI: Abdomen soft, nontender, nondistended, normoactive bowel sounds present all 4 quadrants, Neuro: intact cranial nerves motor and sensory and cerebellar/coordination function without any focal neurological deficit Behavior: Appropriate and cooperative Extremities: Adequate palpable pulses, mild trace pedal edema bilaterally Discharge Data Studies Completed and Pending Completed Studies During Hospitalization Category Date Time Status CXRP [XR chest 1V portable [id number]] Routine Exams 07/11/25 22:50 Completed XR chest 1V portable [id number] Stat Exams 07/09/25 20:48 Completed CV. echo complete* [id number] Routine Ultrasound 07/10/25 12:31 Completed Pending at discharge Category Date Time Status DIRECTOR CUSTOMER request for service Routine Exams 07/11/25 07:30 Taken Radiology Impressions Chest X-Ray 07/11/25 22:50 IMPRESSION: No acute findings. Laboratory Results WBC 7.97 10^3/uL (3.29-11.43) 07/12/25 04:21 RBC 5.15 10^6/uL (3.85-5.65) 07/12/25 04:21 Hgb 15.40 g/dL (11.27-16.99) 07/12/25 04:21 Hct 47.7 % (37-53) 07/12/25 04:21 MCV 92.6 fl (82-101) 07/12/25 04:21 MCH 29.9 pg (27-33) 07/12/25 04:21 MCHC 32.3 g/dL (30-55) 07/12/25 04:21 RDW 13.2 % (12.1-15.1) 07/12/25 04:21 Plt Count 281 10^3/cmm (157-399) 07/12/25 04:21 MPV 10.6 fL (7.4-10.4) H 07/12/25 04:21 Neut % (Auto) 54.1 % 07/12/25 04:21 Lymph % (Auto) 33.0 % 07/12/25 04:21 [place] % (Auto) 7.8 % 07/12/25 04:21 Eos % (Auto) 3.5 % 07/12/25 04:21 Baso % (Auto) 0.8 % 07/12/25 04:21 Neut # (Auto) 4.32 10^3/uL (1.8-7.7) 07/12/25 04:21 Lymph # (Auto) 2.6 10^3/uL (0.8-4.8) 07/12/25 04:21 [place] # (Auto) 0.6 10^3/uL (0.2-0.9) 07/12/25 04:21 Eos # (Auto) 0.3 10^3/uL (0.0-0.8) 07/12/25 04:21 Baso # (Auto) 0.1 10^3/uL (0.0-0.1) 07/12/25 04:21 Nucleated RBC % (auto) 0 % 07/12/25 04:21 Nucleated RBCs # 0.0 /100WBC 07/12/25 04:21 APTT 48.3 SECONDS (23.9-36.7) H 07/10/25 10:23 Sodium 139 mmol/L (136-145) 07/12/25 04:21 Potassium 5.2 mmol/L (3.5-5.1) H 07/12/25 04:21 Chloride 105 mmol/L (98-107) 07/12/25 04:21 Carbon Dioxide 28 mmol/L (22-29) 07/12/25 04:21 Anion Gap 11.2 (5-19) 07/12/25 04:21 BUN 27 mg/dL (8-23) H 07/12/25 04:21 Creatinine 1.4 mg/dL (0.7-1.2) H 07/12/25 04:21 GFR Calculation 51.5 mL/min (90-130) L 07/12/25 04:21 Glucose 88 mg/dL (65-115) 07/12/25 04:21 Estimat Average Glucose 111 07/10/25 03:30 Hemoglobin A1c 5.5 % (4.0-6.0) 07/10/25 03:30 Calculated Osmolality 293 mOsm/kg (285-295) 07/12/25 04:21 Calcium 8.4 mg/dL (8.5-10.5) L 07/12/25 04:21 Magnesium 2.0 mg/dL (1.7-2.3) 07/11/25 02:18 Total Bilirubin 0.2 mg/dL (0.15-1.2) 07/12/25 04:21 AST 13 U/L (0-40) 07/12/25 04:21 ALT 14 U/L (0-41) 07/12/25 04:21 Alkaline Phosphatase 89 U/L (40-130) 07/12/25 04:21 Troponin T Baseline 25 ng/L (0-15) H 07/10/25 10:23 Troponin T 120 Minute 25.50 ng/L (0-15) H 07/10/25 12:21 Delta Troponin T 0.50 ABS# (0-10) 07/10/25 12:21 Troponin T Hi Sens 6Hr 32.01 ng/L (0-15) H 07/10/25 16:06 Troponin T Hi Sens 6Hr Delta 7.01 ng/L (0-12) 07/10/25 16:06 NT-Pro-B Natriuret Pep 79912 pg/mL (0-125) H 07/09/25 20:49 Total Protein 6.2 g/dL (6.6-8.7) L 07/12/25 04:21 Albumin 3.6 g/dL (3.5-5.2) 07/12/25 04:21 Globulin 2.6 g/dL (1.3-4.6) 07/12/25 04:21 Triglycerides 79 mg/dL (0-150) 07/10/25 03:30 Cholesterol 177 mg/dL (0-200) 07/10/25 03:30 LDL Cholesterol, Calc 109 mg/dL (50-129) 07/10/25 03:30 HDL Cholesterol 52 mg/dL (60-100) L 07/10/25 03:30 LDL/HDL Ratio 2.10 RATIO (0.00-3.22) 07/10/25 03:30 Cholesterol/HDL Ratio 3.40 mg/dL (1.0-5.00) 07/10/25 03:30 TSH 1.13 uIU/mL (0.27-4.20) 07/10/25 12:21 Adenovirus (PCR) Not detected (NOT DETECT) 07/11/25 06:03 C. pneumoniae DNA (PCR) Not detected (NOT DETECT) 07/11/25 06:03 Coronavirus 229E (PCR) Not detected (NOT DETECT) 07/11/25 06:03 Human Metapneumovir PCR Not detected (NOT DETECT) 07/11/25 06:03 Influenza A (H1) PCR Not detected (NOT DETECT) 07/11/25 06:03 Influenza A (PCR) Negative (Negative) 07/09/25 20:56 Influ A (H1/09) PCR Not detected (NOT DETECT) 07/11/25 06:03 Influenza A (H3) PCR Not detected (NOT DETECT) 07/11/25 06:03 Influenza Type A (PCR) Not detected (NOT DETECT) 07/11/25 06:03 Influenza Type B (PCR) Not detected (NOT DETECT) 07/11/25 06:03 M. pneumoniae (PCR) Not detected (NOT DETECT) 07/11/25 06:03 Parainfluenza 1 (PCR) Not detected (NOT DETECT) 07/11/25 06:03 Parainfluenza 2 (PCR) Not detected (NOT DETECT) 07/11/25 06:03 Parainfluenza 3 (PCR) Not detected (NOT DETECT) 07/11/25 06:03 Parainfluenza 4 (PCR) Not detected (NOT DETECT) 07/11/25 06:03 RSV (PCR) Negative (Negative) 07/09/25 20:56 RSV Type A (PCR) Not detected (NOT DETECT) 07/11/25 06:03 RSV Type B (PCR) Not detected (NOT DETECT) 07/11/25 06:03 Entero/Rhino (PCR) Detected (NOT DETECT) A 07/11/25 06:03 SARS-CoV-2 (PCR) Not detected (NOT DETECT) 07/11/25 06:03 Vitals Last Vital Signs Temp 98.4 F 07/12/25 13:56 Pulse 98 07/12/25 13:56 Resp 16 07/12/25 13:56 BP 124/84 07/12/25 13:56 Pulse Ox 92 07/12/25 13:56 O2 Del Method Room Air 07/12/25 11:06 Discharge Plan Discharge Patient Disposition: Home Condition: Stable Prescriptions: New amoxicillin-pot clavulanate [Augmentin] 500-125 mg tablet 1 tab PO Q8H 5 Days Qty: 15 0RF atorvastatin 40 mg Tablet 80 mg PO BEDTIME Qty: 90 0RF clopidogrel 75 mg Tablet 75 mg PO DAILY 90 Days Qty: 90 0RF spironolactone 25 mg Tablet 12.5 mg PO DAILY Qty: 90 0RF alum-mag hydroxide-simeth [Mag-Al Plus] 200-200-20 mg/5 mL Suspension 30 ml PO Q15M PRN (Reason: Indigestion) 90 Days Qty: 3000 0RF pantoprazole 40 mg tablet,delayed release (DR/EC) 40 mg PO DAILY Qty: 90 0RF Stiolto Respimat 2.5-2.5 mcg/actuation mist 2 inh inhalation DAILY Qty: 4 0RF Continued furosemide 40 mg tablet 40 mg PO DAILY 30 Days Qty: 60 0RF Patient Comments: Per patient is suppose to take twice but only takes once. Rx Instructions: Further refills need to come from primary care or cardiology carvedilol 3.125 mg tablet 3.125 mg PO BID Qty: 60 0RF Rx Instructions: must administer with a meal/food nitroglycerin 0.4 mg tablet, sublingual 0.4 mg sublingual Q5M PRN (Reason: chest pain) 30 Days Qty: 30 0RF Rx Instructions: do not exceed 3 doses per episode lisinopril 5 mg tablet 5 mg PO DAILY Qty: 30 0RF Eliquis 5 mg tablet 5 mg PO BID Qty: 60 0RF albuterol sulfate 90 mcg/actuation aero powdr breath act w/sensor 1 inh inhalation Q6H PRN (Reason: shortness of breath or wheezing) Qty: 1 0RF Patient Comments: Per patient they (medicaid) wont cover it . 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 If you have not heard from them within the next 2 business days, please call them directly. Jennifer Carson MD [Physician, Pulmonology] - 07/16/25 10:30 am Referral Note: h/o COPD and non compliant to the inhalers due to lack of insurance We have notified your physician's clinic of the need for a follow-up appointment to be scheduled. If you have not heard from them within the next 2 business days, please call them directly. Ayaz Willett MD [Physician, Cardiology] - 07/28/25 1:00 pm Referral Note: post discharge follow up case of ACS Discharge Diet: Usual diet, Cardiac and Low Salt Discharge Activity: Resume usual activity Patient Instructions: Spironolactone (By mouth), Amoxicillin/Clavulanate Potassium (By mouth) (Augmentin, Augmentin..., Atorvastatin (By mouth), Clopidogrel (By mouth) (Plavix), Pantoprazole (By mouth), Tiotropium/Olodaterol (By breathing) (Stiolto Respimat), Hypertension, How to Stop Smoking (DC), Acute Kidney Injury (DC), Acute Coronary Syndrome (DC), Heart Catheterization (DC), Opioid Safety, Post Angiogram Home Care Instructions, Patient Portal & Kwame Instructions Discharge Attestations Time Spent in Discharge Care*: greater than 30 min Specific Discharge Activities: educating patient, educating and/or supporting family/caregiver, discussing with pcp/other providers, discussing with corrections caseworker/social workers/dc planners, documenting/other paperwork and evaluating patient/reviewing data Time Spent in Smoking Cessation: 3 to 10 minutes Status at Discharge: Cognitive status at discharge: cognitively intact , Behavioral status at discharge: cooperative , Functional status at discharge: independent ambulation , Overall status at discharge: patient is back to baseline Quality Metrics Clinical Quality Measures [ No reported AMI, CVA or VTE this stay] Coding Level of Care Code 70580 Diagnoses ACS (acute coronary syndrome) I24.9 Enteroviral infection B34.1 History of atrial fibrillation Z86.79 Acute kidney injury superimposed on CKD N17.9; N18.9 Stage 3 chronic kidney disease, unspecified whether stage 3a or 3b CKD N18.30 Chronic kidney disease stage 3 subtype: unspecified whether 3a or 3b Chronic obstructive pulmonary disease, unspecified COPD type J44.9 COPD type: unspecified COPD Coronary artery disease involving [place] heart, unspecified vessel or lesion type, unspecified whether angina present I25.10 Associated angina: unspecified whether angina present Coronary Disease-Associated Artery/Lesion type: unspecified vessel or lesion type [place] vs. transplanted heart: [place] heart HFrEF (heart failure with reduced ejection fraction) I50.20 S/P lumbar laminectomy Z98.890 Methamphetamine abuse F15.10 Tobacco use Z72.0 Hypertension I10 Migraine G43.909
== END 2025-07-12 14:02 | disposition home or self-care (01) | DRG 286 ==
LOC: ER 22:58 → ER IP 23:52 → CSU 23:55 → MEDSURG 07-11 23:29
PROVIDERS: Internal Medicine; Internal Medicine Cardiovascular Disease; Admitting Provider Family Medicine; Emergency Provider Physician Assistant; PCP Family Medicine; Visit Provider Student in an Organized Health Care Education/Training Program
PROC: 4A023N7 Measurement of Cardiac Sampling and Pressure, Left Heart, Percutaneous Approach (ICD-10-PCS; principal; 2025-07-11 07:00)
DX: R07.9 Chest pain, unspecified (principal); I50.23 Acute on chronic systolic (congestive) heart failure; N17.9 Acute kidney failure, unspecified; I13.0 Hypertensive heart and chronic kidney disease with heart failure and stage 1 through stage 4 chronic kidney disease, or unspecified chronic kidney disease; B97.10 Unspecified enterovirus as the cause of diseases classified elsewhere; I48.91 Unspecified atrial fibrillation; T50.8X5A Adverse effect of diagnostic agents, initial encounter; N18.30 Chronic kidney disease, stage 3 unspecified; J44.9 Chronic obstructive pulmonary disease, unspecified; I25.10 Atherosclerotic heart disease of native coronary artery without angina pectoris; F15.10 Other stimulant abuse, uncomplicated; F17.200 Nicotine dependence, unspecified, uncomplicated; G43.909 Migraine, unspecified, not intractable, without status migrainosus; E87.6 Hypokalemia; Z79.02 Long term (current) use of antithrombotics/antiplatelets; Z79.01 Long term (current) use of anticoagulants; Z98.1 Arthrodesis status; Z91.128 Patient's intentional underdosing of medication regimen for other reason
CPT/HCPCS: 36415; 71045; 80048; 80053; 80061; 83036; 83735; 83880; 84443; 84484; 85025; 85730; 87486; 87581; 87633; 87637; 93005; 93306; 93458; 94640; 96365; 96366; 96372; 96375; 99152; 99153; 99285; C1769; C1887; C1894; G0378; J0456; J0696; J1200; J1644; J1650; J1938; J2250; J2270; J2919; J3010; J3490; J7030; J7050; J9999; Q9967